=== PATIENT | male | born 1945 | race Caucasian/White ===

== ENCOUNTER 2021-12-29 13:36 | Outpatient (CLI) | payer MEDICARE, SELFPAY ==
[2021-12-29 12:19] LABS: Abs Immature Grans 0.02 10^3/uL (0.0-0.06); Absolute Basophil Count 0.02 10^3/uL (0.0-0.2); Absolute Eosinophil Count 0.07 10^3/uL (0.0-0.7); Absolute Lymphocyte Count 1.72 10^3/uL (1.2-3.4); Absolute Monocyte Count 0.51 10^3/uL (0.1-0.8); Absolute Neutrophil Count 4.11 10^3/uL (1.2-6.7); Basophils % 0.3; Eosinophils % 1.1; HCT 33.9 % (40.0-50.0); Immature Grans % 0.3; Lymphocytes % 26.7; MCH 29.8 pg (27.0-33.0); MCHC 32.4 % (32.0-36.0); MCV 92 fL (80-95); MPV 8.8 fL (8.0-11.0); Monocytes % 7.9; Neutrophils % 63.7; Platelet Count 314 10^3/uL (130-400); RBC 3.69 10^6/uL (4.36-5.78); RDW 13.4 % (11.8-14.1); WBC 6.45 10^3/uL (4.4-10.8)
[2021-12-29 12:30] LABS: ALT 11 U/L (16-63); AST 9 U/L (15-37); Alkaline Phosphatase 125 U/L (46-116); Anion Gap 6.8 mmol/L (3-11); BUN 21 mg/dL (7-18); Bilirubin, Total 0.2 mg/dL (0.2-1.0); CO2 29.2 mmol/L (21.0-32.0); CREATININE 1.5 mg/dL (0.70-1.30); Calcium 8.8 mg/dL (8.5-10.1); Chloride 100 mmol/L (98-107); Estimated GFR 45.26 (mL/min/1.73m2); Glucose 160 mg/dL (74-106); Magnesium 1.4 mg/dL (1.8-2.4); Sodium 136 mmol/L (136-145)
== END 2021-12-29 13:37 | disposition home or self-care (01) ==
LOC: LBO 13:37
PROVIDERS: PCP Family Medicine; Visit Provider Internal Medicine Medical Oncology
DX: C34.12 Malignant neoplasm of upper lobe, left bronchus or lung (principal)
CPT/HCPCS: 36415; 80053; 83735; 85025

== ENCOUNTER 2022-01-06 03:43 | Outpatient (CLI) | payer MEDICARE, SELFPAY ==
[2022-01-06 08:01] LABS: Abs Immature Grans 0.03 10^3/uL (0.0-0.06); Absolute Basophil Count 0.02 10^3/uL (0.0-0.2); Absolute Eosinophil Count 0.02 10^3/uL (0.0-0.7); Absolute Lymphocyte Count 0.77 10^3/uL (1.2-3.4); Absolute Monocyte Count 0.31 10^3/uL (0.1-0.8); Absolute Neutrophil Count 3.47 10^3/uL (1.2-6.7); Basophils % 0.4; Eosinophils % 0.4; HCT 30.2 % (40.0-50.0); HGB 10.4 g/dL (13.5-17.5); Immature Grans % 0.6; Lymphocytes % 16.7; MCH 31.3 pg (27.0-33.0); MCHC 34.4 % (32.0-36.0); MCV 91 fL (80-95); MPV 9.4 fL (8.0-11.0); Monocytes % 6.7; Neutrophils % 75.2; Platelet Count 262 10^3/uL (130-400); RBC 3.32 10^6/uL (4.36-5.78); RDW-SD 43.1 fL; WBC 4.62 10^3/uL (4.4-10.8)
[2022-01-06 08:19] LABS: ALT 10 U/L (16-63); AST 9 U/L (15-37); Albumin 2.8 g/dL (3.4-5.0); Alkaline Phosphatase 138 U/L (46-116); Anion Gap 10.5 mmol/L (3-11); BUN 23 mg/dL (7-18); Bilirubin, Total 0.3 mg/dL (0.2-1.0); CO2 28.5 mmol/L (21.0-32.0); CREATININE 1.7 mg/dL (0.70-1.30); Calcium 8.4 mg/dL (8.5-10.1); Chloride 97 mmol/L (98-107); Estimated GFR 39.18 (mL/min/1.73m2); Glucose 228 mg/dL (74-106); Magnesium 0.9 mg/dL (1.8-2.4); Potassium 3.8 mmol/L (3.5-5.1); Sodium 136 mmol/L (136-145); Total Protein 6.9 g/dL (6.4-8.2)
== END 2022-01-06 03:44 | disposition home or self-care (01) ==
LOC: LBO 03:43
PROVIDERS: PCP Family Medicine; Visit Provider Internal Medicine Medical Oncology
DX: C34.12 Malignant neoplasm of upper lobe, left bronchus or lung (principal)
CPT/HCPCS: 36415; 80053; 83735; 85025

== ENCOUNTER 2022-01-12 02:59 | Outpatient (CLI) | payer MEDICARE, SELFPAY | END 2022-01-12 03:00 | disposition home or self-care (01) | LOC: LBO 03:00 | PROVIDERS: PCP Family Medicine; Visit Provider Internal Medicine Medical Oncology ==

== ENCOUNTER 2022-01-13 08:57 | Outpatient (CLI) | payer MEDICARE, SELFPAY ==
[2022-01-13 09:09] LABS: Abs Immature Grans 0.01 10^3/uL (0.0-0.06); Absolute Basophil Count 0.01 10^3/uL (0.0-0.2); Absolute Eosinophil Count 0.01 10^3/uL (0.0-0.7); Absolute Monocyte Count 0.29 10^3/uL (0.1-0.8); Absolute Neutrophil Count 2.44 10^3/uL (1.2-6.7); Basophils % 0.3; Eosinophils % 0.3; HCT 23.5 % (40.0-50.0); HGB 7.8 g/dL (13.5-17.5); Immature Grans % 0.3; Lymphocytes % 20.2; MCH 30.5 pg (27.0-33.0); MCHC 33.2 % (32.0-36.0); MCV 92 fL (80-95); MPV 9.1 fL (8.0-11.0); Monocytes % 8.4; Neutrophils % 70.5; RBC 2.56 10^6/uL (4.36-5.78); RDW 13.2 % (11.8-14.1); RDW-SD 43.8 fL; WBC 3.46 10^3/uL (4.4-10.8)
[2022-01-13 09:23] LABS: Diff Comment Diff Reviewed; Hypochromasia 2+; Platelet Count 203 10^3/uL (130-400); Polychromasia Present
[2022-01-13 09:26] LABS: ALT 11 U/L (16-63); AST 8 U/L (15-37); Albumin 2.4 g/dL (3.4-5.0); Alkaline Phosphatase 113 U/L (46-116); Anion Gap 12.1 mmol/L (3-11); BUN 23 mg/dL (7-18); Bilirubin, Total 0.3 mg/dL (0.2-1.0); CO2 25.9 mmol/L (21.0-32.0); CREATININE 1.6 mg/dL (0.70-1.30); Calcium 8.6 mg/dL (8.5-10.1); Chloride 101 mmol/L (98-107); Estimated GFR 42.01 (mL/min/1.73m2); Glucose 273 mg/dL (74-106); Magnesium 1.4 mg/dL (1.8-2.4); Sodium 139 mmol/L (136-145); Total Protein 6.3 g/dL (6.4-8.2)
== END 2022-01-13 08:58 | disposition home or self-care (01) ==
PROVIDERS: Internal Medicine Medical Oncology; PCP Family Medicine; Visit Provider Nurse Practitioner Adult Health
DX: C34.12 Malignant neoplasm of upper lobe, left bronchus or lung (principal)
CPT/HCPCS: 36415; 80053; 86850; 86900; 86901; 86920; 83735; 85025

== ENCOUNTER 2022-01-19 02:03 | Outpatient (CLI) | payer MEDICARE, SELFPAY ==
--- OUTSIDE RECORDS SUMMARY | 2022-01-19 02:07 | XMS_ITS | Encounter Summary ---
:1945 Author Organization [facility] [place] [address] Care Team Providers Name Role Phone Que Sharma DO Primary Care Provider Reason for Visit Reason Comments IV Medication Hydration + IV mag Encounter Details Date Type Department Care Team Description 01/13/2022 Infusion Hematology Oncology at [facility] squamous cell [facility] carcinoma of upper lobe of [address] left lung [place] [phone] Social History Tobacco Use Types Packs/Day Years Used Date Current Every Day Smoker Cigars 0.5 65 Smokeless Tobacco: Never Used Comments: cut back to 4-5 /day Alcohol Use Standard Drinks/Week Comments Not Currently 0 (1 standard drink = 0.6 oz pure alcoho l) Financial Resource Strain Answer Date Recorded How hard is it for you to pay for the very basics like Somew hat hard 12/17/2021 food, housing, medical care, and heating? Food Insecurity Answer Date Recorded Within the past 12 months, you worried that your food Never true 12/17/2021 would run out before you got money to buy more. Within the past 12 months, the food you bought just Patient refused 12/17/2021 didn't last and you didn't have money to get more. Transportation Needs Answer Date Recorded In the past 12 months, has lack of transportation kept you f rom No 12/17/2021 medical appointments or from getting medications? In the past 12 months, has lack of transportation kept you f rom No 12/17/2021 meetings, work, or getting things needed for daily living? Housing Stability Answer Date Recorded In the last 12 months, was there a time when you were not ab le No 12/17/2021 to pay the mortgage or rent on time? In the last 12 months, how many places have you lived? 2 12/17/2021 In the last 12 months, was there a time when you did not hav e a No 12/17/[address] or slept in a senior living (including now)? Sex Assigned at Date Recorded Not on file documented as of this encounter Last Filed Vital Signs Vital Sign Reading Time Taken Comments Blood Pressure 127/64 01/13/2022 9:50 AM EDT Pulse 123 01/13/2022 9:50 AM EDT Temperature 36.5 ??C (97.7 ??F) 01/13/2022 9:50 AM EDT Respiratory Rate 20 01/13/2022 9:50 AM EDT Oxygen Saturation 99% 01/13/2022 9:50 AM EDT Inhaled Oxygen Concentration - - Weight 80.3 kg (177 lb) 01/13/2022 9:50 AM EDT Height 172 cm (5' 7.72) 01/13/2022 9:50 AM EDT Body Mass Index 27.14 01/13/2022 9:50 AM EDT documented in this encounter Patient Instructions Patient InstructionsCaity Allred RN - 01/13/2022 10:00 AM EDT You will have an infusion of hydration and magnesium here at the cancer center today. Then you will have your radiation treatment. Then please go to [facility] outpatient lab to have your blood drawn again and a band put on your arm. Please leave this band on, they will need it so you can get your blood transfusion tomorrow. Please go to [facility] infusion room on the second floor of the hospital tomorrow morning at 9am. They will give you your blood transfusion. Come to the cancer center when you are done your blood transfusion and you will have your radiation treatment. documented in this encounter Progress Notes Breanna Gutierrez RN - 01/13/2022 10:00 AM EDT INFUSION THERAPY ADMINISTRATION NOTES DIAGNOSIS: NSCLC REASON FOR VISIT: Hydration + IV Mag SUBJECTIVE Don reports feeling lightheaded today. Hg 7.8, Dr. Issa notified, holding chemo today. He states he fell on Wednesday and was evaluated in the ED at [facility] on Wednesday. Don denies hematuria, blood in his stool, abdominal pain, chest pain, or changes in his breathing. Hydration and IV mag only today. OBJECTIVE IV ACCESS: Left hand PIV REACTIONS (DESCRIPTION, TIME, INTERVENTION AND EFFECTIVENESS) none ASSESSMENT Don was awake, alert and tolerated treatment well. PLAN Return to [facility] this afternoon for type and screen, blood transfusion at [facility] tomorrow. documented in this encounter Plan of Treatment Upcoming Encounters Date Type Specialty Care Team Description 01/19/2022 Office Visit Tanvir Vivas MD [facility] HEMATOLOGY/[place] [address] Arlene Hill APRN [facility] HEMATOLOGY [place] [address] 01/19/2022 Infusion Hematology and Oncology 01/19/2022 Scheduled View Only Radiation Oncology 01/20/2022 Scheduled View Only Radiation Oncology 01/21/2022 Scheduled View Only Radiation Oncology 01/22/2022 Scheduled View Only Radiation Oncology 01/22/2022 Office Visit Radiation Oncology Adriana De La Rosa v, MD [address] [place] [address] [place] [address] (Wo rk) 01/23/2022 Scheduled View Only Radiation Oncology 01/26/2022 Office Visit Tanvir Vivas MD [facility] HEMATOLOGY/[place] [address] Oncology Arlene Bobby APRN [facility] HEMATOLOGY [place] [address] 01/26/2022 Infusion Hematology and Oncology 01/26/2022 Scheduled View Only Radiation Oncology 01/27/2022 Scheduled View Only Radiation Oncology 01/28/2022 Scheduled View Only Radiation Oncology 01/29/2022 Scheduled View Only Radiation Oncology 01/29/2022 Office Visit Radiation Oncology Adriana De La Rosa v, MD [address] [place] [address] DR CIPRIANO [place], [place] [id number] (Wo rk) 01/30/2022 Scheduled View Only Radiation Oncology 02/02/2022 Office Visit Hematology and Arlene Bobby, Oncology [facility] HEMATOLOGY AND ONCOLOGY [place], [place] [address] (Wo rk) 02/02/2022 Infusion Hematology and Oncology 02/02/2022 Scheduled View Only Radiation Oncology 02/03/2022 Scheduled View Only Radiation Oncology 02/04/2022 Scheduled View Only Radiation Oncology 02/05/2022 Scheduled View Only Radiation Oncology 02/05/2022 Office Visit Radiation Oncology Adriana De La Rosa v, MD [address] [place] [address] DR CIPRIANO [place], [place] [id number] (Wo rk) 02/06/2022 Scheduled View Only Radiation Oncology 02/09/2022 Office Visit Hematology and Arlene Bobby, Oncology [facility] HEMATOLOGY AND ONCOLOGY [place], [place] [address] (Wo rk) 02/09/2022 Infusion Hematology and Oncology 02/09/2022 Scheduled View Only Radiation Oncology 02/09/2022 Notes Only Radiation Oncology Adriana De La Rosa v, MD [address] [place] [address] DR CIPRIANO [place], [place] [address] (Wo rk) 02/10/2022 Scheduled View Only Radiation Oncology Scheduled Orders Name Type Priority Associated Diagnoses Order S chedule Type and screen Lab Routine Primary squamous cell Exp ected: 01/13/2022, ([facility] [place]) carcinoma of upper lobe of Expires: 07/15/2022 left lung documented as of this encounter Visit Diagnoses Diagnosis 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 documented in this encounter Administered Medications Inactive Administered Medications - up to 3 most recent administrations Medication Order MAR Action Action Date Dose Rate Site magnesium sulfate 2 g in New Bag 01/13/2022 10:30 AM EDT 2 g 25 mL/hr sterile water 50 mL infusion 2 g, Intravenous, ONCE, 1 dose, On Wed01/13/22 at 1015, Administer over 120 Minutes, 1gm per hour - total 2 gms sodium chloride 0.9% infusion New Bag 01/13/2022 10:30 AM EDT 500 mL/hr 500 mL/hr 500 mL/hr, Intravenous, CONTINUOUS, Starting on Wed01/13/22 at 1015, Until Wed01/13/22 at 1656, Please infuse 1 L of normal saline over 2 hours documented in this encounter Care Teams Fire Protection Engineering Technician Relationship Specialty Start Date End Date Que Sharma DO PCP - General Family Medicine 02/08/20 [address] [place] [address] documented as of this encounter
--- OUTSIDE RECORDS SUMMARY | 2022-01-19 02:07 | XMS_ITS | Encounter Summary ---
:1945 Author Organization [facility] [place] [address] Care Team Providers Name Role Phone Que Sharma DO Primary Care Provider Encounter Details Date Type Department Care Team Description 01/08/2022 Office Visit Radiation Oncology at [facility] squamous cell [facility] carcinoma of upper [address] [place] [address] DR lobe of left lung [place], [place] RADIATION ONCOL OGY [id number] [place], [place] [phone] (Wo rk) Social History Tobacco Use Types Packs/Day Years [...] Sign Reading Time Taken Comments Blood Pressure 114/54 01/08/2022 3:57 PM EDT Pulse 117 01/08/2022 3:57 PM EDT Temperature 36.5 ??C (97.7 ??F) 01/08/2022 3:00 PM EDT Respiratory Rate 32 01/08/2022 3:00 PM EDT Oxygen Saturation 100% 01/08/2022 3:00 PM EDT Inhaled Oxygen Concentration - - Weight 79.8 kg (176 lb) 01/08/2022 3:00 PM EDT Height - - Body Mass Index 26.98 01/06/2022 8:31 AM EDT documented in this encounter Progress Notes Bill De La Rosa MD - 01/08/2022 4:00 PM EDT Images from the original note were not included. 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 Staging form: Lung, AJCC 8th Edition - Clinical: Stage IIB (cT3, cN0, cM0) - Signed by Bill De La Rosa MD on 12/16/2021 Treatment Details Intent: Definitive (Curative) Concurrent Therapy: Carbo/Taxol (from Dr Issa) ONCBCN ONCOLOGY (AMB) 12/29/2021 Day, Cycle Day 1, Cycle 1 CARBOplatin (Paraplatin) IV 144 mg PACLitaxeL (Taxol) IV 50 mg/m2/dose = 99 mg Modality: IMRT Treatment Site Left lung / chest wall Prescribed Dose 60 Gy in 30 fractions Current Dose: 14 Gy in 7 fractions (seen pre-treatment today) Platform Operations Director Barajas from Current Plan (minimum 60 Gy isodose volume shown): Interval Clinical Course General: No changes since last seen. Overall feels fair today. Lightheaded. Resp: No new cough / SOB. Ongoing dry cough per baseline. No esophagitis. Pain: Pain score today is 3/10 in his left shoulder. Yesterday he had no pain at all! Fentanyl 50mcg working well - not needing fentanyl. Tylenol 1000mg QHS as well. He is constipated. Performance Status KPS Score ECOG Grade Definition 90-100 0 Fully active, able to carry on all pre-disease performance without restriction 70-80 1 Restricted in physically strenuous activity but ambulatory and able to carry out work of a light or sedentary nature, e.g., light house work, office work XX 50-60 2 Ambulatory and capable of all selfcare but unable to carry out any work activities; up and about more than 50% of waking hours 30-40 3 Capable of only limited selfcare; confined to bed or chair more than 50% of waking hours 10-20 4 Completely disabled; cannot carry on any selfcare; totally confined to bed or chair Medications Medications 01/08/22 1566 Medication Sig Taking? pravastatin (PRAVACHOL) 40 mg Tablet Take 40 mg by mouth daily. Yes fentaNYL (Duragesic) 50 mcg/hr Patch 72 hr Change 1 patch on the skin every 3 days. Yes docusate sodium (Colace) 100 mg Capsule Take 100 mg by mouth as needed for Constipation. Yes benazepriL (LOTENSIN) 10 mg Tablet 30 mg. Yes benazepriL (LOTENSIN) 20 mg Tablet Take 20 mg by mouth daily. Yes acetaminophen (Tylenol) 500 mg Tablet Take 1,000 mg by mouth every 6 hours as needed for Pain. Yes metFORMIN (Glucophage) 500 mg Tablet Take 500 mg by mouth daily. Yes aspirin EC 81 mg Tablet, Delayed Release (E.C.) Daily. Yes ferrous sulfate 325 mg (65 mg iron) Tablet ferrous sulfate 325 mg (65 mg iron) tablet 1 tablet by mouth daily Yes furosemide (Lasix) 40 mg Tablet daily. Yes potassium chloride (MICRO-K) 10 mEq Capsule, Sustained Release TAKE 1 CAPSULE BY MOUTH EVERY DAY WHEN TAKING FUROSEMIDE Yes omeprazole (PriLOSEC) 20 mg Capsule, Delayed Release(E.C.) TAKE 1 CAPSULE BY MOUTH EVERY DAY Yes tamsulosin (Flomax) 0.4 mg Capsule nightly. Yes prochlorperazine (Compazine) 10 mg Tablet Take 1 tablet by mouth every 6 hours as needed for Nausea. Patient not taking: No sig reported ondansetron (Zofran) 8 mg Tablet Take 1 tablet by mouth every 8 hours as needed for Nausea. Do not use the first three days after infusion. Use compazine the first three days - then it is OK to use theOndansetron after that Patient not taking: No sig reported HYDROmorphone (Dilaudid) 4 mg Tablet Take by mouth as needed. albuteroL 90 mcg/actuation HFA Aerosol Inhaler USE 2 PUFFS 4 TIMES A DAY NEEDED 2 PUFFS EVERY 6 HOURS NEEDED FOR SHORTNESS OF BREATH/WHEEZING Exam Vitals: BP 123/58 Pulse (!) 112 Temp 36.5 ??C (97.7 ??F) Resp (!) 32 Wt 79.8 kg (176 lb) SpO2 100% BMI 26.98 kg/m?? General: Appears well, in no distress CV: Tachycardic but with regular rhythm. Imaging/Labs Interval setup imaging has been checked and approved. See [facility] for details. Impression/Plan Tolerance to radiotherapy: Tolerating as anticipated. Continue as planned. Tachycardia: Rec he hydrate and check in w PCP for EKG to be sure he is in sinus rhythm. I have also called and left a message for Dr Sharma. Followup: RTC for on-treatment assessment next week. No orders of the defined types were placed in this encounter. ??? [facility] [place] ([facility] ??? [employer] on Cancer (ACS [employer]) Accredited Cancer Program ??? [employer] ([employer]) Accredited Radiation Oncology Program documented in this encounter Plan of Treatment Upcoming Encounters Date Type Specialty Care Team Description 01/19/2022 Office Visit Hematology Tanvir Hawk MD [facility] HEMATOLOGY/[place] [address] Oncology Arlene Bobby APRN [facility] HEMATOLOGY [place] [address] 01/19/2022 Infusion Hematology and Oncology 01/19/2022 Scheduled View Only Radiation Oncology 01/20/2022 Scheduled View Only Radiation Oncology 01/21/2022 Scheduled View Only Radiation Oncology 01/22/2022 Scheduled View Only Radiation Oncology 01/22/2022 Office Visit Radiation Oncology Adriana De La Rosa v, MD [address] [place] [address] DR [place], [place] [id number] (Wo rk) 01/23/2022 Scheduled View Only Radiation Oncology 01/26/2022 Office Visit Hematology and Tanvir Issa MD [facility] HEMATOLOGY/[place] [address] Oncology Arlene Bobby DIRECTOR OF INFECTION PREVENTION [facility] HEMATOLOGY [place] [address] 01/26/2022 Infusion Hematology and Oncology 01/26/2022 Scheduled View Only Radiation Oncology 01/27/2022 Scheduled View Only Radiation Oncology 01/28/2022 Scheduled View Only Radiation Oncology 01/29/2022 Scheduled View Only Radiation Oncology 01/29/2022 Office Visit Radiation Oncology Adrinaa De La Rosa v, MD [address] [place] [address] DR [place], [place] [id number] (Wo rk) 01/30/2022 Scheduled View Only Radiation Oncology 02/02/2022 Office Visit Hematology Arlene Gordillo, Oncology [facility] HEMATOLOGY AND ONCOLOGY [place], [place] [address] (Wo rk) 02/02/2022 Infusion Hematology and Oncology 02/02/2022 Scheduled View Only Radiation Oncology 02/03/2022 Scheduled View Only Radiation Oncology 02/04/2022 Scheduled View Only Radiation Oncology 02/05/2022 Scheduled View Only Radiation Oncology 02/05/2022 Office Visit Radiation Oncology Adriana De La Rosa v, MD [address] [place] [address] RAD[place]ATION [place], [place] [address] (Wo rk) 02/06/2022 Scheduled View Only Radiation Oncology 02/09/2022 Office Visit Hematology and Arlene Bobby, Oncology [facility] HEMATOLOGY AND ONCOLOGY [place], [place] [address] (Wo rk) 02/09/2022 Infusion Hematology and Oncology 02/09/2022 Scheduled View Only Radiation Oncology 02/09/2022 Notes Only Radiation Oncology Adriana De La Rosa v, MD [address] [place] [address] [place], [place] [id number] (Wo rk) 02/10/2022 Scheduled View Only Radiation Oncology documented as of this encounter Visit Diagnoses Diagnosis 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
--- OUTSIDE RECORDS SUMMARY | 2022-01-19 02:07 | XMS_ITS | Clinical Summary ---
:1945 Author Organization [facility] [place] [address] Care Team Providers Name Role Phone Edith, Que Edmonds DO Primary Care Provider Allergies No known active allergies Medications Medication Sig Dispensed Refills Start Date End Date Status aspirin EC 81 mg Daily. 0 Act cheikh Tablet, Delayed Release (E.C.) ferrous sulfate 325 mg ferrous sulfate 325 mg (65 mg iron) tablet 0 Active (65 mg iron) Tablet 1 tablet by mouth daily furosemide (Lasix) 40 daily. 0 10/26/2019 Active mg Tablet potassium chloride TAKE 1 CAPSULE BY 0 10/06/2019 Active (MICRO-K) 10 mEq MOUTH EVERY DAY Capsule, Sustained WHEN TAKING Release FUROSEMIDE omeprazole (PriLOSEC) TAKE 1 CAPSULE BY 0 09/26/2019 Active 20 mg Capsule, Delayed MOUTH EVERY DAY Release(E.C.) tamsulosin (Flomax) 0.4 nightly. 0 12/25/2019 Active mg Capsule metFORMIN (Glucophage) Take 500 mg by 0 Active 500 mg Tablet mouth daily. acetaminophen (Tylenol) Take 1,000 mg by 0 Active 500 mg Tablet mouth every 6 hours as needed for Pain. HYDROmorphone Take by mouth as 0 12/09/2021 Active (Dilaudid) 4 mg Tablet needed. albuteroL 90 USE 2 PUFFS 4 0 09/19/2021 Ac tive mcg/actuation HFA TIMES A DAY Aerosol Inhaler NEEDED 2 PUFFS EVERY 6 HOURS NEEDED FOR SHORTNESS OF BREATH/WHEEZING benazepriL (LOTENSIN) 30 mg. 0 12/09/2021 Active 10 mg Tablet benazepriL (LOTENSIN) Take 20 mg by 0 11/14/2021 Active 20 mg Tablet mouth daily. docusate sodium Take 100 mg by 0 Active (Colace) 100 mg Capsule mouth as needed for Constipation. fentaNYL (Duragesic) 50 Change 1 patch on 10 patch 0 12/24/19 22 Active mcg/hr Patch 72 hr the skin every 3 days. prochlorperazine Take 1 tablet by 15 tablet 0 12/29/2021 Active (Compazine) 10 mg mouth every 6 Tablet hours as needed for Nausea. ondansetron (Zofran) 8 Take 1 tablet by 20 tablet 0 12/29/2021 Active mg Tablet mouth every 8 hours as needed for Nausea. Do not use the first three days after infusion. Use compazine the first three days - then it is OK to use the Ondansetron after that Additional Information Patient taking differently: 8 mg Oral EVERY 8 HOURS PRN, Nausea, Do not use the first three days after infusion. Use compazine the first three days - then it is OK to use the Ondansetron after that, Reported on 01/15/2022 pravastatin (PRAVACHOL) 40 mg Take 40 mg by mouth daily. 0 12/19/2021 Active Tablet Eliquis 5 mg Tablet Take 5 mg by mouth 2 times 0 03/2022 Active daily. magnesium oxide (Mag-Ox) 400 mg Take 1 tablet by mouth 2 0 01/10/2022 Active (241.3 mg magnesium) Tablet times daily. dilTIAZem CD (Cardizem CD) 120 mg Take 120 mg by mouth daily. 0 01/10/2022 Active Capsule, Sust. 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 12/11/2021 Cancer Staging: Clinical: Stage IIB (cT3 , cN0, cM0) - Signed by Bill De La Rosa MD on 12/16/2021 Bilateral carotid artery stenosis 02/14/2020 Overview: Added automatically from request for heidy terry [id number] Pre-op testing 02/14/2020 Overview: Added automatically from request for heidy terry [id number] Cigarette smoker 02/14/2020 Overview: Added automatically from request for heidy stewart [id number] Encounters Date Type Specialty Care Team Description 01/19/2022 Infusion Hematology and Oncology 01/15/2022 Office Visit Radiation Bill De La Rosa Primary squam ous Oncology MD Cheryl cell carcinoma of upper lobe of l eft lung 01/13/2022 Infusion Hematology and Primary squam ous Oncology cell carcinoma of upper lobe of l eft lung 01/13/2022 Telephone Hematology and Caity Allred Labs Only Oncology L, RN 01/12/2022 Office Visit Hematology and Tanvir Issa Primary sq uamous Oncology MD Siobhan cell carcinoma of Arlene Bobby 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, 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 01/08/2022 Office Visit Radiation Bill De La Rosa Primary squam ous Oncology MD Cheryl cell carcinoma of upper lobe of l eft lung 01/07/2022 Ancillary Procedure Radiation Bill De La Rosa Malign ant neoplasm Oncology MD Cheryl of upper lobe, left bronchus or efraín g 01/07/2022 Ancillary Appointment Radiation Bill De La Rosa Oncology MD Cheryl 01/06/2022 Infusion Hematology and Primary squam ous Oncology cell carcinoma of upper lobe of l eft lung 01/06/2022 Orders Only Hematology and Tanvir Issa Primary sq uamous Oncology MD Siobhna cell carcinoma of upper lobe of l eft lung 01/01/2022 Office Visit Radiation Bill De La Rosa Primary squam ous Oncology MD Cheryl cell carcinoma of upper lobe of l eft lung 01/01/2022 Orders Only Radiation Bill De La Rosa Primary squam ous Oncology MD Cheryl cell carcinoma of upper lobe of l eft lung 12/31/2021 Telephone Hematology and Iris Follow-up ( rst Oncology Elie, Neena cycle chemo.) M, RN 12/29/2021 Infusion Hematology and Primary squam ous Oncology cell carcinoma of upper lobe of l eft lung 12/29/2021 Clinical Support Hematology and Tanvir Issaar y squamous cell carcinoma of upper lobe of left lung; Oncology MD Siobhan Cigarette smoker; Arlene Bobby 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, 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[employer] 12/29/2021 Notes Only Hematology and Jennifer Haile, Oncology SERVICER [employer] 12/23/2021 Orders Only Radiation Bill De La Rosa MD 12/17/2021 Ancillary Appointment Radiation Bill De La Rosa MD 12/17/2021 Office Visit Radiation Bill De La Rosa Primary squam ous Oncology MD Cheryl cell carcinoma of upper lobe of l eft lung 12/17/2021 Notes Only Radiation Marilin Valentino Oncology Kathleen RN 12/17/2021 Notes Only Radiation Jennifer Haile, Oncology [employer] 12/16/2021 Multidisciplinary Care Thoracic Surgery Argentina Chung MD 12/11/2021 Office Visit Hematology and Tanvir Issa Primary sq uawyus Ruslan Mccann MD cell carcinoma of Leighann Herlinda, upper lobe o f left Jeannette MD Kathleen lung 12/11/2021 Office Visit Thoracic Surgery Sheldon, Primary squ aubreyous Matthew Mccann MD cell carcinoma of upper lobe of l eft lung 12/11/2021 Hospital Encounter Pulmonology Mass of u pper lobe of left lung 12/11/2021 Orders Only Radiation Bill De La Rosa Primary squam ous Oncology MD Cheryl cell carcinoma of upper lobe of l eft lung 12/09/2021 Telephone Thoracic Surgery Kajal Vidales Post Proce dure Call Kathleen RN 12/03/2021 Anesthesia Event Surgery Renea Leon MD Earley, Timothy M, DO 12/03/2021 Surgery Surgery MIGUEL Chung W Matthew Mccann MD ENDOBRONCHIAL ULTRASOUND (EBU S) GUIDED SAMPLING , 3+ NODES (WRVU 5.2 1) 12/03/2021 Hospital Encounter General Surgery Sheldon Mass o f upper lobe Matthew Mccann MD of left lung 12/03/2021 Hospital Encounter Hematology and Mass of upper lobe Oncology of left lung 12/03/2021 External Results Provider, Scanning 11/28/2021 Orders Only Thoracic Surgery Kajal Vidales RN 11/28/2021 Orders Only Hematology and Tasia Montaño Mass of up per lobe Oncology C, [employer] of left lung 11/27/2021 Clinical Support Primary Care Aden, Cigarette s moker; Gabrielle A Other tobacco p roduct nicotine dependence, uncomplicated 11/27/2021 Office Visit Thoracic Surgery Archie Chung of upp er lobe Matthew Mccann MD of left lung 11/27/2021 Hospital Encounter Lab 11/27/2021 Telephone Thoracic Surgery Valentin Benton German 11/21/2021 Orders Only Vascular Surgery Hossein, Bilateral c arotid artery stenosis; Ya Mccann CMA History of CE A (carotid endarterectomy) 11/20/2021 Telephone Pulmonology Holley Banuelos L 11/17/2021 Telephone Pulmonology Lakisha Holley L 11/14/2021 Transcribe Orders Primary Care Doretha Sharma ma lignant Que Edmonds, DO neoplasm of bronchus of lef t upper lobe 11/14/2021 Transcribe Orders Primary Care Edith, Malignant neoplasm Que Edmonds, DO of upper lobe bronchus, left 11/14/2021 Transcribe Orders Primary Care dEith Malignant neoplasm Que Edmonds, DO of upper lobe of left lung 11/12/2021 Ancillary Procedure Radiology Que Sharma, DO 10/20/2021 Ancillary Procedure Radiology Que Sharma, DO from Last 3 Months Family History Medical History Relation Comments Cancer Sister possibly stomach? Relation Status Comments Sister Social History Tobacco Use Types Packs/Day Years [...] place to sleep or slept in a snf (including now)? Sex Assigned at Date Recorded Not on file Last Filed Vital Signs Vital Sign Reading Time Taken Comments Blood Pressure 117/49 01/15/2022 2:00 PM EDT Pulse 100 01/15/2022 2:00 PM EDT Temperature 36.6 ??C (97.9 ??F) 01/15/2022 2:00 PM EDT Respiratory Rate 20 01/13/2022 9:50 AM EDT Oxygen Saturation 99% 01/13/2022 9:50 AM EDT Inhaled Oxygen Concentration - - Weight 81.2 kg (179 lb) 01/15/2022 2:00 PM EDT Height 172 cm (5' 7.72) 01/13/2022 9:50 AM EDT Body Mass Index 27.44 01/13/2022 9:50 AM EDT Plan of Treatment Upcoming Encounters Date Type Specialty Care Team Description 01/19/2022 Office Visit Hematology and Tanvir Issa MD [facility] [address] HEMATOLOGY/[place] [address] Oncology Arlene Bobby APRN [facility] [place] [address] 01/19/2022 Infusion Hematology and Oncology 01/19/2022 Scheduled View Only Radiation Oncology 01/20/2022 Scheduled View Only Radiation Oncology 01/21/2022 Scheduled View Only Radiation Oncology 01/22/2022 Scheduled View Only Radiation Oncology 01/22/2022 Office Visit Radiation Oncology Adriana De La Rosa v, MD [address] [place] [address] [place] [address] (Wo rk) 01/23/2022 Scheduled View Only Radiation Oncology 01/26/2022 Office Visit Hematology and Tanvir Issa MD [facility] [address] HEMATOLOGY/[place] [address] Oncology Arlene Bobby [facility] [place] [address] 01/26/2022 Infusion Hematology and Oncology 01/26/2022 Scheduled View Only Radiation Oncology 01/27/2022 Scheduled View Only Radiation Oncology 01/28/2022 Scheduled View Only Radiation Oncology 01/29/2022 Scheduled View Only Radiation Oncology 01/29/2022 Office Visit Radiation Oncology Adriana De La Rosa v, MD [address] [place] [address] [place] [address] (Wo rk) 01/30/2022 Scheduled View Only Radiation Oncology 02/02/2022 Office Visit Hematology and Arlene Bobby, Oncology [facility] HEMATOLOGY AND ONCOLOGY [place], [place] [address] (Wo rk) 02/02/2022 Infusion Hematology and Oncology 02/02/2022 Scheduled View Only Radiation Oncology 02/03/2022 Scheduled View Only Radiation Oncology 02/04/2022 Scheduled View Only Radiation Oncology 02/05/2022 Scheduled View Only Radiation Oncology 02/05/2022 Office Visit Radiation Oncology Adriana De La Rosa v, MD [address] [place] [address] [place] [address] (Wo rk) 02/06/2022 Scheduled View Only Radiation Oncology 02/09/2022 Office Visit Hematology and Arlene Bobby Oncology [facility] HEMATOLOGY AND ONCOLOGY [place], [place] [address] (Wo rk) 02/09/2022 Infusion Hematology and Oncology 02/09/2022 Scheduled View Only Radiation Oncology 02/09/2022 Notes Only Radiation Oncology Adriana De La Rosa v, MD [address] [place] [address] [place] [address] (Wo rk) 02/10/2022 Scheduled View Only Radiation Oncology Health Maintenance Due Date Last Done Comments Covid-19 Vaccine (#1) 09/23/1950 Pneumoccocal Vaccine: 65+ (1 - PCV) 09/23/1949 Hepatitis C Screening 09/23/1961 Tdap adult 09/23/1962 Tetanus vaccine 09/23/1962 Zoster vaccine (1 of 2) 09/23/1993 Advance Directive 09/23/1998 Influenza (Flu) vaccine (1 of 1 - Influenza standard 03/05/2022 series) Medical Devices Implanted Type Area Chemist Assistant Device Identifier Shelf Model / Expiration Serial / Date Lot Patch,Biol,Xenosure,.8x8cm ([id number]) - [id number] IMPLANTS Righ t: LEMAITRE [id number] 09/29/2025 E0.8P8 / Implanted: Qty: 1 on 03/19/2020 by Alee Sanders MD at [facility] [employer] - / LEIMAITRE [id number] Procedures Procedure Name Priority Date/Time Associated Comments Diagnosis ORDS - PROVIDER CARE 01/13/2022 12:00 SCAN AM EDT LAB SCAN 01/13/2022 12:00 Results for this AM EDT procedure are i n the results section. LAB SCAN 01/12/2022 12:00 Results for this AM EDT procedure are i n the results section. LAB SCAN 01/06/2022 12:00 Results for this AM EDT procedure are i n the results section. LAB SCAN 12/29/2021 12:00 Results for this AM EDT procedure are i n the results section. CT RAD ONC CHEST Routine 12/17/2021 12:33 Malignant neoplasm R esults for this INTERP ONLY PM EDT of upper lobe, left procedur e are in bronchus or lung the results section. PULMONARY FUNCTION Routine 12/11/2021 9:11 AM Mass of upper lo be Results for this TEST EDT of left lung procedure are i n the results section. BRONCHOSCOPY, WITH Routine 12/03/2021 4:22 PM Mass of upper lo be BIOPSY EDT of left lung NON-PRODUCTION ENGINEER FINAL REPORT Routine 12/03/2021 4:18 PM R esults for this EDT procedure are i n the results section. CYTOPATHOLOGY Routine 12/03/2021 4:18 PM Results for this NON-GYNECOLOGICAL EDT procedure are in the results section. SPECIMEN TO PATHOLOGY Routine 12/03/2021 4:14 PM Results for this EDT procedure are i n the results section. NON-PRODUCTION ENGINEER FINAL REPORT Routine 12/03/2021 3:58 PM R esults for this EDT procedure are i n the results section. CYTOPATHOLOGY Routine 12/03/2021 3:58 PM Results for this NON-GYNECOLOGICAL EDT procedure are in the results section. NON-PRODUCTION ENGINEER FINAL REPORT Routine 12/03/2021 3:50 PM R esults for this EDT procedure are i n the results section. CYTOPATHOLOGY Routine 12/03/2021 3:50 PM Results for this NON-GYNECOLOGICAL EDT procedure are in the results section. NON-PRODUCTION ENGINEER FINAL REPORT Routine 12/03/2021 3:36 PM R esults for this EDT procedure are i n the results section. CYTOPATHOLOGY Routine 12/03/2021 3:36 PM Results for this NON-GYNECOLOGICAL EDT procedure are in the results section. NON-PRODUCTION ENGINEER FINAL REPORT Routine 12/03/2021 3:25 PM R esults for this EDT procedure are i n the results section. CYTOPATHOLOGY Routine 12/03/2021 3:25 PM Results for this NON-GYNECOLOGICAL EDT procedure are in the results section. SURGICAL PATHOLOGY Routine 12/03/2021 3:21 PM Res ults for this REPORT EDT procedure are i n the results section. SPECIMEN TO PATHOLOGY Routine 12/03/2021 3:21 PM Results for this EDT procedure are i n the results section. BRONCHOSCOPY, WITH Yes 12/03/2021 3:00 PM Mass of upper lo be BIOPSY (WRVU 3.36) EDT of left lung BRONCH, W Yes 12/03/2021 3:00 PM Mass of upper lobe ENDOBRONCHIAL EDT of left lung ULTRASOUND (EBUS) GUIDED SAMPLING, 3+ NODES (WRVU 5.21) BRONCH, W Routine 12/03/2021 1:26 PM Mass of upper lobe ENDOBRONCHIAL EDT of left lung ULTRASOUND (EBUS) GUIDED SAMPLING, 3+ NODES DIFFERENTIAL, STAT 12/03/2021 11:11 Mass of upper lobe Resu lts for this AUTOMATED AM EDT of left lung procedure are i n the results section. HEMOGRAM STAT 12/03/2021 11:11 Mass of upper lobe Resul ts for this AM EDT of left lung procedure are i n the results section. COMPREHENSIVE STAT 12/03/2021 11:11 Mass of upper lobe Resu lts for this METABOLIC PANEL AM EDT of left lung procedure ar e in (NON-FASTING) the results section. HC LACTIC STAT 12/03/2021 11:11 Mass of upper lobe Resul ts for this DEHYDROGENASE AM EDT of left lung procedure are in the results section. HC CBC,PLT & AUTO DIFF STAT 12/03/2021 11:11 Mass of upper lobe AM EDT of left lung NON-PRODUCTION ENGINEER FINAL REPORT Routine 11/27/2021 11:21 Res ults for this AM EDT procedure are i n the results section. LAB SCAN 11/14/2021 12:00 Results for this AM EDT procedure are i n the results section. FILM LIBRARY STORAGE Routine 11/12/2021 12:00 Res ults for this ONLY MR HEAD AM EDT procedure are i n the results section. FILM LIBRARY STORAGE Routine 10/20/2021 12:00 Res ults for this ONLY NM PET/CT AM EDT procedure are in the results section. from Last 3 Months Results SCAN DOC: ORDS - PROVIDER CARE (01/13/2022 12:00 AM EDT) Narrative This result has an attachment that is no t available. Unknown MEDIA MGR SCAN EXT ORDR/RSLT SCAN DOC: LAB (01/13/2022 12:00 AM EDT)Only the most recent of5 resultswithin the time period is included. Narrative This result has an attachment that is no t available. Unknown MEDIA MGR SCAN EXT ORDR/RSLT CT Rad Onc Chest Interp Only (12/17/2021 12:33 PM EDT) Anatomical Region Laterality Modality Chest Computed Tomography Specimen (Source) Anatomical Location Collection Method / Collectio n Time Received Time / Laterality Volume Impressions 12/17/2021 1:49 PM EDT 1. ??Limited CT for radiation planning. 2. ??Similar appearance of large left up per lobe mass encasing and narrowing the left upper lobe bronchus. I have personally reviewed the image(s) and the resident's interpretation and agree with the findings, Edy Vega MD at 12/17/2021 1:49 PM Thank you for letting us participate in the care of this patient. ??If you are a health care provider and have any questi ons regarding this report, please contact the number below. ??For patients who have questions please contact the health cardiac care unit nurse that requested your imaging first. ? Electronically signed by: Edy Vega MD, [facility] ([phone]), at 12/17/2021 1:49 PM Narrative 12/17/2021 1:49 PM EDT EXAMINATION: CT RAD ONC CHEST INTERP ONLY CLINICAL HISTORY: 76M med inoperable smo ker T3N0 SqCCa TOAN TECHNIQUE: Limited CT without the use of oral or IV contrast enhancement, performed for the purposes of localizati on for radiation treatment. COMPARISON: PET/CT 10/20/2021 FINDINGS: Chest: Lungs and airways: Similar appearance of large consolidative left upper lobe mass encasing and narrowing the left upp er lobe bronchus. Few centrilobular emphysema. Unchanged small calcified gra nuloma in the left lower lobe.. Soft tissue structures: No mass or lymph adenopathy Heart, pleura, pericardium: No pleural o r pericardial effusion. Normal heart size. Coronary artery and aortic calcifi cations Abdomen/pelvis: Solid organs: Cholelithiasis. Atrophic l eft kidney. Unchanged small left adrenal adenoma. Bowel and mesentery: No obstructive or i nflammatory process Lymph nodes: No adenopathy Osseous structures: No suspicious lesion s Procedure Note Edy Vega MD - 12/17/2021Format ting of this note might be different from the original. EXAMINATION: CT RAD ONC CHEST INTERP ONL Y CLINICAL HISTORY: 76M med inoperable smo ker T3N0 SqCCa TOAN TECHNIQUE: Limited CT without the use of oral or IV contrast enhancement, performed for the purposes of localizati on for radiation treatment. COMPARISON: PET/CT 10/20/2021 FINDINGS: Chest: Lungs and airways: Similar appearance of large consolidative left upper lobe mass encasing and narrowing the left upp er lobe bronchus. Few centrilobular emphysema. Unchanged small calcified gra nuloma in the left lower lobe.. Soft tissue structures: No mass or lymph adenopathy Heart, pleura, pericardium: No pleural o r pericardial effusion. Normal heart size. Coronary artery and aortic calcifi cations Abdomen/pelvis: Solid organs: Cholelithiasis. Atrophic l eft kidney. Unchanged small left adrenal adenoma. Bowel and mesentery: No obstructive or i nflammatory process Lymph nodes: No adenopathy Osseous structures: No suspicious lesion s IMPRESSION 1. Limited CT for radiation planning. 2. Similar appearance of large left uppe r lobe mass encasing and narrowing the left upper lobe bronchus. I have personally reviewed the image(s) and the resident's interpretation and agree with the findings, Edy Vega MD at 12/17/2021 1:49 PM Thank you for letting us participate in the care of this patient. If you are a health care provider and have any questi ons regarding this report, please contact the number below. For patients w ho have questions please contact the health cardiac care unit nurse that requested your imaging first. Electronically signed by: Edy Vega MD, [facility] ([phone]), at 12/17/2021 1:49 PM Bill De La Rosa MD IMG OUTSIDE INTERPRETATION O RDERABLES Pulmonary Function Testing (12/11/2021 9:11 AM EDT) P athologist Signature FVC Actual 2.97 L COMPAS PFT Pre-BD FVC Pre-BD % of 84 % COMPAS PFT Predicted FVC Predicted 3.53 L COMPAS PFT FVC Pre-BD -0.95 COMPAS PFT Z-Score FVC Lower 2.56 L COMPAS PFT Limits of Normal FEV1 Actual 2.09 L COMPAS PFT Pre-BD FEV1 Pre-BD % 79 % COMPAS PFT of Predicted FEV1 Predicted 2.64 L COMPAS PFT FEV1 Pre-BD -1.15 COMPAS PFT Z-Score FEV1 Lower 1.85 L COMPAS PFT Limits of Normal FEV1 / FVC 70 % COMPAS PFT Actual Pre-BD FEV1/FVC Pre-BD -0.59 COMPAS PFT Z-Score FEV1 / FVC LLN 61 % COMPAS PFT [id number] Actual 1.32 L/s COMPAS PFT Pre-BD [id number] Pre-BD 68 % COMPAS PFT % of Predicted [id number] 1.94 L/s COMPAS PFT Predicted [id number] Pre-BD -0.78 COMPAS PFT Z-Score DLCO Hb Actual 12.40 mL/min/mmHg COMPAS PFT Pre-BD DLCO Hb Pre-BD 56 % COMPAS PFT % of Predicted DLCO Hb Pre-BD -2.87 COMPAS PFT Z-Score DLCO Hb 22.29 mL/min/mmHg COMPAS PFT Predicted DLCO [facility] ACT 11.39 mL/min/mmHg COMPAS PFT PRE-BD DLCO [facility] PRE-BD 51 % COMPAS PFT % of PRED DLCO [facility] PRE-BD -3.24 % COMPAS PFT Z-SCORE DLCO [facility] 22.29 mL/min/mmHg COMPAS PFT Predicted DLCO/VA Actual 2.52 mL/min/mmHg COMPAS PFT Pre-BD /L DLCO/VA Pre-BD 63 % COMPAS PFT % of Predicted DLCO/VA Pre-BD -2.33 COMPAS PFT Z-Score DLCO/VA 4.00 mL/min/mmHg COMPAS PFT Predicted /L Specimen (Source) Anatomical Location Collection Method / Collectio n Time Received Time / Laterality Volume Narrative COMPAS PFT - 12/11/2021 9:11 AM EDT FINDINGS: FEV1, FVC, and FEV1/VC are within normal limits. Diffusion capacity is reduced even when adjusted for hemoglobin of 12 g/dL. IMPRESSION: Normal spirometry. Moderate reduction in diffusing capacity (DLCO 40 to 60%). Iso lated reduced DLCO suggests the possibility of disease of the pulmonary vasculature, early emph ysema, early interstitial disease, anemia, or carboxyhemoglobinemia/heavy tobacco smok ing. Procedure Note Unknown - 12/13/2021Formatting of this n ote might be different from the original. FINDINGS: FEV1, FVC, and FEV1/VC are wit hin normal limits. Diffusion capacity is reduced even when adjusted for hemoglobin of 12 g/dL. IMPRESSION: Normal spirometry. Moderate reduction in diffusing capacity (DLCO 40 to 60%). Iso lated reduced DLCO suggests the possibility of disease of the pulmonary vasculature, early emph ysema, early interstitial disease, anemia, or carboxyhemoglobinemia/heavy tobacco smok ing. Matthew Chung MD PFT ORDERABLES Performing Organization Address City/State/ZIP Code Phon e Number COMPAS PFT Non-Staff Assistant Final Report (12/03/2021 4:18 PM EDT)Only the most recent of6 results within the time period is included. Component Value Ref Test Analysis Performed At [facility] Range Method Time Signature Non-Staff Assistant Final [id number] ? Location: [facility]; [facility]; [facility] The signing pathologist has (i) examined the relevant preparation(s) for the [facility] specimen(s) and (ii) rendered or confirmed the diagnosis(es) . [facility] . ? No n-Staff Assistant Final DIAGNOSIS Positive for Malignancy Electronically signed by: ?Chapis MCLEOD, Rufino Mccann Verified: ??12/08/2021 9:53 ?? Pathologist Performed at: ??-[facility] Dept. of Pathology, [place], [place] DISCUSSION Lung, upper division of left upper lobe (bronchial brushing) : A few highly atypical squamous cells are present singly and in small clusters. Given the findings in the co mnurrent lung biopsies ([id number]), the material in this sample is compatible with squamous cell carcinoma. Cell block was examined. CLINICAL INFORMATION Specimen Source : Lung, upper division of left upper lobe (bronchial brushing) Pertinent Clinical Data and Significant Therapy: Left upper lobe mass Clinical Impression : Left upper lobe mass Pertinent Radiologic Findings ??: (not provided) Gross Description: Received ??brush in saline. ??approximately 10 mL total volume of ?? clear, pink fluid, with clots. Total Preparation: Liquid-Based Prep 1; Cell Block 1. Specimen (Source) Anatomical Collection Method Collection Time Re ceived Time Location / / Volume Laterality 12/03/2021 4:18 PM EDT Matthew Chung MD PATHOLOGY/CYTOLOGY ORDERABLE S Performing Organization Address City/[facility]/ZIP Code Phon e Number [address] Cytopathology Non-Gynecological (12/03/2021 4:18 PM EDT)Only the most recent of5 resultswithin the time period is included. Specimen Anatomical Collection Method Collection Time Receive d Time (Source) Location / / Volume Laterality AP Specimen 12/03/2021 4:18 PM 2 4:18 EDT PM EDT Narrative [facility] - 12/03/2021 4:18 PM EDT Specimen requisition ordered. ??Separate Pathology report to follow Matthew Chung MD PATHOLOGY/CYTOLOGY ORDERABLE S Performing Organization Address City/[facility]/ZIP Code Phon e Number [address] Specimen to Pathology (12/03/2021 4:14 PM EDT)Only the most recent of2 results within the time period is included. Specimen Anatomical Collection Method Collection Time Receive d Time (Source) Location / / Volume Laterality AP Specimen 12/03/2021 4:14 PM 2 4:14 EDT PM EDT Narrative [facility] - 12/03/2021 4:14 PM EDT Specimen requisition ordered. ??Separate Pathology report to follow Matthew Chung MD PATHOLOGY/CYTOLOGY ORDERABLE S Performing Organization Address City/[facility]/ZIP Code Phon e Number [address] Surgical Pathology Report (12/03/2021 3:21 PM EDT) Component Value Ref Test Analysis Performed At [facility] Range Method Time Signature Surgical [id number] ? Location: [facility]; [facility]; [facility] Pathology [place] Report The signing pathologist has (i) examined the relevant preparation(s) for the [facility]ORIAL specimen(s) and (ii) rendered or confirmed the diagnosis(es) . HOSPITAL LABORATORY . ? Addendum ADDENDUM DISCUSSION Tissue: Left upper lobe, upper division bronchus, biopsy Tumor Proportion Score (TPS): ?% Expression: 5 Interpretation Table: PD-L1 assay (22C3 pharmDX) for Keytruda Tumor Proportion Score (TPS): ? <1% ?PD-L1 Negative ? >=1% ? PD-L1 Expression Immunohistochemical assay wa s performed on paraffin-embedded tissue sections fixed in 10% neutral buffered for esmer for 6-72 hours using the polymer system technique with appropriate controls. The assay was performed according to the precision optical goods worker's instructions using Anti-PD-L1 (22C3, pharmDX) antibody. Electronically signed by: ?Garcia MCLEOD PhD, Jhonatan Fragoso Verified: ??12/09/2021 12:53 ??Pathologist Performed at: ??-[facility] Dept. 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 Electronically signed by: ?Sona Erazo DO Verified: ??12/05/2021 11:18 ??Pathologist Performed at: ??-[facility] Dept. of Pathology, [place], [place] DISCUSSION PDL1 has been ordered. ADDITIONAL STUDIES Immunohistochemistry Studies: Formalin-fixed, paraffin-emb edded tissue sections are studied using the polymer technique with appropriate positive and negative controls. ?These IHC studies provide the pathologist wit h adjunctive diagnostic information. Antibody specificity has been verified by testin g antibodies on a series of in-house tissues with known immunohistochemical perform ance characteristics. The clinical interpretation of any antibody positive stain ing or its absence is evaluated within the context of clinical presentation, morp hology, histopathological criteria and other diagnostic tests. Block ? Antibody ?Result (Positive /Negative) A1 ? P40 ?Positive i n lesional cells. A1 ? [id number] ? Negative in les ional cells. . SPECIMEN(S) SUBMITTED A - Left upper lobe lingular bronchus, biopsy (1) B - Left upper lobe, upper division bronchus, biopsy (1) CLINICAL INFORMATION Left upper lobe mass SPECIMEN PROCESSING A - Labeled/Fixative: Left upper lobe lingular bronchus, elder sh. Quantity/Size: Fragments, 0.1-0.3 cm. Tissue Description: Soft, gonzalez-pink tissues. Sections/Processing: Submitted en toto ??in 1 cassette labeled A1. B - Labeled/Fixative: Left upper lobe, upper division bronch us, formalin. Quantity/Size: Three, 0.2 0.3 cm. Tissue Description: Soft, gonzalez-pink tissues. Sections/Processing: Submitted en toto ??in 1 cassette labeled B1. ??pps Specimen (Source) Anatomical Collection Method Collection Time Re ceived Time Location / / Volume Laterality 12/03/2021 3:21 PM EDT Matthew Chung MD PATHOLOGY/CYTOLOGY ORDERABLE S Performing Organization Address City/State/[place] [address] (ABNORMAL) Hemogram (12/03/2021 11:11 AM EDT) Analysis Performed At Patho logist Time Signature WBC 7.0 4.0 - 9.5 [facility] x10(3)/[facility] LABORATORY RBC 4.02 (L) 4.58 - [facility]NEY 5.54 [facility] x10(6)/[facility] LABORATORY Hemoglobin 12.0 (L) 13.7 - [facility] 16.5 g/dL [facility] LABORATORY Hematocrit 36.0 (L) 40.5 - [facility] 48.5 % [facility] LABORATORY MCV 89.6 82.9 - [facility] 93.1 [facility] LABORATORY MCH 29.9 27.5 - [facility] 32.1 pg [facility] LABORATORY MCHC 33.3 32.0 - [facility] g/dL [facility] LABORATORY Platelets 293 145 - 357 [facility] x10(3)/[facility] LABORATORY RDWSD 42.5 36.0 - [facility]0 [facility] LABORATORY RDWCV 12.9 11.4 - [facility] 13.8 % [facility] LABORATORY MPV 9.5 7.6 - 12.9 [facility] LABORATORY nRBC % Auto 0.0 % [facility] LABORATORY nRBC Abs Auto 0.000 0.000 - [facility] 0.000 [facility] x10(3)/[facility] LABORATORY Specimen Anatomical Collection Method Collection Time Receive d Time (Source) Location / / Volume Laterality Blood 12/03/2021 11:11 12/03/2021 AM EDT 11:31 AM EDT Resulting Agency Comment Spec In Lab Tasia Baljit Montaño TEACHER [facility] HEMATOLOGY ORDERABLES Performing Organization Address City/State/[place] [address] Differential, Automated (12/03/2021 11:11 AM EDT) P athologist Signature Neutrophils % 58.1 % [facility] LABORATORY Neutr Abs (ANC) 4.10 1.70 - [facility] 6.10 [facility] x10(3)/[facility] LABORATORY Lymphocytes % 34.4 % [facility] LABORATORY Lymphocytes Abs 2.4 0.9 - 3.2 [facility] x10(3)/[facility] LABORATORY Monocytes % 5.0 % [facility] LABORATORY Monocyte Abs 0.4 0.3 - 0.9 [facility] x10(3)/[facility] LABORATORY Eosinophils % 1.6 % [facility] LABORATORY Eosinophils Abs 0.1 0.0 - 0.4 [facility] x10(3)/[facility] LABORATORY Basophils % 0.3 % [facility] LABORATORY Basophils Abs 0.0 0.0 - 0.1 [facility] x10(3)/[facility] LABORATORY Immature Gran % 0.60 % [facility] LABORATORY Comment: Immature granulocytes(IG's)percentage an d absolute count will include metamyelocytes, myelocytes, and promyelo cytes. Blood smears from CBCs yielding IG's will be scanned manually for concor dance. If this scan disagrees with the automated IG or if promyelocytes are not ed, a manual differential will be performed. Michelle Gran Abs 0.04 0.00 - 0.04 x10(3)/[facility] MAR Y [facility] LABORATORY Specimen Anatomical Collection Method Collection Time Receive d Time (Source) Location / / Volume Laterality Blood 12/03/2021 11:11 12/03/2021 AM EDT 11:31 AM EDT Resulting Agency Comment Spec In Lab Tasia Montaño [employer] [facility] HEMATOLOGY ORDERABLES Performing Organization Address City/State/ZIP Code Phon e Number [address] Lactate Dehydrogenase (12/03/2021 11:11 AM EDT) P athologist Signature LDH 174 110 - 220 [facility] unit/L [facility] LABORATORY Specimen Anatomical Collection Method Collection Time Receive d Time (Source) Location / / Volume Laterality Blood 12/03/2021 11:11 12/03/2021 AM EDT 11:27 AM EDT Resulting Agency Comment Spec In Lab Tasia Montaño [employer]ACH[employer] [facility] CHEMISTRY ORDERABLES Performing Organization Address City/[facility]/ZIP Code Phon e Number [address] (ABNORMAL) Comprehensive metabolic panel (non-fasting) (12/03/2021 11:11 AM EDT) P athologist Signature Glucose Lvl 123 65 - 199 [facility] mg/dL [facility] LABORATORY Comment: Diabetes: >=200 mg/dL plus symp toms BUN 26 (H) 10 - 20 mg/dL [facility] LABORATORY Creatinine 2.21 (H) 0.80 - 1.50 mg/dL [facility] LABORATORY Sodium 144 135 - 145 mmol/L [facility] LABORATORY Potassium 4.4 3.5 - 5.0 mmol/L [facility] LABORATORY Comment: Please note: ??Patients with WBC >100,00 0 may have falsely elevated Potassium levels. ??For accurate Potassium quantif ication in these patients send serum separator tube (gold top) for subsequent determinations. ??Contact the Clinical Chemistry Laboratory if there are any qu estions. Chloride 106 98 - 107 mmol/L [facility] LABORATORY CO2 24 22 - 31 mmol/L [facility] LABORATORY Anion Gap 14 5 - 15 mmol/L [facility] LABORATORY Calcium 9.2 8.5 - 10.5 mg/dL [facility] LABORATORY Total Protein 7.0 6.1 - 8.0 g/dL [facility] LABORATORY Albumin 4.0 3.2 - 5.2 g/dL [facility] LABORATORY AST 13 0 - 39 unit/L [facility] LABORATORY ALT 8 0 - 55 unit/L [facility] LABORATORY Alk Phos 147 (H) 40 - 130 unit/L [facility] LABORATORY Total Bilirubin 0.2 0.2 - 1.3 mg/dL [facility] LABORATORY Estimated GFR 28 (L) >=60 mL/min/1.73 m?? [facility] LABORATORY Comment: This patient? s estimated glomerular filtration rate (eGFR) is between 28 mL/min/1.73 m2 (patients with less muscl e mass per kg body weight) and 32 mL/min/1.73 m2 (patients with more muscl e mass per kg body weight) as determined by the CKD-EPI equation. Asse ssment of eGFR is not appropriate when creatinine concentrations are rapidly ch anging. For clinical decisions where creatinine clearance will affect therapy , a 24-hour urine creatinine clearance may be advised. Assignment of CKD stage 1 - 5 for patien ts with an eGFR near the transition point between stages may be based on cli nical assessment of muscle mass and symptoms in addition to eGFR. Specimen Anatomical Collection Method Collection Time Receive d Time (Source) Location / / Volume Laterality Blood 12/03/2021 11:11 12/03/2021 AM EDT 11:27 AM EDT Resulting Agency Comment Spec In Lab Tasia Montaño TEACHER [facility] CHEMISTRY ORDERABLES Performing Organization Address [facility] [place] [address] Film Library- Storage Only MR Head (11/12/2021 12:00 AM EDT) Specimen (Source) Anatomical Location Collection Method / Collectio n Time Received Time / Laterality Volume Narrative [facility] - 11/28/2021 5:05 AM EDT This exam is auto-finalizing. It's purpo se is for storage only. Que Grey Sharma DO [facility] FILM LIBRARY ORDERABLES Performing Organization Address [facility] Phon e Number [place], [place] Film Library- Storage Only NM Pet / CT (10/20/2021 12:00 AM EDT) Specimen (Source) Anatomical Location Collection Method / Collectio n Time Received Time / Laterality Volume Narrative [facility] - 11/22/2021 12:11 AM EDT This exam is auto-finalizing. It's purpo se is for storage only. Que Grey Sharma DO [facility] FILM LIBRARY ORDERABLES Performing Organization Address [facility] Phon e Number [place], [place] from Last 3 Months Insurance Payer Benefit Plan / Subscriber ID Effective Dates Phone Addre ss Type Group MEDICARE MEDICARE PART [id number] 2020-Prese [phone] [place] [id number] COLONIAL ERIN COLONIAL ERIN [id number] 2014-Prese [address] [place] [address] Advance Directives Latest Code Status on File Code Status Date Activated Date Inactivated Comments Attempt Cardiopulmonary Resuscitation - 12/03/2021 2:46 PM 2 7:49 PM Inpatient Code Status decision made by: Patient Attempt Cardiopulmonary Resuscitation - 03/19/2020 3:01 PM 020 4:00 PM Inpatient Code Status decision made by: Patient Care Teams National Account Manager Relationship Specialty Start Date End Date Que Sharma DO PCP - General Family Medicine 02/08/[address] [place] [phone]
--- OUTSIDE RECORDS SUMMARY | 2022-01-19 02:07 | XMS_ITS | Encounter Summary ---
:1945 Author Organization [facility] [place] [address] Care Team Providers Name Role Phone Que Sharma DO Primary Care Provider Encounter Details Date Type Department Care Team Description 01/07/2022 Ancillary Radiation Oncology Bill De La Rosa, Teresa doherty neoplasm Procedure at [facility] of upper lobe, left [address] bronchus or lung [place], [place] RADIATION [address] ONCOLOGY [phone] [place] [address] Social History Tobacco Use Types Packs/Day Years [...] place to sleep or slept in a prison (including now)? Sex Assigned at Date Recorded Not on file documented as of this encounter Plan of Treatment Upcoming Encounters Date Type Specialty Care Team Description 01/19/2022 Office Visit Hematology Tanvir Hawk MD [facility] HEMATOLOGY/[place] [address] Oncology Arlene Bobby BOX SPINNER [facility] HEMATOLOGY [place] [address] 01/19/2022 Infusion Hematology and Oncology 01/19/2022 Scheduled View Only Radiation Oncology 01/20/2022 Scheduled View Only Radiation Oncology 01/21/2022 Scheduled View Only Radiation Oncology 01/22/2022 Scheduled View Only Radiation Oncology 01/22/2022 Office Visit Radiation Oncology Adriana De La Rosa v, MD [address] [place] [address] [place] [address] (Wo rk) 01/23/2022 Scheduled View Only Radiation Oncology 01/26/2022 Office Visit Tanvir Vivas MD [facility] HEMATOLOGY/[place] [address] Oncology Arlene Bobby APRN [facility] HEMATOLOGY [place] [address] 01/26/2022 Infusion Hematology and Oncology 01/26/2022 Scheduled View Only Radiation Oncology 01/27/2022 Scheduled View Only Radiation Oncology 01/28/2022 Scheduled View Only Radiation Oncology 01/29/2022 Scheduled View Only Radiation Oncology 01/29/2022 Office Visit Radiation Oncology Adriana De La Rosa v, MD [address] [place] [address] DR CIP[address] [place], [place] [id number] (Wo rk) 01/30/2022 Scheduled View Only Radiation Oncology 02/02/2022 Office Visit Hematology and Arlene Bobby, Oncology [facility] HEMATOLOGY AND ONCOLOGY [place], [place] [address] (Wo rk) 02/02/2022 Infusion Hematology and Oncology 02/02/2022 Scheduled View Only Radiation Oncology 02/03/2022 Scheduled View Only Radiation Oncology 02/04/2022 Scheduled View Only Radiation Oncology 02/05/2022 Scheduled View Only Radiation Oncology 02/05/2022 Office Visit Radiation Oncology Adriana De La Rosa v, MD [address] [place] [address] DR CIP[address] [place], [place] [id number] (Wo rk) 02/06/2022 Scheduled View Only Radiation Oncology 02/09/2022 Office Visit Hematology and Arlene Bobby, Oncology [facility] HEMATOLOGY AND ONCOLOGY [place], [place] [address] (Wo rk) 02/09/2022 Infusion Hematology and Oncology 02/09/2022 Scheduled View Only Radiation Oncology 02/09/2022 Notes Only Radiation Oncology Adriana De La Rosa v, MD [address] [place] [address] DR CIP[address] [place], [place] [id number] (Wo rk) 02/10/2022 Scheduled View Only Radiation Oncology Pending Results Name Type Priority Associated Diagnoses Date/Ti tn Film Library Imaging Storage Routine Malignant neoplasm 2021 4:02 PM Radiation Oncology Only of upper lobe, left ED T Studies bronchus or lung documented as of this encounter Visit Diagnoses Diagnosis Malignant neoplasm of upper lobe, left b ronchus or lung documented in this encounter Care Teams Paint Mixer Hand Relationship Specialty Start Date End Date Que Sharma DO PCP - General Family Medicine 02/08/20 [address] [place] [address] documented as of this encounter
--- OUTSIDE RECORDS SUMMARY | 2022-01-19 02:07 | XMS_ITS | Encounter Summary ---
:1945 Author Organization [facility] [place] [address] Care Team Providers Name Role Phone Que Sharma DO Primary Care Provider Reason for Visit Reason Onset Date Comments Labs Only 01/13/2022 Encounter Details Date Type Department Care Team Description 01/13/2022 [facility] Only [place] [phone] Social History Tobacco Use Types Packs/Day [...] place to sleep or slept in a usp (including now)? Sex Assigned at Date Recorded Not on file documented as of this encounter Miscellaneous Notes Telephone Encounter - Caity Allred RN - 01/13/2022 2:21 PM EDT Lab reviewed with WILFRED. HGB 7.8 today. Blood transfusion orders sent to [facility] infusion room. He will get one unit PRBC's tomorrow at 0900. Continue radiation, hold chemo for the week. Hydration and magnesium here in clinic today. documented in this encounter Plan of Treatment Upcoming Encounters Date Type Specialty Care Team Description 01/19/2022 Office Visit Hematology and Tanvir Issa MD [facility] DR HEMATOLOGY/[place] [address] Oncology Arlene Bobby APRN [facility] [place]EMATOLOGY [place] [address] 01/19/2022 Infusion Hematology and Oncology 01/19/2022 Scheduled View Only Radiation Oncology 01/20/2022 Scheduled View Only Radiation Oncology 01/21/2022 Scheduled View Only Radiation Oncology 01/22/2022 Scheduled View Only Radiation Oncology 01/22/2022 Office Visit Radiation Oncology Adriana De La Rosa v, MD [address] [place] [address] [place] [address] (Wo rk) 01/23/2022 Scheduled View Only Radiation Oncology 01/26/2022 Office Visit Hematology and Tanvir Issa MD [facility] [address] HEMATOLOGY/[place] [address] Oncology Arlene Bobby [facility] [place]ATOLOGY [place] [address] 01/26/2022 Infusion Hematology and Oncology 01/26/2022 Scheduled View Only Radiation Oncology 01/27/2022 Scheduled View Only Radiation Oncology 01/28/2022 Scheduled View Only Radiation Oncology 01/29/2022 Scheduled View Only Radiation Oncology 01/29/2022 Office Visit Radiation Oncology Adriana De La Rosa v, MD [address] [place] [address] [address] [place] [address] (Wo rk) 01/30/2022 Scheduled View Only Radiation Oncology 02/02/2022 Office Visit Hematology and Arlene Bobby, Oncology [facility] HEMATOLOGY AND ONCOLOGY [place], [place] [address] (Wo rk) 02/02/2022 Infusion Hematology and Oncology 02/02/2022 Scheduled View Only Radiation Oncology 02/03/2022 Scheduled View Only Radiation Oncology 02/04/2022 Scheduled View Only Radiation Oncology 02/05/2022 Scheduled View Only Radiation Oncology 02/05/2022 Office Visit Radiation Oncology Adriana De La Rosa v, MD [address] [place] [address] [address] [place] [address] (Wo rk) 02/06/2022 Scheduled View Only Radiation Oncology 02/09/2022 Office Visit Hematology and Arlene Bobby Oncology [facility] HEMATOLOGY AND ONCOLOGY [place], [place] [address] (Wo rk) 02/09/2022 Infusion Hematology and Oncology 02/09/2022 Scheduled View Only Radiation Oncology 02/09/2022 Notes Only Radiation Oncology Adriana De La Rosa v, MD [address] [place] [address] [address] [place] [address] (Wo rk) 02/10/2022 Scheduled View Only Radiation Oncology documented as of this encounter Visit Diagnoses Not on filedocumented in this encounter Care Teams Airplane Tester Relationship Specialty Start Date End Date Que Sharma DO PCP - General Family Medicine 02/08/20 [address] [place] [address] documented as of this encounter
--- OUTSIDE RECORDS SUMMARY | 2022-01-19 02:07 | XMS_ITS | Encounter Summary ---
:1945 Author Organization [place] [address] Care Team Providers Name Role Phone Que Sharma DO Primary Care Provider Encounter Details Date Type Department Care Team Description 01/15/2022 Office Visit Radiation Oncology at Bill De La Rosa P [facility] squamous cell [facility] carcinoma of upper [address] [place] [address] DR lobe of left lung [place], [place] RADIATION ONCOL OGY [address] [place], [place] [phone] (Wo rk) Social History Tobacco Use Types [...] place to sleep or slept in a intermediate (including now)? Sex Assigned at Date Recorded Not on file documented as of this encounter Last Filed Vital Signs Vital Sign Reading Time Taken Comments Blood Pressure 117/49 01/15/2022 2:00 PM EDT Pulse 100 01/15/2022 2:00 PM EDT Temperature 36.6 ??C (97.9 ??F) 01/15/2022 2:00 PM EDT Respiratory Rate - - Oxygen Saturation - - Inhaled Oxygen Concentration - - Weight 81.2 kg (179 lb) 01/15/2022 2:00 PM EDT Height - - Body Mass Index 27.44 01/13/2022 9:50 AM EDT documented in this encounter Progress Notes Bill De La Rosa MD - 01/15/2022 2:30 PM EDT Images from the original note were not included. [facility] Medicine Radiation Oncology Radiation Oncology On-treatment [...] (Curative) Concurrent Therapy: Carbo/Taxol (from Dr Issa) Modality: IMRT Treatment Site Left lung / chest wall Prescribed Dose 60 Gy in 30 fractions Current Dose: 24 Gy in 12 fractions (seen pre-treatment today) Habilitation Training Specialist Barajas from Current Plan (minimum 60 Gy isodose volume shown): Interval Clinical Course General: Chemo on hold due to anemia. He was transfused this week. He was tachycardic / lightheaded last week and I contacted his PCP for outpatient evaluation. Beforethen he fell at home and then went to ER where they started Eliquis / Diltiazem. He is scheduled to see his PCP next week. Resp: No new cough / SOB. Ongoing dry cough per baseline. No esophagitis. Pain: Pain score today is 0/10 in his left shoulder. Fentanyl 50mcg working well - not needing fentanyl. Tylenol 1000mg QHS as needed. He is constipated. Performance Status KPS Score [...] confined to bed or chair Medications Medications 01/15/22 1829 Medication Sig Taking? Eliquis 5 mg Tablet Take 5 mg by mouth 2 times daily. Yes magnesium oxide (Mag-Ox) 400 mg (241.3 mg magnesium) Tablet Take 1 tablet by mouth 2 times daily. Yes dilTIAZem CD (Cardizem CD) 120 mg Capsule, Sust. Release 24 hr Take 120 mg by mouth daily. Yes pravastatin (PRAVACHOL) 40 mg Tablet Take 40 mg by mouth daily. Yes prochlorperazine (Compazine) 10 mg Tablet Take 1 tablet by mouth every 6 hours as needed for Nausea.Yes ondansetron (Zofran) 8 mg Tablet Take 1 tablet by mouth every 8 hours as needed for Nausea. Do not use the first three days after infusion. Use compazine the first three days - then it is OK to use theOndansetron after that Patient taking differently: Take 8 mg by mouth every 8 hours as needed for Nausea. Do not use the first three days after infusion. Use compazine the first three days - then it is OK to use the Ondansetron after that Yes fentaNYL (Duragesic) 50 mcg/hr Patch 72 hr Change 1 patch on the skin every 3 days. Yes HYDROmorphone (Dilaudid) 4 mg Tablet Take by mouth as needed. Yes benazepriL (LOTENSIN) 10 mg Tablet 30 [...] tamsulosin (Flomax) 0.4 mg Capsule nightly. Yes docusate sodium (Colace) 100 mg Capsule Take 100 mg by mouth as needed for Constipation. albuteroL 90 mcg/actuation HFA Aerosol Inhaler USE 2 PUFFS 4 TIMES A DAY NEEDED 2 PUFFS EVERY 6 HOURS NEEDED FOR SHORTNESS OF BREATH/WHEEZING Exam Vitals: BP 117/49 (Patient Position: Sitting) Pulse 100 Temp 36.6 ??C (97.9 ??F) Wt 81.2 kg (179 lb) BMI 27.44 kg/m?? General: Appears well, in no distress CV: Tachycardic but with regular rhythm. Imaging/Labs Interval setup imaging has been checked and approved. See Aria for details. Impression/Plan Tolerance to radiotherapy: Tolerating as anticipated. Continue as planned. Constipation: Rec he hydrate, trial miralax Followup: RTC for on-treatment assessment next week. No orders of the defined types were placed in this encounter. ??? [employer] (NCI) [facility] ??? [place] Commission on Cancer (ACS Andrea) Accredited Cancer Program ??? [place] (A[employer]) Accredited Radiation Oncology Program documented in this encounter Plan of Treatment Upcoming Encounters Date Type Specialty Care Team Description 01/19/2022 Office Visit Hematology Tanvir Hawk MD [facility] HEMATOLOGY/[place] [address] Oncology Arlene Bobby STITCH BONDING MACHINE OPERATOR [facility] [place] [address] 01/19/2022 Infusion Hematology and Oncology 01/19/2022 Scheduled View Only Radiation Oncology 01/20/2022 Scheduled View Only Radiation Oncology 01/21/2022 Scheduled View Only Radiation Oncology 01/22/2022 Scheduled View Only Radiation Oncology 01/22/2022 Office Visit Radiation Oncology Adriana De La Rosa v, MD [address] [place] [address] DR [address] [place], [place] [phone] (Wo rk) 01/23/2022 Scheduled View Only Radiation Oncology 01/26/2022 Office Visit Hematology and Tanvir Issa MD [facility] HEMATOLOGY/[place] [address] Arlene Hill STITCH BONDING MACHINE OPERATOR [facility] [place] [address] 01/26/2022 Infusion Hematology and Oncology 01/26/2022 Scheduled View Only Radiation Oncology 01/27/2022 Scheduled View Only Radiation Oncology 01/28/2022 Scheduled View Only Radiation Oncology 01/29/2022 Scheduled View Only Radiation Oncology 01/29/2022 Office Visit Radiation Oncology Adriana De La Rosa v, MD [address] [place] [address] [address] [place], [place] [phone] (Wo rk) 01/30/2022 Scheduled View Only Radiation Oncology 02/02/2022 Office Visit Hematology and Arlene Bobby, Oncology [facility] HEMATOLOGY AND ONCOLOGY [place], [place] [address] (Wo rk) 02/02/2022 Infusion Hematology and Oncology 02/02/2022 Scheduled View Only Radiation Oncology 02/03/2022 Scheduled View Only Radiation Oncology 02/04/2022 Scheduled View Only Radiation Oncology 02/05/2022 Scheduled View Only Radiation Oncology 02/05/2022 Office Visit Radiation Oncology Adriana De La Rosa v, MD [address] [place] [address] [address] [place], [place] [phone] (Wo rk) 02/06/2022 Scheduled View Only Radiation Oncology 02/09/2022 Office Visit Hematology and Arlene Bobby, Oncology [facility] HEMATOLOGY AND ONCOLOGY [place], [place] [address] (Wo rk) 02/09/2022 Infusion Hematology and Oncology 02/09/2022 Scheduled View Only Radiation Oncology 02/09/2022 Notes Only Radiation Oncology Adriana De La Rosa v, MD [address] [place] [address] [address] [place], [place] [address] (Wo rk) 02/10/2022 Scheduled View Only Radiation Oncology documented as of this encounter Visit Diagnoses Diagnosis 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
--- OUTSIDE RECORDS SUMMARY | 2022-01-19 02:07 | XMS_ITS | Encounter Summary ---
:1945 Author Organization [facility] [place] [address] Care Team Providers Name Role Phone EdithQue zavaleta Grey VITAL Primary Care Provider Encounter Details Date Type Department Care Team Description 01/12/2022 Office Visit Hematology/Oncology Sneha Issa MD [facility] [address] HEMATOLOGY/[place] [address] Primary squamous cell at [facility] Arlene Bobby APRN [facility] [address] [place] [address] [address] [place] [address] Social History Tobacco Use Types Packs/Day Years [...] place to sleep or slept in a group home (including now)? Sex Assigned at Date Recorded Not on file documented as of this encounter Last Filed Vital Signs Vital Sign Reading Time Taken Comments Blood Pressure 132/69 01/12/2022 3:39 PM EDT Pulse 121 01/12/2022 3:39 PM EDT Temperature 36.9 ??C (98.4 ??F) 01/12/2022 3:39 PM EDT Respiratory Rate 20 01/12/2022 3:39 PM EDT Oxygen Saturation 100% 01/12/2022 3:39 PM EDT Inhaled Oxygen Concentration - - Weight 79.8 kg (176 lb) 01/12/2022 3:39 PM EDT Height 172 cm (5' 7.72) 01/12/2022 3:39 PM EDT Body Mass Index 26.98 01/12/2022 3:39 PM EDT documented in this encounter Progress Notes ForArlene sanchez APRN - 01/12/2022 3:30 PM EDT Images from the original note were not included. Thoracic Oncology [facility] [place] [address] [phone] Don Ortega is being seen for the evaluation of lung cancer. Assessment & Plan: Don Ortega is a 76 y.o. male patient with a past medical history notable for newly diagnosed rll-tqhrt-angd lung cancer, squamous cell carcinoma subtype, stage II T3N0M0. Other problems: #Blade left shoulder pain -Unclear if this is related with his active cancer. PET CT scan did not show any FDG avid lesion in that area. -He had a recent history of shingles but this is does not seem to be a flare. -Using Duragesic 50 mcg patch - seems to be helping as pain is not constant -Will consider pain specialist if needed. PLAN: 1. Per thoracic surgeon Dr. Gomez, Mr. Ortega is not a candidate for surgery. 2. Per patient's preference, he would like to establish treatment at [facility]. 3. Proceed with C1D15 Carbo/Taxol with concurrent radiation - will check labs prior tomorrow to assess for cytopenias 4. Obtain records for 01/06/22 ED visit. Arlene Bobby APRN Hematology and Medical Oncology [facility] HPI - Interval History Last seen on 12/29/21 Don wasn't feeling well on Tuesday 01/09 and fell after he was getting out of car after her returnedhome from radiation treatment. He was dizzy and lightheaded and passed out. He went to the ED the next day (Wednesday). They did a CT scan and he did not have any fractures. Did not hit head. An EKG wasdone while in ED and he was started on Eliquis and Diltiazem. He believes they were concerned that his heart rate was too high. Labwork also done in ED and he is unaware of results. Feeling not too bad now. Less dizziness and lightheadedness. Tolerating the chemotherapy well. Has only had one episode of nausea and took antinausea med. He has been constipated - took a laxative and this did work. Doesn't think he drinks enough water. Appetite not good food doesn't taste good. Pain in shoulder blade is still there - pain is not steady and at times does go away. No mouth sores. 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 This has not changed. Mostly numbness in feet.None in hand/fingers Social History/Support Network: Home situation: with Awa. He has 2 daughters which are pretty close to him. He enjoys to spend winter in [place]. Tobacco use: Current smoker of about 6-8 cpd, previously has smoked about 1 ppd for about 65 years (estimate 65 pack year smoking history). He does not want to quit smoking but has decrease the number of cigarettes. Alcohol use: Denies. Drug use: Denies. Family History: Cancer in his sister. No known history of lung cancer. Oncology Overview: Squamous cell ??carcinoma , invasive, moderately to poorly differentiated Presentation: Worsening of dry cough Staging/PreTx Eval: T3N0M0, stage II Pathology: ? Surgical Pathology DIAGNOSIS A - Left upper lobe lingular bronchus, biopsy - Squamous cell ??carcinoma , invasive, moderately to poorly differentiated. B - Left upper lobe, upper division bronchus, biopsy - Squamous cell ??carcinoma , invasive, moderately to poorly differentiated. Molecular Data: Tissue: Left upper lobe, upper division bronchus, biopsy Tumor Proportion Score (TPS): ? % Expression: 5 Interpretation Table: PD-L1 assay (22C3 pharmDX) for Keytruda Tumor Proportion Score (TPS): ?<1% ?PD-L1 Negative ?>=1% ? PD-L1 Expression Immunohistochemical assay was performed on paraffin-embedded tissue sections fixed ??in 10% neutral buffered formalin for 6-72 hours using the polymer system technique ??with appropriate controls. The assay was performed according to the machine tester's ??instructions using Anti-PD-L1 (22C3, pharmDX) antibody. Electronically signed by: ?Garcia MCLEOD PhD, Jhonatan Fragoso Verified: ??12/09/2021 12:53 ??Pathologist Performed at: ??-[facility] Dept. of Pathology, [place], [place] Treatment Course: Patient Active Problem List Diagnosis Date Noted ??? 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 Bilateral carotid artery stenosis 02/14/2020 ??? Pre-op testing 02/14/2020 ??? Cigarette smoker 02/14/2020 Thromboendartectmy Neck, Neck Incis (42220) (Right, 03/19/2020). No Known Allergies Medications 01/08/22 9646 Medication Sig Taking? pravastatin (PRAVACHOL) 40 mg Tablet Take 40 mg by mouth daily. prochlorperazine (Compazine) 10 mg Tablet Take 1 [...] that Patient not taking: No sig reported fentaNYL (Duragesic) 50 mcg/hr Patch 72 hr Change 1 patch on the skin every 3 days. docusate sodium (Colace) 100 mg Capsule Take 100 mg by mouth as needed for Constipation. HYDROmorphone (Dilaudid) 4 mg Tablet Take by mouth as needed. albuteroL 90 mcg/actuation HFA Aerosol Inhaler USE 2 PUFFS 4 TIMES A DAY NEEDED 2 PUFFS EVERY 6 HOURS NEEDED FOR SHORTNESS OF BREATH/WHEEZING benazepriL (LOTENSIN) 10 mg Tablet 30 mg. benazepriL (LOTENSIN) 20 mg Tablet Take 20 mg by mouth daily. acetaminophen (Tylenol) 500 mg Tablet Take 1,000 mg by mouth every 6 hours as needed for Pain. metFORMIN (Glucophage) 500 mg Tablet Take 500 mg by mouth daily. aspirin EC 81 mg Tablet, Delayed Release (E.C.) Daily. ferrous sulfate 325 mg (65 mg iron) Tablet ferrous sulfate 325 mg (65 mg iron) tablet 1 tablet by mouth daily furosemide (Lasix) 40 mg Tablet daily. potassium chloride (MICRO-K) 10 mEq Capsule, Sustained Release TAKE 1 CAPSULE BY MOUTH EVERY DAY WHEN TAKING FUROSEMIDE omeprazole (PriLOSEC) 20 mg Capsule, Delayed Release(E.C.) TAKE 1 CAPSULE BY MOUTH EVERY DAY tamsulosin (Flomax) 0.4 mg Capsule nightly. I reviewed the problem list, allergies, medications, past medical history, social history and familyhistory within the EPIC encounter. Pertinent details are noted above. Pertinent positives and negative from the Review of Systems are as summarized above in the HPI. Physical Exam: BP 132/69 (Patient Position: Sitting) Pulse (!) 121 Temp 36.9 ??C (98.4 ??F) (Temporal) Resp 20 Ht 172 cm (5' 7.72) Wt 79.8 kg (176 lb) SpO2 100% BMI 26.98 kg/m?? ECOG 2 Constitutional: Oriented to person, place, and time. Appears pale Mouth/Throat: Lips pale. No mouth sores. Dentures in place Eyes: No scleral icterus. Conjunctiva pale Cardiovascular: Tachycardic 120-130. Exam reveals no friction rub. No murmur heard. Pulmonary/Chest: Effort normal. No stridor. No respiratory distress. No wheezes. Abdominal: Soft. No distension. No tenderness.No rebound. Musculoskeletal: Normal range of motion. Pain over the left blade of the shoulder. Lymphadenopathy: No cervical adenopathy. Neurological: Alert and oriented to person, place, and time. CN are grossly intact and non-focal. Skin: Skin is warm and dry. No rash noted. No erythema. Psychiatric: Normal mood and affect. A bit anxious. Review of Laboratory Data: No results found for this or any previous visit (from the past 72 hour(s)). Reviewed from his previous encounters. Review of Imaging Data: I personally reviewed the reports and images in the studies as detailed in the oncology overview above. Brain MRI from [place] 11/12/21 Negative for metastatic disease. Review of Pathology Data: I personally reviewed the reports of the pathology as detailed in the oncology overview above. documented in this encounter Plan of Treatment Upcoming Encounters Date Type Specialty Care Team Description 01/19/2022 Office Visit Hematology and Tanvir Issa MD [facility] HEMATOLOGY/[place] [address] Oncology Arlene Bobby [facility] [place] [address] 01/19/2022 Infusion Hematology and Oncology 01/19/2022 Scheduled View Only Radiation Oncology 01/20/2022 Scheduled View Only Radiation Oncology 01/21/2022 Scheduled View Only Radiation Oncology 01/22/2022 Scheduled View Only Radiation Oncology 01/22/2022 Office Visit Radiation Oncology Adriana De La Rosa v, MD [address] [place] [address] DR [address] [place], [place] [phone] (Wo rk) 01/23/2022 Scheduled View Only Radiation Oncology 01/26/2022 Office Visit Hematology and Tanvir Issa MD [facility] HEMATOLOGY/[place] [address] Oncology Arlene Bobby [facility] [place]Y [place] [address] 01/26/2022 Infusion Hematology and Oncology 01/26/2022 Scheduled View Only Radiation Oncology 01/27/2022 Scheduled View Only Radiation Oncology 01/28/2022 Scheduled View Only Radiation Oncology 01/29/2022 Scheduled View Only Radiation Oncology 01/29/2022 Office Visit Radiation Oncology Adriana De La Rosa v, MD [address] [place] [address] [place] [address] (Wo rk) 01/30/2022 Scheduled View Only Radiation Oncology 02/02/2022 Office Visit Hematology Arlene Gordillo, Oncology [facility] HEMATOLOGY AND ONCOLOGY [place], [place] [address] (Wo rk) 02/02/2022 Infusion Hematology and Oncology 02/02/2022 Scheduled View Only Radiation Oncology 02/03/2022 Scheduled View Only Radiation Oncology 02/04/2022 Scheduled View Only Radiation Oncology 02/05/2022 Scheduled View Only Radiation Oncology 02/05/2022 Office Visit Radiation Oncology Adriana De La Rosa v, MD [address] [place] [address] [place]ATION [place], [place] [address]279 (Wo rk) 02/06/2022 Scheduled View Only Radiation Oncology 02/09/2022 Office Visit Hematology and Arlene Bobby, Oncology [facility] DR HEMATOLOGY AND ONCOLOGY [place], [place] [address] (Wo rk) 02/09/2022 Infusion Hematology and Oncology 02/09/2022 Scheduled View Only Radiation Oncology 02/09/2022 Notes Only Radiation Oncology Adriana De La Rosa v, MD [address] [place] [address] DR [address] [place], [place] [phone] (Wo rk) 02/10/2022 Scheduled View Only Radiation Oncology documented as of this encounter Visit Diagnoses Diagnosis 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
--- OUTSIDE RECORDS SUMMARY | 2022-01-19 02:07 | XMS_ITS | Encounter Summary ---
:1945 Author Organization [facility] [place] [address] Care Team Providers Name Role Phone EdithQue DO Primary Care Provider Encounter Details Date Type Department Care Team Description 01/19/2022 Infusion Hematology Oncology at [place] [phone] Social History Tobacco Use Types Packs/Day [...] 01/19/2022 Office Visit Hematology Tanvir Hawk MD [facility] HEMATOLOGY/[place] [address] Arlene Hill OBSTETRICS/GYNECOLOGY NURSE [facility] [place] [address] 01/19/2022 Scheduled View Only Radiation Oncology 01/20/2022 Scheduled View Only Radiation Oncology 01/21/2022 Scheduled View Only Radiation Oncology 01/22/2022 Scheduled View Only Radiation Oncology 01/22/2022 Office Visit Radiation Oncology Adriana De La Rosa v, MD [address] [place] [address] [place] [address] (Wo rk) 01/23/2022 Scheduled View Only Radiation Oncology 01/26/2022 Office Visit Tanvir Vivas MD [facility] HEMATOLOGY/[place] [address] Arlene Hill OBSTETRICS/GYNECOLOGY NURSE [facility] [place] [address] 01/26/2022 Infusion Hematology and Oncology 01/26/2022 Scheduled View Only Radiation Oncology 01/27/2022 Scheduled View Only Radiation Oncology 01/28/2022 Scheduled View Only Radiation Oncology 01/29/2022 Scheduled View Only Radiation Oncology 01/29/2022 Office Visit Radiation Oncology Adriana De La Rosa v, MD [address] [place] [address] RADIATION [place], [place] [phone] (Wo rk) 01/30/2022 Scheduled View Only Radiation Oncology 02/02/2022 Office Visit Hematology and Arlene Bobby, Oncology [facility] HEMATOLOGY AND ONCOLOGY [place], [place] [address] (Wo rk) 02/02/2022 Infusion Hematology and Oncology 02/02/2022 Scheduled View Only Radiation Oncology 02/03/2022 Scheduled View Only Radiation Oncology 02/04/2022 Scheduled View Only Radiation Oncology 02/05/2022 Scheduled View Only Radiation Oncology 02/05/2022 Office Visit Radiation Oncology Adriana De La Rosa v, MD [address] [place] [address] [place] [address] (Wo rk) 02/06/2022 Scheduled View Only Radiation Oncology 02/09/2022 Office Visit Hematology and Arlene Bobby, Oncology [facility] HEMATOLOGY AND ONCOLOGY [place], [place] [address] (Wo rk) 02/09/2022 Infusion Hematology and Oncology 02/09/2022 Scheduled View Only Radiation Oncology 02/09/2022 Notes Only Radiation Oncology Adriana De La Rosa v, MD [address] [place] [address] [address] [place], [place] [phone] (Wo rk) 02/10/2022 Scheduled View Only Radiation Oncology documented as of this encounter Visit Diagnoses Not on filedocumented in this encounter Care Teams Sensor Technician Relationship Specialty Start Date End Date uQe Sharma DO PCP - General Family Medicine 02/08/20 [address] [place] [address] documented as of this encounter
--- OUTSIDE RECORDS SUMMARY | 2022-01-19 02:08 | XMS_ITS | Encounter Summary ---
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 Bill De La Rosa MD [facility] Rad Onc Office Procedures Simulation for Radiation Therapy Planning [address] [place] [address] [place] [phone] Referral ID Status Reason Start Date Expiration Date Visits V isits Requested Authorized [id number] Closed Consult, 01/01/2022 01/01/2023 1 1 Test & Treat Encounter Details Date Type Department Care Team Description 01/01/2022 Orders Only Radiation Oncology at Bill De La Rosa P rimary squamous cell [facility] carcinoma of upper [address] [place] [address] DR lobe of left lung [place], [place] RADIATION ONCOL OGY [address] [place], [place] [phone] (Wo rk) Social History Tobacco Use Types [...] place to sleep or slept in a residential (including now)? Sex Assigned at Date Recorded Not on file documented as of this encounter Plan of Treatment Upcoming Encounters Date Type Specialty Care Team Description 01/19/2022 Office Visit Hematology and Tanvir Issa MD [facility] HEMATOLOGY/[place] [address] Oncology Arlene Bobby APRN [facility] HEMATOLOGY [place] [address] 01/19/2022 Infusion Hematology and Oncology 01/19/2022 Scheduled View Only Radiation Oncology 01/20/2022 Scheduled View Only Radiation Oncology 01/21/2022 Scheduled View Only Radiation Oncology 01/22/2022 Scheduled View Only Radiation Oncology 01/22/2022 Office Visit Radiation Oncology Adriana De La Rosa v, MD [address] [place] [address] DR [address]IPRI[address]O [place], [place] [address]89 (Wo rk) 01/23/2022 Scheduled View Only Radiation Oncology 01/26/2022 Office Visit Hematology and Tanvir Issa MD [facility] DR HEMATOLOGY/[place] [address] Oncology Arlene Bobby [facility] HEMATOLOGY [place] [address] 01/26/2022 Infusion Hematology and Oncology 01/26/2022 Scheduled View Only Radiation Oncology 01/27/2022 Scheduled View Only Radiation Oncology 01/28/2022 Scheduled View Only Radiation Oncology 01/29/2022 Scheduled View Only Radiation Oncology 01/29/2022 Office Visit Radiation Oncology Adriana De La Rosa v, MD [address] [place] [address] DR CIPRIANO [place], [place] [phone] (Wo rk) 01/30/2022 Scheduled View Only Radiation Oncology 02/02/2022 Office Visit Hematology and Arlene Bobby, Oncology [facility] HEMATOLOGY AND ONCOLOGY [place], [place] [address] (Wo rk) 02/02/2022 Infusion Hematology and Oncology 02/02/2022 Scheduled View Only Radiation Oncology 02/03/2022 Scheduled View Only Radiation Oncology 02/04/2022 Scheduled View Only Radiation Oncology 02/05/2022 Scheduled View Only Radiation Oncology 02/05/2022 Office Visit Radiation Oncology Adriana De La Rosa v, MD [address] [place] [address] DR [address]RI[address]O [place], [place] [id number] (Wo rk) 02/06/2022 Scheduled View Only Radiation Oncology 02/09/2022 Office Visit Hematology and Arlene Bobby, Oncology [employer] [facility] HEMATOLOGY AND ONCOLOGY [place], [place] [address] (Wo rk) 02/09/2022 Infusion Hematology and Oncology 02/09/2022 Scheduled View Only Radiation Oncology 02/09/2022 Notes Only Radiation Oncology Adriana De La Rosa v, MD [address] [place] [address] [place] [address] (Wo rk) 02/10/2022 Scheduled View Only Radiation Oncology Scheduled Orders Name Type Priority Associated Diagnoses Order S chedule Simulation for Procedures Routine Primary squamous cell Orde red: 01/01/2022 Radiation Therapy carcinoma of upper Planning lobe of left lung documented as of this encounter Visit Diagnoses Diagnosis 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
--- OUTSIDE RECORDS SUMMARY | 2022-01-19 02:08 | XMS_ITS | Encounter Summary ---
:1945 Author Organization [facility] [place] [address] Care Team Providers Name Role Phone EdithQue DO Primary Care Provider Encounter Details Date Type Department Care Team Description 12/29/2021 Notes Only [facility] OFFICE OF CARE [address] [place] [address] [phone] Social History Tobacco Use Types Packs/Day Years [...] place to sleep or slept in a care home (including now)? Sex Assigned at Date Recorded Not on file documented as of this encounter Progress Notes Jennifer Haile MSW - 12/29/2021 2:34 PM EDT Follow up with pt during his first infusion visit today which is the start of his concurrent treatments. Pt indicated he was ready to get this all started. One daughter is still here returning home after the holiday. His other daughter will be coming in February. He is managing day to day at home. He did not identify any new needs today. Reminded pt of INSURANCE LOSS ADJUSTER availability and will plan to follow up with him on his chemo days. Will follow for support and resources. Brief assessment Supportive Counseling documented in this encounter Plan of Treatment Upcoming Encounters Date Type Specialty Care Team Description 01/19/2022 Office Visit Hematology and Tanvir Issa MD [facility] DR HEMATOLOGY/[place] [address] Oncology Arlene Bobby APRN [facility] HEMATOLOGY [place] [address] 01/19/2022 Infusion Hematology and Oncology 01/19/2022 Scheduled View Only Radiation Oncology 01/20/2022 Scheduled View Only Radiation Oncology 01/21/2022 Scheduled View Only Radiation Oncology 01/22/2022 Scheduled View Only Radiation Oncology 01/22/2022 Office Visit Radiation Oncology Adriana De La Rosa v, MD [address] [place] [address] [place] [address] (Wo rk) 01/23/2022 Scheduled View Only Radiation Oncology 01/26/2022 Office Visit Hematology and Tanvir Issa MD [facility] HEMATOLOGY/[place] [address] Oncology Arlene Bobby [facility] HEMATOLOGY [place] [address] 01/26/2022 Infusion Hematology and Oncology 01/26/2022 Scheduled View Only Radiation Oncology 01/27/2022 Scheduled View Only Radiation Oncology 01/28/2022 Scheduled View Only Radiation Oncology 01/29/2022 Scheduled View Only Radiation Oncology 01/29/2022 Office Visit Radiation Oncology Adriana De La Rosa v, MD [address] [place] [address] [address]O [place] [place], [place] [phone] (Wo rk) 01/30/2022 Scheduled View Only Radiation Oncology 02/02/2022 Office Visit Hematology and Arlene Bobby, Oncology [facility] HEMATOLOGY AND ONCOLOGY [place], [place] [address] (Wo rk) 02/02/2022 Infusion Hematology and Oncology 02/02/2022 Scheduled View Only Radiation Oncology 02/03/2022 Scheduled View Only Radiation Oncology 02/04/2022 Scheduled View Only Radiation Oncology 02/05/2022 Scheduled View Only Radiation Oncology 02/05/2022 Office Visit Radiation Oncology Adriana De La Rosa v, MD [address] [place] [address] DR [address]O [place] [place], [place] [address] (Wo rk) 02/06/2022 Scheduled View Only Radiation Oncology 02/09/2022 Office Visit Hematology and Arlene Bobby, Oncology [facility] HEMATOLOGY AND ONCOLOGY [place], [place] [address] (Wo rk) 02/09/2022 Infusion Hematology and Oncology 02/09/2022 Scheduled View Only Radiation Oncology 02/09/2022 Notes Only Radiation Oncology Adriana De La Rosa v, MD [address] [place] [address] [place] [address] (Wo rk) 02/10/2022 Scheduled View Only Radiation Oncology documented as of this encounter Visit Diagnoses Not on filedocumented in this encounter Care Teams Detective Relationship Specialty Start Date End Date Que Sharma DO PCP - General Family Medicine 02/08/20 [address] [place] [address] documented as of this encounter
--- OUTSIDE RECORDS SUMMARY | 2022-01-19 02:08 | XMS_ITS | Encounter Summary ---
:1945 Author Organization [facility] [place] [address] Care Team Providers Name Role Phone Que Sharma DO Primary Care Provider Encounter Details Date Type Department Care Team Description 01/01/2022 Office Visit Radiation Oncology at Bill De La Rosa P [facility] squamous cell [facility] carcinoma of upper [address] [place] [address] DR lobe of left lung [place], [place] RADIATION ONCOL OGY [address] [place], [place] [phone] (Wo rk) Social History Tobacco Use Types [...] place to sleep or slept in a custodial (including now)? Sex Assigned at Date Recorded Not on file documented as of this encounter Last Filed Vital Signs Vital Sign Reading Time Taken Comments Blood Pressure 145/66 01/01/2022 1:01 PM EDT Pulse 101 01/01/2022 1:01 PM EDT Temperature 36.7 ??C (98.1 ??F) 01/01/2022 1:01 PM EDT Respiratory Rate 20 01/01/2022 1:01 PM EDT Oxygen Saturation 100% 01/01/2022 1:01 PM EDT Inhaled Oxygen Concentration - - Weight 79.8 kg (176 lb) 01/01/2022 1:01 PM EDT Height 172 cm (5' 7.72) 01/01/2022 1:01 PM EDT Body Mass Index 26.98 01/01/2022 1:01 PM EDT documented in this encounter Progress Notes Bill De La Rosa MD - 01/01/2022 12:45 PM EDT Images from the original note were not included. [facility] Medicine Radiation Oncology Radiation Oncology [...] 60 Gy in 30 fractions Current Dose: 8 Gy in 4 fractions Phytochemistry Professor Barajas from Current Plan (minimum 60 Gy isodose volume shown): Interval Clinical Course General: No changes since last seen. Started this week. Still smoking 4-5 cigs/day. Resp: No new cough / SOB. Ongoing dry cough per baseline. No esophagitis. Pain: Pain score today is 4/10 in his left shoulder. Fentanyl 50mcg working well. Tylenol 1000mg QHSas well. He is constipated. Performance Status KPS [...] confined to bed or chair Medications Medications 01/01/22 1308 Medication Sig Taking? prochlorperazine (Compazine) 10 mg Tablet Take 1 tablet by mouth every 6 hours as needed for Nausea.Yes ondansetron (Zofran) 8 mg Tablet Take 1 tablet by mouth every 8 hours as needed for Nausea. Do not use the first three days after infusion. Use compazine the first three days - then it is OK to use theOndansetron after that Yes fentaNYL (Duragesic) 50 mcg/hr Patch 72 hr Change 1 patch on the skin every 3 days. Yes lidocaine (Lidoderm) 5% Adhesive Patch, Medicated Change on the skin every 24 hours. Apply 1 patch onto the skin daily. (leave on for 12 hours and remove for 12 hours) Yes docusate sodium (Colace) 100 mg Capsule Take 100 mg by mouth as needed for Constipation. Yes HYDROmorphone (Dilaudid) 4 mg Tablet Take by mouth as needed. Yes albuteroL 90 mcg/actuation HFA Aerosol Inhaler USE 2 PUFFS 4 TIMES A DAY NEEDED 2 PUFFS EVERY 6 HOURS NEEDED FOR SHORTNESS OF BREATH/WHEEZING Yes benazepriL (LOTENSIN) 10 mg Tablet 30 mg. Yes benazepriL (LOTENSIN) 20 mg Tablet Take 20 mg by mouth daily. Yes acetaminophen (Tylenol) 500 mg Tablet Take 1,000 mg by mouth every 6 hours as needed for Pain. Yes metFORMIN (Glucophage) 500 mg Tablet Take 500 mg by mouth daily. Yes allopurinoL (Zyloprim) 100 mg Tablet Yes aspirin EC 81 mg Tablet, Delayed Release (E.C.) Daily. Yes benazepril-hydrochlorthiazide (LOTENSIN HCT) 20-12.5 mg Tablet Yes ferrous sulfate 325 mg (65 mg [...] 1 CAPSULE BY MOUTH EVERY DAY Yes pravastatin (Pravachol) 10 mg Tablet 40 mg Daily. Yes tamsulosin (Flomax) 0.4 mg Capsule Yes fentaNYL (Duragesic) 12 mcg/hr Patch 72 hr Change 1 patch on the skin every 3 days. Patient not taking: No sig reported Exam Vitals: BP 145/66 (Patient Position: Sitting) Pulse (!) 101 Temp 36.7 ??C (98.1 ??F) (Temporal) Resp 20 Ht 172 cm (5' 7.72) Wt 79.8 kg (176 lb) SpO2 100% BMI 26.98 kg/m?? General: Appears well, in no distress Imaging/Labs Interval setup imaging has been checked and approved. See Aria for details. Impression/Plan Tolerance to radiotherapy: Tolerating as anticipated. Continue as planned. Followup: RTC for on-treatment assessment next week. No orders of the defined types were placed in this encounter. ??? National Cancer [place] (NCI) Comprehensive Cancer Center ??? [employer] Commission on Cancer (ACS Andrea) Accredited Cancer Program ??? [employer] (ACR) Accredited Radiation Oncology Program documented in this encounter Plan of Treatment Upcoming Encounters Date Type Specialty Care Team Description 01/19/2022 Office Visit Tanvir Vivas MD [facility] HEMATOLOGY/[place] [address] Arlene Hill BOX COVERER HAND [facility] [place] [address] 01/19/2022 Infusion Hematology and Oncology 01/19/2022 Scheduled View Only Radiation Oncology 01/20/2022 Scheduled View Only Radiation Oncology 01/21/2022 Scheduled View Only Radiation Oncology 01/22/2022 Scheduled View Only Radiation Oncology 01/22/2022 Office Visit Radiation Oncology Adriana De La Rosa v, MD [address] [place] [address] RADIATION [place]CM[place], [place] [id number] (Wo rk) 01/23/2022 Scheduled View Only Radiation Oncology 01/26/2022 Office Visit Hematology and Tanvir Issa MD [facility] DR HEMATOLOGY/[place] [address] Arlene Hill BOX COVERER HAND [facility] [place] [address] 01/26/2022 Infusion Hematology and Oncology 01/26/2022 Scheduled View Only Radiation Oncology 01/27/2022 Scheduled View Only Radiation Oncology 01/28/2022 Scheduled View Only Radiation Oncology 01/29/2022 Scheduled View Only Radiation Oncology 01/29/2022 Office Visit Radiation Oncology Adriana De La Rosa v, MD [address] [place] [address] RADIATION [place]CM[place], [place] [id number] (Wo rk) 01/30/2022 Scheduled View Only Radiation Oncology 02/02/2022 Office Visit Hematology and Arlene Bobby, Oncology [facility] HEMATOLOGY AND ONCOLOGY [place], [place] [address] (Wo rk) 02/02/2022 Infusion Hematology and Oncology 02/02/2022 Scheduled View Only Radiation Oncology 02/03/2022 Scheduled View Only Radiation Oncology 02/04/2022 Scheduled View Only Radiation Oncology 02/05/2022 Scheduled View Only Radiation Oncology 02/05/2022 Office Visit Radiation Oncology Adriana De La Rosa v, MD [address] [place] [address] RADIATION [place], [place] 670469 (Wo rk) 02/06/2022 Scheduled View Only Radiation Oncology 02/09/2022 Office Visit Hematology and Arlene Bobby, Oncology 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
--- OUTSIDE RECORDS SUMMARY | 2022-01-19 02:08 | XMS_ITS | Encounter Summary ---
:1945 Author Organization [facility] Address [address] [place] [address] Care Team Providers Name Role Phone EdithQue DO Primary Care Provider Encounter Details Date Type Department Care Team Description 01/06/2022 Orders Only Hematology and Tanvir Issa, Primary squamous cell Oncology at [facility] of [facility] lob e of left lung [address] [place] HEMATOLOGY/ONCOLOGY [address] DEPT [phone] [place], [place] [address] (Wo rk) Social History Tobacco Use Types [...] 01/19/2022 Office Visit Hematology Tanvir Hawk MD [facility] HEMATOLOGY/[place] [address] Oncology Arlene Bobby [facility] [place] [address] 01/19/2022 Infusion Hematology and Oncology 01/19/2022 Scheduled View Only Radiation Oncology 01/20/2022 Scheduled View Only Radiation Oncology 01/21/2022 Scheduled View Only Radiation Oncology 01/22/2022 Scheduled View Only Radiation Oncology 01/22/2022 Office Visit Radiation Oncology Adriana De La Rosa v, MD [address] [place] [address] [place] [address] (Wo rk) 01/23/2022 Scheduled View Only Radiation Oncology 01/26/2022 Office Visit Tanvir Vivas MD [facility] HEMATOLOGY/[place] [address] Oncology Arlene Bobby APRN [facility] [place] [address] 01/26/2022 Infusion Hematology and Oncology 01/26/2022 Scheduled View Only Radiation Oncology 01/27/2022 Scheduled View Only Radiation Oncology 01/28/2022 Scheduled View Only Radiation Oncology 01/29/2022 Scheduled View Only Radiation Oncology 01/29/2022 Office Visit Radiation Oncology Adriana De La Rosa v, MD [address] [place] [address] DR CIPRI[address] [place], [place] [phone] (Wo rk) 01/30/2022 Scheduled View Only Radiation Oncology 02/02/2022 Office Visit Hematology and Arlene Bobby, Oncology [facility] HEMATOLOGY AND ONCOLOGY [place], [place] [address] (Wo rk) 02/02/2022 Infusion Hematology and Oncology 02/02/2022 Scheduled View Only Radiation Oncology 02/03/2022 Scheduled View Only Radiation Oncology 02/04/2022 Scheduled View Only Radiation Oncology 02/05/2022 Scheduled View Only Radiation Oncology 02/05/2022 Office Visit Radiation Oncology Adriana De La Rosa v, MD [address] [place] [address] DR CIPRIANO [place], [place] [phone] (Wo rk) 02/06/2022 Scheduled View Only Radiation Oncology 02/09/2022 Office Visit Hematology and Arlene Bobby, Oncology [facility] HEMATOLOGY AND ONCOLOGY [place], [place] [address] (Wo rk) 02/09/2022 Infusion Hematology and Oncology 02/09/2022 Scheduled View Only Radiation Oncology 02/09/2022 Notes Only Radiation Oncology Adriana De La Rosa v, MD [address] [place] [address] DR CIPRIANO [place]SSA[place], [place] [phone] (Wo rk) 02/10/2022 Scheduled View Only Radiation Oncology documented as of this encounter Visit Diagnoses Diagnosis 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
--- OUTSIDE RECORDS SUMMARY | 2022-01-19 02:08 | XMS_ITS | Encounter Summary ---
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 Matthew Chung Stj Rad Onc Treatment MD [address] [place] [address] [place], [place] Thoracic Surgery [address] [place] [address] Referral ID Status Reason Start Date Expiration Date Visits V isits Requested Authorized [id number] Closed Consult, 12/11/2021 12/11/2022 1 1 Test & Treat Reason for Visit Reason Comments Follow-up Encounter Details Date Type Department Care Team Description 12/11/2021 Office Visit Thoracic Surgery at Matthew Chung gume squamous cell [facility] MD Siobhan carcinoma [facility] lob e of left lung [address] [place] Thoracic Surgery [address] [place] [address] [phone] Social History Tobacco Use Types Packs/Day Years Used Date Current Every Day Smoker Cigars 0.5 63 Smokeless Tobacco: Never Used Financial Resource Strain Answer Date Recorded How [...] Sign Reading Time Taken Comments Blood Pressure 137/72 12/11/2021 9:37 AM EDT Pulse 118 12/11/2021 9:37 AM EDT Temperature 35.9 ??C (96.6 ??F) 12/11/2021 9:37 AM EDT Respiratory Rate 20 12/11/2021 9:37 AM EDT Oxygen Saturation 98% 12/11/2021 9:37 AM EDT Inhaled Oxygen Concentration - - Weight 82.1 kg (181 lb) 12/11/2021 9:37 AM EDT Height 172.5 cm (5' 7.91) 12/11/2021 9:37 AM EDT Body Mass Index 27.59 12/11/2021 9:37 AM EDT documented in this encounter Progress Notes Matthew Chung MD - 12/11/2021 9:30 AM EDT Images from the original note were not included. Thoracic Surgery Outpatient Consultation Note Matthew Chung MD [place], [place] [address] ? Referring Provider: Que Sharma, DO [address] [place] [address] ?? Reason for Consultation: Left lung mass ?? Today, 12/11/2021, I saw Mr. Ortega and his daughter back in the Thoracic Surgery Clinic at [facility] in consultation for a Left upper lobe squamous cell carcinoma. He is a 76 y.o. male with PMHx significant for HTN, HLD, DM2, tremor and possible prior skin cancer. He underwent bronchoscopy and EBUS with me on 12/03/21. He returns today with PFTs and to further discuss management. He is able to slowly climb 1 flight of stairs but would be short of breath at the top. He continues to cut back on his smoking, but is still smoking. He has stable pain in his right back. ?? I have personally reviewed the following scans and results that are part of the work up, including: PFTs 12/11/2021 show an FVC of ??2.97L, 84% predicted; FEV1 of 2.09L, 79% predicted and DLCO of 56% predicted. PET on 10/20/2021: ?? CT Chest on 09/22/2021: ?? Brain MRI from [facility] 11/12/21 Negative for metastatic disease ?? He has a past medical history of DM2 (diabetes mellitus, type 2), Hyperlipidemia, Hypertension, Skincancer, and Tremor. ?? He has a past surgical history that includes Thromboendartectmy Neck, Neck Incis (28887) (Right, 03/19/2020). ?? He has a current medication list which includes the following prescription(s): metformin, allopurinol, aspirin ec, benazepril-hydrochlorthiazide, ergocalciferol (vitamin d2), ferrous sulfate, furosemide, potassium chloride, omeprazole, pravastatin, tamsulosin, and escitalopram. ?? On examination, Mr. Ortega is a well nourished, well-developed male. He is alert and oriented. Vital Signs: BP 137/72 (Patient Position: Sitting) Pulse (!) 118 Temp 35.9 ??C (96.6 ??F) (Temporal) Resp 20 Ht 172.5 cm (5' 7.91) Wt 82.1 kg (181 lb) SpO2 98% BMI 27.59 kg/m?? . His pulse is regular, breathing is unlabored and temperature is afebrile. In general he is in no acute distress. His pupils are reactive. His sclera are anicteric. He has no palpable cervical or supraclavicular adenopathy. Musculoskelatal exam is grossly intact with 5/5 strength. His skin is non-jaundiced. ?? In summary, Mr. Ortega is a 76 y.o. male with a Left upper lobe biopsy proven squamous cell carcinoma. EBUS of LNs 4R, 7 and 11L was negative. 4L was non- diagnostic but did have a few scattered lymphocytes. We reviewed the steps for cancer management given his T3N0 central cancer. We reviewed the potential options of neoadjuvant systemic therapy followed by surgical resection versus definitive chemotherapy and radiation. Given the biopsies show involvement of the tumor to at least the tertiary carinaof the left upper lobe, he would at a minimum require a bronchoplasty if not a sleeve resection based on endobronchial findings. Furthermore, his CT scan and PET scan are concerning for larger involvement of the left upper lobe bronchus. There would be some potential for unresectability intraoperatively given the imaging. We discussed the potential risks and benefits of a treatment plan that involvedsurgery. Given his current functional status, pulmonary function testing, age, and comorbidities, aswell as his continued smoking, I would say that he is at prohibitive risk for surgical resection. Consequently, we discussed continuing forward with a plan for definitive chemotherapy and radiation. Heis to meet with Dr. Issa from medical oncology later today. I have placed a referral to radiation oncology with Dr. De La Rosa in [facility]. I will also present his case at [facility] next week to confirm a consensus recommendation. I communicated the above directly to Dr. Issa this morning. He and his daughter were given ample time to ask questions and all questions were answered to their satisfaction. He may return to see me on an as-needed basis. He knows that he can call my office at any point with questions or concerns. ?? Matthew Chung MD 12/11/2021 documented in this encounter Plan of Treatment Upcoming Encounters Date Type Specialty Care Team Description 01/19/2022 Office Visit Tanvir Vivas MD [facility] HEMATOLOGY/[place] [address] Oncology Arlene Bobby TRAFFIC CONTROL OPERATOR [facility] HEMATOLOGY [place] [address] 01/19/2022 Infusion Hematology and Oncology 01/19/2022 Scheduled View Only Radiation Oncology 01/20/2022 Scheduled View Only Radiation Oncology 01/21/2022 Scheduled View Only Radiation Oncology 01/22/2022 Scheduled View Only Radiation Oncology 01/22/2022 Office Visit Radiation Oncology Adriana De La Rosa v, MD [address] [place] [address] RAD[place]ATION [place], [place] [id number] (Wo rk) 01/23/2022 Scheduled View Only Radiation Oncology 01/26/2022 Office Visit Tanvir Vivas MD [facility] HEMATOLOGY/[place] [address] Oncology Arlene Bobby TRAFFIC CONTROL OPERATOR [facility] HEMATOLOGY [place] [address] 01/26/2022 Infusion Hematology and Oncology 01/26/2022 Scheduled View Only Radiation Oncology 01/27/2022 Scheduled View Only Radiation Oncology 01/28/2022 Scheduled View Only Radiation Oncology 01/29/2022 Scheduled View Only Radiation Oncology 01/29/2022 Office Visit Radiation Oncology Adriana De La Rosa v, MD [address] [place] [address] RAD[place]ATION [place], [place] [id number] (Wo rk) 01/30/2022 Scheduled View Only Radiation Oncology 02/02/2022 Office Visit Hematology Arlene Gordillo, Oncology [facility] HEMATOLOGY AND ONCOLOGY [place], [place] [address] (Wo rk) 02/02/2022 Infusion Hematology and Oncology 02/02/2022 Scheduled View Only Radiation Oncology 02/03/2022 Scheduled View Only Radiation Oncology 02/04/2022 Scheduled View Only Radiation Oncology 02/05/2022 Scheduled View Only Radiation Oncology 02/05/2022 Office Visit Radiation Oncology Adriana De La Rosa v, MD [address] [place] [address] RAD[place]ATION [place], [place] [id number] (Wo rk) 02/06/2022 Scheduled View Only Radiation Oncology 02/09/2022 Office Visit Hematology and Arlene Bobby, Oncology [facility] HEMATOLOGY AND ONCOLOGY [place], [place] [address] (Wo rk) 02/09/2022 Infusion Hematology and Oncology 02/09/2022 Scheduled View Only Radiation Oncology 02/09/2022 Notes Only Radiation Oncology Adriana De La Rosa v, MD [address] [place] [address] DR [place], [place] [address]399 (Wo rk) 02/10/2022 Scheduled View Only Radiation Oncology Scheduled Referrals Name Type Priority Associated Diagnoses Order S chedule Referral to Outpatient Referral STAT Primary squamous Orde red: Radiation Oncology cell carcinoma of 03/2022 upper lobe of left lung documented as of this encounter Visit Diagnoses Diagnosis 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
--- OUTSIDE RECORDS SUMMARY | 2022-01-19 02:08 | XMS_ITS | Encounter Summary ---
:1945 Author Organization [facility] [place] [address] Care Team Providers Name Role Phone Que Sharma DO Primary Care Provider Encounter Details Date Type Department Care Team Description 12/17/2021 Notes Only [facility] [address] [place] [address] [phone] Social History Tobacco Use Types Packs/Day Years [...] place to sleep or slept in a chcf (including now)? Sex Assigned at Date Recorded Not on file documented as of this encounter Progress Notes Jennifer Haile MSW - 12/17/2021 12:50 PM EDT Reason for Referral: Brief assessment of social and emotional needs. Met with pt after his sim todayto introduce myself and role of outreach and education social worker to assess/address barriers to getting to and through treatments; address support needs and connect with community services and resources as needed. Family/Social Supports: Pt identified his of 30 years as his primary support. He has 2 daughters who live in [place]. Yasmin is visiting now and Carlee will come next month. Living Situation/Daily Activities/Transportation: Pt and manage their daily chores and activities. He does not expect any issues with transportation other than the cost of travel. 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 He has Medicare and [employer] for insurance. Advance Directives: Pt indicated he completed his advance directive a while ago and may need to update it. Requested a copy of his directive for his medical record once updated. Utilization of Community Resources: None at this time. Adjustment to Illness/Mental Health Concerns: Pt indicated he is getting concurrent chemo/RT treatments for 6 weeks. He is coping as best he can. He indicated his has not shared how she is dealingwith this. It is nice to have his daughters here/coming. Offered support. Identified Needs: Transportation costs Referrals: Will follow up with pt re this once his treatments start. Social Work Interventions: Brief assessment Supportive Counseling Advance care planning Financial resources Plan: Informed pt of REJECT OPENER availability and contact information. Will follow to assess/address psychosocial needs. RAHEEM Coates, STOPPING BUILDER, OSW-C Outboard Motor Mechanic [facility] documented in this encounter Plan of Treatment Upcoming Encounters Date Type Specialty Care Team Description 01/19/2022 Office Visit Tanvir Vivas MD [facility] HEMATOLOGY/[place] [address] Oncology Arlene Bobby REPAIRER WELDING EQUIPMENT [facility] HEMATOLOGY [place] [address] 01/19/2022 Infusion Hematology and Oncology 01/19/2022 Scheduled View Only Radiation Oncology 01/20/2022 Scheduled View Only Radiation Oncology 01/21/2022 Scheduled View Only Radiation Oncology 01/22/2022 Scheduled View Only Radiation Oncology 01/22/2022 Office Visit Radiation Oncology Adriana De La Rosa v, MD [address] [place] [address] [address] [place], [place] [phone] (Wo rk) 01/23/2022 Scheduled View Only Radiation Oncology 01/26/2022 Office Visit Hematology Tanvir Hawk MD [facility] DR HEMATOLOGY/[place] [address] Arlene Hill REPAIRER WELDING EQUIPMENT [facility] HEMATOLOGY [place] [address] 01/26/2022 Infusion Hematology and Oncology 01/26/2022 Scheduled View Only Radiation Oncology 01/27/2022 Scheduled View Only Radiation Oncology 01/28/2022 Scheduled View Only Radiation Oncology 01/29/2022 Scheduled View Only Radiation Oncology 01/29/2022 Office Visit Radiation Oncology Adriana De La Rosa v, MD [address] [place] [address] DR CIPRIANO TOUSSAINT [place], [place] [id number] (Wo rk) 01/30/2022 Scheduled View Only Radiation Oncology 02/02/2022 Office Visit Hematology and Arlene Bobby, Oncology [facility] HEMATOLOGY AND ONCOLOGY [place], [place] [address] (Wo rk) 02/02/2022 Infusion Hematology and Oncology 02/02/2022 Scheduled View Only Radiation Oncology 02/03/2022 Scheduled View Only Radiation Oncology 02/04/2022 Scheduled View Only Radiation Oncology 02/05/2022 Scheduled View Only Radiation Oncology 02/05/2022 Office Visit Radiation Oncology Adriana De La Rosa v, MD [address] [place] [address] DR [place], [place] [phone] (Wo rk) 02/06/2022 Scheduled View Only Radiation Oncology 02/09/2022 Office Visit Hematology and Arlene Bobby, Oncology [facility] HEMATOLOGY AND ONCOLOGY [place], [place] [address] (Wo rk) 02/09/2022 Infusion Hematology and Oncology 02/09/2022 Scheduled View Only Radiation Oncology 02/09/2022 Notes Only Radiation Oncology Adriana De La Rosa v, MD [address] [place] [address] DR [place], [place] [phone] (Wo rk) 02/10/2022 Scheduled View Only Radiation Oncology documented as of this encounter Visit Diagnoses Not on filedocumented in this encounter Care Teams Mold Maker Plastic Molds Relationship Specialty Start Date End Date Que Sharma DO PCP - General Family Medicine 02/08/20 [address] [place] [address] documented as of this encounter
--- OUTSIDE RECORDS SUMMARY | 2022-01-19 02:08 | XMS_ITS | Encounter Summary ---
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 Bill De La Rosa MD [facility] Rad Onc Office Procedures Simulation for Radiation Therapy Planning [address] [place] [address] [place] [id number] Referral ID Status Reason Start Date Expiration Date Visits V isits Requested Authorized [id number] Closed Consult, 01/01/2022 01/01/2023 1 1 Test & Treat Encounter Details Date Type Department Care Team Description 01/07/2022 Ancillary Appointment Radiation [facility] [address] [place] [address] [place], [place] RADIATION ONCOL OGY [address] [place], [place] [phone] (Wo rk) Social History Tobacco Use Types [...] to sleep or slept in a senior care (including now)? Sex Assigned at Date Recorded Not on file documented as of this encounter Plan of Treatment Upcoming Encounters Date Type Specialty Care Team Description 01/19/2022 Office Visit Hematology and Tanvir Issa MD [facility] HEMATOLOGY/[place] [address] Oncology Arlene Bobby APRN [facility] HEMATOLOGY [place] [address] 01/19/2022 Infusion Hematology and Oncology 01/19/2022 Scheduled View Only Radiation Oncology 01/20/2022 Scheduled View Only Radiation Oncology 01/21/2022 Scheduled View Only Radiation Oncology 01/22/2022 Scheduled View Only Radiation Oncology 01/22/2022 Office Visit Radiation Oncology Adriana De La Rosa v, MD [address] [place] [address] [place] [address] (Wo rk) 01/23/2022 Scheduled View Only Radiation Oncology 01/26/2022 Office Visit Hematology and Tanvir Issa MD [facility] HEMATOLOGY/[place] [address] Oncology Arlene Bobby [facility] HEMATOLOGY [place] [address] 01/26/2022 Infusion Hematology and Oncology 01/26/2022 Scheduled View Only Radiation Oncology 01/27/2022 Scheduled View Only Radiation Oncology 01/28/2022 Scheduled View Only Radiation Oncology 01/29/2022 Scheduled View Only Radiation Oncology 01/29/2022 Office Visit Radiation Oncology Adriana De La Rosa v, MD [address] [place] [address] DR CIPRIANO [place]SSA[place], [place] [address] (Wo rk) 01/30/2022 Scheduled View Only Radiation Oncology 02/02/2022 Office Visit Hematology and Arlene Bobby, Oncology [facility] HEMATOLOGY AND ONCOLOGY [place], [place] [address] (Wo rk) 02/02/2022 Infusion Hematology and Oncology 02/02/2022 Scheduled View Only Radiation Oncology 02/03/2022 Scheduled View Only Radiation Oncology 02/04/2022 Scheduled View Only Radiation Oncology 02/05/2022 Scheduled View Only Radiation Oncology 02/05/2022 Office Visit Radiation Oncology Adriana De La Rosa v, MD [address] [place] [address] DR [place]RI[address] [place], [place] 0[address]889 (Wo rk) 02/06/2022 Scheduled View Only Radiation Oncology 02/09/2022 Office Visit Hematology and Arlene Bobby, Oncology [facility] HEMATOLOGY AND ONCOLOGY [place], [place] [address] (Wo rk) 02/09/2022 Infusion Hematology and Oncology 02/09/2022 Scheduled View Only Radiation Oncology 02/09/2022 Notes Only Radiation Oncology Adriana De La Rosa v, MD [address] [place] [address] [place] [address] (Wo rk) 02/10/2022 Scheduled View Only Radiation Oncology documented as of this encounter Visit Diagnoses Not on filedocumented in this encounter Care Teams Distribution Specialist Relationship Specialty Start Date End Date Que Sharma DO PCP - General Family Medicine 02/08/20 [address] [place] [address] documented as of this encounter
--- OUTSIDE RECORDS SUMMARY | 2022-01-19 02:08 | XMS_ITS | Encounter Summary ---
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 Tanvir Issa MD [facility] Hem Onc Office [address] HEMATOLOGY/[place] [phone] Fax: Referral ID Status Reason Start Date Expiration Date Visits V isits Requested Authorized [id number] Authorized 12/13/2021 12/13/2022 99 99 Encounter Details Date Type Department Care Team Description 01/06/2022 Infusion Hematology Oncology at [facility] squamous cell [facility] carcinoma of upper lobe of [address] [place] [address] left lung [place], [place] [phone] Social History Tobacco Use Types Packs/Day [...] Sign Reading Time Taken Comments Blood Pressure 83/55 01/06/2022 8:31 AM EDT Pulse 118 01/06/2022 8:31 AM EDT Temperature 36.4 ??C (97.5 ??F) 01/06/2022 8:31 AM EDT Respiratory Rate 20 01/06/2022 8:31 AM EDT Oxygen Saturation 99% 01/06/2022 8:31 AM EDT Inhaled Oxygen Concentration - - Weight 80 kg (176 lb 6.4 oz) 01/06/2022 8:31 AM EDT Height 172 cm (5' 7.72) 01/06/2022 8:31 AM EDT Body Mass Index 27.05 01/06/2022 8:31 AM EDT documented in this encounter Progress Notes Neena Ruiz RN - 01/06/2022 9:00 AM EDT INFUSION THERAPY ADMINISTRATION NOTES DIAGNOSIS: NSCLC CYCLE #:1 Day 8 REASON FOR VISIT: Carbo/Taxol SUBJECTIVE Viktor states that he isn't feeling great today. He has about 6/10 pain mostly in his stomach and left shoulder. His energy level is nearly none the last few days. He is still able to get up and dressedbut has very little energy and can only walk short distances before getting tired. No nausea or vomiting this week. Is still having some constipation and continuing to take a stool softener daily with some relief. He is not feeling crampy just bound up. States he has been drinking a lot of water this week. OBJECTIVE LAB DATA: WBC 4.62; Hgb 10.4; Hct 30.2; Plt 262; ANC 3.47; Lytes WNL - Chloride 97, Ca 8.4, Mag 0.9;BUN 23; Cr 1.7 IV ACCESS: PIV to left hand. Pre administration: Chemotherapy orders independently verified for drug name, route, and dosage per patient's height, weight and BSA by Neena Delgadillo RN and on-site pharmacist. REACTIONS (DESCRIPTION, TIME, INTERVENTION AND EFFECTIVENESS) none ASSESSMENT Viktor was awake, alert and tolerated treatment well. Is receiving concurrent radiation and will be starting XRT today after infusion therapy. Stomach soft and non-tender to touch with minimal distension. PLAN Return to clinic daily M-F for radiation and weekly for Carbo/Taxol. documented in this encounter Plan of Treatment Upcoming Encounters Date Type Specialty Care Team Description 01/19/2022 Office Visit Hematology and Tanvir Issa MD [facility] DR HEMATOLOGY/[place] [address] Oncology Arlene Bobby APRN [facility] HEMATOLOGY [place] [address] 01/19/2022 Infusion Hematology and Oncology 01/19/2022 Scheduled View Only Radiation Oncology 01/20/2022 Scheduled View Only Radiation Oncology 01/21/2022 Scheduled View Only Radiation Oncology 01/22/2022 Scheduled View Only Radiation Oncology 01/22/2022 Office Visit Radiation Oncology Estrella, Adriana v S, MD [address] [place] [address] [address] [place], [place] [address] (Wo rk) 01/23/2022 Scheduled View Only Radiation Oncology 01/26/2022 Office Visit Hematology and Tanvir Issa MD [facility] HEMATOLOGY/[place] [address] Oncology Arlene Bobby [facility] HEMATOLOGY [place] [address] 01/26/2022 Infusion Hematology and Oncology 01/26/2022 Scheduled View Only Radiation Oncology 01/27/2022 Scheduled View Only Radiation Oncology 01/28/2022 Scheduled View Only Radiation Oncology 01/29/2022 Scheduled View Only Radiation Oncology 01/29/2022 Office Visit Radiation Oncology Adriana De La Rosa v, MD [address] [place] [address] DR [address]IPRI[address] [place], [place] [id number] (Wo rk) 01/30/2022 Scheduled View Only Radiation Oncology 02/02/2022 Office Visit Hematology and Arlene Bobby, Oncology [facility] HEMATOLOG[facility] AND ONCOLOGY [place], [place] [address] (Wo rk) 02/02/2022 Infusion Hematology and Oncology 02/02/2022 Scheduled View Only Radiation Oncology 02/03/2022 Scheduled View Only Radiation Oncology 02/04/2022 Scheduled View Only Radiation Oncology 02/05/2022 Scheduled View Only Radiation Oncology 02/05/2022 Office Visit Radiation Oncology Adriana De La Rosa v, MD [address] [place] [address] DR [place] [place], [place] [id number] (Wo rk) 02/06/2022 Scheduled View Only Radiation Oncology 02/09/2022 Office Visit Hematology and Arlene Bobby, Oncology [facility] HEMATOLOGY AND ONCOLOGY [place], [place] [address] (Wo rk) 02/09/2022 Infusion Hematology and Oncology 02/09/2022 Scheduled View Only Radiation Oncology 02/09/2022 Notes Only Radiation Oncology Adriana De La Rosa v, MD [address] [place] [address] [place] [address] (Wo rk) 02/10/2022 Scheduled View Only Radiation Oncology documented as of this encounter Visit Diagnoses Diagnosis 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 documented in this encounter Administered Medications Inactive Administered Medications - up to 3 most recent administrations Medication Order MAR Action Action Date Dose Rate Site CARBOplatin (Paraplatin) 133 New Bag 01/06/2022 11:18 AM 133 mg 326.6 mL/hr mg in sodium chloride 0.9% EDT 163.3 mL infusion 133 mg (rounded from 133.2 mg, Target AUC = 2), Intravenous, ONCE, 1 dose, On Wed01/06/22 at 1000, Administer over 30 Minutes, Warning Vesicant/Irritant Medication dexAMETHasone (Decadron) tablet 10 mg Given 01/06/2022 9:11 AM EDT 10 mg 10 mg, Oral, ONCE, 1 dose, On Wed01/06/22 at 0900, Administer 30 minutes prior to PACLitaxel., Routine diphenhydrAMINE (Benadryl) capsule 50 mg Given 01/06/2022 9:11 AM EDT 50 mg 50 mg, Oral, ONCE, 1 dose, On Wed01/06/22 at 0900, Administer 30 minutes prior to PACLitaxel., Routine famotidine (Pepcid) (10 mg/mL) injection 20 mg Given 01/06/2022 9:11 AM EDT 20 mg 20 mg, Intravenous, ONCE, 1 dose, On Wed01/06/22 at 0900, Administer 30 minutes prior to PACLitaxel. PACLitaxeL (Taxol) 99 mg in sodium New Bag 01/06/2022 9:52 AM EDT 99 mg 266.5 mL/hr chloride 0.9% Non-PVC 266.5 mL infusion 99 mg (50 mg/m2/dose ? 1.98 m2 Treatment Plan BSA from Recorded weight), Intravenous, ONCE, 1 dose, On Wed01/06/22 at 1000, Administer over 60 Minutes, Warning Vesicant/Irritant Medication palonosetron (Aloxi) (0.05 mg/mL) injection Given 11/2021 9:13 AM EDT 0.25 mg 0.25 mg 0.25 mg, Intravenous, ONCE, 1 dose, On Wed01/06/22 at 0900, Administer over 30 seconds., Routine documented in this encounter Care Teams Olericulture Teacher Relationship Specialty Start Date End Date Que Sharma DO PCP - General Family Medicine 02/08/20 [address] [place] [address] documented as of this encounter
--- OUTSIDE RECORDS SUMMARY | 2022-01-19 02:08 | XMS_ITS | Encounter Summary ---
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 Sex Assigned at Date Recorded Not on file documented as of this encounter Last Filed Vital Signs Vital Sign Reading Time Taken Comments Blood Pressure 120/65 12/29/2021 12:30 PM EDT Pulse 107 12/29/2021 12:30 PM EDT Temperature - - Respiratory Rate 18 12/29/2021 12:30 PM EDT Oxygen Saturation 99% 12/29/2021 12:30 PM EDT Inhaled Oxygen Concentration - - Weight 79.1 kg (174 lb 6.4 oz) 12/29/2021 12:30 PM EDT Height 172 cm (5' 7.72) 12/29/2021 12:30 PM EDT Body Mass Index 26.74 12/29/2021 12:30 PM EDT documented in this encounter Patient Instructions Patient InstructionsArlene Bobby APRN - 12/29/2021 12:46 PM EDT The plan is for you to receive TWO chemotherapy drugs (Carboplatin & Paclitaxel) WEEKLY with concurrent DAILY RADIATION for 6-7 weeks (schedules may vary a touch) to treat your lung cancer Antitumor Therapy Schedule: Pre-medications are given to prevent nausea and reduce the chance of reactions to the treatments Carboplatin infuses over 30 minutes Paclitaxel infuses over 60 minutes Plan for approximately 2-3 hrs in infusion on the days that your receive chemotherapy. The days thatyour receive just radiation will be shorter. Laboratory Tests: Prior to each treatment we will check blood counts, kidney and liver function and electrolytes. Sometimes if these are too low we will need to delay your treatment or reduce your dose Provider Visits: Weekly during treatment Possible Side Effects include, but are not limited to: Carboplatin and Paclitaxel: The most common side effects include decrease in blood counts (decrease in white blood cells, red blood cells and platelets resulting in increased risk of infection, anemia and bleeding), nausea and vomiting, taste changes, decreased appetite, constipation (or less likely di arrhea), fatigue. Less common side effects include infusion reaction, rash, mouth sores, kidney dysfunction, electrolyte abnormalities. Medications: the following prescriptions should be picked up before starting treatment Prochlorperazine (aka Compazine) 10 mg oral every 6 hours as needed for nausea Optional: Ondansetron (aka Zofran) 4-8 mg oral every 8 hours as needed for nausea (do not take for 3days after chemotherapy because we give you a long acting form of this on the day of infusion that lasts 72 hours) General recommendations: Call if temperature of 100.4 or greater or signs of symptoms of an infection. It is very important to practice good hand hygiene and wash your hands frequently. Please call if your experience bleeding, new/increasing SOB, or chest pain chest pain. Call if nausea/vomiting persists despite trying your antinausea medcations. Try to stay hydrated. Water is the best option Smaller/ more frequent meals and blander foods may be better tolerated. Call if you develop mouth sores so we can discuss mouth rinses, dietary recommendations and strategies for pain management. Please tell us if you experience numbness/tingling/changes in sensation in hands or feet You should use a barrier method of protection if sexually active on days of chemotherapy and for 48 hours afterwards Try to stay active if at all possible. This helps reduce or limit fatigue. It is ok to take naps andrest if you need to. At the end of the 6-7 week period we will repeat a CT scan. Then, assuming the results look fine, we would consider starting a monthly drug called Durvalumab. This is a immunotherapy drug (as opposed to a chemotherapy drug) that helps the bodies immune system attack rogue left over cancer cells that are still left behind. This has been shown in studies to increase the chances that the chemotherapy and radiation therapy will cure you of this cancer. We will talk more about this drug later on in your treatment. It generally has fewer side effects and easier to tolerate than the chemotherapy and radiation. It is given monthly for 12 months. It takes about 1 hour to be infused. Labs 12/29/21 WBC 6.45, Hgb 11, Plt Ct 314, ANC 4.11 Na 136, K+ 4.0, BUN 21, Creat 1.5, Glucose 160, Calcium 8.8, mag 1.4, total Bili 0.2, AST 9, ALT 11,Alk Phos 125, total Prot 7.0, Albumin documented in this encounter Progress Notes Arlene Bobby APRN - 12/29/2021 11:30 AM EDT Images from the original note were not included. Thoracic Oncology [facility] Don Ortega is a 76 y.o. male who is here with his daughter for chemotherapy teaching. Mr Ortega is beginning his treatment today following this visit. The plan is for you to receive TWO chemotherapy drugs (Carboplatin & Paclitaxel) WEEKLY with concurrent DAILY RADIATION for 6 weeks (schedules may vary a touch) to treat your lung cancer Antitumor Therapy Schedule: Pre-medications are given to prevent nausea and reduce the chance of reactions to the treatments Carboplatin infuses over 30 minutes Paclitaxel infuses over 60 minutes Plan for approximately 2-3 hrs in infusion on the days that your receive chemotherapy. The days thatyour receive just radiation will be shorter. Laboratory Tests: Prior to each treatment we will check blood counts, kidney and liver function and electrolytes. Sometimes if these are too low we will need to delay your treatment or reduce your dose Provider Visits: Weekly during treatment Possible Side Effects include, but are not limited to: Carboplatin and Paclitaxel: The most common side effects include decrease in blood counts (decrease in white blood cells, red blood cells and platelets resulting in increased risk of infection, anemia and bleeding), nausea and vomiting, taste changes, decreased appetite, constipation (or less likely di arrhea), fatigue. Less common side effects include infusion reaction, rash, mouth sores, kidney dysfunction, electrolyte abnormalities. Medications: the following prescriptions should be picked up before starting treatment ??? Prochlorperazine (aka Compazine) 10 mg oral every 6 hours as needed for nausea ??? Optional: Ondansetron (aka Zofran) 4-8 mg oral every 8 hours as needed for nausea (do not take for 3 days after chemotherapy because we give you a long acting form of this on the day of infusion that lasts 72 hours) General recommendations: ??? Call if temperature of 100.4 or greater or signs of symptoms of an infection. ??? It is very important to practice good hand hygiene and wash your hands frequently. ??? Please call if your experience bleeding, new/increasing SOB, or chest pain chest pain. ??? Call if nausea/vomiting persists despite trying your antinausea medcations. ??? Try to stay hydrated. Water is the best option ??? Smaller/ more frequent meals and blander foods may be better tolerated. ??? Call if you develop mouth sores so we can discuss mouth rinses, dietary recommendations and strategies for pain management. ??? Please tell us if you experience numbness/tingling/changes in sensation in hands or feet ??? You should use a barrier method of protection if sexually active on days of chemotherapy and for48 hours afterwards ??? Try to stay active if at all possible. This helps reduce or limit fatigue. It is ok to take napsand rest if you need to. At the end of the 6-7 week period we will repeat a CT scan. Then, assuming the results look fine, we would consider starting a monthly drug called Durvalumab. This is a immunotherapy drug (as opposed to a chemotherapy drug) that helps the bodies immune system attack rogue left over cancer cells that are still left behind. This has been shown in studies to increase the chances that the chemotherapy and radiation therapy will cure you of this cancer. We will talk more about this drug later on in your treatment. It generally has fewer side effects and easier to tolerate than the chemotherapy and radiation. It is given monthly for 12 months. It takes about 1 hour to be infused. Approximately 60 minutes was spent face to face teaching. [facility] medications sheets provided for Paclitaxel and Carboplatin. Contact phone numbers provided for both [facility] and [facility]. Instructed to call [facility] number during week 8a-5p. After hours call [facility] number and ask for physician covering for Dr. Issa. Questions answered to patient and daughter's satisfaction - Labs and toxicities assessed and acceptable for ongoing treatment. Labs 12/29/21 WBC 6.45, Hgb 11, Plt Ct 314, ANC 4.11 Na 136, K+ 4.0, BUN 21, Creat 1.5, Glucose 160, Calcium 8.8, mag 1.4, total Bili 0.2, AST 9, ALT 11,Alk Phos 125, total Prot 7.0, Albumin documented in this encounter Plan of Treatment Upcoming Encounters Date Type Specialty Care Team Description 01/19/2022 Office Visit Hematology Tanvir Hawk MD [facility] HEMATOLOGY/[place] [address] Oncology Arlene Bobby APRN [facility] [place] [address] 01/19/2022 Infusion Hematology and Oncology 01/19/2022 Scheduled View Only Radiation Oncology 01/20/2022 Scheduled View Only Radiation Oncology 01/21/2022 Scheduled View Only Radiation Oncology 01/22/2022 Scheduled View Only Radiation Oncology 01/22/2022 Office Visit Radiation Oncology Adriana De La Rosa v, MD [address] [place] [address] [place] [address] (Wo rk) 01/23/2022 Scheduled View Only Radiation Oncology 01/26/2022 Office Visit Tanvir Vivas MD [facility] HEMATOLOGY/[place] [address] Oncology Arlene Bobby APRN [facility] [place] [address] 01/26/2022 Infusion Hematology and Oncology 01/26/2022 Scheduled View Only Radiation Oncology 01/27/2022 Scheduled View Only Radiation Oncology 01/28/2022 Scheduled View Only Radiation Oncology 01/29/2022 Scheduled View Only Radiation Oncology 01/29/2022 Office Visit Radiation Oncology Adriana De La Rosa v, MD [address] [place] [address] DR [place] [address] (Wo rk) 01/30/2022 Scheduled View Only Radiation Oncology 02/02/2022 Office Visit Hematology and Arlene Bobby, Oncology [facility] HEMATOLOGY AND ONCOLOGY [place], [place] [address] (Wo rk) 02/02/2022 Infusion Hematology and Oncology 02/02/2022 Scheduled View Only Radiation Oncology 02/03/2022 Scheduled View Only Radiation Oncology 02/04/2022 Scheduled View Only Radiation Oncology 02/05/2022 Scheduled View Only Radiation Oncology 02/05/2022 Office Visit Radiation Oncology Adriana De La Rosa v, MD [address] [place] [address] [place] [address] (Wo rk) 02/06/2022 Scheduled View Only Radiation Oncology 02/09/2022 Office Visit Hematology and Arlene Bobby, Oncology [facility] HEMATOLOGY AND ONCOLOGY [place], [place] [address] (Wo rk) 02/09/2022 Infusion Hematology and Oncology 02/09/2022 Scheduled View Only Radiation Oncology 02/09/2022 Notes Only Radiation Oncology Adriana De La Rosa v, MD [address] [place] [address] [address] [place] [address] (Wo rk) 02/10/2022 Scheduled View Only Radiation Oncology documented as of this encounter Visit Diagnoses Diagnosis 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
--- OUTSIDE RECORDS SUMMARY | 2022-01-19 02:08 | XMS_ITS | Encounter Summary ---
:1945 Author Organization [facility] [place] [address] Care Team Providers Name Role Phone Que Sharma DO Primary Care Provider Encounter Details Date Type Department Care Team Description 12/03/2021 External Results Medical Records Provider, [facility] [place] [address] Social History Tobacco Use Types Packs/Day Years [...] 01/19/2022 Office Visit Hematology Tanvir Hawk MD [facility] HEMATOLOGY/[place] [address] Arlene Hill APRN [facility] [place] [address] 01/19/2022 Infusion Hematology and Oncology 01/19/2022 Scheduled View Only Radiation Oncology 01/20/2022 Scheduled View Only Radiation Oncology 01/21/2022 Scheduled View Only Radiation Oncology 01/22/2022 Scheduled View Only Radiation Oncology 01/22/2022 Office Visit Radiation Oncology Adriana De La Rosa v, MD [address] [place] [address] RADIATION [place]CMIL[place], [place] [id number] (Wo rk) 01/23/2022 Scheduled View Only Radiation Oncology 01/26/2022 Office Visit Tanvir Vivas MD [facility] HEMATOLOGY/[place] [address] Arlene Hill APRN [facility] [place] [address] 01/26/2022 Infusion Hematology and Oncology 01/26/2022 Scheduled View Only Radiation Oncology 01/27/2022 Scheduled View Only Radiation Oncology 01/28/2022 Scheduled View Only Radiation Oncology 01/29/2022 Scheduled View Only Radiation Oncology 01/29/2022 Office Visit Radiation Oncology Adriana De La Rosa v, MD [address] [place] [address] DR [address] [place] [place], [place] [id number] (Wo rk) 01/30/2022 Scheduled View Only Radiation Oncology 02/02/2022 Office Visit Hematology Arlene Gordillo, Oncology [facility] HEMATOLOGY AND ONCOLOGY [place], [place] [address] (Wo rk) 02/02/2022 Infusion Hematology and Oncology 02/02/2022 Scheduled View Only Radiation Oncology 02/03/2022 Scheduled View Only Radiation Oncology 02/04/2022 Scheduled View Only Radiation Oncology 02/05/2022 Scheduled View Only Radiation Oncology 02/05/2022 Office Visit Radiation Oncology Adriana De La Rosa v, MD [address] [place] [address] RAD[place]ATION [place]CM[place], [place] [id number] (Wo rk) 02/06/2022 Scheduled View Only Radiation Oncology 02/09/2022 Office Visit Hematology and Arlene Bobby, Oncology [facility] HEMATOLOGY AND ONCOLOGY [place], [place] [address] (Wo rk) 02/09/2022 Infusion Hematology and Oncology 02/09/2022 Scheduled View Only Radiation Oncology 02/09/2022 Notes Only Radiation Oncology Adriana De La Rosa v, MD [address] [place] [address] [place] [address] (Wo rk) 02/10/2022 Scheduled View Only Radiation Oncology documented as of this encounter Visit Diagnoses Not on filedocumented in this encounter Care Teams Frankfurter Inspector Relationship Specialty Start Date End Date Que Sharma DO PCP - General Family Medicine 02/08/20 [address] [place] [address] documented as of this encounter
--- OUTSIDE RECORDS SUMMARY | 2022-01-19 02:08 | XMS_ITS | Encounter Summary ---
:1945 Author Organization [facility] [place] [address] Care Team Providers Name Role Phone Que Sharma DO Primary Care Provider Reason for Visit Reason Onset Date Comments Follow-up 12/31/2021 First cycle chemo. Encounter Details Date Type Department Care Team Description 12/31/2021 Telephone Hematology [facility] Neena Mauro RN chemo.) [address] [place] [phone] Social History Tobacco Use Types Packs/Day [...] place to sleep or slept in a alf (including now)? Sex Assigned at Date Recorded Not on file documented as of this encounter Miscellaneous Notes Telephone Encounter - Neena Ruiz RN - 12/31/2021 3:53 PM EDT RN called Don Ortega to follow up on his first cycle of Carbo/Taxol. Don stated that he was doing pretty good. No complaints of nausea or vomiting. States no diarrhea. Having some mild constipation but has been taking stool softeners. No complaints of abdominal pain or bloating. Has had a decrease in energy levels. Still able to perform ADL's but needing more breaks. Reminded patient to call with any questions or concerns. documented in this encounter Plan of Treatment Upcoming Encounters Date Type Specialty Care Team Description 01/19/2022 Office Visit Hematology and Tanvir Issa MD [facility] HEMATOLOGY/[place] [address] Oncology Arlene Bobby APRN [facility] [place] [address] 01/19/2022 Infusion Hematology and Oncology 01/19/2022 Scheduled View Only Radiation Oncology 01/20/2022 Scheduled View Only Radiation Oncology 01/21/2022 Scheduled View Only Radiation Oncology 01/22/2022 Scheduled View Only Radiation Oncology 01/22/2022 Office Visit Radiation Oncology Adriana De La Rosa v, MD [address] [place] [address] [address] [place] [address] (Wo rk) 01/23/2022 Scheduled View Only Radiation Oncology 01/26/2022 Office Visit Hematology and Tanvir Issa MD [facility] HEMATOLOGY/[place] [address] Oncology Arlene Bobby [facility] [place] [address] 01/26/2022 Infusion Hematology and Oncology 01/26/2022 Scheduled View Only Radiation Oncology 01/27/2022 Scheduled View Only Radiation Oncology 01/28/2022 Scheduled View Only Radiation Oncology 01/29/2022 Scheduled View Only Radiation Oncology 01/29/2022 Office Visit Radiation Oncology Adriana De La Rosa v, MD [address] [place] [address] DR [address] [place] [place], [place] [id number] (Wo rk) 01/30/2022 Scheduled View Only Radiation Oncology 02/02/2022 Office Visit Hematology and Arlene Bobby, Oncology [facility] [place], [place] [address] (Wo rk) 02/02/2022 Infusion Hematology and Oncology 02/02/2022 Scheduled View Only Radiation Oncology 02/03/2022 Scheduled View Only Radiation Oncology 02/04/2022 Scheduled View Only Radiation Oncology 02/05/2022 Scheduled View Only Radiation Oncology 02/05/2022 Office Visit Radiation Oncology Adriana De La Rosa v, MD [address] [place] [address] [address] [place] [place], [place] [id number] (Wo rk) 02/06/2022 Scheduled View Only Radiation Oncology 02/09/2022 Office Visit Hematology and Arlene Bobby, Oncology [facility] [place], [place] [address] (Wo rk) 02/09/2022 Infusion Hematology and Oncology 02/09/2022 Scheduled View Only Radiation Oncology 02/09/2022 Notes Only Radiation Oncology Adriana De La Rosa v, MD [address] [place] [address] [place] [address] (Wo rk) 02/10/2022 Scheduled View Only Radiation Oncology documented as of this encounter Visit Diagnoses Not on filedocumented in this encounter Care Teams Verifier Relationship Specialty Start Date End Date Que Sharma DO PCP - General Family Medicine 02/08/20 [address] [place] [address] documented as of this encounter
--- OUTSIDE RECORDS SUMMARY | 2022-01-19 02:08 | XMS_ITS | Encounter Summary ---
:1945 Author Organization [facility] [place] [address] Care Team Providers Name Role Phone EdithQue DO Primary Care Provider Encounter Details Date Type Department Care Team Description 12/17/2021 Notes [facility] [place] [phone] Social History Tobacco Use Types Packs/Day [...] place to sleep or slept in a fci (including now)? Sex Assigned at Date Recorded Not on file documented as of this encounter Progress Notes Marilin Valentino RN - 12/17/2021 6:14 PM EDT PA requested for Fentanyl Patch prescription. Expedited PA requested via [employer] My [employer]. Mcdonnell [id number]. Outcome: Approved. Telephone call to patient to let him know of approval status of PA. documented in this encounter Plan of Treatment Upcoming Encounters Date Type Specialty Care Team Description 01/19/2022 Office Visit Hematology and Tanvir Issa MD [facility] HEMATOLOGY/[place] [address] Oncology Arlene Bobby APRN [facility] HEMATOLOGY [place] [address] 01/19/2022 Infusion Hematology and Oncology 01/19/2022 Scheduled View Only Radiation Oncology 01/20/2022 Scheduled View Only Radiation Oncology 01/21/2022 Scheduled View Only Radiation Oncology 01/22/2022 Scheduled View Only Radiation Oncology 01/22/2022 Office Visit Radiation Oncology Adriana De La Rosa v, MD [address] [place] [address] [place] [address] (Wo rk) 01/23/2022 Scheduled View Only Radiation Oncology 01/26/2022 Office Visit Tanvir Vivas MD [facility] HEMATOLOGY/[place] [address] Oncology Arlene Bobby [facility] HEMATOLOGY [place] [address] 01/26/2022 Infusion Hematology and Oncology 01/26/2022 Scheduled View Only Radiation Oncology 01/27/2022 Scheduled View Only Radiation Oncology 01/28/2022 Scheduled View Only Radiation Oncology 01/29/2022 Scheduled View Only Radiation Oncology 01/29/2022 Office Visit Radiation Oncology Adriana De La Rosa v, MD [address] [place] [address] DR [address]RI[address] [place] [place], [place] [id number] (Wo rk) 01/30/2022 Scheduled View Only Radiation Oncology 02/02/2022 Office Visit Hematology and Arlene Bobby, Oncology [facility] HEMATOLOGY AND ONCOLOGY [place], [place] [address] (Wo rk) 02/02/2022 Infusion Hematology and Oncology 02/02/2022 Scheduled View Only Radiation Oncology 02/03/2022 Scheduled View Only Radiation Oncology 02/04/2022 Scheduled View Only Radiation Oncology 02/05/2022 Scheduled View Only Radiation Oncology 02/05/2022 Office Visit Radiation Oncology Adriana De La Rosa v, MD [address] [place] [address] [address] [place] [address] (Wo rk) 02/06/2022 Scheduled View Only Radiation Oncology 02/09/2022 Office Visit Hematology and Arlene Bobby, Oncology [facility] HEMATOLOGY AND [place]COLOGY [place], [place] [address] (Wo rk) 02/09/2022 Infusion Hematology and Oncology 02/09/2022 Scheduled View Only Radiation Oncology 02/09/2022 Notes Only Radiation Oncology Adriana De La Rosa v, MD [address] [place] [address] [address] [place], [place] [address] (Wo rk) 02/10/2022 Scheduled View Only Radiation Oncology documented as of this encounter Visit Diagnoses Not on filedocumented in this encounter Care Teams Yoga Coordinator Relationship Specialty Start Date End Date Que Sharma DO PCP - General Family Medicine 02/08/20 [address] [place] [address] documented as of this encounter
--- OUTSIDE RECORDS SUMMARY | 2022-01-19 02:08 | XMS_ITS | Encounter Summary ---
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 Matthew Chung Stj Rad Onc Treatment MD [address] [place] [address] D r [place], [place] Thoracic Surgery [id number] [place] [address] Referral ID Status Reason Start Date Expiration Date Visits V isits Requested Authorized [id number] Closed Consult, 12/11/2021 12/11/2022 1 1 Test & Treat Encounter Details Date Type Department Care Team Description 12/17/2021 Office Visit Radiation Oncology at [facility]iqui Parker, Janes rimary squamous cell [facility] carcinoma of upper [address] [place] [address] DR lobe of left lung [place], [place] RADIATION ONCOL OGY [address] [place], [place] [phone] (Wo rk) Social History Tobacco Use Types [...] on file documented as of this encounter Patient Instructions Patient InstructionsChiqui Parker MD - 12/16/2021 12:[address] Sheldon Lazo asked for me to see you to discuss how radiation therapy can be used to treat your lungcancer and this note is to recap our discussion regarding use of radiation treatments. As your radiation oncologist, I work closely with your other healthcare providers and most importantly, with you to make sure that the treatments we discuss and offer keep your personal preferences and goals in mind. We discussed the following next steps as part of your cancer evaluation and/or treatment: Radiation treatments for Stage 2 lung cancer: You have a stage II lung cancer. Often patients will have surgery for this. Because of your smoking and overall health, Dr. Chung does not feel surgery is safe. The alternative curative treatment is combination chemotherapy and radiation. You have already met with Dr. Issa who will oversee the chemotherapy part of your treatment, and I will oversee theradiation part. Other treatment options include: chemotherapy without radiation, or radiation without chemotherapy Mapping scan to plan your radiation treatments: Your radiation therapy will involve using high energy radiation which kills cancer but also normal healthy tissues. In order to make sure the radiationgoes to the cancerous tissues and to also avoid radiating the normal tissues, we design radiation beams beams into special shapes which come from various different directions. Because no two people andno two cancers are completely identical, the radiation plan we create for you will be unique to you and your body. In order to figure out how many beams to use, how much radiation to give, which anglesthey should come from, and how they should be shaped, we have asked you to undergo a mapping scan here in our department known as a CT simulation, or CT sim, for short. This is essentially a CAT-scansimilar to scans which you may have received before, but slightly different in a few ways: First, itallows us to place you in the exact same position which you should expect to be placed during each of your radiation treatment sessions. Second, it lets us better understand where the radiation targetsand the normal tissues that we want to avoid exist, in relation to each other and the radiation beams. Following this scan, we then perform additional calculations and measurements to create the absolute best plan possible for you. Depending on the complexity of the plan, these processes can take fromjust few hours to several days, and for that we ask for your patience. If you have any questions about the planning process or your custom radiation plan, I would be more than happy to review the plan with you during your first week of treatment. I anticipate you will receive 30 treatments total, daily Wednesday-Wednesday for 6 weeks. Your start date and time will be provided once the simulation scan is com pleted. During your radiation treatments, you can expect to see me once per week so that I can examine you to make sure you are tolerating radiation treatments and so that we can monitor your response to treatment. If you need to see me any other day, one of my colleagues or I would be happy to see you - just ask one of the radiation therapists or radiation nurses for assistance. Side effects of treatment: We briefly discussed short term (temporary) side effects of treatment as well as possible termite technician (late, permanent) side effects of radiation treatment. If they occur, short term side effects may include fatigue, heartburn, cough and/or shortness of breath. group home side e ffects may include permanent injury to the lungs that makes you short of breath or gives you a coughthat does not improve. Please do not hesitate to call me at [phone] with any other questions or concerns you have. If I am not here, one of our radiation oncology nurses can assist you or help you get in touch with me. A Radiation Oncology doctor is also stone derrickman and rigger after our normal hours and on weekends for urgent questions or concerns related to radiation treatments that can not wait until normal business hours. To reach the on-call doctor after-hours, just call and have the phosphoric acid operator page the Radiation Oncologist stone derrickman and rigger. And, as always, if you experience any life-threatening emergencies which any include the following, you need to seek emergency care immediately by calling 911: 1. Sudden and unexpected breathing difficulty without any exertion 2. Sudden onset of chest pain 3. Sudden onset of severe pain or uncontrolled pain 4. Sudden onset of severe weakness and/or unable to walk 5. Sudden new onset of a seizure 6. Fall resulting in injury 7. Uncontrollable bleeding Chiqui Perez MD Hands Parteraccounts adjustable clerk Radiation Oncology [facility] documented in this encounter Progress Notes Chiqui Parker MD - 12/17/2021 10:30 AM EDT Images from the original note were not included. 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 Eventually this was accompanied by left chest and scapular pain. The symptoms proved refractory, so he eventually had a CT chest 09/22/2021 that showed a large left upper lobe mass encasingthe left upper lobe bronchus. PET/CT 10/20/2021 showed the mass to be hypermetabolic. He did have an MRI brain 11/12/21 that was negative for metastatic disease This work-up took place while the patient was not [place], at which time he also had a biopsy that was suspicious for carcinoma. He established care with Dr. Chung and underwent EBUS 12/03/2021 thatshowed invasive squamous cell carcinoma in the mass itself. Mediastinal lymph node biopsies were negative for metastatic disease. It was Dr. Morgan's assessment that while PFTs were largely preserved, the patient's functional status combined with proximal location of the tumor, comorbidities and ongoing cigarette use prelude himfrom safe resection. In light of this, Don established care with Dr. Issa last week, who outlinedthe plan for definitive chemoradiation. His case was discussed at [facility] yesterday morning, where all members present were in agreement with the plan as described above. Don is here today to discuss the radiotherapy component of his management. He is seeing his PCP Dr Sharma this Wednesday for routine physical. REVIEW OF SYSTEMS: On further questioning, he reports 8/10 left shoulder pain which radiates anteriorly. It can increase to 10/10. He is taking Tylenol 1000mg BID. He has dilaudid 4mg which he takes 2x/day, though is nottaking it due to side effects. Lidoderm and pain creams have not been helpful. He feels breathing, cough and SOB are per his baseline. REVIEW OF SYSTEMS 12/17/2021 Constitutional Weight loss, Weakness, Fatigue, lack of energy, Drowsiness, Pain Eyes Blurry vision Respiratory Wheezing, Cough, Shortness of breath Cardiovascular Swelling of legs Gastrointestinal Constipation, Appetite problems, Abdominal pain Skin, hair Rash, Dry skin Musculoskeletal Joint stiffness, Back pain, Muscle stiffness, Reduced range of motion, Unable to walk/difficulty walking Neurological Balance difficulty, dizziness, Fainting, Numbness, tingling, Muscular weakness, Other neurological symptoms Hematologic / Lymphatic Easy bruising or bleeding Genitourinary Frequent urination, Sexual problems, Dribbling A comprehensive 14 point review of systems was conducted with this patient and is otherwise negativeexcept as documented above. PAST MEDICAL AND SURGICAL HISTORY: Past Medical History: Diagnosis Date ??? DM2 (diabetes mellitus, type 2) ??? Hyperlipidemia ??? Hypertension ??? Neuropathy ??? Skin cancer ??? Tremor Past Surgical History: Procedure Laterality Date ? ? PRO [facility] EBUS GUIDED SAMPL 3/> NODE STATION/STRUX N/A 12/03/2021 BRONCH, W ENDOBRONCHIAL ULTRASOUND (EBUS) GUIDED SAMPLING, 3+ NODES (WRVU 5.21) performed by Matthew Chung MD at [facility] MAIN OR ??? PRO BRONCHOSCOPY, BIOPSY N/A 12/03/2021 BRONCHOSCOPY, WITH BIOPSY (WRVU 3.36) performed by Matthew Chung MD at [facility] MAIN OR ??? PRO THROMBOENDARTECTMY NECK, NECK INCIS Right 03/19/2020 @ENDARTERECTOMY, CAROTID, VERTEBRAL,SUBCLAVIAN W\WO PATCH GRAFT (WRVU 21.16) performed by Alee Sanders MD at [facility] MAIN OR CONTRAINDICATIONS TO RADIATION THERAPY: None Prior Radiation to this Site: No Active Connective Tissue Disease (Lupus or Scleroderma) No MEDICATIONS AND ALLERGIES: Medications 12/17/21 1030 Medication Sig Taking? lidocaine (Lidoderm) 5% Adhesive Patch, Medicated Change [...] patch on the skin every 3 days. 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 Cancer Sister possibly stomach? PHYSICAL EXAM Vitals 12/17/2021 BP 167/79 BP Location Right arm Pulse 98 Temp 98.4 Resp 20 Height (Cypriot) Height (Metric) Weight (Cypriot) 175 lbs 6 oz Weight (Metric) 79.561 kg BMI (Calculated) Pulse Oximetry 100 General: alert, appears stated age, and in no distress sitting in exam room with daughter Yasmin at side Respiratory: diffuse wheezes bilaterally TODAY'S PERFORMANCE STATUS: KPS Score ECOG Grade Definition 90-100 0 [...] selfcare; totally confined to bed or chair IMAGING REVIEW: PET/CT 10/20/21 Large FDG avid left upper lobe mass with apparent chest wall invasion but no obvious regional or distant metastatic disease Bag Loader Machine Operator Images: PATHOLOGY REVIEW: Source: EBUS Provider / Location: Dr Chung Date: 12/03/21 Histology / Grade Mod/poor diff SqCCa noted in bronchial biopsies Other 4R, 4L, 7, 11L negative for metastatic disease ASSESSMENT / PLAN: Don is a 76-year-old man with a T3N0 squamous cell carcinoma of the left upper lobe. The mass itself is symptomatic in terms of chest wall pain, likely due to adjacent erosion of the chest wall as noted on recent PET/CT. Given the tumor location, his smoking status, and other comorbidities he is not a candidate for surgical resection. Therefore we discussed the rationale for definitive chemoradiation today in clinic. Macey understands that chemotherapy will be delivered on weekly basis while radiation will be delivered on a daily basis for 6 weeks. We reviewed the logistics of radiotherapy, that he would need to undergo a planningsimulation CT scan which is scheduled for later this afternoon. Toxicities and complications of thoracic radiotherapy were also discussed, including symptomatic radiation pneumonitis or fibrosis. We reviewed that these risks are higher in smokers, and also likelihood of tumor control is lower in smokers. Don is not certain that he can quit smoking, and has declined referral to our smoking cessation specialist. With regard to his pain, he is amenable to trying a low-dose fentanyl patch. He understands not to take any Dilaudid while an effective dose for the patch is being titrated. Informed consent was obtained today in clinic. Simulation to follow. Anticipate chemoradiation will begin within 1 to 2 weeks. We will coordinate with Dr. Issa's clinic accordingly. All of Don's questions were answered to his fullest satisfaction, and we have provided him with our contact information should any further questions or concerns arise. SUMMARY OF PLAN / RECOMMENDATION: 1. Intent of therapy: Curative 2. Clinical Trial Availability: No 3. Simulation later today 4. Informed consent obtained for radiotherapy to the left lung, anticipate 30 fractions to be delivered in [facility] with concurrent weekly chemotherapy 5. Fentanyl TD patch 12mcg to start today TIME ATTESTATION: I certify spending at least 60 minutes in providing care to this patient today, 12/17/21 as reflected by the following activities: - review of his medical record in the chart, including interpretation of imaging, laboratory and pathologic studies referenced above - discussion of the above with the patient as part of shared medical decision making - documenting the outcome of today's visit as above CHIQUI PARKER MD, MS Marilin Valentino RN - 12/17/2021 10:30 AM EDT RADIATION ONCOLOGY NURSING INITIAL NURSING ASSESSMENT IDENTIFICATION: Don Ortega is a 76 y.o. year-old male with newly diagnosed lung cancer. PRESENTING SYMPTOMS/CHIEF COMPLAINT: Presented with cough . REVIEW OF SYSTEMS: Review of Systems Constitutional: Positive for appetite change (varies day to day), fatigue and unexpected weight change (20-30 pounds). HENT: Negative for trouble swallowing. Eyes: Positive for eye problems (left blurry. follows w/opthalmology). Respiratory: Positive for cough (dry). Cardiovascular: Negative for chest pain. Gastrointestinal: Positive for constipation (managed with docusate sodium prn). Musculoskeletal: Positive for arthralgias, back pain and gait problem (LE neuropathy). Skin: Positive for rash (h/o shingles). Neurological: Positive for dizziness, gait problem (LE neuropathy), light- headedness and numbness (LE neuropathy). Please see ROS filed by patient. IN THE PAST 12 MONTHS HAVE YOU: Fallen more than one time? No Injured yourself as result of the fall? n/a Experienced difficulty with walking/problems with balance? Yes Do you use any assistive devices? No Any history of collagen vascular diseases:No Any Implanted Devices/Hardware: No If yes please put alert in ARIA patient summary Prior Radiotherapy: Yes. Prostate seed implants @ . Prior Chemotherapy: No Prior Hormone Therapy: No LEARNING ASSESSMENT REVIEWED: Yes ADVANCED DIRECTIVE: PAIN ASSESSMENT: 8 out of 10 *eD-H Adult PCS Flow Sheet if 4 or above SOCIAL ASSESSMENT: See EDH social assessment information entered. Support Systems: , here today with daughter Yasmin. Barriers to treatment: none identified. Patient anxious to start treatment. Referrals/Interventions: INTERIOR SYSTEMS CARPENTER per routine. RADIATION SPECIFIC TEACHING: [facility] Radiation Therapy and You Site specific teaching : Other: PLAN: Per Dr. Parker Answers for HPI/ROS submitted by the patient on 12/17/2021 Distress: 5 documented in this encounter Plan of Treatment Upcoming Encounters Date Type Specialty Care Team Description 01/19/2022 Office Visit Hematology Tanvir Hawk MD [facility] HEMATOLOGY/[place] [address] Arlene Hill TRADE FACILITATOR [facility] [place] [address] 01/19/2022 Infusion Hematology and Oncology 01/19/2022 Scheduled View Only Radiation Oncology 01/20/2022 Scheduled View Only Radiation Oncology 01/21/2022 Scheduled View Only Radiation Oncology 01/22/2022 Scheduled View Only Radiation Oncology 01/22/2022 Office Visit Radiation Oncology Adriana Parker v, MD [address] [place] [address] RADIATION [place], [place] [id number] (Wo rk) 01/23/2022 Scheduled View Only Radiation Oncology 01/26/2022 Office Visit Tanvir Vivas MD [facility] HEMATOLOGY/[place] [address] Arlene Hill TRADE FACILITATOR [facility] [place] [address] 01/26/2022 Infusion Hematology and Oncology 01/26/2022 Scheduled View Only Radiation Oncology 01/27/2022 Scheduled View Only Radiation Oncology 01/28/2022 Scheduled View Only Radiation Oncology 01/29/2022 Scheduled View Only Radiation Oncology 01/29/2022 Office Visit Radiation Oncology Adriana Parker v, MD [address] [place] [address] DR [place], [place] [phone] (Wo rk) 01/30/2022 Scheduled View Only Radiation Oncology 02/02/2022 Office Visit Hematology Arlene Gordillo, Oncology [facility] HEMATOLOGY AND ONCOLOGY [place], [place] [address] (Wo rk) 02/02/2022 Infusion Hematology and Oncology 02/02/2022 Scheduled View Only Radiation Oncology 02/03/2022 Scheduled View Only Radiation Oncology 02/04/2022 Scheduled View Only Radiation Oncology 02/05/2022 Scheduled View Only Radiation Oncology 02/05/2022 Office Visit Radiation Oncology Adriana Parker v, MD [address] [place] [address] [place] [address] (Wo rk) 02/06/2022 Scheduled View Only Radiation Oncology 02/09/2022 Office Visit Hematology and Arlene Bobby, Oncology [facility] HEMATOLOGY AND ONCOLOGY [place], [place] [address] (Wo rk) 02/09/2022 Infusion Hematology and Oncology 02/09/2022 Scheduled View Only Radiation Oncology 02/09/2022 Notes Only Radiation Oncology Adriana Parker v, MD [address] [place] [address] DR CIPRIANO TOUSSAINT [facility] [address] (Wo rk) 02/10/2022 Scheduled View Only Radiation Oncology documented as of this encounter Visit Diagnoses Diagnosis 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
--- OUTSIDE RECORDS SUMMARY | 2022-01-19 02:08 | XMS_ITS | Encounter Summary ---
:1945 Author Organization [facility] [place] [address] Care Team Providers Name Role Phone EdithQue DO Primary Care Provider Encounter Details Date Type Department Care Team Description 12/11/2021 [place] [facility] [place] upper [place] of [facility] [place] [address] Social History Tobacco Use Types Packs/Day [...] place to sleep or slept in a long term (including now)? Sex Assigned at Date Recorded Not on file documented as of this encounter Medications at Time of Discharge Medication Sig Dispensed Refills Start Date End Date HYDROmorphone (Dilaudid) Take by mouth as 0 12/09 4 mg Tablet needed. albuteroL 90 USE 2 PUFFS 4 TIMES A 0 09/19/2021 mcg/actuation HFA DAY NEEDED 2 PUFFS Aerosol Inhaler EVERY 6 HOURS NEEDED FOR SHORTNESS OF BREATH/WHEEZING benazepriL (LOTENSIN) 10 30 mg. 0 12/09/2021 mg Tablet benazepriL (LOTENSIN) 20 Take 20 mg by mouth 0 mg Tablet daily. acetaminophen (Tylenol) Take 1,000 mg by 0 500 mg Tablet mouth every 6 hours as needed for Pain. metFORMIN (Glucophage) Take 500 mg by mouth 0 500 mg Tablet daily. aspirin EC 81 mg Tablet, Daily. 0 Delayed Release (E.C.) ferrous sulfate 325 mg ferrous sulfate 325 mg (65 mg iron) tablet 0 (65 mg iron) Tablet 1 tablet by mouth daily furosemide (Lasix) 40 mg daily. 0 10/26/2019 Tablet potassium chloride TAKE 1 CAPSULE BY 0 10/06/2019 (MICRO-K) 10 mEq MOUTH EVERY DAY WHEN Capsule, Sustained TAKING FUROSEMIDE Release omeprazole (PriLOSEC) 20 TAKE 1 CAPSULE BY 0 09/03 mg Capsule, Delayed MOUTH EVERY DAY Release(E.C.) tamsulosin (Flomax) 0.4 nightly. 0 12/25/2019 mg Capsule allopurinoL (Zyloprim) daily. 0 01/12/2020 100 mg Tablet benazepril-hydrochlorthi 0 12/26/2019 01/07/2022 azide (LOTENSIN HCT) 20-12.5 mg Tablet ergocalciferoL, vitamin TAKE 1 CAPSULE BY 0 08/1912/17/2021 D2, (vitamin D2) 50,000 MOUTH ONE TIME PER unit Capsule WEEK escitalopram (Lexapro) Daily. 0 10 mg Tablet pravastatin (Pravachol) 40 mg Daily. 0 01/07/2022 10 mg Tablet documented as of this encounter Plan of Treatment Upcoming Encounters Date Type Specialty Care Team Description 01/19/2022 Office Visit Hematology Tanvir Hawk MD [facility] HEMATOLOGY/[place] [address] Oncology Arlene Bobby COMPLIANCE VICE PRESIDENT [facility] [place] [address] 01/19/2022 Infusion Hematology and Oncology 01/19/2022 Scheduled View Only Radiation Oncology 01/20/2022 Scheduled View Only Radiation Oncology 01/21/2022 Scheduled View Only Radiation Oncology 01/22/2022 Scheduled View Only Radiation Oncology 01/22/2022 Office Visit Radiation Oncology Adriana De La Rosa v, MD [address] [place] [address] RAD[place]ATION [place], [place] [id number] (Wo rk) 01/23/2022 Scheduled View Only Radiation Oncology 01/26/2022 Office Visit Hematology Tanvir Hawk MD [facility] HEMATOLOGY/[place] [address] Oncology Arlene Bobby COMPLIANCE VICE PRESIDENT [facility] [place] [address] 01/26/2022 Infusion Hematology and Oncology 01/26/2022 Scheduled View Only Radiation Oncology 01/27/2022 Scheduled View Only Radiation Oncology 01/28/2022 Scheduled View Only Radiation Oncology 01/29/2022 Scheduled View Only Radiation Oncology 01/29/2022 Office Visit Radiation Oncology Adriana De La Rosa v, MD [address] [place] [address] RADIATION [place], [place] [id number] (Wo rk) 01/30/2022 Scheduled View Only Radiation Oncology 02/02/2022 Office Visit Hematology Arlene Gordillo, Oncology [facility] HEMATOLOGY AND ONCOLOGY [place], [place] [address] (Wo rk) 02/02/2022 Infusion Hematology and Oncology 02/02/2022 Scheduled View Only Radiation Oncology 02/03/2022 Scheduled View Only Radiation Oncology 02/04/2022 Scheduled View Only Radiation Oncology 02/05/2022 Scheduled View Only Radiation Oncology 02/05/2022 Office Visit Radiation Oncology Adriana De La Rosa v, MD [address] [place] [address] RADIATION [place], [place] [id number] (Wo rk) 02/06/2022 Scheduled View Only Radiation Oncology 02/09/2022 Office Visit Hematology and Arlene Bobby, Oncology [facility] HEMATOLOGY AND ONCOLOGY [place], [place] [address] (Wo rk) 02/09/2022 Infusion Hematology and Oncology 02/09/2022 Scheduled View Only Radiation Oncology 02/09/2022 Notes Only Radiation Oncology Adriana De La Rosa v, MD [address] [place] [address] DR [place], [place] [id number] (Wo rk) 02/10/2022 Scheduled View Only Radiation Oncology documented as of this encounter Procedures Procedure Name Priority Date/Time Associated Diagnosis Comme nts PULMONARY FUNCTION Routine 12/11/2021 9:11 AM Mass of upper lo be Results for this TEST EDT of left lung procedure are i n the results section. documented in this encounter Results Pulmonary Function Testing (12/11/2021 9:11 AM EDT) [...] / FVC LLN 61 % COMPAS PFT [id number] Actual 1.32 L/s COMPAS PFT Pre-BD [id number] Pre-BD 68 % COMPAS PFT % of Predicted [id number] 1.94 L/s COMPAS PFT Predicted [id number] Pre-BD -0.78 COMPAS PFT Z-Score DLCO Hb [...] City/State/ZIP Code Phon e Number COMPAS PFT documented in this encounter Visit Diagnoses Diagnosis Mass of upper lobe of left lung documented in this encounter Care Teams Spreader Operator Relationship Specialty Start Date End Date Que Sharma DO PCP - General Family Medicine 02/08/20 [address] [place] [address] documented as of this encounter
--- OUTSIDE RECORDS SUMMARY | 2022-01-19 02:08 | XMS_ITS | Encounter Summary ---
:1945 [place] [address] Care Team Providers Name Role Phone EdithQue anderson Grey VITAL Primary Care Provider Encounter Details Date Type Department Care Team Description 12/03/2021 Anesthesia Event Main Operating Room Renea Marcelino MD [facility] [place] [address] [facility] Cali De Oliveira [facility] [place] [address] [place] [address] Anesthesia Record Procedure Summary Procedure Name Responsible Anesthesia Start Anesthesia Stop Anesthesiologist Time Time BRONCH, W Renea Leon MD 12/03/21 1457 12/03/21 1639 ENDOBRONCHIAL ULTRASOUND (EBUS) GUIDED SAMPLING, 3+ NODES (WRVU 5.21) (N/A ) Events Date Time Event Comment 12/03/2021 1454 1456 AN Verify 1457 Start 1457 An Start Data 1507 An Induction 1510 An Intubation 1513 Anesthesia Ready 1625 Extubation/LMA Out 1627 an stop data 1639 Recovery or ICU Handoff Patient care was transferred to the destination unit staff after review of the patient's medica l history, current anesthetic/surgi peter status and plan, according to the Provider Handoff Checklist. 1639 Stop Name Total IV Lidocaine 80 mg Propofol 115 mg Rocuronium 50 mg PHENYLephrine 320 mcg Ondansetron 4 mg Dexamethasone 4 mg Propofol INF 488.03 mg SUFentanil 8 mcg SUFentanil INF 10.18 mcg Esmolol 40 mg PHENYLephrine INF 850 mcg Sugammadex 200 mg Lactated Ringers 600 mL Agents Name O2 Air N2O Sevoflurane (et) Blood No blood administrations on file. Lines, Drains, and Airways Type Details Placement Removal Incision 03/19/20; 1250; neck 03/19/20 1250 by Mony Joaquin RN Incision 12/03/21; 1514; throat 12/03/21 1514 by Liza (throgh open orfic) Carol Casiano RN PIV 12/03/21; 1358; metacarpal 12/03/21 1358 by Pres ton, 12/03/21 1645 by vein (top of hand), right; SHAYY Garcia, SHAYY Boyle [id number] catheter system; 20 gauge, 1 in length; Tamar Edmonds RN; distraction, tolerated well, appears comfortable; 12/03/21; 1645 ETT Mask Ventilation: Easy (1); 12/03/21 1509 by Fri tts, 12/03/21 1627 by ETT Type: Cuffed, Oral; ETT MD Nico Rodriguez Nathan G, MD Size: 8.5 mm; Mac Blade: 4; Notes: Asleep, Pre-O2, Cricoid Pressure, Stylette; Attempts: 1; Laryngoscopy Grade: 1; ETT Placement Verified By: Auscultation, Capnometry, Visual; Secured at Teeth: 23 cm; Inserted by: Claudia documented in this encounter Social History Tobacco Use Types Packs/Day Years [...] place to sleep or slept in a [facility] (including now)? Sex Assigned at Date Recorded Not on file documented as of this encounter OR Notes Anesthesia Postprocedure Evaluation - Alex Taylor MD - 12/03/2021 4:39 PM EDT Department of Anesthesiology Post-procedure Note Patient: Don Ortega Procedure Summary Date: 12/03/21 Room / Location: [facility] OR [address] [place] [address] MAIN OR Anesthesia Start: 1457 Anesthesia Stop: 163 Procedures: BRONCH, W ENDOBRONCHIAL ULTRASOUND (EBUS) GUIDED SAMPLING, 3+ NODES (WRVU 5.21) (N/A ) BRONCHOSCOPY, WITH BIOPSY (WRVU 3.36) (N/A ) Diagnosis: Mass of upper lobe of left lung (left upper lobe mass) Surgeons: Matthew Chung MD Responsible Provider: Renea Leon MD Anesthesia Type: general ASA Status: 3 All Anesthesia Providers: Anesthesiologist: Cali De Oliveira DO; Renea Leon MD Follow Up Clerk: Alex Taylor MD Vitals Value Taken Time BP 133/74 12/03/21 1630 Temp Pulse 89 12/03/21 1638 Resp 21 12/03/21 1638 SpO2 100 % 12/03/21 1638 Pain Level 0 12/03/21 1630 Vitals shown include unvalidated device data. Patient Location: PACU/SDP Level of Consciousness: Conscious but Sleepy Pain Management: Satisfactory Analgesia PONV: None Cardiovascular Status: At Baseline and Hemodynamically Stable Respiratory Status: Supplemental O2 (NC or FM) and Stable Respiratory Status Postoperative Fluid Status: Intravascular EUvolemia Possible Anesthetic Complications: NONE apparent at time of evaluation Final Primary Anesthesia Type: General (The anesthetic type performed was the same as planned.) Comments: Alex Taylor MD Anesthesia Preprocedure Evaluation - Cali De Oliveira DO - 12/02/2021 4:58 PM EDT Pre-Anesthesia Evaluation for: Don Ortega a 76 y.o. male. Procedure(s): BRONCH, W ENDOBRONCHIAL ULTRASOUND (EBUS) GUIDED SAMPLING, 3+ NODES (WRVU 5.21) Patient Active Problem List Diagnosis Date Noted ??? Bilateral carotid artery stenosis 02/14/2020 ??? Pre-op testing 02/14/2020 ??? Cigarette smoker 02/14/2020 Past Medical History: Diagnosis Date ??? DM2 (diabetes mellitus, type 2) ??? Hyperlipidemia ??? Hypertension ??? Skin cancer ??? Tremor Past Surgical History: Procedure Laterality Date ??? PRO THROMBOENDARTECTMY NECK, NECK INCIS Right 03/19/2020 @ENDARTERECTOMY, CAROTID, VERTEBRAL,SUBCLAVIAN W\WO PATCH GRAFT (WRVU 21.16) performed by Alee Sanders MD at [facility] MAIN OR Social History Tobacco Use ??? Smoking status: Current Every Day Smoker Packs/day: 0.50 Years: 63.00 Pack years: 31.50 Types: Cigars ??? Smokeless tobacco: Never Used Substance Use Topics ??? Alcohol use: Not on file Social History Substance and Sexual Activity Drug Use Not on file No Known Allergies Medications: MAR and/or home medications have been reviewed. Physical Exam: Preprocedure Vitals Current as of 12/02/21 1658 No BP, pulse, respiration, SpO2, or temperature recorded. Height: 173 cm (5' 8.11) (11/27/21) Weight: 80.4 kg (177 lb 3.2 oz) (11/27/21) BMI: 26.85 IBW: 68.7 kg (151 lb 5.7 oz) Airway Assessment: Mallampati: I Cardiovascular Assessment: system normal Pulmonary Assessment: pulmonary exam normal Dental Assessment: (+) upper dentures and lower dentures Comment: Solidly in place, never removes Misc Assessment: Last Filed Perioperative Cognitive Screening None Anesthesia Plan: ASA 3 general, with a(n) intravenous induction Don Ortega is a 76 y.o. male (body mass index 27) with TOAN mass presenting for bronch and EBUS. PMHx: HTN, HLD, DM2, tremor and possible prior skin cancer. Bilateral carotid stenosis s/p right CEA. NPO adequate. No other recent illnesses/fevers. Activity tolerance: METS>4. Anesthesia Hx: Past airway: maskable, G1v Mac 4. No prior issues with anesthesia. Labs (reviewed): unremarkable Plan is for GA with ETT, standard ASA monitors, and adequate venous access Alex Taylor MD 12/02/2021 Region - Intrathoracic Non-Cardiac Informed Consent: Plan discussed with resident. Anesthesia Screening documented in this encounter Plan of Treatment Upcoming Encounters Date Type Specialty Care Team Description 01/19/2022 Office Visit Hematology and Tanvir Issa MD [facility] DR HEMATOLOGY/[place] [address] Oncology Arlene Bobby APRN [facility] HEMATOLOGY [place] [address] 01/19/2022 Infusion Hematology and Oncology 01/19/2022 Scheduled View Only Radiation Oncology 01/20/2022 Scheduled View Only Radiation Oncology 01/21/2022 Scheduled View Only Radiation Oncology 01/22/2022 Scheduled View Only Radiation Oncology 01/22/2022 Office Visit Radiation Oncology Adriana De La Rosa v, MD [address] [place] [address] [place] [address] (Wo rk) 01/23/2022 Scheduled View Only Radiation Oncology 01/26/2022 Office Visit Hematology and Tanvir Issa MD [facility] DR HEMATOLOGY/[place] [address] Oncology Arlene Bobby [facility] HEMATOLOGY [place] [address] 01/26/2022 Infusion Hematology and Oncology 01/26/2022 Scheduled View Only Radiation Oncology 01/27/2022 Scheduled View Only Radiation Oncology 01/28/2022 Scheduled View Only Radiation Oncology 01/29/2022 Scheduled View Only Radiation Oncology 01/29/2022 Office Visit Radiation Oncology Adriana De La Rosa v, MD [address] [place] [address] [place] [address] (Wo rk) 01/30/2022 Scheduled View Only Radiation Oncology 02/02/2022 Office Visit Hematology and Arlene Bobby, Oncology [facility] HEMATOLOGY AND ONCOLOGY [place], [place] [address] (Wo rk) 02/02/2022 Infusion Hematology and Oncology 02/02/2022 Scheduled View Only Radiation Oncology 02/03/2022 Scheduled View Only Radiation Oncology 02/04/2022 Scheduled View Only Radiation Oncology 02/05/2022 Scheduled View Only Radiation Oncology 02/05/2022 Office Visit Radiation Oncology Adriana De La Rosa v, MD [address] [place] [address] [place] [address] (Wo rk) 02/06/2022 Scheduled View Only Radiation Oncology 02/09/2022 Office Visit Hematology and Arlene Bobby, Oncology [facility] HEMATOLOGY AND ONCOLOGY [place], [place] [address] (Wo rk) 02/09/2022 Infusion Hematology and Oncology 02/09/2022 Scheduled View Only Radiation Oncology 02/09/2022 Notes Only Radiation Oncology Adriana De La Rosa v, MD [address] [place] [address] [place] [address] (Wo rk) 02/10/2022 Scheduled View Only Radiation Oncology documented as of this encounter Visit Diagnoses Not on filedocumented in this encounter Administered Medications Inactive Administered Medications - up to 3 most recent administrations Medication Order MAR Action Action Date Dose Rate Site dexamethasone (Decadron) injection Given 12/03/2021 3:20 PM EDT 4 mg Intravenous, PRN, Starting on Wed12/03/21 at 1520, Until Wed12/03/21 at 1639, Anesthesia Intra-op, Routine esmoloL (Brevibloc) (10 mg/mL) injection Given 12/03/2021 3:10 PM EDT 40 mg Intravenous, PRN, Starting on Wed12/03/21 at 1510, Until Wed12/03/21 at 1639, Anesthesia Intra-op, Routine lactated ringers infusion New Bag 12/03/2021 2:57 PM EDT Intravenous, CONTINUOUS PRN, Starting on Wed12/03/21 at 1457, Until Wed12/03/21 at 1639, Anesthesia Intra-op lidocaine (pf) (Xylocaine) (20 mg/mL) 2% Given 12/03/2021 3:07 P M EDT 80 mg injection syringe Intravenous, PRN, Starting on Wed12/03/21 at 1507, Until Wed12/03/21 at 1639, Anesthesia Intra-op, Routine ondansetron (pf) (Zofran) (2 mg/mL) inje ction Given 12/03/2021 3:45 PM EDT 4 mg Intravenous, PRN, Starting on Wed12/03/21 at 1545, Until Wed12/03/21 at 1639, Anesthesia Intra-op, Routine PHENYLephrine (Garrett-Synephrine) Rate/Dose Change 12/03/2021 4:10 20 mcg/min 15 mL/hr (80 mcg/mL) in sodium chloride PM EDT 0.9% 250 mL infusion Intravenous, CONTINUOUS PRN, Starting on Wed12/03/21 at 1554, Until Wed12/03/21 at 1639, Anesthesia Intra-op, Routine Rate/Dose Change 12/03/2021 3:57 PM EDT 40 mcg/min 30 mL/hr New Bag 12/03/2021 3:54 PM EDT 30 mcg/min 22.5 mL/hr PHENYLephrine in NS (PF) (GARRETT-SYNEPHRINE) 0.8 Given 3:43 PM EDT 80 mcg mg/10 mL (80 mcg/mL) multi-dose injection Syrg Intravenous, PRN, Starting on Wed12/03/21 at 1527, Until Wed12/03/21 at 1639, Anesthesia Intra-op, Routine Given 12/03/2021 3:35 PM EDT 160 mcg Given 12/03/2021 3:27 PM EDT 80 mcg propofoL (Diprivan) (10 Rate/Dose 12/03/2021 4:09 50 mcg/kg/min 24.1 2 mg/mL) infusion Change PM EDT mL/hr Intravenous, CONTINUOUS PRN, Starting on Wed12/03/21 at 1507, Until Wed12/03/21 at 1639, Anesthesia Intra-op, Routine Rate/Dose Change 12/03/2021 3:35 PM EDT 80 mcg/kg/min 38.592 mL/hr New Bag 12/03/2021 3:07 PM EDT 100 mcg/kg/min 48.24 mL/hr propofoL (Diprivan) 10 mg/mL bolus injection Given 4:16 PM EDT 15 mg (Anesthesia) Intravenous, PRN, Starting on Wed12/03/21 at 1507, Until Wed12/03/21 at 1639, Anesthesia Intra-op Given 12/03/2021 3:07 PM EDT 100 mg rocuronium (Zemuron) (10 mg/mL) multi-dose Given 12/03/2021 3:07 PM EDT 50 mg injection Intravenous, PRN, Starting on Wed12/03/21 at 1507, Until Wed12/03/21 at 1639, Anesthesia Intra-op, Routine SUFentaniL (Sufenta) (50 Rate/Dose 12/03/2021 3:35 0.15 mcg/kg/hr 0. 241 mcg/mL) infusion (for Change PM EDT mL/hr Anesthesia) Intravenous, CONTINUOUS PRN, Starting on Wed12/03/21 at 1507, Until Wed12/03/21 at 1639, Anesthesia Intra-op Rate/Dose Change 12/03/2021 3:29 PM EDT 0.2 mcg/kg/hr 0.322 mL/hr New Bag 12/03/2021 3:07 PM EDT 0.25 mcg/kg/hr 0.402 mL/hr SUFentaniL (Sufenta) (50 mcg/mL) injecti on Given 12/03/2021 3:18 PM EDT 8 mcg Intravenous, PRN, Starting on Wed12/03/21 at 1518, Until Wed12/03/21 at 1639, Anesthesia Intra-op, Routine sugammadex (Bridion) 100 mg/mL injection Given 12/03/2021 4:20 PM EDT 200 mg Intravenous, PRN, Starting on Wed12/03/21 at 1620, Until Wed12/03/21 at 1639, Anesthesia Intra-op, Routine documented in this encounter Care Teams Emergency Medical Dispatcher Relationship Specialty Start Date End Date Que Sharma DO PCP - General Family Medicine 02/08/20 [address] [place] [address] documented as of this encounter
--- OUTSIDE RECORDS SUMMARY | 2022-01-19 02:08 | XMS_ITS | Encounter Summary ---
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 Bill De La Rosa MD [facility] Rad Onc Office Procedures Simulation for Radiation Therapy Planning [address] [place] [address] [place] [id number] Referral ID Status Reason Start Date Expiration Date Visits V isits Requested Authorized [id number] Closed Consult, 12/11/2021 12/11/2022 1 1 Test & Treat Encounter Details Date Type Department Care Team Description 12/17/2021 Ancillary Appointment Rad[facility] [address] [place] [address] [place], [place] RADIATION ONCOL OGY [address] [place], [place] [phone] (Wo rk) Social History Tobacco Use [...] Sign Reading Time Taken Comments Blood Pressure 167/79 12/17/2021 10:41 AM EDT Pulse 98 12/17/2021 10:41 AM EDT Temperature 36.9 ??C (98.4 ??F) 12/17/2021 10:41 AM EDT Respiratory Rate 20 12/17/2021 10:41 AM EDT Oxygen Saturation 100% 12/17/2021 10:41 AM EDT Inhaled Oxygen Concentration - - Weight 79.6 kg (175 lb 6.4 oz) 12/17/2021 10:41 AM with shoes EDT Height - - Body Mass Index 26.74 12/11/2021 9:37 AM EDT documented in this encounter Progress Notes Bill De La Rosa MD - 12/17/2021 11:30 AM EDT Simulation Note for External Beam Radiation Treatment Planning [facility] Luis Miguel Ortega is a 76 y.o. year old male with Stage II NSCLC who was simulated for definitive chemoradiotherapy to the left lung today. No changes were made from the plan as documented in the originalsimulation order and instructions. Briefly, he was immobilized using a vacloc bag and prior to the scan a 2.5mm slice thickness CT scanof the patient's chest was then obtained. This scan was performed to delineate both target volumes and organs/structures at risk. These images will be used to create a customized treatment plan employing multileaf collimators and beams-eye view to treat the target to prescription dose while maximally sparing organs at risk, with the overall goal of maximizing the likelihood of a favorable disease response while minimizing the likelihood of any short term side effects or intermediate accountant complications of therapy. In addition, respiratory gating was used to determine the extent of target motion during the normal respiratory cycle. During the planning process, a determination will be made regarding whether an internal target volume (ITV) or gated plan will be necessary to treat this patient. I anticipate his prescription dose will be 60 Gy to the lung tumor delivered in daily 2 Gy fractionsover the course of 6 weeks with concurrent weekly chemotherapy. Anticipate therapy to begin within the next 7-10 days. Furthermore, I anticipate this patient will require 3D conformal treatment planning as multiple conformal portals will be contructed to adequately cover the critical structures of interest (in this case, the tumor) with close margins that protect immediately adjacent sensitive structures (including his esophagus, normal lung, heart, skin and spinal cord). If dosimetric constraints for a safe and efficacious radiotherapy plan cannot be met using 3D conformal therapy, a IMRT or VMAT approach will be considered. The patient tolerated this procedure well, and was provided instructions with regard to upcoming appointments. documented in this encounter Plan of Treatment Upcoming Encounters Date Type Specialty Care Team Description 01/19/2022 Office Visit Hematology and Tanvir Issa MD [facility] HEMATOLOGY/[place] [address] Oncology Forauer, Arlene A, [facility] [place] [address] 01/19/2022 Infusion Hematology and Oncology 01/19/2022 Scheduled View Only Radiation Oncology 01/20/2022 Scheduled View Only Radiation Oncology 01/21/2022 Scheduled View Only Radiation Oncology 01/22/2022 Scheduled View Only Radiation Oncology 01/22/2022 Office Visit Radiation Oncology Adriana De La Rosa v, MD [address] [place] [address] DR [address]OTA ONCMILO [place], [place] [phone] (Wo rk) 01/23/2022 Scheduled View Only Radiation Oncology 01/26/2022 Office Visit Hematology and Tanvir Issa MD [facility] HEMATOLOGY/[place] [address] [facility] [place] [address] 01/26/2022 Infusion Hematology and Oncology 01/26/2022 Scheduled View Only Radiation Oncology 01/27/2022 Scheduled View Only Radiation Oncology 01/28/2022 Scheduled View Only Radiation Oncology 01/29/2022 Scheduled View Only Radiation Oncology 01/29/2022 Office Visit Radiation Oncology Adriana De La Rosa v, MD [address] [place] [address] DR CIPRIANO TOUSSAINT [place], [place] [phone] (Wo rk) 01/30/2022 Scheduled View Only Radiation Oncology 02/02/2022 Office Visit Hematology and Arlene Bobby, Oncology [facility] HEMATOLOGY AND ONCOLOGY [place], [place] [address] (Wo rk) 02/02/2022 Infusion Hematology and Oncology 02/02/2022 Scheduled View Only Radiation Oncology 02/03/2022 Scheduled View Only Radiation Oncology 02/04/2022 Scheduled View Only Radiation Oncology 02/05/2022 Scheduled View Only Radiation Oncology 02/05/2022 Office Visit Radiation Oncology Adriana De La Rosa v, MD [address] [place] [address] RADIATION [place]CMIL[place], [place] [phone] (Wo rk) 02/06/2022 Scheduled View Only Radiation Oncology 02/09/2022 Office Visit Hematology and Arlene Bobby, Oncology [facility] HEMATOLOGY AND ONCOLOGY [place], [place] [address] (Wo rk) 02/09/2022 Infusion Hematology and Oncology 02/09/2022 Scheduled View Only Radiation Oncology 02/09/2022 Notes Only Radiation Oncology Adriana De La Rosa v, MD [address] [place] [address] DR CIPRIANO TOUSSA[place], [place] [phone] (Wo rk) 02/10/2022 Scheduled View Only Radiation Oncology Scheduled Orders Name Type Priority Associated Diagnoses Order S chedule Simulation for Procedures Routine Primary squamous cell Orde red: 12/11/2021 Radiation Therapy carcinoma of upper Planning lobe of left lung documented as of this encounter Visit Diagnoses Not on filedocumented in this encounter Care Teams Head Operator Sulfide Relationship Specialty Start Date End Date Que Sharma DO PCP - General Family Medicine 02/08/20 580 [place], [place] [phone] documented as of this encounter
--- OUTSIDE RECORDS SUMMARY | 2022-01-19 02:08 | XMS_ITS | Encounter Summary ---
:1945 Author Organization [facility] [place] [address] Care Team Providers Name Role Phone Que Sharma DO Primary Care Provider Encounter Details Date Type Department Care Team Description 12/03/2021 Hospital Encounter Hematology and Mass of upper lobe of Oncology at [facility] [place] [address] Social History Tobacco Use Types Packs/Day [...] Sig Dispensed Refills Start Date End Date albuteroL 90 USE 2 PUFFS 4 TIMES A 0 09/19/2021 mcg/actuation HFA DAY NEEDED 2 PUFFS Aerosol Inhaler EVERY 6 HOURS NEEDED FOR SHORTNESS OF BREATH/WHEEZING benazepriL (LOTENSIN) 20 Take 20 mg by [...] 01/19/2022 Office Visit Hematology Tanvir Hawk MD [facility] HEMATOLOGY/[place] [address] Oncology Arlene Bobby FINANCING ANALYST [facility] [place] [address] 01/19/2022 Infusion Hematology and Oncology 01/19/2022 Scheduled View Only Radiation Oncology 01/20/2022 Scheduled View Only Radiation Oncology 01/21/2022 Scheduled View Only Radiation Oncology 01/22/2022 Scheduled View Only Radiation Oncology 01/22/2022 Office Visit Radiation Oncology Adriana De La Rosa v, MD [address] [place] [address] DR COTA ONCMILO [place], [place] [phone] (Wo rk) 01/23/2022 Scheduled View Only Radiation Oncology 01/26/2022 Office Visit Hematology and Tanvir Issa MD [facility] HEMATOLOGY/[place] [address] Oncology Arlene Bobby FINANCING ANALYST [facility] [place]OLOG[place] [address] 01/26/2022 Infusion Hematology and Oncology 01/26/2022 Scheduled View Only Radiation Oncology 01/27/2022 Scheduled View Only Radiation Oncology 01/28/2022 Scheduled View Only Radiation Oncology 01/29/2022 Scheduled View Only Radiation Oncology 01/29/2022 Office Visit Radiation Oncology Adriana De La Rosa v, MD [address] [place] [address] DR COTA ONCMILO [place], [place] [phone] (Wo rk) 01/30/2022 Scheduled View Only Radiation Oncology 02/02/2022 Office Visit Hematology Arlene Gordillo, Oncology [facility] HEMATOLOGY AND ONCOLOGY [place], [place] [address] (Wo rk) 02/02/2022 Infusion Hematology and Oncology 02/02/2022 Scheduled View Only Radiation Oncology 02/03/2022 Scheduled View Only Radiation Oncology 02/04/2022 Scheduled View Only Radiation Oncology 02/05/2022 Scheduled View Only Radiation Oncology 02/05/2022 Office Visit Radiation Oncology Adriana De La Rosa v, MD [address] [place] [address] RADIATION [place]CM[place], [place] [phone] (Wo rk) 02/06/2022 Scheduled View Only Radiation Oncology 02/09/2022 Office Visit Hematology and Arlene Bobby, Oncology [facility] DR HEMATOLOGY AND ONCOLOGY [place], [place] [address] (Wo rk) 02/09/2022 Infusion Hematology and Oncology 02/09/2022 Scheduled View Only Radiation Oncology 02/09/2022 Notes Only Radiation Oncology Adriana De La Rosa v, MD [address] [place] [address] RADIATION [place]CM[place], [place] [phone] (Wo rk) 02/10/2022 Scheduled View Only Radiation Oncology documented as of this encounter Procedures Procedure Name Priority Date/Time Associated Comments Diagnosis HEMOGRAM STAT 12/03/2021 11:11 Mass of upper lobe Resul ts for this AM EDT of left lung procedure are i n the results section. DIFFERENTIAL, STAT 12/03/2021 11:11 Mass of upper lobe Resu lts for this AUTOMATED AM EDT of left lung procedure are i n the results section. HC CBC,PLT & AUTO DIFF STAT 12/03/2021 11:11 Mass of upper lobe AM EDT of left lung HC LACTIC STAT 12/03/2021 11:11 Mass of upper lobe Resul ts for this DEHYDROGENASE AM EDT of left lung procedure are in the results section. COMPREHENSIVE STAT 12/03/2021 11:11 Mass of upper lobe Resu lts for this METABOLIC PANEL AM EDT of left lung procedure ar e in (NON-FASTING) the results section. documented in this encounter Results Differential, Automated (12/03/2021 11:11 AM EDT) P athologist Signature Neutrophils % 58.1 % [facility] LAB[facility] Neutr Abs (ANC) 4.10 1.70 - [facility] 6.10 [facility] x10(3)/[facility] LABORATORY Lymphocytes % 34.4 % [facility] Lymphocytes Abs 2.4 0.9 - 3.2 [facility] x10(3)/[facility] LABORATORY Monocytes % 5.0 % [facility] Monocyte Abs 0.4 0.3 - 0.9 [facility] x10(3)/[facility] LABORATORY Eosinophils % 1.6 % [facility] Eosinophils Abs 0.1 0.0 - 0.4 [facility] x10(3)/[facility] LABORATORY Basophils % 0.3 % [facility] Basophils Abs 0.0 0.0 - 0.1 [facility] x10(3)/[facility] LABORATORY Immature Gran % 0.60 % [facility] [...] Michelle Gran Abs 0.04 0.00 - 0.04 x10(3)/[facility] MAR Y [facility] LABORATORY Specimen Anatomical Collection Method Collection Time Receive d Time (Source) Location / / Volume Laterality Blood 12/03/2021 11:11 12/03/2021 AM EDT 11:31 AM EDT Resulting Agency Comment Spec In Lab Tasia Montaño FINANCING ANALYST HEMATOLOGY ORDERABLES Performing Organization Address City/State/[place] [address] (ABNORMAL) Hemogram (12/03/2021 11:11 AM EDT) Analysis Performed At Patho logist Time Signature WBC 7.0 4.0 - 9.5 [facility] x10(3)/[facility] LABORATORY RBC 4.02 (L) 4.58 - [facility] 5.54 [facility] x10(6)/[facility] LABORATORY Hemoglobin 12.0 (L) 13.7 - [facility] 16.5 g/dL [facility] LABORATORY Hematocrit 36.0 (L) 40.5 - [facility] 48.5 % [facility] MCV 89.6 82.9 - [facility] 93.1 [facility] LABORATORY MCH 29.9 27.5 - [facility] 32.1 pg [facility] LAB[facility]ORY MCHC 33.3 32.0 - [facility] 35[facility] g/dL [facility] LABOR[facility]ORY Platelets 293 145 - 357 [facility] x10(3)/[facility] LABORATORY RDWSD 42.5 36.0 - [facility] 45.0 [facility] LABORATORY RDWCV 12.9 11.4 - [facility] 13.8 % [facility] LABORATORY MPV 9.5 7.6 - 12.9 [facility] LABORATORY nRBC % Auto 0.0 % [facility] LABORATORY nRBC Abs Auto 0.000 0.000 - [facility] 0.000 [facility] x[facility](3[facility] LABORATORY Specimen Anatomical Collection Method Collection Time Receive d Time (Source) Location / / Volume Laterality Blood 12/03/2021 11:11 12/03/2021 AM EDT 11:31 AM EDT Resulting Agency Comment Spec In Lab Tasia Montaño FINANCING ANALYST HEMATOLOGY ORDERABLES Performing Organization Address City/State/[place] [address] (ABNORMAL) Comprehensive metabolic panel (non-fasting) (12/03/2021 11:11 AM EDT) P athologist Signature Glucose Lvl 123 65 - 199 [facility] mg/dL [facility] LABOR[facility]ORY Comment: Diabetes: >=200 mg/dL plus symp toms BUN 26 (H) 10 - 20 mg/dL [facility] LABORATORY Creatinine 2.21 (H) 0.80 - 1.50 mg/dL [facility] LABORATORY Sodium 144 135 - 145 mmol/L [facility] LABOR[facility]ORY Potassium 4.4 3.5 - 5.0 mmol/L [facility] LABOR[facility]ORY Comment: Please note: ??Patients with WBC [...] Anion Gap 14 5 - 15 mmol/L [facility] LABOR[facility]ORY Calcium 9.2 8.5 - 10.5 mg/dL [facility] LABOR[facility] Total Protein 7.0 6.1 - 8.0 g/dL [facility] Albumin 4.0 3.2 - 5.2 g/dL [facility] LABORATORY AST 13 0 - 39 unit/L [facility] ALT 8 0 - 55 unit/L [facility] Alk Phos 147 (H) 40 - 130 unit/L [facility] LABOR[facility] Total Bilirubin 0.2 0.2 - 1.3 mg/dL [facility] LABOR[facility]ORY Estimated GFR 28 (L) >=60 [...] Agency Comment Spec In Lab Tasia Montaño FINANCING ANALYST CHEMISTRY ORDERABLES Performing Organization Address City/State/[place] [address] Lactate Dehydrogenase (12/03/2021 11:11 AM EDT) P athologist Signature LDH 174 110 - 220 [facility] unit/L [facility] LABORATORY Specimen Anatomical Collection Method Collection Time Receive d Time (Source) Location / / Volume Laterality Blood 12/03/2021 11:11 12/03/2021 AM EDT 11:27 AM EDT Resulting Agency Comment Spec In Lab Tasia Montaño FINANCING ANALYST CHEMISTRY ORDERABLES Performing Organization Address City/[facility]/ZIP [place] [address] documented in this encounter Visit Diagnoses Diagnosis Mass of upper lobe of left lung documented in this encounter Care Teams Nuclear Equipment Operator Relationship Specialty Start Date End Date Que Sharma DO PCP - General Family Medicine 02/08/20 [address] [place] [address] documented as of this encounter
--- OUTSIDE RECORDS SUMMARY | 2022-01-19 02:08 | XMS_ITS | Encounter Summary ---
:1945 Author Organization [facility] Address [facility] [place] [address] Care Team Providers Name Role Phone Que Sharma DO Primary Care Provider Reason for Visit Reason Onset Date Comments Post Procedure Call 12/09/2021 Encounter Details Date Type Department Care Team Description 12/09/2021 Telephone Thoracic Surgery at [facility] Kajal Vidales, RN Post Procedure Call [facility] [place] [address] Social History Tobacco Use Types Packs/Day [...] this encounter Miscellaneous Notes Telephone Encounter - Kajal Vidales RN - 12/09/2021 4:55 PM EDTSummary: post op call TC to Mr. Ortega Hx: s/p Bronchoscopy, EBUS endobronchial biopsies and brushings on 12/03/21. Mr. Ortega is doing ok from his procedure, but he continues to have a lot of pain in his shoulder area. He has reached out to his PCP for another script for Dilaudid. Scheduled for PFT's, FUV with Dr. Chung, and Dr. Issa as well. documented in this encounter Plan of Treatment Upcoming Encounters Date Type Specialty Care Team Description 01/19/2022 Office Visit Tanvir Vivas MD [facility] HEMATOLOGY/[place] [address] Oncology Arlene Bobby APRN [facility] [place] [address] 01/19/2022 Infusion Hematology and Oncology 01/19/2022 Scheduled View Only Radiation Oncology 01/20/2022 Scheduled View Only Radiation Oncology 01/21/2022 Scheduled View Only Radiation Oncology 01/22/2022 Scheduled View Only Radiation Oncology 01/22/2022 Office Visit Radiation Oncology Adriana De La Rosa v, MD [address] [place] [address] [place] [address] (Wo rk) 01/23/2022 Scheduled View Only Radiation Oncology 01/26/2022 Office Visit Hematology and Tanvir Issa MD [facility] DR HEMATOLOGY/[place] [address] Oncology Arlene Bobby [facility] [place] [address] 01/26/2022 Infusion Hematology and Oncology 01/26/2022 Scheduled View Only Radiation Oncology 01/27/2022 Scheduled View Only Radiation Oncology 01/28/2022 Scheduled View Only Radiation Oncology 01/29/2022 Scheduled View Only Radiation Oncology 01/29/2022 Office Visit Radiation Oncology Adriana De La Rosa v, MD [address] [place] [address] [place] [address] (Wo rk) 01/30/2022 Scheduled View Only Radiation Oncology 02/02/2022 Office Visit Hematology and Arlene Bobby, Oncology [facility] HEMATOLOGY AND ONCOLOGY [place], [place] [address] (Wo rk) 02/02/2022 Infusion Hematology and Oncology 02/02/2022 Scheduled View Only Radiation Oncology 02/03/2022 Scheduled View Only Radiation Oncology 02/04/2022 Scheduled View Only Radiation Oncology 02/05/2022 Scheduled View Only Radiation Oncology 02/05/2022 Office Visit Radiation Oncology Adriana De La Rosa v, MD [address] [place] [address] [place] [address] (Wo rk) 02/06/2022 Scheduled View Only Radiation Oncology 02/09/2022 Office Visit Hematology and Arlene Bobby, Oncology [facility] HEMATOLOGY AND ONCOLOGY [place], [place] [address] (Wo rk) 02/09/2022 Infusion Hematology and Oncology 02/09/2022 Scheduled View Only Radiation Oncology 02/09/2022 Notes Only Radiation Oncology Adriana De La Rosa v, MD [address] [place] [address] [place] [address] (Wo rk) 02/10/2022 Scheduled View Only Radiation Oncology documented as of this encounter Visit Diagnoses Not on filedocumented in this encounter Care Teams Marine Equipment Sales Engineer Relationship Specialty Start Date End Date Que Sharma DO PCP - General Family Medicine 02/08/20 [address] [place] [address] documented as of this encounter
--- OUTSIDE RECORDS SUMMARY | 2022-01-19 02:08 | XMS_ITS | Encounter Summary ---
:1945 Author Organization [facility] [place] [address] Care Team Providers Name Role Phone EdithQue DO Primary Care Provider Encounter Details Date Type Department Care Team Description 12/23/2021 Orders Only Radiation Oncology at [facility] Bill MD [address] RADIATION ONCOLOGY [facility] [id number] [phone] Social History Tobacco Use Types Packs/Day Years [...] Hawk MD [facility] HEMATOLOGY/[place] [address] Oncology Arlene Bobby APRN [facility] HEMATOLOGY [place] [address] 01/19/2022 Infusion Hematology and Oncology 01/19/2022 Scheduled View Only Radiation Oncology 01/20/2022 Scheduled View Only Radiation Oncology 01/21/2022 Scheduled View Only Radiation Oncology 01/22/2022 Scheduled View Only Radiation Oncology 01/22/2022 Office Visit Radiation Oncology Adriana De La Rosa v, MD [address] [place] [address] [place] [address] (Wo rk) 01/23/2022 Scheduled View Only Radiation Oncology 01/26/2022 Office Visit Tanvir Vivas MD [facility] HEMATOLOGY/[place] [address] Oncology Arlene Bobby APRN [facility] HEMATOLOGY [place] [address] 01/26/2022 Infusion Hematology and Oncology 01/26/2022 Scheduled View Only Radiation Oncology 01/27/2022 Scheduled View Only Radiation Oncology 01/28/2022 Scheduled View Only Radiation Oncology 01/29/2022 Scheduled View Only Radiation Oncology 01/29/2022 Office Visit Radiation Oncology Adriana De La Rosa v, MD [address] [place] [address] DR CIPRI[address] [place], [place] [phone] (Wo rk) 01/30/2022 Scheduled View Only Radiation Oncology 02/02/2022 Office Visit Hematology and Arlene Bobby, Oncology [facility] HEMATOLOGY AND ONCOLOGY [place], [place] [address] (Wo rk) 02/02/2022 Infusion Hematology and Oncology 02/02/2022 Scheduled View Only Radiation Oncology 02/03/2022 Scheduled View Only Radiation Oncology 02/04/2022 Scheduled View Only Radiation Oncology 02/05/2022 Scheduled View Only Radiation Oncology 02/05/2022 Office Visit Radiation Oncology Adriana De La Rosa v, MD [address] [place] [address] [place] [address] (Wo rk) 02/06/2022 Scheduled View Only Radiation Oncology 02/09/2022 Office Visit Hematology and Arlene Bobby, Oncology [facility] HEMATOLOGY AND ONCOLOGY [place], [place] [address] (Wo rk) 02/09/2022 Infusion Hematology and Oncology 02/09/2022 Scheduled View Only Radiation Oncology 02/09/2022 Notes Only Radiation Oncology Adriana De La Rosa v, MD [address] [place] [address] DR CIPRI[address] [place], [place] [phone] (Wo rk) 02/10/2022 Scheduled View Only Radiation Oncology documented as of this encounter Visit Diagnoses Not on filedocumented in this encounter Care Teams Plastic Jig And Fixture Builder Relationship Specialty Start Date End Date Que Sharma DO PCP - General Family Medicine 02/08/[address] [place] [address] documented as of this encounter
--- OUTSIDE RECORDS SUMMARY | 2022-01-19 02:08 | XMS_ITS | Encounter Summary ---
:1945 [place] [address] Care Team Providers Name Role Phone EdithQue zavaleta Grey VITAL Primary Care Provider Encounter Details Date Type Department Care Team Description 12/03/2021 Surgery Main Operating Room Matthew Pradhan B RONCH, W ENDOBRONCHIAL Nat Marsh MD ULTRASOUND (EBUS) GUIDED [facility] SAMPLING, 3+ NODES ([facility] [address] 5.21) [facility] [place] [address] [place] [id number] [phone] (Wo rk) Social History Tobacco Use Types [...] Sign Reading Time Taken Comments Blood Pressure 147/84 12/03/2021 1:42 PM EDT Pulse 101 12/03/2021 1:42 PM EDT Temperature 36.3 ??C (97.3 ??F) 12/03/2021 1:42 PM EDT Respiratory Rate 18 12/03/2021 1:42 PM EDT Oxygen Saturation 99% 12/03/2021 1:42 PM EDT Inhaled Oxygen Concentration - - Weight - - Height - - Body Mass Index - - documented in this encounter Discharge Instructions Patient InstructionsRufino Choudhary PA - 12/03/2021 4:33 PM EDT Today you had bronchoscopy and endobronchial ultrasound for biopsy. You may cough up a small amount of blood after the procedure. This is normal. If the amount of bloodbeing coughed up is bright red, clotting, or is increasing in amount (more than about 1 tablespoon),please call the clinic or go directly to the nearest emergency department. Call if you have difficulty breathing, shortness of breath, chest pain, a fever of greater than 101 degrees, shaking chills, or if you have questions. During normal business hours, Wednesday- Wednesday 8:00 a.m.-5:00 p.m., please call [phone] to speak to a nurse in the Thoracic Clinic. If you get an answering machine or it is after hours or on weekends or holidays please call [phone] and ask to speak to the Thoracic Physician occupational analyst. Diet: You should follow a regular diet as tolerated. Start slowly with liquids then work your way back up to normal foods. Smoking: If you are a smoker, please avoid smoking. If you are a smoker who needs help quitting, please call the thoracic surgery clinic at [phone]. Pain: You may have a sore throat after this procedure. Pain after this procedure is normal. The goalis for you to be able to tolerate pain so you can complete your daily activities. You may take over the counter pain medication such as acetaminophen or ibuprofen. If you are not having good pain control, please call and speak to the nurse in the Thoracic Clinic or the occupational analyst Attending Physician after hours. Follow up appointments: Dr. Pradhan will call with biopsy results. The thoracic surgery clinic willschedule your follow up, if needed. Please call the thoracic clinic at [phone] to confirm/reschedule your appointment. You will also likely get an appointment confirmation in the mail. Future Appointments and Orders Future Appointments and Orders Future Appointments Provider Department Dept Phone 12/11/2021 10:00 AM Jeannette Reynolds MD; Tanvir Issa MD Hematology and Oncology at [facility] [place] Arrive at: [facility] [facility] Area [phone] If you have any questions or concerns during normal business hours, Wednesday- Wednesday 8:00 a.m.-5:00 p.m., please call [phone] to speak to a nurse in the Thoracic Surgery Clinic. If you get an answering machine or it is after hours or on weekends or holidays please call [phone] and ask to speakto the Thoracic Surgeon occupational analyst. documented in this encounter Medications at Time of Discharge [...] mg Tablet documented as of this encounter H&P Notes Rufino Choudhary PA - 12/03/2021 2:46 PM EDT Patient Name: Don Ortega Patient Age: 76 y.o. Birthdate: 1945 Admit date: 12/03/2021 Attending Physician: Matthew Pradhan MD Thoracic Surgery Preop NAME: Don Ortega DATE: 12/03/21 SURGEON: MATTHEW PRADHAN PROCEDURE: Bronchoscopy, endobronchial ultrasound guided biopsy of mediastinal lymph nodes BRIEF HISTORY: Don Ortega is a 76 y.o. male with a Left lung mass which was previously biopsied (appears to be only by washings) and was suspicious for SCC. Patient reports he has continued to work on cutting back on smoking, states some days he has 3-4 andsome days he has 0-1. The patient reports no interval change. There has been no interval medical illness or hospitalizations. Questions have been addressed. Smoking HX: Social History Tobacco Use Smoking Status Current Every Day Smoker ??? Packs/day: 0.50 ??? Years: 63.00 ??? Pack years: 31.50 ??? Types: Cigars Smokeless Tobacco Never Used PMH: Patient Active Problem List Diagnosis Date Noted ??? Bilateral carotid artery stenosis 02/14/2020 ??? Pre-op testing 02/14/2020 ??? Cigarette smoker 02/14/2020 PSH: Past Surgical History: Procedure Laterality Date ??? PRO THROMBOENDARTECTMY NECK, NECK INCIS Right 03/19/2020 @ENDARTERECTOMY, CAROTID, VERTEBRAL,SUBCLAVIAN W\WO PATCH GRAFT (WRVU 21.16) performed by Alee Sanders MD at [facility] MAIN OR MEDS: No current facility-administered medications on file prior to encounter. Current Outpatient Medications on File Prior to Encounter Medication Sig Dispense Refill ??? metFORMIN (Glucophage) 500 mg Tablet Take 500 mg by mouth 2 times daily (with meals). ??? allopurinoL (Zyloprim) 100 mg Tablet ??? aspirin EC 81 mg Tablet, Delayed Release (E.C.) Daily. ??? benazepril-hydrochlorthiazide (LOTENSIN HCT) 20-12.5 mg Tablet ??? ergocalciferoL, vitamin D2, (vitamin D2) 50,000 unit Capsule TAKE 1 CAPSULE BY MOUTH ONE TIME PER WEEK ??? escitalopram (Lexapro) 10 mg Tablet Daily. ??? ferrous sulfate 325 mg (65 mg iron) Tablet ferrous sulfate 325 mg (65 mg iron) tablet 1 tablet by mouth daily ??? furosemide (Lasix) 40 mg Tablet TAKE 1 TABLET BY MOUTH TWICE A DAY ??? potassium chloride (MICRO-K) 10 mEq Capsule, Sustained Release TAKE 1 CAPSULE BY MOUTH EVERY DAYWHEN TAKING FUROSEMIDE ??? omeprazole (PriLOSEC) 20 mg Capsule, Delayed Release(E.C.) TAKE 1 CAPSULE BY MOUTH EVERY DAY ??? pravastatin (Pravachol) 10 mg Tablet Daily. ??? tamsulosin (Flomax) 0.4 mg Capsule ??? acetaminophen (Tylenol) 500 mg Tablet Take 1,000 mg by mouth every 6 hours as needed for Pain. ALL: No Known Allergies Physical Exam Patient Vitals for the past 24 hrs: Temp Pulse Resp BP SpO2 O2 Device 12/03/21 1342 36.3 ??C (97.3 ??F) (!) 101 18 147/84 99 % RA Gen: NAD, pleasant, sitting up on stretcher HEENT: normocephalic, atraumatic, EOMI, sclerae anicteric Neck: supple, trachea midline Card: RRR, no M/R/G appreciated Pulm: CTAB, no wheeze/ronchi/rales appreciated, non-labored breathing on RA Abd: soft, NT, BS+ Ext: warm, dry, no edema Neuro: A&Ox3, nonfocal, conversant LABS: Lab Results Component Value Date WBC 7.0 12/03/2021 RBC 4.02 (L) 12/03/2021 HGB 12.0 (L) 12/03/2021 HCT 36.0 (L) 12/03/2021 MCV 89.6 12/03/2021 MCH 29.9 12/03/2021 MCHC 33.3 12/03/2021 PLATELET 293 12/03/2021 RDWCV 12.9 12/03/2021 Lab Results Component Value Date/Time NA 144 12/03/2021 11:11 AM K 4.4 12/03/2021 11:11 AM CL 106 12/03/2021 11:11 AM CO2 24 12/03/2021 11:11 AM BUN 26 (H) 12/03/2021 11:11 AM CREATININE 2.21 (H) 12/03/2021 11:11 AM FILM ON PACS: Y- CT chest, PET CONSENT: Yes/EMR - Yes Assessment/Plan: Don Ortega is a 76 y.o. male presenting today for planned Bronchoscopy, endobronchial ultrasound guided biopsy of mediastinal lymph nodes due to with a Left lung mass which was previously biopsied (appears to be only by washings) and was suspicious for SCC. Consent signed and confirmed in chart. Questions addressed. Will proceed with planned surgery. MEG Malik 12/03/2021 Thoracic Surgery Service Pager [phone] Associated attestation - Matthew Pradhan MD - 12/03/2021 2:57 PM EDT I have seen the patient and reviewed the PA's above note and I agree with the details as written. I have personally reviewed the relevant imaging. The assessment and plan were formulated in discussion with me and I agree with them as documented. Matthew Pradhan MD 12/03/2021 documented in this encounter Miscellaneous Notes Brief Op Note - Rufino Choudhary PA - 12/03/2021 4:32 PM EDT Brief Operative Note Patient Name: Don Ortega : [id number] MR#: [id number] Case Date: 12/03/2021 Surgeon: Surgeon(s) and Role: * Matthew Pradhan MD - Primary * Rufino Choudhary PA - Physician Airline Customer Service Agent Preoperative diagnosis: left upper lobe mass Postoperative diagnosis: left upper lobe mass Procedure(s) (LRB): BRONCH, W ENDOBRONCHIAL ULTRASOUND (EBUS) GUIDED SAMPLING, 3+ NODES (WRVU 5.21) (N/A) BRONCHOSCOPY, WITH BIOPSY (WRVU 3.36) (N/A) Anesthesia: General Findings: Bronchoscopy, EBUS for biopsies, endobronchial biopsies and brushings Complications: None Estimated Blood Loss: ~3 mL Specimens removed during surgery: Order Name Source Comment Collection Info Order Time SPECIMEN TO PATHOLOGY Left upper lobe lingular bronchus OR left upper lobe mass Left upper lobe lingular bronchus biopsy 12/03/2021 3:21 PM Time specimen removed from patient: 3:20 PM Number of tissue samples (in container) 1 CYTOPATHOLOGY NON-GYNECOLOGICAL 4R lymph node OR 12/03/2021 3:25 PM Pertinent clinical data and significant therapy: left upper lobe mass Clinical impression: left upper lobe mass Procedure Type: EBUS guided FNA Specimen Type: Lymph Node Description and source of specimen: 4R Lymph node CYTOPATHOLOGY NON-GYNECOLOGICAL Level 7 lymph node OR 12/03/2021 3:35 PM Pertinent clinical data and significant therapy: left upper lobe mass Clinical impression: left upper lobe mass Procedure Type: EBUS guided FNA Specimen Type: Lymph Node Description and source of specimen: Level 7 lymph node CYTOPATHOLOGY NON-GYNECOLOGICAL 4L lymph node OR 12/03/2021 3:50 PM Pertinent clinical data and significant therapy: left upper lobe mass Clinical impression: left upper lobe mass Procedure Type: EBUS guided FNA Specimen Type: Lymph Node Description and source of specimen: 4L lymph node CYTOPATHOLOGY NON-GYNECOLOGICAL 11L lymph node OR 12/03/2021 3:58 PM Pertinent clinical data and significant therapy: left upper lobe mass Clinical impression: left upper lobe mass Procedure Type: EBUS guided FNA Specimen Type: Lymph Node Description and source of specimen: 11L lymph node SPECIMEN TO PATHOLOGY Left upper lobe, upper division bronchus OR left upper lobe mass Left upper lobe, upper division bronchus biopsy 12/03/2021 4:14 PM Time specimen removed from patient: 4:13 PM Number of tissue samples (in container) 1 CYTOPATHOLOGY NON-GYNECOLOGICAL Left upper lobe, upper division brushing OR 12/03/2021 4:18 PM Pertinent clinical data and significant therapy: left upper lobe mass Clinical impression: left upper lobe mass Procedure Type: Other (please specify in Comments Field below) Specimen Type: Lung, left Description and source of specimen: Left upper lobe, upper division brushing Fluids: Intraprocedure Crystalloid Total None PRBCs: none (See Anesthesia Record/Report for Other Blood Products) Urine Output: (no urine output recorded) Drains: None Disposition: awakened from anesthesia, extubated and taken to the recovery room in a stable condition, having suffered no apparent untoward event. Condition: doing well without problems (Please see the Surgical Encounter Summary for any Implant and Specimen details pertinent to this patient.) Surgical Infection Prevention Bundle Used? N/A Op Note - Matthew Pradhan MD - 12/03/2021 3:14 PM EDT [facility] [place] Operative Note Patient Name: Don Ortega : [id number] MR#: [id number] Case Date: 12/03/2021 Surgeon: Surgeon(s) and Role: * Matthew Pradhan MD - Primary * Rufino Choudhary PA - Physician Airline Customer Service Agent Preoperative diagnosis: left upper lobe mass Postoperative diagnosis: left upper lobe mass Procedure(s) (LRB): BRONCH, W ENDOBRONCHIAL ULTRASOUND (EBUS) GUIDED SAMPLING, 3+ NODES (WRVU 5.21) (N/A) BRONCHOSCOPY, WITH BIOPSY (WRVU 3.36) (N/A) Findings: Evidence of tumor invasion to the orifice of the upper division bronchus of the left upperlobe. Biopsies of this area and the lingular bronchus were taken. Successful EBUS sampling of 4R, 7,and 11L lymph nodes. Attempted sampling of 4L was non-diagnostic. Anesthesia: General Estimated Blood Loss: 3 mL Specimens removed during surgery: Order Name Source Comment Collection Info Order Time SPECIMEN TO PATHOLOGY Left upper lobe lingular bronchus OR left upper lobe mass Left upper lobe lingular bronchus biopsy 12/03/2021 3:21 PM Time specimen removed from patient: 3:20 PM Number of tissue samples (in container) 1 CYTOPATHOLOGY NON-GYNECOLOGICAL 4R lymph node OR 12/03/2021 3:25 PM Pertinent clinical data and significant therapy: left upper lobe mass Clinical impression: left upper lobe mass Procedure Type: EBUS guided FNA Specimen Type: Lymph Node Description and source of specimen: 4R Lymph node CYTOPATHOLOGY NON-GYNECOLOGICAL Level 7 lymph node OR 12/03/2021 3:35 PM Pertinent clinical data and significant therapy: left upper lobe mass Clinical impression: left upper lobe mass Procedure Type: EBUS guided FNA Specimen Type: Lymph Node Description and source of specimen: Level 7 lymph node CYTOPATHOLOGY NON-GYNECOLOGICAL 4L lymph node OR 12/03/2021 3:50 PM Pertinent clinical data and significant therapy: left upper lobe mass Clinical impression: left upper lobe mass Procedure Type: EBUS guided FNA Specimen Type: Lymph Node Description and source of specimen: 4L lymph node CYTOPATHOLOGY NON-GYNECOLOGICAL 11L lymph node OR 12/03/2021 3:58 PM Pertinent clinical data and significant therapy: left upper lobe mass Clinical impression: left upper lobe mass Procedure Type: EBUS guided FNA Specimen Type: Lymph Node Description and source of specimen: 11L lymph node SPECIMEN TO PATHOLOGY Left upper lobe, upper division bronchus OR left upper lobe mass Left upper lobe, upper division bronchus biopsy 12/03/2021 4:14 PM Time specimen removed from patient: 4:13 PM Number of tissue samples (in container) 1 CYTOPATHOLOGY NON-GYNECOLOGICAL Left upper [place], [place] [id number] 12/03/2021 4:18 PM Pertinent clinical data and significant therapy: left upper lobe mass Clinical impression: left upper lobe mass Procedure Type: Other (please specify in Comments Field below) Specimen Type: Lung, left Description and source of specimen: Left upper lobe, upper division brushing Drains: None Disposition: awakened from anesthesia, extubated and taken to the recovery room in a stable condition, having suffered no apparent untoward event. Condition: stable (Please see the Surgical Encounter Summary for any Implant and Specimen details pertinent to this patient.) HPI/Surgical Indications: Mr. Ortega is a 76 y.o. male with a Left lung mass which was previously biopsied (appears to be only by washings) and was suspicious for SCC. We reviewed the steps for cancer management, including diagnosis, staging and treatment that is based on the stage. We have discussed the next step, which involves bronchoscopy and EBUS for further biopsies and mediastinal staging. We have discussed with him the risks of a bronchoscopy and endobronchial ultrasound for biopsy. He understands the risks of bleeding, damage to surrounding structures, collapsed lung, possible shortness of breath, airway edema, a benign nodule, need for additional procedures or treatment, heart attack, arrhythmia, stroke and . He asked appropriate questions and would like to proceed. Procedure Description: The patient was identified in the preoperative holding area. He was brought to the operating room. A second verification process including the patient's name, medical record number, date of and planned procedure was performed. He was placed supine on the operating room table. Sequential compression devices and subcutaneous heparin were administered. There is no indicationfor prophylactic IV antibiotics. General anesthesia was induced by the anesthesiology staff with a single-lumen endotracheal tube. A timeout was performed. The flexible diagnostic bronchoscope was inserted down the endotracheal tube. This was advanced intothe mid and distal trachea. The clovis was sharp. The scope was advanced into the right mainstem bronchus and then sequentially into the right upper, middle, and lower lobes. There was a scant amount of mucus that was present in the central airways. This was suctioned out. There was no additional endobronchial abnormality noted to at least the level of subsegmental bronchi on the right. The scope wasretracted back to the clovis advanced on the left mainstem bronchus. It was sequentially advanced into the left upper and lower lobes. There is no abnormality noted to the level to subsegmental bronchi in the lower lobe on the left. There was evidence of likely tumor involvement of the orifice of the upper division of the left upper lobe. This did not appear to invade into the orifice of the lingularbronchus. The diagnostic scope was removed. The EBUS scope was advanced down the endotracheal tube. This was advanced down to the level the clovis and then retracted back and rotated to the right. There was a normal-appearing 4R lymph node that was identified. Using ultrasound, the 22-gauge needle was directed into this lymph node. Multiple passes were taken. Intraoperative cytology was consistent with lymph node sampling. Additional material was sent for cell block and staining. The scope was advanced down to the level the clovis. There was a normal-appearing level 7 lymph node. Using ultrasound, the 22-gauge needle was directed into this lymph node from both sides of the clovis. Intraoperative cytology was consistent with lymph node sampling. Additional material was sent for cell block and staining. The scope was retracted back and rotated to the left. There was a very small, less than 5 mm in short axis diameter 4L lymph node. Multipleattempts were made to sample this node. 1 attempt appeared to be in the sam tissue. Intraoperativecytology was consistent with a nondiagnostic sample. Additional attempts were then made without adequate visualization to safely biopsy this lymph node, given small size in close proximity to the aortaand pulmonary artery. The scope was advanced down the left mainstem bronchus. There was no obvious 10 L lymph node that could be identified for biopsy. The scope was advanced into the orifice of the left lower lobe. There was a normal-appearing 11 L lymph node that was identified. Using ultrasound, the 22-gauge needle was directed into this lymph node. Multiple passes were taken intraoperative cytology was consistent with lymph node sampling. Additional material was sent for cell block and staining. The EBUS scope was removed. The diagnostic scope was again advanced on the endotracheal tube. The biopsy sites were inspected and there is no bleeding from the biopsy sites. The scope was advanced intothe left mainstem bronchus and then into the left upper lobe. Biopsies with cold forceps were taken at the orifice of the lingular bronchus as well as the orifice of the upper division bronchus. These were taken separately and labeled as separate specimens and sent for permanent histology. A cytology brush was then placed into the upper division bronchus and vigorously agitated. This was sent as upper division cytology brushings for cytology. Small amount of saline was used to irrigate the upper lobe. The effluent was clear. There is no evidence of any ongoing bleeding. The scope was removed. The patient tolerated the procedure well. There were no obvious untoward events. All sponge and instrument counts were correct at the end of the case. He was awoken from general anesthesia and extubated in the operating room. He was taken to the recovery room. I was present and directly performed the entire procedure. I was assisted in this procedure by Rufino Choudhary PA-C, as no qualified resident was available toassist me. Surgical Infection Prevention Bundle Used? N/A Matthew Pradhan MD 12/03/2021 documented in this encounter Plan of Treatment Upcoming Encounters Date Type Specialty Care Team Description 01/19/2022 Office Visit Hematology Tanvir Hawk MD [facility] HEMATOLOGY/[place] [address] Arlene Hill APRN [facility] [place]ATOLOGY [place] [address] 01/19/2022 Infusion Hematology and Oncology 01/19/2022 Scheduled View Only Radiation Oncology 01/20/2022 Scheduled View Only Radiation Oncology 01/21/2022 Scheduled View Only Radiation Oncology 01/22/2022 Scheduled View Only Radiation Oncology 01/22/2022 Office Visit Radiation Oncology Adriana De La Rosa v, MD [address] [place] [address] [place] [address] (Wo rk) 01/23/2022 Scheduled View Only Radiation Oncology 01/26/2022 Office Visit Tanvir Vivas MD [facility] HEMATOLOGY/[place] [address] Oncology Arlene Bobby APRN [facility] [place]ATOLOGY [place] [address] 01/26/2022 Infusion Hematology and Oncology 01/26/2022 Scheduled View Only Radiation Oncology 01/27/2022 Scheduled View Only Radiation Oncology 01/28/2022 Scheduled View Only Radiation Oncology 01/29/2022 Scheduled View Only Radiation Oncology 01/29/2022 Office Visit Radiation Oncology Adriana De La Rosa v, MD [address] [place] [address] [address] [place] [address] (Wo rk) 01/30/2022 Scheduled View Only Radiation Oncology 02/02/2022 Office Visit Hematology and Arlene Bobby, Oncology [facility] HEMATOLOGY AND ONCOLOGY [place], [place] [address] (Wo rk) 02/02/2022 Infusion Hematology and Oncology 02/02/2022 Scheduled View Only Radiation Oncology 02/03/2022 Scheduled View Only Radiation Oncology 02/04/2022 Scheduled View Only Radiation Oncology 02/05/2022 Scheduled View Only Radiation Oncology 02/05/2022 Office Visit Radiation Oncology Adriana De La Rosa v, MD [address] [place] [address] [address] [place] [address] (Wo rk) 02/06/2022 Scheduled View Only Radiation Oncology 02/09/2022 Office Visit Hematology and Arlene Bobby, Oncology [facility] HEMATOLOGY AND ONCOLOGY [place], [place] [address] (Wo rk) 02/09/2022 Infusion Hematology and Oncology 02/09/2022 Scheduled View Only Radiation Oncology 02/09/2022 Notes Only Radiation Oncology Adriana De La Rosa v, MD [address] [place] [address] DR CIPRIANO [place] [place], [place] [id number] (Wo rk) 02/10/2022 Scheduled View Only Radiation Oncology documented as of this encounter Procedures Procedure Name Priority Date/Time Associated Comments Diagnosis BRONCHOSCOPY, WITH Routine 12/03/2021 4:22 PM Mass of upper lo be BIOPSY EDT of left lung NON-WINE SPECIALIST FINAL REPORT Routine 12/03/2021 4:18 PM R esults for this EDT procedure are i n the results section. CYTOPATHOLOGY Routine 12/03/2021 4:18 PM Results for this NON-GYNECOLOGICAL EDT procedure are in the results section. SPECIMEN TO PATHOLOGY Routine 12/03/2021 4:14 PM Results for this EDT procedure are i n the results section. NON-WINE SPECIALIST FINAL REPORT Routine 12/03/2021 3:58 PM R esults for this EDT procedure are i n the results section. CYTOPATHOLOGY Routine 12/03/2021 3:58 PM Results for this NON-GYNECOLOGICAL EDT procedure are in the results section. NON-WINE SPECIALIST FINAL REPORT Routine 12/03/2021 3:50 PM R esults for this EDT procedure are i n the results section. CYTOPATHOLOGY Routine 12/03/2021 3:50 PM Results for this NON-GYNECOLOGICAL EDT procedure are in the results section. NON-WINE SPECIALIST FINAL REPORT Routine 12/03/2021 3:36 PM R esults for this EDT procedure are i n the results section. CYTOPATHOLOGY Routine 12/03/2021 3:36 PM Results for this NON-GYNECOLOGICAL EDT procedure are in the results section. NON-WINE SPECIALIST FINAL REPORT Routine 12/03/2021 3:25 PM R [...] lung ULTRASOUND (EBUS) GUIDED SAMPLING, 3+ NODES documented in this encounter Results Non-Land Measurer Final Report (12/03/2021 4:18 PM EDT) Component Value Ref Test Analysis Performed At [facility] gist Range Method Time Signature Non-Land Measurer Final [id number] ? Location: [place] [facility]; [facility]; A NAT Ty NARVAEZCHCOCK The signing pathologist has (i) examined the relevant preparation(s) for the MEMORIAL specimen(s) and (ii) rendered or confirmed the diagnosis(es) . HOSPITAL LABORATORY . ? No n-Land Measurer Final DIAGNOSIS Positive for Malignancy Electronically signed by: ?Chapis MCLEOD, Rufino Mccann Verified: ??12/08/2021 9:53 ?? Pathologist Performed at: ??-[facility] Dept. of Pathology, [place], [place] DISCUSSION Lung, upper division of left upper lobe (bronchial brushing) : A few highly atypical squamous cells are present singly and in small clusters. Given the findings in the co ncurrent lung biopsies ([id number]), the material in this sample is compatible [...] Volume Laterality 12/03/2021 4:18 PM EDT Matthew Pradhan MD PATHOLOGY/CYTOLOGY ORDERABLE S Performing Organization Address City/State/ZIP [place] [address] [facility] [address] Cytopathology Non-Gynecological (12/03/2021 4:18 PM EDT) Specimen Anatomical Collection Method Collection Time Receive d Time (Source) Location / / Volume Laterality AP Specimen 12/03/2021 4:18 PM 2 4:18 EDT PM EDT Narrative [facility] OR - 12/03/2021 4:18 PM EDT Specimen requisition ordered. ??Separate Pathology report to follow Matthew Pradhan MD PATHOLOGY/CYTOLOGY ORDERABLE S Performing Organization Address City/[facility]/[place]IP [place] [address] Specimen to Pathology (12/03/2021 4:14 PM EDT) Specimen Anatomical Collection Method Collection Time Receive d Time (Source) Location / / Volume Laterality AP Specimen 12/03/2021 4:14 PM 2 4:14 EDT PM EDT Narrative [facility] OR - 12/03/2021 4:14 PM EDT Specimen requisition ordered. ??Separate Pathology report to follow Matthew Pradhan MD PATHOLOGY/CYTOLOGY ORDERABLE S Performing Organization Address City/[facility] [place] [address] Non-Land Measurer Final Report (12/03/2021 3:58 PM EDT) Component Value Ref Test Analysis Performed At [facility] Range Method Time Signature Non-Land Measurer [id number] ? Location: [facility]; [facility]; A [facility] Final Report [place] The signing pathologist has (i) examined the relevant preparation(s) for the MEMORIAL specimen(s) and (ii) rendered or confirmed the diagnosis(es) . HOSPITAL LABORATORY . ? No n-Land Measurer Final DIAGNOSIS Negative for Malignancy Electronically signed by: ?Chapis MCLEOD, Rufino Mccann Verified: ??12/09/2021 16:40 ??Pathologist Performed at: ??-[facility] [place] Dept. of Pathology, [place], [place] DISCUSSION Lymph node, 11L (EBUS-guided FNA): Lymphoid cells are present, consistent with lymph node rachel pling (see Note). Note: An extended immunohistochemical panel was performed to exclude a lymphoproliferative disorder. CD20, CD3, CD10, BCL-2, BCL -6, and cyclin D1 immunostain results are consistent with benign lymphoid hyperplasia. Dr. Powell (hematopathology) has reviewed the case and concurs with [facility] findings. Negative for metastatic carcinoma. --- Immunohistochemistry Studies --- Interpretation: ? Immunohistochemical a ssays were performed (on paraffin-embedded cell block sections fixed in 10% neutr al buffered formalin for 6-72 hours) using the polymer technique with appropriate controls. The sections are studied for CD20, CD3, BCL2, BCL6, CD10, cyclin D1, and p40. CD20 highlights benign germinal center lymphocytes that are BCL6 and CD10 positive and BCL 2 negative. Cyclin D1 is negative. CD3 immunostain highlights inte rmixed T-cells. The p40 immunostain highlights benign squamous metaplastic cells. These immunohistochemical st udies provide ancillary information and are used only in conjunction with standard diagnostic procedures. CLINICAL INFORMATION Specimen Source : Lymph node, 11L (EBUS-guided FNA, assisted) Pertinent Clinical Data and Significant Therapy: Left upper lobe mass Clinical Impression : Left upper lobe mass Pertinent Radiologic Findings ??: (not provided) Gross Description: Received in Formalin approxi mately 50 mL total volume of cloudy, pink fluid, with clots. Total Preparation: Diff-Quik 3; Pap Stain 3; Cell Block 1. Fine Needle Aspiration Immediate Assessment: . CLINICAL INFORMATION Evaluation Episode #1 (1 slide): Inadequate for final diagnosis. Evaluation Episode #2 (2 slides): Adequate for final diagnosis. Lymphocytes present. Immediate Assessment by: ?? Rufino Nation MD. Note: The above attending cytopathologist personally exami evan the Immediate Assessment slides and rendered the Imme diate Assessment. Such assessments are preliminary; see Diagnosis and Discussion for final interpr etation. Specimen (Source) Anatomical Collection Method Collection Time Re ceived Time Location / / Volume Laterality 12/03/2021 3:58 PM EDT Matthew Pradhan MD PATHOLOGY/CYTOLOGY ORDERABLE S Performing Organization Address City/State/[place] [address] [facility] [address] Cytopathology Non-Gynecological (12/03/2021 3:58 PM EDT) Specimen Anatomical Collection Method Collection Time Receive d Time (Source) Location / / Volume Laterality AP Specimen 12/03/2021 3:58 PM 2 3:58 EDT PM EDT Narrative [facility] - 12/03/2021 3:58 PM EDT Specimen requisition ordered. ??Separate Pathology report to follow Matthew Pradhan MD PATHOLOGY/CYTOLOGY ORDERABLE S Performing Organization Address City/State/[place] [address] [facility] [address] Non-Land Measurer Final Report (12/03/2021 3:50 PM EDT) Component Value Ref Test Analysis Performed At [facility] gist Range Method Time Signature Non-Land Measurer [id number] ? Location: [facility]; [facility]; [facility] Final Report [place] The signing pathologist has (i) examined the relevant preparation(s) for the [facility] specimen(s) and (ii) rendered or confirmed the diagnosis(es) . HOSPITAL LABORATORY . ? No n-Land Measurer Final DIAGNOSIS See Discussion Electronically signed by: ?Chapis MCLEOD, Rufino Mccann Verified: ??12/08/2021 9:31 ?? Pathologist Performed at: ??-[facility] [place] Dept. of Pathology, [place], [place] DISCUSSION Lymph node, 4L (EBUS-guided FNA): The sample consists predominantly of blood and respira tory epithelial cells. A few scattered lymphocytes are noted, suggestive of focal lymph node sampling; however, the findings might not be entirely sales representative [employer] furniture of the targeted lymph node. Cell block was examined. CLINICAL INFORMATION Specimen Source : Lymph node, 4L (EBUS-guided FNA, assisted) Pertinent Clinical Data and Significant Therapy: Left upper lobe mass Clinical Impression : Left upper lobe mass Pertinent Radiologic Findings ??: (not provided) Gross Description: Received in Formalin approxi mately 50 mL total volume of clear, colorless fluid. Total Preparation: Diff-Quik 1; Pap Stain 1; Cell Block 1. Fine Needle Aspiration Immediate Assessment: Evaluation Episode #1 (1 slide): Inadequate for final diagnosis. Respiratory epithelial cells. Immediate Assessment by: ?? Rufino Nation MD. Note: The above attending cytopathologist personally exami evan the Immediate Assessment slides and rendered the Imme diate Assessment. Such assessments are preliminary; see Diagnosis and Discussion for final interpr etation. Specimen (Source) Anatomical Collection Method Collection Time Re ceived Time Location / / Volume Laterality 12/03/2021 3:50 PM EDT Matthew Pradhan MD PATHOLOGY/CYTOLOGY ORDERABLE S Performing Organization Address City/[facility]/[place] [address] Cytopathology Non-Gynecological (12/03/2021 3:50 PM EDT) Specimen Anatomical Collection Method Collection Time Receive d Time (Source) Location / / Volume Laterality AP Specimen 12/03/2021 3:50 PM 3:50 EDT PM EDT Narrative [facility] - 12/03/2021 3:50 PM EDT Specimen requisition ordered. ??Separate Pathology report to follow Matthew Pradhan MD PATHOLOGY/CYTOLOGY ORDERABLE S Performing Organization Address City/[facility]/ZIP [facility] [place] [address] Non-Land Measurer Final Report (12/03/2021 3:36 PM EDT) Component Value Ref Test Analysis Performed At [facility] gist Range Method Time Signature Non-Land Measurer [id number] ? Location: [facility]; [facility]; [facility] Final Report [place] The signing pathologist has (i) examined the relevant preparation(s) for the MEMORIAL specimen(s) and (ii) rendered or confirmed the diagnosis(es) . HOSPITAL LABORATORY . ? No n-Land Measurer Final DIAGNOSIS Negative for Malignancy Electronically signed by: ?Chapis MCLEOD, Rufino Mccann Verified: ??12/09/2021 16:11 ??Pathologist Performed at: ??-[facility] Dept. of Pathology, [place], [place] DISCUSSION Lymph node, level 7 (EBUS-guided FNA): Lymphoid cells are present, consistent with lymph node sampl ing. Negative for metastatic carcinoma. Cell block was examined. CLINICAL INFORMATION Specimen Source : Lymph node, level 7 (EBUS-guided FNA, assisted) Pertinent Clinical Data and Significant Therapy: Left upper lobe mass Clinical Impression : Left upper lobe mass Pertinent Radiologic Findings ??: (not provided) Gross Description: Received in Formalin approxi mately 50 mL total volume of cloudy, pink fluid, with clots. Total Preparation: Diff-Quik 4; Pap Stain 4; Cell Block 1. Fine Needle Aspiration Immediate Assessment: Evaluation Episode #1 (1 slide): Inadequate for final diagnosis. Respiratory epithelial cells. Evaluation Episode #2 (1 slide): Adequate for final diagnosis. Lymphocytes present. Immediate Assessment by: ?? Rufino Nation MD. Note: The above attending cytopathologist personally exami evan the Immediate Assessment slides and rendered the Imme diate Assessment. Such assessments are preliminary; see Diagnosis and Discussion for final interpr etation. Specimen (Source) Anatomical Collection Method Collection Time Re ceived Time Location / / Volume Laterality 12/03/2021 3:36 PM EDT Matthew Pradhan MD PATHOLOGY/CYTOLOGY ORDERABLE S Performing Organization Address City/State/Z[place] [address] [facility] [address] Cytopathology Non-Gynecological (12/03/2021 3:36 PM EDT) Specimen Anatomical Collection Method Collection Time Receive d Time (Source) Location / / Volume Laterality AP Specimen 12/03/2021 3:36 PM 3:36 EDT PM EDT Narrative [facility] - 12/03/2021 3:36 PM EDT Specimen requisition ordered. ??Separate Pathology report to follow Matthew Pradhan MD PATHOLOGY/CYTOLOGY ORDERABLE S Performing Organization Address City/State/ZIP Code Phon e Number [place] [address] Non-Land Measurer Final Report (12/03/2021 3:25 PM EDT) Component Value Ref Test Analysis Performed At [facility] gist Range Method Time Signature Non-Land Measurer [id number] ? Location: [facility]; [facility]; A NAT Final Report CHRISTEL The signing pathologist has (i) examined the relevant preparation(s) for the MEMORIAL specimen(s) and (ii) rendered or confirmed the diagnosis(es) . HOSPITAL LABORATORY . ? No n-Land Measurer Final DIAGNOSIS Negative for Malignancy Electronically signed by: ?Chapis MCLEOD, Rufino Mccann Verified: ??12/08/2021 8:51 ?? Pathologist Performed at: ??-[facility] [place] Dept. of Pathology, [facility], [place], [place] DISCUSSION Lymph node, 4R (EBUS-guided FNA): Lymphoid cells are present, compatible with lymph node sampl ing. Negative for metastatic carcinoma. Cell block was examined. CLINICAL INFORMATION Specimen Source : Lymph node, 4R (EBUS-guided FNA, assisted) Pertinent Clinical Data and Significant Therapy: Left upper lobe mass Clinical Impression : Left upper lobe mass Pertinent Radiologic Findings ??: (not provided) Gross Description: Received ??in Formalin appro ximately 50 mL total volume of ?? cloudy, pink fluid, with clots. Total Preparation: Diff-Quik 3; Pap Stain 3; Cell Block 1. Fine Needle Aspiration Immediate Assessment: Evaluation Episode #1 (1 slide): Inadequate for final diagnosis. Mostly blood. Evaluation Episode #2 (1 slide): Inadequate for final diagnosis. Few respiratory epithelial cells. Evaluation Episode #3 (1 slide): Adequate for final diagnosis. Lymphocytes present. Immediate Assessment by: ?? Rufino Nation MD. Note: The above attending cytopathologist personally exami evan the Immediate Assessment slides and rendered the Imme diate Assessment. Such assessments are preliminary; see Diagnosis and Discussion for final interpr etation. Specimen (Source) Anatomical Collection Method Collection Time Re ceived Time Location / / Volume Laterality 12/03/2021 3:25 PM EDT Matthew Pradhan MD PATHOLOGY/CYTOLOGY ORDERABLE S Performing Organization Address City/State/[place] [address] Cytopathology Non-Gynecological (12/03/2021 3:25 PM EDT) Specimen Anatomical Collection Method Collection Time Receive d Time (Source) Location / / Volume Laterality AP Specimen 12/03/2021 3:25 PM 3:25 EDT PM EDT Narrative [facility] - 12/03/2021 3:25 PM EDT Specimen requisition ordered. ??Separate Pathology report to follow Matthew Pradhan MD PATHOLOGY/CYTOLOGY ORDERABLE S Performing Organization Address City/[facility]/[place] [address] Surgical Pathology Report (12/03/2021 3:21 PM EDT) Component Value Ref Test Analysis Performed At [facility] gist Range Method Time Signature Surgical [id number] ? Location: [facility]; [facility]; A [facility] Report The signing pathologist has (i) examined the relevant preparation(s) for the [facility] specimen(s) and (ii) rendered or confirmed the [...] The assay was performed according to the grants officer's instructions using Anti-PD-L1 (22C3, pharmDX) antibody. Electronically signed by: ?Garcia MCLEOD PhD, Jhonatan Fragoso Verified: ??12/09/2021 12:53 ??Pathologist Performed at: ??-[facility] Dept. 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 Electronically signed by: ?Sona Erazo DO Verified: ??12/05/2021 11:18 ??Pathologist Performed at: ??-[facility] Dept. of Pathology, [place], [place] DISCUSSION PDL1 has been ordered. ADDITIONAL [...] ?Positive i n lesional cells. A1 ? ZCA1ttix ? Negative in les ional cells. . [...] Volume Laterality 12/03/2021 3:21 PM EDT Matthew Pradhan MD PATHOLOGY/CYTOLOGY ORDERABLE S Performing Organization Address City/State/[place] [address] Specimen to Pathology (12/03/2021 3:21 PM EDT) Specimen Anatomical Collection Method Collection Time Receive d Time (Source) Location / / Volume Laterality AP Specimen 12/03/2021 3:21 PM 3:21 EDT PM EDT Narrative [facility] - 12/03/2021 3:21 PM EDT Specimen requisition ordered. ??Separate Pathology report to follow Matthew Pradhan MD PATHOLOGY/CYTOLOGY ORDERABLE S Performing Organization Address City/[facility]/ZIP [facility] [place] [address] documented in this encounter Visit Diagnoses Diagnosis Mass of upper lobe of left lung Mass of upper lobe of left lung documented in this encounter Administered Medications Inactive Administered Medications - up to 3 most recent administrations Medication Order MAR Action Action Date Dose Rate Site acetaminophen (Tylenol) tablet Given 12/03/2021 2:01 PM EDT 1,00 0 mg 1,000 mg 1,000 mg, Oral, ONCE, 1 dose, On Wed12/03/21 at 1400, Administer with SIP of H2O only., Day of Surgery (Day of Procedure), Routine heparin (porcine) (5,000 Given 12/03/2021 2:01 PM EDT 5,000 Unit s Abdominal Tissue units/1 mL) subcutaneous injection 5,000 Units 5,000 Units, Subcutaneous, SUPERVISOR GROWER TO O.R., 1 dose, On Wed12/03/21 at 1400, Please administer in same day prior to procedure Thank you, Day of Surgery (Day of Procedure), STAT ibuprofen (Advil) tablet 600 mg 600 mg, Oral, EVERY 6 HOURS PRN, Startin g on Wed12/03/21 at 1635, Until Wed12/03/21 at 1949, Pain, Administer orally with milk or food to minimize GI irritation. Maximum dose of 3,200 mg from all sources in 24 hours, Routine lactated ringers infusion New Bag 12/03/2021 2:05 PM EDT 1,000 mLs 100 mL/hr 1,000 mL, at 100 mL/hr, Intravenous, CONTINUOUS, Starting on Wed12/03/21 at 1400, Until Wed12/03/21 at 1732, Day of Surgery (Day of Procedure) documented in this encounter Active and Recently Administered Medications Times are shown in EDT. Scheduled Medication Order 12/01/2021 12/02/2021 12/03/2021 acetaminophen (Tylenol) tablet 1,000 mg (COMPLETED) 1401 (Given - Provider: Myrtle Silvestre RN) 1,000 mg, Oral, ONCE, 1 dose, On 12/03 at 1400, Administer with SIP of H2O only., Day of Surgery (Day of Procedure), Routine heparin (porcine) (5,000 units/1 mL) sub cutaneous injection 5,000 Units (COMPLETED) 1401 (Given - Provid er: Myrtle Silvestre RN) 5,000 Units, Subcutaneous, SUPERVISOR GROWER TO O. R., 1 dose, On Wed12/03/21 at 1400, Please administer in same day prior to procedure Thank you, Day of Surgery (Day of Procedure), STAT Continuous Medication Order 12/01/2021 12/02/2021 12/03/2021 lactated ringers infusion (CANCELED) 1405 (New Bag - Provider: Myrtle Silvestre RN) 1,000 mL, at 100 mL/hr, Intravenous, CON TINUOUS, Starting on Wed12/03/21 at 1400, Until 6/1/22 at 1732, Day of Surgery (Day of Procedure) PRN Medication Order 12/01/2021 12/02/2021 12/03/2021 ibuprofen (Advil) tablet 600 mg 600 mg, Oral, EVERY 6 HOURS PRN, Startin g on Wed12/03/21 at 1635, Until Wed12/03/21 at 1949, Pain, Administer orally with milk or food to minimize GI irritation. Maximum dose of 3,200 mg from all sources in 24 hours, Routine documented in this encounter Care Teams Special Certificate Dictator Relationship Specialty Start Date End Date Que Sharma DO PCP - General Family Medicine 02/08/20 [address] [place] [address] documented as of this encounter
--- OUTSIDE RECORDS SUMMARY | 2022-01-19 02:08 | XMS_ITS | Encounter Summary ---
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 Bill De La Rosa MD [facility] Rad Onc Office Procedures Simulation for Radiation Therapy Planning [address] [place] [address] [place] [id number] Referral ID Status Reason Start Date Expiration Date Visits V isits Requested Authorized [id number] Closed Consult, 12/11/2021 12/11/2022 1 1 Test & Treat Encounter Details Date Type Department Care Team Description 12/11/2021 Orders Only Radiation Oncology at Bill De La Rosa P rimary squamous cell [facility] carcinoma of upper [address] [place] [address] DR lobe of left lung [place], [place] RADIATION ONCOL OGY [address] [place], [place] [phone] (Wo rk) Social History Tobacco Use Types [...] Office Visit Hematology and Tanvir Issa MD [facility] HEMATOLOGY/[place] [address] Oncology Arlene Bobby APRN [facility] HEMATOLOGY [place] [address] 01/19/2022 Infusion Hematology and Oncology 01/19/2022 Scheduled View Only Radiation Oncology 01/20/2022 Scheduled View Only Radiation Oncology 01/21/2022 Scheduled View Only Radiation Oncology 01/22/2022 Scheduled View Only Radiation Oncology 01/22/2022 Office Visit Radiation Oncology Adriana De La Rosa v, MD [address] [place] [address] [place] [address] (Wo rk) 01/23/2022 Scheduled View Only Radiation Oncology 01/26/2022 Office Visit Hematology and Tanvir Issa MD [facility] HEMATOLOGY/[place] [address] Oncology Arlene Bobby [facility] HEMATOLOGY [place] [address] 01/26/2022 Infusion Hematology and Oncology 01/26/2022 Scheduled View Only Radiation Oncology 01/27/2022 Scheduled View Only Radiation Oncology 01/28/2022 Scheduled View Only Radiation Oncology 01/29/2022 Scheduled View Only Radiation Oncology 01/29/2022 Office Visit Radiation Oncology Adriana De La Rosa v, MD [address] [place] [address] DR [place] [place], [place] [phone] (Wo rk) 01/30/2022 Scheduled View Only Radiation Oncology 02/02/2022 Office Visit Hematology and Arlene Bobby, Oncology [facility] HEMATOLOGY AND ONCOLOGY [place], [place] [address] (Wo rk) 02/02/2022 Infusion Hematology and Oncology 02/02/2022 Scheduled View Only Radiation Oncology 02/03/2022 Scheduled View Only Radiation Oncology 02/04/2022 Scheduled View Only Radiation Oncology 02/05/2022 Scheduled View Only Radiation Oncology 02/05/2022 Office Visit Radiation Oncology Adriana De La Rosa v, MD [address] [place] [address] DR [place] [place], [place] [phone] (Wo rk) 02/06/2022 Scheduled View Only Radiation Oncology 02/09/2022 Office Visit Hematology and Arlene Bobby, Oncology [facility] HEMATOLOGY AND ONCOLOGY [place], [place] [address] (Wo rk) 02/09/2022 Infusion Hematology and Oncology 02/09/2022 Scheduled View Only Radiation Oncology 02/09/2022 Notes Only Radiation Oncology Adriana De La Rosa v, MD [address] [place] [address] [place] [address] (Wo rk) 02/10/2022 Scheduled View Only Radiation Oncology Scheduled Orders Name Type Priority Associated Diagnoses Order S chedule Simulation for Procedures Routine Primary squamous cell Orde red: 12/11/2021 Radiation Therapy carcinoma of upper Planning lobe of left lung documented as of this encounter Visit Diagnoses Diagnosis 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
--- OUTSIDE RECORDS SUMMARY | 2022-01-19 02:08 | XMS_ITS | Encounter Summary ---
:1945 Author Organization [facility] [place] [address] Care Team Providers Name Role Phone EdithQue DO Primary Care Provider Reason for Visit Reason Comments Advice Only Consultation (Routine) - Closed Specialty Diagnoses / Procedures Referred By Contact Refer red To Contact Hematology and Diagnoses Mass of upper lobe of left lung Matthew Chung Fuld, Alexander D, MD Oncology MD [address] [place] [address] [place], [place] Thoracic Surgery [id number] [place] [id number] Referral ID Status Reason Start Date Expiration Date Visits V isits Requested Authorized [id number] Closed Consult, 11/27/2021 11/27/2022 1 1 Test & Treat Encounter Details Date Type Department Care Team Description 12/11/2021 Office Visit Hematology and Leatha Cruz MD [facility] DR HEMATOLOGY/[place] [address] Primary squamous cell Oncology at [facility] Jeannette Reynolds MD [facility] [place]EMATOLOG[place] [address] carcinoma of upper [facility] lobe of l [place] [address] Social History Tobacco Use Types Packs/Day Years [...] place to sleep or slept in a nursing home (including now)? Sex Assigned at Date Recorded Not on file documented as of this encounter Progress Notes Jeannette Reynolds MD - 12/11/2021 10:00 AM EDT Images from the original note were not included. Thoracic Oncology [facility] [place] [address] [phone] Don Ortega is being seen for the evaluation of lung cancer. Assessment & Plan: oDn Ortega is a 76 y.o. male patient with a past medical history notable for newly diagnosed juc-[id number]-lzww lung cancer, squamous cell carcinoma subtype, stage II T3N0M0. I counseled the patient and his family about the diagnosis, pathology results, imaging findings, tumor staging and the implications of this information on the prognosis and the available treatment options. I explained this is an curable malignancy where surgery followed by chemotherapy +/- radiotherapy isthe standard of care. Yet, in his case, surgery would bring more risks than benefits. He saw Dr. Gomez earlier today, who agreed that a surgical intervention would be detrimental taking into consideration his co- morbidities. Therefore, we do favor systemic treatment and radiation therapy with a curative intent. We mentioned that we would present his case at the Thoracic Tumor Board on Tuesdays to make a multidisciplinary decision in his best interest. At this point, we lean towards an intense concurrent systemic treatment with a doublet of carboplatin and paclitaxel with weekly infusion and radiation 5 days a week to complete a total of 6 weeks of treatment. In addition, we will consider to add immunotherapy (durvalumab) for 1 year. Durvalumab is a immunotherapy approved for stage IIII NSCLC, which showed a median progression-free survival of 16.8 months (95% CI, 13.0 to 18.1) with durvalumab vs 5.6 months (95% CI, 4.6 to 7.8) with placebo (stratified hazard ratio for disease progression or , 0.52; 95% CI, 0.42 to 0.65; P<0.001). Although Mr. Ortega has a stage II NSCLC, the size of his malignancy (~4 cm) is borderline stage III, and he may benefit of this treatment. We discussed theneed to consider treatment within the context of potential risks and side effects of treatment as well as individual goals and preferences regarding quality of life. We discussed general side effects of chemotherapy, including fatigue, myelosuppression resulting in anemia, neutropenia, and thrombocytopenia, which could manifest with infections, and/or easy bruising/bleeding. We discussed gastrointestinal side effects, including nausea, vomiting, constipation, and d iarrhea. We noted that we have supportive medications to help with those symptoms, and that we wouldwork hard to control them. For now, we will not plan a Mediport placement since he apparently has good venous access, and he is afraid of having one. I explained about the logistics of having chemotherapy, he will assist to a Oncology clinic for regular MD visit, and regular labs. We will plan to repeat imaging upon completion of chemotherapy to assess tumor response. After carefully discussion, Mr. Ortega and his daughter had the opportunity to ask questions and manifested concerns. He manifested interest in having chemotherapy and radiation therapy, and will await for the final recommendation from our tumor board. Since he lives in [facility], he finds more convenient to continue his treatment at local facility, which we can help to arrange. While waiting for treatment, I have recommended him to optimize his nutrition and keep active as much as he can. I encourage him to stop smoking as well. Other problems: #Blade left shoulder pain -Unclear if this is related with his active cancer. PET CT scan did not show any FDG avid lesion in that area. -He had a recent history of shingles but this is does not seem to be a flare. -Recommended to increase the frequency of Dilaudin up to 4 times a day and use lidoderm patch over the area. -Will consider pain specialist if needed. -Upon discussion at tumor board, we may need to repeat PET CT scan. PLAN: 1. His case will be presented at the thoracic tumor board on Wednesday12/16/2021. We lean towards an intensive concurrent systemic treatment with chemotherapy (carboplatin & paclitaxel) and radiationtherapy with curative intent. 2. Per thoracic surgeon Dr. Gomez, Mr. Ortega is not a candidate for surgery. 3. Per patient's preference, he would like to establish treatment at [facility]. We will make thearrangements. 4. Consideration to repeat PET-CT scan since the previous one was done 2 months ago. This will be discussed at the tumor board. 5. Recommend to increase dose of Dilaudin up to 4 times a day and use lidoderm path over the blade. Jeannette Lawton M.D. Fellow, Hematology and Medical Oncology [facility] Pager #[phone] HPI/Interval History/Subjective: Don Ortega is a 76 y.o. male patient with a past medical history significant for hypertension, hyperlipidemia, diabetes mellitus type 2, tremors, ?skin cancer, current smoker of about 6-8 cpd, previously has smoked about 1 ppd for about 65 years (estimate 65 pack year smoking history), who initially presented with cough. Patient states that he usually spent his guzman in [place], and that this past September he developed cough which was attributed to acute bronchitis. He states this eventually progressed into pneumonia which presented with lateral left chest wall and shoulder blade pain. He statesthat he was treated with antibiotics with some clinical improvement, however the pain was persistentas well as the dry cough. As part of his work-up, a CT chest was obtained on 09/22/2021 which demostrated a large TOAN central mass with encasement of TOAN bronchus. He underwent bronchoscopy on 10/03/2021 and transbronchial biopsy of the mass which evidenced rare clusters of atypical squamous cells, suspicious for squamous cell carcinoma. He returned to [place] for the summer, and [facility] to discuss further management. He underwent bronchoscopy, EBUS endobronchial biopsies and brushings on 12/03/21. Her pathology was consistent with squamous cell ??carcinoma , invasive, moderately to poorly differentiated. Mr. Ortega has lost about 20-30 lbs over the last several months. He has persistent chronic dry coughwhich could be worse some days. He is able to walk without difficulty but is not sure about climbingstairs. He experiences some degree of fatigue but is able to perform his usual daily activities. Before his clinical presentation, he was active and able to perform his daily activities as usual, he did not noticed a big difference in her overall health status. His main issue at this point is the persistent left shoulder blade pain, which could be unbeareble. This pain started almost at the same time, he developed his malignancy. It is 8 out of 10 in intensity, does not travel anywhere and gets better when he put a pressure on it. He has tried local measures but sometimes make it worse. He then tried gabapentin, and oxycodone/oxycontin without resolution, thus Dilaudin was added to his regimen, which seems to work better. However he does not like it and prefers to take only ~2 tablets a day, he feels drowsy after this medication. He has chronic neuropathy in his feet that was diagnosed a couple of years ago and does not interfere with his functional status. He denies fever, chills, nausea, vomiting, abdominal pain. He is here in company of his daughter. Social History/Support Network: Home situation: with Awa. He has 2 daughters which are pretty close to him. He enjoys to spend winter in [place]. Tobacco use: Current smoker of about 6-8 [...] The assay was performed according to the bone plant supervisor's ??instructions using Anti-PD-L1 (22C3, pharmDX) antibody. Electronically signed by: ?Garcia MCLEOD PhD, Jhonatan Fragoso Verified: ??12/09/2021 12:53 ??Pathologist Performed at: ??-[facility] Dept. of Pathology, [place], [place] Treatment Course: Patient Active Problem List Diagnosis Date Noted ??? Bilateral carotid artery stenosis 02/14/2020 ??? Pre-op testing 02/14/2020 ??? Cigarette smoker 02/14/2020 Thromboendartectmy Neck, Neck Incis (54054) (Right, 03/19/2020). No Known Allergies Medications 12/03/21 1341 Medication Sig Taking? HYDROmorphone (Dilaudid) 4 mg Tablet albuteroL 90 mcg/actuation HFA Aerosol Inhaler USE 2 PUFFS 4 TIMES A DAY NEEDED 2 PUFFS EVERY 6 HOURS NEEDED FOR SHORTNESS OF BREATH/WHEEZING benazepriL (LOTENSIN) 10 mg Tablet benazepriL (LOTENSIN) 20 mg Tablet Take 20 mg by mouth daily. acetaminophen (Tylenol) 500 mg Tablet Take 1,000 mg by mouth every 6 hours as needed for Pain. metFORMIN (Glucophage) 500 mg Tablet Take 500 mg by mouth 2 times daily (with meals). allopurinoL (Zyloprim) 100 mg Tablet aspirin EC 81 mg Tablet, Delayed Release (E.C.) Daily. benazepril-hydrochlorthiazide (LOTENSIN HCT) 20-12.5 mg Tablet ergocalciferoL, vitamin D2, (vitamin D2) 50,000 unit Capsule TAKE 1 CAPSULE BY MOUTH ONE TIME PER WEEK escitalopram (Lexapro) 10 mg Tablet Daily. ferrous sulfate 325 mg (65 mg iron) Tablet ferrous sulfate 325 mg (65 mg iron) tablet 1 tablet by mouth daily furosemide (Lasix) 40 mg Tablet TAKE 1 TABLET BY MOUTH TWICE A DAY potassium chloride (MICRO-K) 10 mEq Capsule, Sustained Release TAKE 1 CAPSULE BY MOUTH EVERY DAY WHEN TAKING FUROSEMIDE omeprazole (PriLOSEC) 20 mg Capsule, Delayed Release(E.C.) TAKE 1 CAPSULE BY MOUTH EVERY DAY pravastatin (Pravachol) 10 mg Tablet Daily. tamsulosin (Flomax) 0.4 mg Capsule I reviewed the problem list, allergies, medications, past medical history, social history and familyhistory within the EPIC encounter. Pertinent details are noted above. Pertinent positives and negative from the Review of Systems are as summarized above in the HPI. Physical Exam: HR 118, BP 137/42, RR 12, O2 sat 98% on room air ECOG = 1 Constitutional: Oriented to person, place, and time. No distress. Appears well-developed. Mouth/Throat: Wearing a mask. Eyes: No scleral icterus. Cardiovascular: Normal rate and regular rhythm. Exam reveals no friction rub. No murmur [...] the oncology overview above. Brain MRI from [place] 11/12/21 Negative for metastatic disease. Review of Pathology Data: I personally reviewed the reports of the pathology as detailed in the oncology overview above. Leatha Cruz MD - 12/11/2021 10:00 AM EDT I have seen the patient and reviewed the Dr. Leighann Pate's above history and I agree with the details as written with the exception that the treatment regimen would be carboplatin/paclitaxel not carboplatin/etoposide. The assessment and plan were formulated in discussion with me and I agree with them as documented. Pertinent History: Main issue is continued pain on the left side near his shoulder blade. Pertinent Exam: NAD. Major issues addressed: Imaging personally reviewed. Case discussed with Dr. Chung of Thoracic surgery-favors a non-surgical approach given his age and anatomical consideration and pulmonary function.. Will discuss at multidisciplinary tumor board and have him meet with radiation oncology but options would likely definitive EBRT or definitive concurrent chemotherapy/radiation. Would favor the latter. Discussed this plan with patient and his daughter. Plan: - Radiation oncology at [facility] Leatha Cruz MD, [place] 12/13/2021 Thoracic Oncology [facility] documented in this encounter Miscellaneous Notes Addendum Note - Leatha Cruz MD - 12/11/2021 10:00 AM EDT Addended by: LEATHA CRUZ on: 12/13/2021 08:50 AM Modules accepted: Orders documented in this encounter Plan of Treatment Upcoming Encounters Date Type Specialty Care Team Description 01/19/2022 Office Visit Hematology Leatha Hawk MD [facility] HEMATOLOGY/[place] [address] Oncology Arlene Bobby INTERNAL [employer] [facility] HEMATOLOGY [place] [address] 01/19/2022 Infusion Hematology and Oncology 01/19/2022 Scheduled View Only Radiation Oncology 01/20/2022 Scheduled View Only Radiation Oncology 01/21/2022 Scheduled View Only Radiation Oncology 01/22/2022 Scheduled View Only Radiation Oncology 01/22/2022 Office Visit Radiation Oncology Adriana De La Rosa v, MD [address] [place] [address] [place] [address] (Wo rk) 01/23/2022 Scheduled View Only Radiation Oncology 01/26/2022 Office Visit Hematology Leatha Hawk MD [facility] HEMATOLOGY/[place] [address] Arlene Hill [employer] [facility] [place]Y [place] [address] 01/26/2022 Infusion Hematology and Oncology 01/26/2022 Scheduled View Only Radiation Oncology 01/27/2022 Scheduled View Only Radiation Oncology 01/28/2022 Scheduled View Only Radiation Oncology 01/29/2022 Scheduled View Only Radiation Oncology 01/29/2022 Office Visit Radiation Oncology Adriana De La Rosa v, MD [address] [place] [address] [address] [place], [place] [id number] (Wo rk) 01/30/2022 Scheduled View Only Radiation Oncology 02/02/2022 Office Visit Hematology and Arlene Bobby, Oncology [facility] HEMATOLOGY AND ONCOLOGY [place], [place] [address] (Wo rk) 02/02/2022 Infusion Hematology and Oncology 02/02/2022 Scheduled View Only Radiation Oncology 02/03/2022 Scheduled View Only Radiation Oncology 02/04/2022 Scheduled View Only Radiation Oncology 02/05/2022 Scheduled View Only Radiation Oncology 02/05/2022 Office Visit Radiation Oncology Adriana De La Rosa v, MD [address] [place] [address] DR [address] [place], [place] [id number] (Wo rk) 02/06/2022 Scheduled View Only Radiation Oncology 02/09/2022 Office Visit Hematology and Arlene Bobby, Oncology [facility] HEMATOLOGY AND ONCOLOGY [place], [place] [address] (Wo rk) 02/09/2022 Infusion Hematology and Oncology 02/09/2022 Scheduled View Only Radiation Oncology 02/09/2022 Notes Only Radiation Oncology Adriana De La Rosa v, MD [address] [place] [address] DR [address] [place], [place] [id number] (Wo rk) 02/10/2022 Scheduled View Only Radiation Oncology Scheduled Orders Name Type Priority Associated Diagnoses Order S chedule Magnesium Lab STAT Primary squamous cell Once a week for 48 carcinoma of upper Occurrenc es starting lobe of left lung 12/13/2021 until 12/13/2022 Comprehensive metabolic Lab STAT Primary squamous cell Once a week for 48 panel (non-fasting) carcinoma of upper Oc currences starting lobe of left lung 12/13/2021 until 12/13/2022 CBC (with Diff) Lab STAT Primary squamous cell Onc e a week for 48 carcinoma of upper Occurrenc es starting lobe of left lung 12/13/2021 until 12/13/2022 documented as of this encounter Visit Diagnoses Diagnosis 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
--- OUTSIDE RECORDS SUMMARY | 2022-01-19 02:08 | XMS_ITS | Encounter Summary ---
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 Tanvir Issa MD [facility] Hem Onc Office [address] HEMATOLOGY/[place] [phone] Fax: Referral ID Status Reason Start Date Expiration Date Visits V isits Requested Authorized [id number] Authorized 12/13/2021 12/13/2022 99 99 Encounter Details Date Type Department Care Team Description 12/29/2021 Infusion Hematology Oncology at [facility] squamous cell [facility] carcinoma of upper lobe of [address] [place] [address] left lung [place], [place] [address] Social History Tobacco Use [...] documented as of this encounter Progress Notes Neena Ruiz RN - 12/29/2021 12:30 PM EDT INFUSION THERAPY ADMINISTRATION NOTES DIAGNOSIS: NSCLC CYCLE #:1 Day 1 REASON FOR VISIT: Carbo/Taxol SUBJECTIVE Don offers no complaints. He prefers to be called Viktor but is ok with being called Don. His daughter accompanied him today and will be staying until the end of next week to help him through his first round of treatment. OBJECTIVE LAB DATA: WBC 6.45, Hgb 11, Hct 33.9, Plt 314, ANC 4.11, Lytes WNL, BUN 21, Cr 1.5 IV ACCESS: PIV to left hand. Pre administration: Chemotherapy orders independently verified for drug name, route, and dosage per patient's height, weight and BSA by Neena Delgadillo, SHAYY and on-site pharmacist. REACTIONS (DESCRIPTION, TIME, INTERVENTION AND EFFECTIVENESS) none ASSESSMENT Viktor was awake, alert and tolerated treatment well. Is receiving concurrent radiation and will be starting XRT today after infusion therapy. EDUCATION Pt. chemo teaching instructions included: During clinic hours (8am-5pm Wednesday-Wednesday): pt. can call [phone] with questions or concerns. After clinic hours (5pm-8am Wednesday-Wednesday and weekends) pt can call [phone] and ask for the mattress renovator/oncologist administration dean. Don Ortega verbalized understanding of potential chemotherapy side effects and home care including but not limited to- handwashing to prevent infection, signs and symptoms of low blood counts (fever, fatigue, bleeding), to call with a fever of 100.4 or greater, any significant constipation/diarrhea, importance of nutrition and fluid intake (drinking at least 32-64 ounces of non-caffeinated beverages/day), mouth care. Don Ortega verbalized understanding of how to take prescription medications given for home use after chemotherapy. PLAN Return to clinic daily M-F for radiation and weekly for Carbo/Taxol. documented in this encounter Plan of Treatment Upcoming Encounters Date Type Specialty Care Team Description 01/19/2022 Office Visit Hematology and Tanvir Issa MD [facility] DR HEMATOLOGY/[place] [address] Oncology Arlene Bobby APRN [facility] [place] [address] 01/19/2022 Infusion Hematology and Oncology 01/19/2022 Scheduled View Only Radiation Oncology 01/20/2022 Scheduled View Only Radiation Oncology 01/21/2022 Scheduled View Only Radiation Oncology 01/22/2022 Scheduled View Only Radiation Oncology 01/22/2022 Office Visit Radiation Oncology Adriana De La Rosa v, MD [address] [place] [address] [place] [address] (Wo rk) 01/23/2022 Scheduled View Only Radiation Oncology 01/26/2022 Office Visit Hematology Tanvir Hawk MD [facility] HEMATOLOGY/[place] [address] Oncology Arlene Bobby [facility] [place] [address] 01/26/2022 Infusion Hematology and Oncology 01/26/2022 Scheduled View Only Radiation Oncology 01/27/2022 Scheduled View Only Radiation Oncology 01/28/2022 Scheduled View Only Radiation Oncology 01/29/2022 Scheduled View Only Radiation Oncology 01/29/2022 Office Visit Radiation Oncology Adriana De La Rosa v, MD [address] [place] [address] DR [address] [place], [place] [phone] (Wo rk) 01/30/2022 Scheduled View Only Radiation Oncology 02/02/2022 Office Visit Hematology and Arlene Bobby, Oncology [facility] HEMATOLOGY AND ONCOLOGY [place], [place] [address] (Wo rk) 02/02/2022 Infusion Hematology and Oncology 02/02/2022 Scheduled View Only Radiation Oncology 02/03/2022 Scheduled View Only Radiation Oncology 02/04/2022 Scheduled View Only Radiation Oncology 02/05/2022 Scheduled View Only Radiation Oncology 02/05/2022 Office Visit Radiation Oncology Adriana De La Rosa v, MD [address] [place] [address] DR [address] [place], [place] [phone] (Wo rk) 02/06/2022 Scheduled View Only Radiation Oncology 02/09/2022 Office Visit Hematology and Arlene Bobby, Oncology [facility] HEMATOLOGY AND ONCOLOGY [place], [place] [address] (Wo rk) 02/09/2022 Infusion Hematology and Oncology 02/09/2022 Scheduled View Only Radiation Oncology 02/09/2022 Notes Only Radiation Oncology Adriana De La Rosa v, MD [address] [place] [address] [address] [place] [address] (Wo rk) 02/10/2022 Scheduled View Only Radiation Oncology documented as of this encounter Visit Diagnoses Diagnosis 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 documented in this encounter Administered Medications Inactive Administered Medications - up to 3 most recent administrations Medication Order MAR Action Action Date Dose Rate Site CARBOplatin (Paraplatin) 144 New Bag 12/29/2021 4:08 PM EDT 144 mg 528.8 mL/hr mg in dextrose 5% 264.4 mL infusion 144 mg (rounded from 144.2 mg, Target AUC = 2), Intravenous, ONCE, 1 dose, On Wed12/29/21 at 1500, Administer over 30 Minutes, Warning Vesicant/Irritant Medication dexAMETHasone (Decadron) (10 mg/mL) injection Given 2:03 PM EDT 10 mg 10 mg 10 mg, Intravenous, ONCE, 1 dose, On Wed12/29/21 at 1400, Administer 30 minutes prior to PACLitaxel. diphenhydrAMINE (Benadryl) (50 mg/mL) Given 12/29/2021 2:06 PM E DT 25 mg injection 25 mg 25 mg, Intravenous, ONCE, 1 dose, On Wed12/29/21 at 1400, Administer 30 minutes prior to PACLitaxel., Routine famotidine (Pepcid) (10 mg/mL) injection 20 mg Given 12/29/2021 2:05 PM EDT 20 mg 20 mg, Intravenous, ONCE, 1 dose, On Wed12/29/21 at 1400, Administer 30 minutes prior to PACLitaxel. PACLitaxeL (Taxol) 99 mg in sodium New Bag 12/29/2021 2:53 PM EDT 99 mg 266.5 mL/hr chloride 0.9% Non-PVC 266.5 mL infusion 99 mg (50 mg/m2/dose ? 1.98 m2 Treatment Plan BSA from Recorded weight), Intravenous, ONCE, 1 dose, On Wed12/29/21 at 1500, Administer over 60 Minutes, Warning Vesicant/Irritant Medication palonosetron (Aloxi) (0.05 mg/mL) injection Given 12/04 2:09 PM EDT 0.25 mg 0.25 mg 0.25 mg, Intravenous, ONCE, 1 dose, On Wed12/29/21 at 1400, Administer over 30 seconds., Routine documented in this encounter Care Teams Mainframe Programmer Analyst Relationship Specialty Start Date End Date Que Sharma DO PCP - General Family Medicine 02/08/20 [address] [place] [address] documented as of this encounter
--- OUTSIDE RECORDS SUMMARY | 2022-01-19 02:08 | XMS_ITS | Encounter Summary ---
:1945 Author Organization [facility] [place] [address] Care Team Providers Name Role Phone EdithQue DO Primary Care Provider Encounter Details Date Type Department Care Team Description 12/16/2021 Multidisciplinary Care Thoracic Surgery at Fouzia Chung Committee [facility] MD Siobhan [facility] [address] [place] Thoracic Surgery [id number] [place], [place] [phone] [facility] Social History Tobacco Use Types Packs/Day Years [...] documented as of this encounter Progress Notes Matthew Chung MD - 12/16/2021 8:11 AM EDT Thoracic - Tumor Board Note ?? 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 HEMATOLOGY/[place] [address] Oncology Arlene Bobby APRN [facility] [place] [address] 01/19/2022 Infusion Hematology and Oncology 01/19/2022 Scheduled View Only Radiation Oncology 01/20/2022 Scheduled View Only Radiation Oncology 01/21/2022 Scheduled View Only Radiation Oncology 01/22/2022 Scheduled View Only Radiation Oncology 01/22/2022 Office Visit Radiation Oncology Ardiana De La Rosa v, MD [address] [place] [address] [place] [address] (Wo rk) 01/23/2022 Scheduled View Only Radiation Oncology 01/26/2022 Office Visit Hematology and Tanvir Issa MD [facility] HEMATOLOGY/[place] [address] Oncology Arlene Bobby [facility] [place] [address] 01/26/2022 Infusion Hematology and Oncology 01/26/2022 Scheduled View Only Radiation Oncology 01/27/2022 Scheduled View Only Radiation Oncology 01/28/2022 Scheduled View Only Radiation Oncology 01/29/2022 Scheduled View Only Radiation Oncology 01/29/2022 Office Visit Radiation Oncology Adriana De La Rosa v, MD [address] [place] [address] [address] [place], [place] [id number] (Wo rk) 01/30/2022 Scheduled View Only Radiation Oncology 02/02/2022 Office Visit Hematology and Arlene Bobby, Oncology [facility] HEMATOLOGY AND ONCOLOGY [place], [place] [address] (Wo rk) 02/02/2022 Infusion Hematology and Oncology 02/02/2022 Scheduled View Only Radiation Oncology 02/03/2022 Scheduled View Only Radiation Oncology 02/04/2022 Scheduled View Only Radiation Oncology 02/05/2022 Scheduled View Only Radiation Oncology 02/05/2022 Office Visit Radiation Oncology Adriana De La Rosa v, MD [address] [place] [address] [address] [place], [place] [id number] (Wo rk) 02/06/2022 Scheduled View Only Radiation Oncology 02/09/2022 Office Visit Hematology and Arlene Bobby, Oncology [facility] HEMATOLOGY AND ONCOLOGY [place], [place] [address] (Wo rk) 02/09/2022 Infusion Hematology and Oncology 02/09/2022 Scheduled View Only Radiation Oncology 02/09/2022 Notes Only Radiation Oncology Adriana De La Rosa v, MD [address] [place] [address] [place] [address] (Wo rk) 02/10/2022 Scheduled View Only Radiation Oncology documented as of this encounter Visit Diagnoses Not on filedocumented in this encounter Care Teams Chief Engineering Division Relationship Specialty Start Date End Date Que Sharma DO PCP - General Family Medicine 02/08/20 [address] [place] [address] documented as of this encounter
--- OUTSIDE RECORDS SUMMARY | 2022-01-19 02:09 | XMS_ITS | Encounter Summary ---
:1945 Author Organization [facility] [place] [address] Care Team Providers Name Role Phone Que Sharma DO Primary Care Provider Encounter Details Date Type Department Care Team Description 11/27/2021 Telephone Thoracic Surgery at [facility] Valentin Benton [facility] [place] [address] Social History Tobacco Use Types Packs/Day [...] place to sleep or slept in a detention (including now)? Sex Assigned at Date Recorded Not on file documented as of this encounter Miscellaneous Notes Telephone Encounter - Valentin Benton - 11/27/2021 2:42 PM EDT Faxed request for Brain MRI to [place] [phone] documented in this encounter Plan of Treatment Upcoming Encounters Date Type Specialty Care Team Description 01/19/2022 Office Visit Hematology Tanvir Hawk MD [facility] HEMATOLOGY/[place] [address] Oncology Arlene Bobby CHAIN MAKER [facility] HEMATOLOGY [place] [address] 01/19/2022 Infusion Hematology and Oncology 01/19/2022 Scheduled View Only Radiation Oncology 01/20/2022 Scheduled View Only Radiation Oncology 01/21/2022 Scheduled View Only Radiation Oncology 01/22/2022 Scheduled View Only Radiation Oncology 01/22/2022 Office Visit Radiation Oncology Adriana De La Rosa v, MD [address] [place] [address] [place] [address] (Wo rk) 01/23/2022 Scheduled View Only Radiation Oncology 01/26/2022 Office Visit Hematology Tanvir Hawk MD [facility] HEMATOLOGY/[place] [address] Oncology Arlene Bobby CHAIN MAKER [facility] HEMATOLOGY [place] [address] 01/26/2022 Infusion Hematology and Oncology 01/26/2022 Scheduled View Only Radiation Oncology 01/27/2022 Scheduled View Only Radiation Oncology 01/28/2022 Scheduled View Only Radiation Oncology 01/29/2022 Scheduled View Only Radiation Oncology 01/29/2022 Office Visit Radiation Oncology Adriana De La Rosa v, MD [address] [place] [address] DR [address] [place], [place] [id number] (Wo rk) 01/30/2022 Scheduled View Only Radiation Oncology 02/02/2022 Office Visit Hematology and Arlene Bobby, Oncology [facility] HEMATOLOGY AND ONCOLOGY [place], [place] [address] (Wo rk) 02/02/2022 Infusion Hematology and Oncology 02/02/2022 Scheduled View Only Radiation Oncology 02/03/2022 Scheduled View Only Radiation Oncology 02/04/2022 Scheduled View Only Radiation Oncology 02/05/2022 Scheduled View Only Radiation Oncology 02/05/2022 Office Visit Radiation Oncology Adriana De La Rosa v, MD [address] [place] [address] [address] [place], [place] [address] (Wo rk) 02/06/2022 Scheduled View Only Radiation Oncology 02/09/2022 Office Visit Hematology and Arlene Bobby, Oncology [facility] HEMATOLOGY AND ONCOLOGY [place], [place] [address] (Wo rk) 02/09/2022 Infusion Hematology and Oncology 02/09/2022 Scheduled View Only Radiation Oncology 02/09/2022 Notes Only Radiation Oncology Adriana De La Rosa v, MD [address] [place] [address] DR [address] [place], [place] [phone] (Wo rk) 02/10/2022 Scheduled View Only Radiation Oncology documented as of this encounter Visit Diagnoses Not on filedocumented in this encounter Care Teams Hand I Tube Bender Relationship Specialty Start Date End Date Que Sharma DO PCP - General Family Medicine 02/08/20 [address] [place] [address] documented as of this encounter
--- OUTSIDE RECORDS SUMMARY | 2022-01-19 02:09 | XMS_ITS | Encounter Summary ---
:1945 Author Organization [facility] [place] [address] Care Team Providers Name Role Phone Que Sharma DO Primary Care Provider Reason for Visit Reason Onset Date Comments Follow-up 04/29/2020 Tobacco Treatment Encounter Details Date Type Department Care Team Description 04/29/2020 Telephone Vascular Surgery at Valentin Myles [facility] (Tobacco [facility] A, RN Treatment) [place] [address] Social History Tobacco Use Types Packs/Day [...] place to sleep or slept in a jail (including now)? Sex Assigned at Date Recorded Not on file documented as of this encounter Miscellaneous Notes Telephone Encounter - Valentin Myles, RN - 04/29/2020 11:34 AM EDT DATE: 04/29/2020 NAME: Don Ortega : 1945 Reason for Call: 1-month follow-up for Tobacco Treatment Don reports that he has not used the NRT that was provided to him; however, has decreased his smoking to 0.5 ppd. EMR updated. Follow-up in 6 months. Valentin Myles, MSN, RN-, NCTTP Tobacco Log [facility] Pager #[phone] documented in this encounter Plan of Treatment Upcoming Encounters Date Type Specialty Care Team Description 01/19/2022 Office Visit Hematology and Tanvir Issa MD [facility] DR HEMATOLOGY/[place] [address] Oncology Arlene Bobby APRN [facility] HEMATOLOGY [place] [address] 01/19/2022 Infusion Hematology and Oncology 01/19/2022 Scheduled View Only Radiation Oncology 01/20/2022 Scheduled View Only Radiation Oncology 01/21/2022 Scheduled View Only Radiation Oncology 01/22/2022 Scheduled View Only Radiation Oncology 01/22/2022 Office Visit Radiation Oncology Adriana De La Rosa v, MD [address] [place] [address] [place] [address] (Wo rk) 01/23/2022 Scheduled View Only Radiation Oncology 01/26/2022 Office Visit Hematology and Tanvir Issa MD [facility] DR HEMATOLOGY/[place] [address] Oncology Arlene Bobby [facility] [place]ATOLOGY [place] [address] 01/26/2022 Infusion Hematology and Oncology 01/26/2022 Scheduled View Only Radiation Oncology 01/27/2022 Scheduled View Only Radiation Oncology 01/28/2022 Scheduled View Only Radiation Oncology 01/29/2022 Scheduled View Only Radiation Oncology 01/29/2022 Office Visit Radiation Oncology Adriana De La Rosa v, MD [address] [place] [address] DR [place], [place] [phone] (Wo rk) 01/30/2022 Scheduled View Only Radiation Oncology 02/02/2022 Office Visit Hematology and Arlene Bobby, Oncology [facility] HEMATOLOGY AND ONCOLOGY [place], [place] [address] (Wo rk) 02/02/2022 Infusion Hematology and Oncology 02/02/2022 Scheduled View Only Radiation Oncology 02/03/2022 Scheduled View Only Radiation Oncology 02/04/2022 Scheduled View Only Radiation Oncology 02/05/2022 Scheduled View Only Radiation Oncology 02/05/2022 Office Visit Radiation Oncology Adriana De La Rosa v, MD [address] [place] [address] DR [place]O [place], [place] [address] (Wo rk) 02/06/2022 Scheduled View Only Radiation Oncology 02/09/2022 Office Visit Hematology and Arlene Bobby, Oncology [facility] HEMATOLOGY AND ONCOLOGY [place], [place] [address] (Wo rk) 02/09/2022 Infusion Hematology and Oncology 02/09/2022 Scheduled View Only Radiation Oncology 02/09/2022 Notes Only Radiation Oncology Adriana De La Rosa v, MD [address] [place] [address] [place] [address] (Wo rk) 02/10/2022 Scheduled View Only Radiation Oncology documented as of this encounter Visit Diagnoses Not on filedocumented in this encounter Care Teams Forest Fire Officer Relationship Specialty Start Date End Date Que Sharma DO PCP - General Family Medicine 02/08/20 [address] [place] [address] documented as of this encounter
--- OUTSIDE RECORDS SUMMARY | 2022-01-19 02:09 | XMS_ITS | Encounter Summary ---
:1945 Author Organization [facility] [place] [address] Care Team Providers Name Role Phone Que Sharma DO Primary Care Provider Encounter Details Date Type Department Care Team Description 06/18/2021 Telephone Vascular Surgery at [facility] Gisela Van [facility] [place] [address] Social History Tobacco Use Types Packs/Day [...] place to sleep or slept in a half-way (including now)? Sex Assigned at Date Recorded Not on file documented as of this encounter Miscellaneous Notes Telephone Encounter - Gisela Van - 06/18/2021 12:18 PM EST Recall: RADHA Bilat CAR DUP - carotid stenosis 6M f/u (Need orders) Lmx1 11/07/2020 Lmx2, , 06/18/2021 Letter sent, recall closed 06/18/2021 HH documented in this encounter Plan of Treatment Upcoming Encounters Date Type Specialty Care Team Description 01/19/2022 Office Visit Hematology Tanvir Hawk MD [facility] HEMATOLOGY/[place] [address] Oncology Arlene Bobby APRN [facility] [place] [address] 01/19/2022 Infusion Hematology and Oncology 01/19/2022 Scheduled View Only Radiation Oncology 01/20/2022 Scheduled View Only Radiation Oncology 01/21/2022 Scheduled View Only Radiation Oncology 01/22/2022 Scheduled View Only Radiation Oncology 01/22/2022 Office Visit Radiation Oncology Adriana De La Rosa v, MD [address] [place] [address] RADIATION [place]CM[place], [place] [phone] (Wo rk) 01/23/2022 Scheduled View Only Radiation Oncology 01/26/2022 Office Visit Tanvir Vivas MD [facility] HEMATOLOGY/[place] [address] Oncology Forauer, Arlene A, [facility] [place] [address] 01/26/2022 Infusion Hematology and Oncology 01/26/2022 Scheduled View Only Radiation Oncology 01/27/2022 Scheduled View Only Radiation Oncology 01/28/2022 Scheduled View Only Radiation Oncology 01/29/2022 Scheduled View Only Radiation Oncology 01/29/2022 Office Visit Radiation Oncology Adriana De La Rosa v, MD [address] [place] [address] DR [address]RI[address]O [place], [place] [address] (Wo rk) 01/30/2022 Scheduled View Only Radiation Oncology 02/02/2022 Office Visit Hematology and Arlene Bobby, Oncology [facility] HEMATOLOGY AND ONCOLOGY [place], [place] [address] (Wo rk) 02/02/2022 Infusion Hematology and Oncology 02/02/2022 Scheduled View Only Radiation Oncology 02/03/2022 Scheduled View Only Radiation Oncology 02/04/2022 Scheduled View Only Radiation Oncology 02/05/2022 Scheduled View Only Radiation Oncology 02/05/2022 Office Visit Radiation Oncology Adriana De La Rosa v, MD [address] [place] [address] [place] [address] (Wo rk) 02/06/2022 Scheduled View Only Radiation Oncology 02/09/2022 Office Visit Hematology and Arlnee Bobby, Oncology [facility] HEMATOLOGY AND ONCOLOGY [place], [place] [address] (Wo rk) 02/09/2022 Infusion Hematology and Oncology 02/09/2022 Scheduled View Only Radiation Oncology 02/09/2022 Notes Only Radiation Oncology Adriana De La Rosa v, MD [address] [place] [address] DR [address]IPRIANO [place], [place] [id number] (Wo rk) 02/10/2022 Scheduled View Only Radiation Oncology documented as of this encounter Visit Diagnoses Not on filedocumented in this encounter Care Teams Blunger Machine Operator Relationship Specialty Start Date End Date Que Sharma, PCP - General Family Medicine 02/08/20 [address] [place] [address] documented as of this encounter
--- OUTSIDE RECORDS SUMMARY | 2022-01-19 02:09 | XMS_ITS | Encounter Summary ---
:1945 Author Organization [facility] [place] [address] Care Team Providers Name Role Phone Que Sharma DO Primary Care Provider Reason for Referral Consultation (Routine) - Closed Specialty Diagnoses / Procedures Referred By Contact Refer red To Contact Hematology and Diagnoses Malignant neoplasm of upper lobe of left lung Que Sharma, [facility] Hem Onc 3k Oncology DO [place] [id number] [place] [address] Phone: Fax: Referral ID Status Reason Start Date Expiration Date Visits V isits Requested Authorized [id number] Closed Consult, Test 11/14/2021 11/14/2022 10 10 & Treat PCP Updated and/or Approved Encounter Details Date Type Department Care Team Description 11/14/2021 Transcribe Orders eDH Incoming Que Sharma nanwolfgang neoplasm Referrals DO Grey of upper lobe of [phone] [address] [facility] [place] [address] Social History Tobacco Use Types Packs/Day Years [...] place to sleep or slept in a longterm (including now)? Sex Assigned at Date Recorded Not on file documented as of this encounter Plan of Treatment Upcoming Encounters Date Type Specialty Care Team Description 01/19/2022 Office Visit Hematology and Tanvir Issa MD [facility] DR HEMATOLOGY/[place] [address] Oncology Arlene Bobby APRN [facility] [place] [address] 01/19/2022 Infusion Hematology and Oncology 01/19/2022 Scheduled View Only Radiation Oncology 01/20/2022 Scheduled View Only Radiation Oncology 01/21/2022 Scheduled View Only Radiation Oncology 01/22/2022 Scheduled View Only Radiation Oncology 01/22/2022 Office Visit Radiation Oncology Adriana De La Rosa v, MD [address] [place] [address] [place] [address] (Wo rk) 01/23/2022 Scheduled View Only Radiation Oncology 01/26/2022 Office Visit Hematology and Tanvir Issa MD [facility] DR HEMATOLOGY/[place] [address] Oncology Arlene Bobby [facility] [place] [address] 01/26/2022 Infusion Hematology and Oncology 01/26/2022 Scheduled View Only Radiation Oncology 01/27/2022 Scheduled View Only Radiation Oncology 01/28/2022 Scheduled View Only Radiation Oncology 01/29/2022 Scheduled View Only Radiation Oncology 01/29/2022 Office Visit Radiation Oncology Adriana De La Rosa v, MD [address] [place] [address] DR [place], [place] 750629 (Wo rk) 01/30/2022 Scheduled View Only Radiation Oncology 02/02/2022 Office Visit Hematology and Arlene Bobby, Oncology [facility] HEMATOLOGY AND ONCOLOGY [place], [place] [address] (Wo rk) 02/02/2022 Infusion Hematology and Oncology 02/02/2022 Scheduled View Only Radiation Oncology 02/03/2022 Scheduled View Only Radiation Oncology 02/04/2022 Scheduled View Only Radiation Oncology 02/05/2022 Scheduled View Only Radiation Oncology 02/05/2022 Office Visit Radiation Oncology Adriana De La Rosa v, MD [address] [place] [address] DR [place]O [place], [place] [address] (Wo rk) 02/06/2022 Scheduled View Only Radiation Oncology 02/09/2022 Office Visit Hematology and Arlene Bobby, Oncology [facility] HEMATOLOGY AND ONCOLOGY [place], [place] [address] (Wo rk) 02/09/2022 Infusion Hematology and Oncology 02/09/2022 Scheduled View Only Radiation Oncology 02/09/2022 Notes Only Radiation Oncology Adriana De La Rosa v, MD [address] [place] [address] [place] [address] (Wo rk) 02/10/2022 Scheduled View Only Radiation Oncology Scheduled Referrals Name Type Priority Associated Order Schedule Diagnoses Referral to Outpatient Referral Routine Malignant neoplasm Or dered: Hematology and of upper lobe of 2 Oncology left lung documented as of this encounter Visit Diagnoses Diagnosis Malignant neoplasm of upper lobe of left lung documented in this encounter Care Teams Neck Pinner Relationship Specialty Start Date End Date Que Sharma DO PCP - General Family Medicine 02/08/20 [address] [place] [address] documented as of this encounter
--- OUTSIDE RECORDS SUMMARY | 2022-01-19 02:09 | XMS_ITS | Encounter Summary ---
:1945 Author Organization [facility] [place] [address] Care Team Providers Name Role Phone EdithQue DO Primary Care Provider Reason for Visit Reason Comments Carotid Stenosis CAROTID STENOSIS R CEA Encounter Details Date Type Department Care Team Description 04/05/2020 Office Visit Vascular Surgery at Kaitlin Phipps, Bi lateral carotid [facility] [place] [facility] artery stenosis [facility] [address] [place] VASCULAR SURGERY [address] [place] [address] [phone] (Wo rk) Social History Tobacco Use Types Packs/Day Years Used Date Current Every Day Smoker Cigars 0.25 63 Smokeless Tobacco: Never Used Financial Resource [...] Sign Reading Time Taken Comments Blood Pressure 165/70 04/05/2020 10:43 AM EDT Pulse 88 04/05/2020 10:43 AM EDT Temperature - - Respiratory Rate 18 04/05/2020 10:43 AM EDT Oxygen Saturation - - Inhaled Oxygen Concentration - - Weight 88.9 kg (196 lb) 04/05/2020 10:43 AM EDT Height 172.7 cm (5' 8) 04/05/2020 10:43 AM EDT Body Mass Index 29.8 04/05/2020 10:43 AM EDT documented in this encounter Progress Notes Kaitlin Phipps, [facility] - 04/05/2020 11:00 AM EDT Vascular Clinic Progress Note Reason for visit: Hospital check, s/p CEA Interval history: 74 year old male with hx of carotid stenosis, HTN, HLD who comes to clinic today for hospital check and carotid duplex. He underwent right CEA on 03/19/2020. He states he is doing well, no stroke TIA symptoms. Right neck incision without erythema or drainage, still a little numb. Generally feels well. Would like to travel to [place] for winter next week. ASA Statin Prior vascular history: [place] [facility] [place] Problem List Diagnosis Code ??? Bilateral carotid artery stenosis I65.23 ??? Pre-op testing Z01.818 ??? Cigarette smoker F17.210 No Known Allergies Current Outpatient Medications on File Prior to Visit Medication Sig Dispense Refill ??? allopurinoL (Zyloprim) 100 mg Tablet ??? aspirin EC (Aspir-Low) 81 mg Tablet, Delayed Release (E.C.) Daily. [...] Daily. ??? tamsulosin (Flomax) 0.4 mg Capsule No current facility-administered medications on file prior to visit. Social History Socioeconomic History ??? Marital status: Spouse name: Not on file ??? Number of children: Not on file ??? Years of education: Not on file ??? Highest education level: Not on file Occupational History ??? Not on file Social Needs ??? Financial resource strain: Not on file ??? Food insecurity Worry: Not on file Inability: Not on file ??? Transportation needs Medical: Not on file Non-medical: Not on file Tobacco Use ??? Smoking status: Current Every Day Smoker Packs/day: 1.00 Years: 63.00 Pack years: 63.00 Types: Cigars ??? Smokeless tobacco: Never Used Substance and Sexual Activity ??? Alcohol use: Not on file ??? Drug use: Not on file ??? Sexual activity: Not on file Lifestyle ??? Physical activity Days per week: Not on file Minutes per session: Not on file ??? Stress: Not on file Relationships ??? Social connections Talks on phone: Not on file Gets together: Not on file Attends nondenominational service: Not on file Active member of club or organization: Not on file Attends meetings of clubs or organizations: Not on file Relationship status: Not on file ??? Intimate partner violence Fear of current or ex partner: Not on file Emotionally abused: Not on file Physically abused: Not on file Forced sexual activity: Not on file Other Topics Concern ??? Not on file Social History Narrative ??? Not on file ROS: negative except as noted in HPI Physical Exam: Patient Vitals for the past 24 hrs: Pulse Resp BP 04/05/20 1042 -- -- 154/71 04/05/20 1043 88 18 165/70 General: NAD, appears well Neuro: Alert and oriented, motor sensory grossly intact Ear, Nose, Throat: No masses or lesions Skin: No lesions or abnormal markings Neck: Right CEA incision, c/d/i no erythema, no drainage, no swelling. Lungs: CTA Heart: RRR Abd: Soft, NT, ND, no palpable pulsatile masses Extremity - [place], warm, no ulceration, brisk capillary refill, no edema Studies: Carotid Duplex 04/05/2020 ?? ICA Proximal, Right ?PSV (cm/s): 95 ?EDV (cm/s): 30 ?ICA/CCA: 0.9 ?%Stenosis: <15% ICA Distal, Right ?PSV (cm/s): 98 ?EDV (cm/s): 35 ?ICA/CCA: 1.0 CCA Distal, Right ?PSV (cm/s): 101 ?EDV (cm/s): 30 ?%Stenosis: <50% CCA Proximal, Right ?PSV (cm/s): 89 ?EDV (cm/s): 17 External Carotid Artery, Right ?PSV (cm/s): 99 ?EDV (cm/s): 7 ?%Stenosis: Minimal Vertebral, Right ?PSV (cm/s): 63 ?EDV (cm/s): 19 ?Direction of Flow: Antegrade ICA Proximal, Left ?PSV (cm/s): 304 ?EDV (cm/s): 85 ?ICA/CCA: 3.6 ?Plaque Structure: Echogenic ?Plaque Surface: Irregular ?%Stenosis: 50-69% ICA Distal, Left ?PSV (cm/s): 113 ?EDV (cm/s): 36 ?ICA/CCA: 1.3 CCA Distal, Left ?PSV (cm/s): 84 ?EDV (cm/s): 20 ?%Stenosis: Minimal CCA Proximal, Left ?PSV (cm/s): 115 ?EDV (cm/s): 19 External Carotid Artery, Left ?PSV (cm/s): 188 ?EDV (cm/s): 21 ?%Stenosis: <50% Vertebral, Left ?PSV (cm/s): 11 ?EDV (cm/s): 5 ?Direction of Flow: Notched ? Interpretation: ?? RIGHT: Irregular plaque is present in the distal common carotid artery near/at the inferior margin of the CEA along the posterior wall causing <50% stenosis. Widely patent carotid bifurcation and proximal internal carotid artery with no evidence of residual stenosis or plaque s/p CEA. Significant improvement from pre-op exam. The bifurcation level is in the mid neck. ? LEFT: There is bulky irregular plaque in the carotid bifurcation extending through the proximal internal carotid artery causing 50-69% stenosis when compared to the more distal internal carotid artery. No identifiable change from previous exam. The bifurcation level is in the mid neck. ? Vertebral Artery Data: Patent RIGHT vertebral artery with normal antegrade Doppler waveforms and velocities. There is very minimal flow with a notched Doppler waveform identified in the LEFT vertebral artery as seen on recent previous exam. ?? Assessment/Plan: 74 year old male s/p right CEA 03/19/2020. He has done well post operatively, deniesstroke TIA symptoms. No CP, no SOB. Has returned to normal activities of daily living. Carotid duplex reveals widely patent carotid bifurcation and prox ICA with no evidence of residual stenosis or plague, s/p CEA. Left ICA stable 50-69% stenosis. Recommend continuing ASA and Statin. Reviewed standardwarning s/s. He is driving to [place] in next 2 weeks for winter. Reviewed handwashing and masking with him and getting high dose Flu Vaccine. See back in 6 months with carotid duplex. Kaitlin Phipps, MSN, [facility] Vascular Surgery documented in this encounter Plan of Treatment Upcoming Encounters Date Type Specialty Care Team Description 01/19/2022 Office Visit Hematology Tanvir Hawk MD [facility] HEMATOLOGY/[place] [address] Arlene Hill APRN [facility] HEMATOLOGY [place] [address] 01/19/2022 Infusion Hematology and Oncology 01/19/2022 Scheduled View Only Radiation Oncology 01/20/2022 Scheduled View Only Radiation Oncology 01/21/2022 Scheduled View Only Radiation Oncology 01/22/2022 Scheduled View Only Radiation Oncology 01/22/2022 Office Visit Radiation Oncology Adriana De La Rosa v, MD [address] [place] [address] [place] [address] (Wo rk) 01/23/2022 Scheduled View Only Radiation Oncology 01/26/2022 Office Visit Tanvir Vivas MD [facility] HEMATOLOGY/[place] [address] Arlene Hill APRN [facility] HEMATOLOGY [place] [address] 01/26/2022 Infusion Hematology and Oncology 01/26/2022 Scheduled View Only Radiation Oncology 01/27/2022 Scheduled View Only Radiation Oncology 01/28/2022 Scheduled View Only Radiation Oncology 01/29/2022 Scheduled View Only Radiation Oncology 01/29/2022 Office Visit Radiation Oncology Adriana De La Rosa v, MD [address] [place] [address] [place], [place] [id number] (Wo rk) 01/30/2022 Scheduled View Only Radiation Oncology 02/02/2022 Office Visit Hematology and Arlene Bobby, Oncology [facility] HEMATOLOGY AND ONCOLOGY [place], [place] [address] (Wo rk) 02/02/2022 Infusion Hematology and Oncology 02/02/2022 Scheduled View Only Radiation Oncology 02/03/2022 Scheduled View Only Radiation Oncology 02/04/2022 Scheduled View Only Radiation Oncology 02/05/2022 Scheduled View Only Radiation Oncology 02/05/2022 Office Visit Radiation Oncology Adriana De La Rosa v, MD [address] [place] [address] [place]ATION [place], [place] [id number] (Wo rk) 02/06/2022 Scheduled View Only Radiation Oncology 02/09/2022 Office Visit Hematology and Arlene Bobby, Oncology [facility] HEMATOLOGY AND ONCOLOGY [place], [place] [address] (Wo rk) 02/09/2022 Infusion Hematology and Oncology 02/09/2022 Scheduled View Only Radiation Oncology 02/09/2022 Notes Only Radiation Oncology Adriana De La Rosa v, MD [address] [place] [address] DR [place], [place] [id number] (Wo rk) 02/10/2022 Scheduled View Only Radiation Oncology documented as of this encounter Visit Diagnoses Diagnosis Bilateral carotid artery stenosis Occlusion and stenosis of multiple and b ilateral precerebral arteries without mention of cerebral infarction documented in this encounter Care Teams Terrazzo Journeyman Relationship Specialty Start Date End Date Que Sharma DO PCP - General Family Medicine 02/08/[address] [place] [id number] documented as of this encounter
--- OUTSIDE RECORDS SUMMARY | 2022-01-19 02:09 | XMS_ITS | Encounter Summary ---
:1945 [place] [address] Care Team Providers Name Role Phone Que Sharma DO Primary Care Provider Encounter Details Date Type Department Care Team Description 12/03/2021 Hospital Encounter Same Day Program at Rafiq Pradhan Mass of upper lobe Nat Mccann MD of [facility] Dr [place] [id number] [phone] Social History Tobacco Use Types Packs/Day Years [...] Sign Reading Time Taken Comments Blood Pressure 146/93 12/03/2021 5:15 PM EDT Pulse 90 12/03/2021 5:15 PM EDT Temperature 36.4 ??C (97.5 ??F) 12/03/2021 4:30 PM EDT Respiratory Rate 16 12/03/2021 5:15 PM EDT Oxygen Saturation 97% 12/03/2021 5:15 PM EDT Inhaled Oxygen Concentration - - [...] Wednesday- Wednesday 8:00 a.m.-5:00 p.m., please call [phone] to speak to a nurse in the Thoracic Clinic. If you get an answering machine or it is after hours or on weekends or holidays please call [phone] and ask to speak to the Thoracic Physician concrete stone fabricating supervisor. Diet: You should follow a regular diet as tolerated. Start slowly with liquids then work your way back up to normal foods. Smoking: If you are a smoker, please avoid smoking. If you are a smoker who needs help quitting, please call the thoracic surgery clinic at [phone]. Pain: You may have a sore throat [...] nurse in the Thoracic Clinic or the concrete stone fabricating supervisor Attending Physician after hours. Follow up appointments: Dr. Pradhan will call with biopsy results. The thoracic surgery clinic willschedule your follow up, if needed. Please call the thoracic clinic at [phone] to confirm/reschedule your appointment. You will also likely get an appointment confirmation in the mail. Future Appointments and Orders Future Appointments and Orders Future Appointments Provider Department Dept Phone 12/11/2021 10:00 AM Jeannette Reynolds MD; Tanvir Issa MD Hematology and Oncology at [facility] Arrive at: [facility] [phone] If you have any questions or concerns during normal business hours, Wednesday- Wednesday 8:00 a.m.-5:00 p.m., please call [phone] to speak to a nurse in the Thoracic Surgery Clinic. If you get an answering machine or it is after hours or on weekends or holidays please call [phone] and ask to speakto the Thoracic Surgeon concrete stone fabricating supervisor. documented in this encounter Medications at Time [...] 21.16) performed by Alee Sanders MD at [facility] MAIN OR MEDS: No current facility-administered medications [...] MEG Malik 12/03/2021 Thoracic Surgery Service Pager [phone] Associated attestation - Matthew Pradhan MD - [...] Operative Note Patient Name: Don Ortega : [id number] MR#: [id number] Case Date: 12/03/2021 Surgeon: Surgeon(s) and Role: * Matthew Pradhan MD - Primary * Rufino Choudhary PA - Physician Certified Medication Technician Preoperative diagnosis: left upper lobe mass Postoperative [...] Pradhan MD - 12/03/2021 3:14 PM EDT [facility] Operative Note Patient Name: Don Oretga : [id number] MR#: [id number] Case Date: 12/03/2021 Surgeon: Surgeon(s) and Role: * Matthew Pradhan MD - Primary * Rufino Choudhary PA - Physician Certified Medication Technician Preoperative diagnosis: left upper lobe mass Postoperative [...] Description 01/19/2022 Office Visit Tanvir Vivas MD [facility] HEMATOLOGY/[place] [address] Arlene Hill DIETARY ASSISTANT [facility] [place] [address] 01/19/2022 Infusion Hematology and Oncology 01/19/2022 Scheduled View Only Radiation Oncology 01/20/2022 Scheduled View Only Radiation Oncology 01/21/2022 Scheduled View Only Radiation Oncology 01/22/2022 Scheduled View Only Radiation Oncology 01/22/2022 Office Visit Radiation Oncology Adriana De La Rosa v, MD [address] [place] [address] [place] [address] (Wo rk) 01/23/2022 Scheduled View Only Radiation Oncology 01/26/2022 Office Visit Tanvir Vivas MD [facility] HEMATOLOGY/[place] [address] Oncology Arlene Bobby APRN [facility] HEMATOLOGY [place] [address] 01/26/2022 Infusion Hematology and Oncology 01/26/2022 Scheduled View Only Radiation Oncology 01/27/2022 Scheduled View Only Radiation Oncology 01/28/2022 Scheduled View Only Radiation Oncology 01/29/2022 Scheduled View Only Radiation Oncology 01/29/2022 Office Visit Radiation Oncology Adriana De La Rosa v, MD [address] [place] [address] DR CIPRIANO [place], [place] [id number] (Wo rk) 01/30/2022 Scheduled View Only Radiation Oncology 02/02/2022 Office Visit Hematology and Arlene Bobby, Oncology [facility] HEMATOLOGY AND ONCOLOGY [place], [place] [address] (Wo rk) 02/02/2022 Infusion Hematology and Oncology 02/02/2022 Scheduled View Only Radiation Oncology 02/03/2022 Scheduled View Only Radiation Oncology 02/04/2022 Scheduled View Only Radiation Oncology 02/05/2022 Scheduled View Only Radiation Oncology 02/05/2022 Office Visit Radiation Oncology Adriana De La Rosa v, MD [address] [place] [address] DR CIPRIANO [place], [place] [address]6979 (Wo rk) 02/06/2022 Scheduled View Only Radiation Oncology 02/09/2022 Office Visit Hematology and Arlene Bobby, Oncology [facility] HEMATOLOGY AND ONCOLOGY [place], [place] [address] (Wo rk) 02/09/2022 Infusion Hematology and Oncology 02/09/2022 Scheduled View Only Radiation Oncology 02/09/2022 Notes Only Radiation Oncology Adriana De La Rosa v, MD [address] [place] [address] DR CIPRIANO [place], [place] [id number] (Wo rk) 02/10/2022 Scheduled View Only Radiation Oncology documented as of this encounter Procedures Procedure Name Priority Date/Time Associated Comments Diagnosis BRONCHOSCOPY, WITH Routine 12/03/2021 4:22 PM Mass of upper lo be BIOPSY EDT of left lung NON-CLIENT RESOURCE SPECIALIST FINAL REPORT Routine 12/03/2021 4:18 PM R esults for this EDT procedure are i n the results section. CYTOPATHOLOGY Routine 12/03/2021 4:18 PM Results for this NON-GYNECOLOGICAL EDT procedure are in the results section. SPECIMEN TO PATHOLOGY Routine 12/03/2021 4:14 PM Results for this EDT procedure are i n the results section. NON-CLIENT RESOURCE SPECIALIST FINAL REPORT Routine 12/03/2021 3:58 PM R esults for this EDT procedure are i n the results section. CYTOPATHOLOGY Routine 12/03/2021 3:58 PM Results for this NON-GYNECOLOGICAL EDT procedure are in the results section. NON-CLIENT RESOURCE SPECIALIST FINAL REPORT Routine 12/03/2021 3:50 PM R esults for this EDT procedure are i n the results section. CYTOPATHOLOGY Routine 12/03/2021 3:50 PM Results for this NON-GYNECOLOGICAL EDT procedure are in the results section. NON-CLIENT RESOURCE SPECIALIST FINAL REPORT Routine 12/03/2021 3:36 PM R esults for this EDT procedure are i n the results section. CYTOPATHOLOGY Routine 12/03/2021 3:36 PM Results for this NON-GYNECOLOGICAL EDT procedure are in the results section. NON-CLIENT RESOURCE SPECIALIST FINAL REPORT Routine 12/03/2021 3:25 PM [...] 3+ NODES documented in this encounter Results Non-Ultrasound Spec Final Report (12/03/2021 4:18 PM EDT) Component Value Ref Test Analysis Performed At [facility] gist Range Method Time Signature Non-Ultrasound Spec Final [id number] ? Location: [facility]; [facility]; A [place] The signing pathologist has (i) examined the relevant preparation(s) for the [facility] specimen(s) and (ii) rendered or confirmed the diagnosis(es) . HOSPITAL LABORATORY . ? No n-Ultrasound Spec Final DIAGNOSIS Positive for Malignancy Electronically signed by: ?Rufino Nation MD Verified: ??12/08/2021 9:53 ?? Pathologist Performed at: ??-[facility] Dept. of Pathology, [place], [place] DISCUSSION Lung, upper division of left upper lobe (bronchial brushing) : A few highly atypical squamous cells are present singly and in small clusters. Given the findings in the co ncurrent lung biopsies ([id number]), the material in this sample is compatible [...] Address City/State/ZIP Code Phon [place] [address] [facility] [address] Cytopathology Non-Gynecological (12/03/2021 4:18 PM EDT) Specimen Anatomical Collection Method Collection Time Receive d Time (Source) Location / / Volume Laterality AP Specimen 12/03/2021 4:18 PM 2 4:18 EDT PM EDT Narrative [facility] - 12/03/2021 4:18 PM EDT Specimen requisition ordered. ??Separate Pathology report to follow Matthew Pradhan MD PATHOLOGY/CYTOLOGY ORDERABLE S Performing Organization Address [facility]/[place] [address] Specimen to Pathology (12/03/2021 4:14 PM EDT) Specimen Anatomical Collection Method Collection Time Receive d Time (Source) Location / / Volume Laterality AP Specimen 12/03/2021 4:14 PM 2 4:14 EDT PM EDT Narrative [facility] - 12/03/2021 4:14 PM EDT Specimen requisition ordered. ??Separate Pathology report to follow Matthew Pradhan MD PATHOLOGY/CYTOLOGY ORDERABLE S Performing Organization Address City/[facility]/ZIP [place] [address] Non-Ultrasound Spec Final Report (12/03/2021 3:58 PM EDT) Component Value Ref Test Analysis Performed At [facility] Range Method Time Signature Non-Ultrasound Spec [id number] ? Location: [facility]; [facility]; A [facility] Final Report [place] The signing pathologist has (i) examined the relevant preparation(s) for the [facility] specimen(s) and (ii) rendered or confirmed the diagnosis(es) . HOSPITAL LABORATORY . ? No n-Ultrasound Spec Final DIAGNOSIS Negative for Malignancy Electronically signed by: ?Chapis MCLEOD, Rufino Mccann Verified: ??12/09/2021 16:40 ??Pathologist Performed at: ??-[facility] Dept. of Pathology, [place], [place] DISCUSSION Lymph node, 11L (EBUS-guided FNA): Lymphoid cells are present, consistent with lymph node rachel pling (see Note). Note: An extended immunohistochemical panel was performed to exclude a lymphoproliferative disorder. CD20, CD3, CD10, BCL-2, BCL -6, and cyclin D1 immunostain results are consistent with benign lymphoid hyperplasia. Dr. Powell (hematopathology) has reviewed the case and concurs with [facility] findings. Negative for metastatic carcinoma. --- Immunohistochemistry [...] Organization Address City/State/ZIP [place] [address] Cytopathology Non-Gynecological (12/03/2021 3:58 PM EDT) Specimen Anatomical Collection Method Collection Time Receive d Time (Source) Location / / Volume Laterality AP Specimen 12/03/2021 3:58 PM 2 3:58 EDT PM EDT Narrative [facility] - 12/03/2021 3:58 PM EDT Specimen requisition ordered. ??Separate Pathology report to follow Matthew Pradhan MD PATHOLOGY/CYTOLOGY ORDERABLE S Performing Organization Address City/State/ZIP [place] [address] Non-Ultrasound Spec Final Report (12/03/2021 3:50 PM EDT) Component Value Ref Test Analysis Performed At [facility] gist Range Method Time Signature Non-Ultrasound Spec [id number] ? Location: [facility]; [facility]; A [facility] Final Day [facility] The signing pathologist has (i) examined the relevant preparation(s) for the [facility] specimen(s) and (ii) rendered or confirmed the diagnosis(es) . HOSPITAL LABORATORY . ? No n-Ultrasound Spec Final DIAGNOSIS See Discussion Electronically signed by: ?Chapis MCLEOD, Rufino Mccann Verified: ??12/08/2021 9:31 ?? Pathologist Performed at: ??-[facility] Dept. of Pathology, [place], [place] DISCUSSION Lymph node, 4L (EBUS-guided FNA): The sample consists predominantly of blood and respira tory epithelial cells. A few scattered lymphocytes are noted, suggestive of focal lymph node sampling; however, the findings might not be entirely electronics parts sales representative of the targeted lymph node. Cell block [...] MD PATHOLOGY/CYTOLOGY ORDERABLE S Performing Organization Address [facility]/[place] [address] Cytopathology Non-Gynecological (12/03/2021 3:50 PM EDT) Specimen Anatomical Collection Method Collection Time Receive d Time (Source) Location / / Volume Laterality AP Specimen 12/03/2021 3:50 PM 2 3:50 EDT PM EDT Narrative [facility] - 12/03/2021 3:50 PM EDT Specimen requisition ordered. ??Separate Pathology report to follow Matthew Pradhan MD PATHOLOGY/CYTOLOGY ORDERABLE S Performing Organization Address City/[facility]/[place] [address] Non-Ultrasound Spec Final Report (12/03/2021 3:36 PM EDT) Component Value Ref Test Analysis Performed At [facility] Range Method Time Signature Non-Ultrasound Spec [id number] ? Location: [facility]; [facility]; [facility] Final Report [place] The signing pathologist has (i) examined the relevant preparation(s) for the [facility] specimen(s) and (ii) rendered or confirmed the diagnosis(es) . HOSPITAL LABORATORY . ? No n-Ultrasound Spec Final DIAGNOSIS Negative for Malignancy Electronically signed by: ?Chapis MCLEOD, Rufino Mccann Verified: ??12/09/2021 16:11 ??Pathologist Performed at: ??-[facility] Dept. of Pathology, [place], [place] DISCUSSION Lymph node, level 7 (EBUS-guided [...] Organization Address City/State/ZIP [place] [address] [facility] [address] Cytopathology Non-Gynecological (12/03/2021 3:36 PM EDT) Specimen Anatomical Collection Method Collection Time Receive d Time (Source) Location / / Volume Laterality AP Specimen 12/03/2021 3:36 PM 2 3:36 EDT PM EDT Narrative [facility] - 12/03/2021 3:36 PM EDT Specimen requisition ordered. ??Separate Pathology report to follow Matthew Pradhan MD PATHOLOGY/CYTOLOGY ORDERABLE S Performing Organization Address City/[facility]/ZIP Code Phon e Number [facility] [place] [address] [facility] [address] Non-Ultrasound Spec Final Report (12/03/2021 3:25 PM EDT) Component Value Ref Test Analysis Performed At [facility] gist Range Method Time Signature Non-Ultrasound Spec [id number] ? Location: [facility]; [facility]; A NAT Final Report [place] The signing pathologist has (i) examined the relevant preparation(s) for the [facility] specimen(s) and (ii) rendered or confirmed the diagnosis(es) . HOSPITAL LABORATORY . ? No n-Ultrasound Spec Final DIAGNOSIS Negative for Malignancy Electronically signed by: ?Chapis MCLEOD, Rufino Mccann Verified: ??12/08/2021 8:51 ?? Pathologist Performed at: ??-[facility] Dept. of Pathology, [place], [place] DISCUSSION Lymph node, 4R (EBUS-guided FNA): [...] MD PATHOLOGY/CYTOLOGY ORDERABLE S Performing Organization Address [facility]/ZIP Code Phon e Number [address] Cytopathology Non-Gynecological (12/03/2021 3:25 PM EDT) Specimen Anatomical Collection Method Collection Time Receive d Time (Source) Location / / Volume Laterality AP Specimen 12/03/2021 3:25 PM 3:25 EDT PM EDT Narrative [facility] - 12/03/2021 3:25 PM EDT Specimen requisition ordered. ??Separate Pathology report to follow Matthew Pradhan MD PATHOLOGY/CYTOLOGY ORDERABLE S Performing Organization Address City/[facility]/ZIP Code Phon e Number [address] Surgical Pathology Report (12/03/2021 3:21 PM EDT) Component Value Ref Test Analysis Performed At [facility] gist Range Method Time Signature Surgical [id number] ? Location: [facility]; [facility]; A [facility] Report The signing pathologist has (i) examined the relevant preparation(s) for the [facility] specimen(s) and (ii) rendered or confirmed the [...] The assay was performed according to the registered health nurse's instructions using Anti-PD-L1 (22C3, pharmDX) antibody. Electronically signed by: ?Garcia MCLEOD PhD, Jhonatan Fragoso Verified: ??12/09/2021 12:53 ??Pathologist Performed at: ??-[facility] Dept. 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 Electronically signed by: ?Sona Erazo DO Verified: ??12/05/2021 11:18 ??Pathologist Performed at: ??-[facility] Dept. of Pathology, [place], [place] DISCUSSION PDL1 has been ordered. ADDITIONAL [...] ?Positive i n lesional cells. A1 ? [id number] ? Negative in les ional cells. . [...] Organization Address City/State/[place] [address] Specimen to Pathology (12/03/2021 3:21 PM EDT) Specimen Anatomical Collection Method Collection Time Receive d Time (Source) Location / / Volume Laterality AP Specimen 12/03/2021 3:21 PM 3:21 EDT PM EDT Narrative [facility] - 12/03/2021 3:21 PM EDT Specimen requisition ordered. ??Separate Pathology report to follow Matthew Pradhan MD PATHOLOGY/CYTOLOGY ORDERABLE S Performing Organization Address City/State/[place] [address] documented in this encounter [...] subcutaneous injection 5,000 Units 5,000 Units, Subcutaneous, ANIME ARTIST TO O.R., 1 dose, On Wed12/03/21 at [...] er: Myrtle Silvestre RN) 5,000 Units, Subcutaneous, ANIME ARTIST TO O. R., 1 dose, On Wed12/03/21 at 1400, Please administer in same day prior to procedure Thank you, Day of Surgery (Day of Procedure), STAT Continuous Medication Order 12/01/2021 12/02/2021 12/03/2021 lactated ringers infusion (CANCELED) 1405 (New Bag - Provider: Myrtle Silvestre RN) 1,000 mL, at 100 mL/hr, Intravenous, CON TINUOUS, Starting on Wed12/03/21 at 1400, Until Wed12/03/21 at 1732, Day of Surgery (Day of Procedure) PRN Medication Order 12/01/2021 12/02/202112/03/2021 ibuprofen (Advil) tablet 600 mg 600 mg, Oral, EVERY 6 HOURS PRN, Startin g on Wed12/03/21 at 1635, Until Wed12/03/21 at 1949, Pain, Administer orally with milk or food to minimize GI irritation. Maximum dose of 3,200 mg from all sources in 24 hours, Routine documented in this encounter Care Teams Silk Screen Operator Relationship Specialty Start Date End Date Que Sharma DO PCP - General Family Medicine 02/08/20 [address] [place] [address] documented as of this encounter
--- OUTSIDE RECORDS SUMMARY | 2022-01-19 02:09 | XMS_ITS | Encounter Summary ---
:1945 Author Organization [facility] Address [facility] [place] [address] Care Team Providers Name Role Phone Que Sharma DO Primary Care Provider Encounter Details Date Type Department Care Team Description 03/22/2020 Telephone [facility] Surgery [place] [facility] Kaitlin Phipps APRN [facility] [facility] [address] VASCULAR SURGERY [phone] [place] [id number] (Wo rk) Social History Tobacco Use Types Packs/Day Years Used Date Current Every Day Smoker Cigars 1 63 Smokeless Tobacco: Never Used Financial Resource [...] place to sleep or slept in a penitentiary (including now)? Sex Assigned at Date Recorded Not on file documented as of this encounter Miscellaneous Notes Telephone Encounter - Kaitlin Phipps APRN - 03/22/2020 10:40 AM EDT Mr. Ortega called this am with blood pressure reading for last two days 03/21/20-- 136/68 130/72 03/22/20 125/6- 141/82 S/p right CEA 03/19/2020 Instructed him to resume taking Lotensin, Lasix and potassium . To call us with any questions/ problems, persistent SBP >150 or headache. documented in this encounter Plan of Treatment Upcoming Encounters Date Type Specialty Care Team Description 01/19/2022 Office Visit Hematology and Tanvir Issa MD [facility] DR HEMATOLOGY/[place] [address] Oncology Arlene Bobby APRN [facility] [place] [address] 01/19/2022 Infusion Hematology and Oncology 01/19/2022 Scheduled View Only Radiation Oncology 01/20/2022 Scheduled View Only Radiation Oncology 01/21/2022 Scheduled View Only Radiation Oncology 01/22/2022 Scheduled View Only Radiation Oncology 01/22/2022 Office Visit Radiation Oncology Adriana De La Rosa v, MD [address] [place] [address] [place] [address] (Wo rk) 01/23/2022 Scheduled View Only Radiation Oncology 01/26/2022 Office Visit Hematology and Tanvir Issa MD [facility] DR HEMATOLOGY/[place] [address] Oncology Arlene Bobby [facility] [place] [address] 01/26/2022 Infusion Hematology and Oncology 01/26/2022 Scheduled View Only Radiation Oncology 01/27/2022 Scheduled View Only Radiation Oncology 01/28/2022 Scheduled View Only Radiation Oncology 01/29/2022 Scheduled View Only Radiation Oncology 01/29/2022 Office Visit Radiation Oncology Adriana De La Rosa v, MD [address] [place] [address] [place] [address] (Wo rk) 01/30/2022 Scheduled View Only Radiation Oncology 02/02/2022 Office Visit Hematology and Arlene Bobby, Oncology [facility] HEMATOLOGY AND ONCOLOGY [place], [place] [address] (Wo rk) 02/02/2022 Infusion Hematology and Oncology 02/02/2022 Scheduled View Only Radiation Oncology 02/03/2022 Scheduled View Only Radiation Oncology 02/04/2022 Scheduled View Only Radiation Oncology 02/05/2022 Scheduled View Only Radiation Oncology 02/05/2022 Office Visit Radiation Oncology Adriana De La Rosa v, MD [address] [place] [address] [place] [address] (Wo rk) 02/06/2022 Scheduled View Only Radiation Oncology 02/09/2022 Office Visit Hematology and Arlene Bobby, Oncology [facility] HEMATOLOGY AND ONCOLOGY [place], [place] [address] (Wo rk) 02/09/2022 Infusion Hematology and Oncology 02/09/2022 Scheduled View Only Radiation Oncology 02/09/2022 Notes Only Radiation Oncology Adriana De La Rosa v, MD [address] [place] [address] [place] [address] (Wo rk) 02/10/2022 Scheduled View Only Radiation Oncology documented as of this encounter Visit Diagnoses Not on filedocumented in this encounter Care Teams Wide Piece Goods Inspector Relationship Specialty Start Date End Date Que Sharma DO PCP - General Family Medicine 02/08/20 [address] [place] [address] documented as of this encounter
--- OUTSIDE RECORDS SUMMARY | 2022-01-19 02:09 | XMS_ITS | Encounter Summary ---
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 Que Sharma DO [facility] [address] [place] [address] [place] [address] Phone: Fax: Referral ID Status Reason Start Expiration Visits Visits Date Date Requested Authorized [id number] Authorized Consult, 11/14/2021 11/14/2022 10 10 Test & Treat PCP Updated and/or Approved Encounter Details Date Type Department Care Team Description 11/14/2021 Transcribe Orders eDH Incoming Que Sharma ry malignant Referrals DO Grey neoplasm of [phone] [facility] bronchus of left RD upper lobe [place] [phone] Social History Tobacco Use Types Packs/Day Years [...] Office Visit Hematology and Tanvir Issa MD [facility] HEMATOLOGY/[place] [address] Oncology Arlene Bobby APRN [facility] HEMATOLOGY [place] [address] 01/19/2022 Infusion Hematology and Oncology 01/19/2022 Scheduled View Only Radiation Oncology 01/20/2022 Scheduled View Only Radiation Oncology 01/21/2022 Scheduled View Only Radiation Oncology 01/22/2022 Scheduled View Only Radiation Oncology 01/22/2022 Office Visit Radiation Oncology Adriana De La Rosa v, MD [address] [place] [address] [place], [place] [id number] (Wo rk) 01/23/2022 Scheduled View Only Radiation Oncology 01/26/2022 Office Visit Hematology and Tanvir Issa MD [facility] HEMATOLOGY/[place] [address] Oncology Arlene Bobby [facility] [place]ATOLOGY [place] [address] 01/26/2022 Infusion Hematology and Oncology 01/26/2022 Scheduled View Only Radiation Oncology 01/27/2022 Scheduled View Only Radiation Oncology 01/28/2022 Scheduled View Only Radiation Oncology 01/29/2022 Scheduled View Only Radiation Oncology 01/29/2022 Office Visit Radiation Oncology Adriana De La Rosa v, MD [address] [place] [address] DR [address] [place] [place], [place] [id number] (Wo rk) 01/30/2022 Scheduled View Only Radiation Oncology 02/02/2022 Office Visit Hematology and Arlene Bobby, Oncology [facility] HEMATOLOGY AND ONCOLOGY [place], [place] [address] (Wo rk) 02/02/2022 Infusion Hematology and Oncology 02/02/2022 Scheduled View Only Radiation Oncology 02/03/2022 Scheduled View Only Radiation Oncology 02/04/2022 Scheduled View Only Radiation Oncology 02/05/2022 Scheduled View Only Radiation Oncology 02/05/2022 Office Visit Radiation Oncology Adriana De La Rosa v, MD [address] [place] [address] [address] [place], [place] [id number] (Wo rk) 02/06/2022 Scheduled View Only Radiation Oncology 02/09/2022 Office Visit Hematology and Arlene Bobby, Oncology [facility] HEMATOLOGY AND ONCOLOGY [place], [place] [address] (Wo rk) 02/09/2022 Infusion Hematology and Oncology 02/09/2022 Scheduled View Only Radiation Oncology 02/09/2022 Notes Only Radiation Oncology Adriana De La Rosa v, MD [address] [place] [address] [place] [address] (Wo rk) 02/10/2022 Scheduled View Only Radiation Oncology Scheduled Referrals Name Type Priority Associated Diagnoses Order S chedule Referral to Outpatient Referral Routine Primary malignant Ord ered: Thoracic Surgery neoplasm of bronchus of left upper lobe documented as of this encounter Visit Diagnoses Diagnosis Primary malignant neoplasm of bronchus o f left upper lobe Malignant neoplasm of upper lobe, bronch us or lung documented in this encounter Care Teams Patrol Commander Relationship Specialty Start Date End Date Que Sharma DO PCP - General Family Medicine 02/08/20 [address] [place] [address] documented as of this encounter
--- OUTSIDE RECORDS SUMMARY | 2022-01-19 02:09 | XMS_ITS | Encounter Summary ---
:1945 Author Organization [facility] Address [facility] [place] [address] Care Team Providers Name Role Phone Que Sharma DO Primary Care Provider Encounter Details Date Type Department Care Team Description 11/28/2021 Orders Only Hematology and Sabra, Tasia Smiley, Mass of upper lobe of Oncology at [facility] [employer] left lung [facility] [place] [address] HEMATOLOGY-ONCOLOG [phone] Y [place]PT. [place], [place] [address] Social History Tobacco Use Types Packs/Day Years [...] Office Visit Hematology and Tanvir Issa MD [facility] HEMATOLOGY/[place] [address] Arlene Hill APRN [facility] HEMATOLOGY [place] [address] 01/19/2022 Infusion Hematology and Oncology 01/19/2022 Scheduled View Only Radiation Oncology 01/20/2022 Scheduled View Only Radiation Oncology 01/21/2022 Scheduled View Only Radiation Oncology 01/22/2022 Scheduled View Only Radiation Oncology 01/22/2022 Office Visit Radiation Oncology Adriana De La Rosa v, MD [address] [place] [address] [place] [address] (Wo rk) 01/23/2022 Scheduled View Only Radiation Oncology 01/26/2022 Office Visit Tanvir Vivas MD [facility] HEMATOLOGY/[place] [address] Oncology Arlene Bobby APRN [facility] HEMATOLOGY [place] [address] 01/26/2022 Infusion Hematology and Oncology 01/26/2022 Scheduled View Only Radiation Oncology 01/27/2022 Scheduled View Only Radiation Oncology 01/28/2022 Scheduled View Only Radiation Oncology 01/29/2022 Scheduled View Only Radiation Oncology 01/29/2022 Office Visit Radiation Oncology Adriana De La Rosa v, MD [address] [place] [address] [address] [place], [place] [address] (Wo rk) 01/30/2022 Scheduled View Only Radiation Oncology 02/02/2022 Office Visit Hematology and Arlene Bobby, Oncology [facility] HEMATOLOGY AND ONCOLOGY [place], [place] [address] (Wo rk) 02/02/2022 Infusion Hematology and Oncology 02/02/2022 Scheduled View Only Radiation Oncology 02/03/2022 Scheduled View Only Radiation Oncology 02/04/2022 Scheduled View Only Radiation Oncology 02/05/2022 Scheduled View Only Radiation Oncology 02/05/2022 Office Visit Radiation Oncology Adriana De La Rosa v, MD [address] [place] [address] [address] [place], [place] [address] (Wo rk) 02/06/2022 Scheduled View Only Radiation Oncology 02/09/2022 Office Visit Hematology and Arlene Bobby, Oncology [facility] HEMATOLOGY AND ONCOLOGY [place], [place] [address] (Wo rk) 02/09/2022 Infusion Hematology and Oncology 02/09/2022 Scheduled View Only Radiation Oncology 02/09/2022 Notes Only Radiation Oncology Adriana De La Rosa v, MD [address] [place] [address] DR [address] [place], [place] [phone] (Wo rk) 02/10/2022 Scheduled View Only Radiation Oncology documented as of this encounter Results (ABNORMAL) Comprehensive metabolic panel (non-fasting) (12/03/2021 11:11 AM EDT) P athologist Signature Glucose Lvl 123 65 - 199 [facility] mg/dL [facility] Comment: Diabetes: >=200 mg/dL plus symp toms BUN 26 (H) 10 - 20 mg/dL [facility] Creatinine 2.21 (H) 0.80 - 1.50 mg/dL [facility] Sodium 144 135 - 145 mmol/L [facility] Potassium 4.4 3.5 - 5.0 mmol/L [facility] Comment: Please note: ??Patients with WBC >100,00 0 may have falsely elevated Potassium levels. ??For accurate Potassium quantif ication in these patients send serum separator tube (gold top) for subsequent determinations. ??Contact the Clinical Chemistry Laboratory if there are any qu estions. Chloride 106 98 - 107 mmol/L [facility] CO2 24 22 - 31 mmol/L [facility] Anion Gap 14 5 - 15 mmol/L [facility] Calcium 9.2 8.5 - 10.5 mg/dL [facility] Total Protein 7.0 6.1 - 8.0 g/dL [facility] Albumin 4.0 3.2 - 5.2 g/dL [facility] AST 13 0 - 39 unit/L [facility] ALT 8 0 - 55 unit/L [facility] Alk Phos 147 (H) 40 - 130 unit/L [facility] Total Bilirubin 0.2 0.2 - 1.3 mg/dL [facility] Estimated GFR 28 (L) >=60 mL/min/1.73 m?? [facility] Comment: This patient? s estimated [...] Agency Comment Spec In Lab Tasia Montaño [facility] [employer] CHEMISTRY ORDERABLES Performing Organization Address City/[facility]/ZIP Code Phon e Number [place] [phone] [address] Lactate Dehydrogenase (12/03/2021 11:11 AM EDT) P athologist Signature LDH 174 110 - 220 [facility] unit/L [facility] Specimen Anatomical Collection Method Collection Time Receive d Time (Source) Location / / Volume Laterality Blood 12/03/2021 11:11 12/03/2021 AM EDT 11:27 AM EDT Resulting Agency Comment Spec In Lab Tasia Montaño [facility] [employer] CHEMISTRY ORDERABLES Performing Organization Address City/[facility]/[place] [address] documented in this encounter Visit Diagnoses Diagnosis Mass of upper lobe of left lung documented in this encounter Care Teams Theatre Arts Professor Relationship Specialty Start Date End Date Que Sharma DO PCP - General Family Medicine 02/08/20 [address] [place] [address] documented as of this encounter
--- OUTSIDE RECORDS SUMMARY | 2022-01-19 02:09 | XMS_ITS | Encounter Summary ---
:1945 Author Organization [facility] Address [facility] [place] [address] Care Team Providers Name Role Phone Que Sharma DO Primary Care Provider Reason for Referral Consultation (Routine) - Closed Specialty Diagnoses / Procedures Referred By Contact Refer red To Contact Hematology and Diagnoses Mass of upper lobe of left lung Matthew Chung Fuld, Alexander D, MD Oncology MD [address] [place] [address] [facility] [place] Thoracic Surgery [id number] [place] [id number] Referral ID Status Reason Start Date Expiration Date Visits V isits Requested Authorized [id number] Closed Consult, 11/27/2021 11/27/2022 1 1 Test & Treat Reason for Visit Reason Comments Mass Consultation (Routine) - Authorized Specialty Diagnoses / Procedures Referred By Contact Refer red To Contact Thoracic Surgery Diagnoses 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 - 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 Que Sharma, DO [facility] Thoracic Surg [address] [place] [address] [place] [address] Phone: Fax: Referral ID Status Reason Start Expiration Visits Visits Date Date Requested Authorized [id number] Authorized Consult, 11/14/2021 11/14/2022 10 10 Test & Treat PCP Updated and/or Approved Encounter Details Date Type Department Care Team Description 11/27/2021 Office Visit Thoracic Surgery at Matthew Chung Mass of upper lobe of [facility] [place] Siobhan left lung [facility] [address] [place] Thoracic Surgery [address] [place] [address] [phone] Social History Tobacco Use Types Packs/Day Years [...] Sign Reading Time Taken Comments Blood Pressure 120/68 11/27/2021 1:13 PM EDT Pulse 104 11/27/2021 1:13 PM EDT Temperature 35.9 ??C (96.6 ??F) 11/27/2021 1:13 PM EDT Respiratory Rate 20 11/27/2021 1:13 PM EDT Oxygen Saturation 99% 11/27/2021 1:13 PM EDT Inhaled Oxygen Concentration - - Weight 80.4 kg (177 lb 3.2 oz) 11/27/2021 1:13 PM EDT Height 173 cm (5' 8.11) 11/27/2021 1:13 PM EDT Body Mass Index 26.86 11/27/2021 1:13 PM EDT documented in this encounter Patient Instructions Patient InstructionsMoKajal quinones RN - 11/27/2021 2:28 PM EDT Thank you for visiting Dr. Chung in clinic 11/27/21 Dr. Chung would like to schedule you for your Bronchoscopy with Endobronchial Ultrasound. You will receive a call to schedule this appointment. Your procedure is scheduled for Wednesday. You will receive a phone call from the OR nurses on Wednesday after 2pm through 6 pm. They will confirm your arrival time, review what medications to take and when to stop eating and drinking. Your procedure will occur in hotel or motel receptionist area 4W. Bronchoscopy is the term for a procedure in which a scope (thin tube with a light source on the end), is placed through your mouth or nose and into your trachea and large airways. A small amount of tissue from the surface of the area is removed. The removal of the tissue is called a biopsy. Endobronchial Ultra Sound or EBUS, is a procedure used to diagnose and stage lung cancer. It is doneusing a flexible camera, called a bronchoscope that is passed down through the mouth, into the lung.The device is able to take pictures, samples of tissue and fluids, as well as inspect nearby lymph nodes. This is a less invasive alternative to some surgeries. PLEASE START TAKING EXTRA STRENGTH TYLENOL 1000 MG TOGETHER WITH IBUPROFEN 600 MG EVERY 6 HOURS. Please call Thoracic Surgery at [phone] with any questions or concerns. Pulmonary function tests (PFTs) are noninvasive tests that show how well the lungs are working. The tests measure lung volume, capacity, rates of flow, and gas exchange. This information can help your healthcare provider diagnose and decide the treatment of certain lung disorders. You will check in [facility] area 5C for your Pulmonary Function Testing. This testing will take less than one hour. Exercise each day for 30 minutes or longer. Daily aerobic exercise for at least 30 minutes will helpimprove your endurance and improve the breathing capacity of your lungs. This means that you are breathing hard, your heart is beating fast and that you are sweating. Examples of this include walking, biking, swimming, and using a treadmill or stationary bike. Incentive Spirometer: Place the Incentive spirometer in your mouth when you are ready to take a slow deep breath in through your mouth (sucking motion, DO NOT BLOW into the device). Use your incentive spirometer as you were shown in clinic: 6 times daily/10 breaths each time (totalof at least 60 times in a day). It is a sucking motion when you take a slow deep breath in, DO NOT BLOW INTO THIS MACHINE You may also bundle the use of the incentive spirometer as well - 30 breaths in the morning and 30 breaths at night. Please keep your incentive spirometer near your favorite chair so that in between commercials you can remember to use it! Take a slow, deep breath in through your mouth. While the piston rises, the indicator on the right should move upwards. It should stay between the 2 arrows for 2 to 4 seconds with each breath. If the indicator does not stay between the arrows, you are breathing either too fast or too slowly. The incentive spirometer will help you expand your lungs and encourage you to breathe deeply and fully. You will use the incentive spirometer as part of your recovery process and to prevent complications such as pneumonia. Please call Thoracic surgery at with any questions or concerns. documented in this encounter Progress Notes Matthew Chung MD - 11/27/2021 1:30 PM EDT Today I saw Mr. Ortega in clinic with our PA, Raul Choudhary. Please see my addendum to his note. Matthew Chung MD documented in this encounter H&P Notes Rufino Choudhary PA - 11/27/2021 1:30 PM EDT Images from the original note were not included. Thoracic Surgery Outpatient Consultation Note MD Rufino Chow PA-C [place] [id number] Referring Provider: Que Sharma, [address] [place] [address] Reason for Consultation: Left lung mass Today, 11/27/2021, we saw Mr. Ortega in the Thoracic Surgery Clinic at [facility] in consultation for a Leftlung mass at your request. His history was obtained from the patient. We have also reviewed his medical records and imaging prior to today's visit. As you know, Mr. Ortega is a 76 y.o. male with PMHx significant for HTN, HLD, DM2, tremor and possible prior skin cancer. Patient reports that he spends his guzman in [place], and this past September he developed bronchitis which evolved into pneumonia accompanied by lateral Left chest wall and shoulder blade pain. He reports he was treated with abx and the pneumonia improved, but the pain persisted as well as a chronic dry cough. CT Chest was obtained 2021 and PET was obtained 10/20/2021 which demonstrated large TOAN central mass with encasement of LULbronchus. Bronchoscopy had been performed 10/03/2021 and transbronchial biopsy of TOAN mass demonstrated rare clusters of atypical squamous cells, suspicious for SCC. Patient recently returned to [place] for the summer, and now presents to [facility] for further management. I have personally reviewed the following scans and results that are part of the work up, including: PET on 10/20/2021: CT Chest on 09/22/2021: Brain MRI from [place] 11/12/21 Negative for metastatic disease Patient is a current smoker of about 6-8 cpd, previously has smoked about 1 ppd for about 65 years (estimate 65 pack year smoking history), denies ETOH / illicit drug use. He denies fevers, night sweats, or chest pain on exertion. He has lost about 20-30 lbs pounds over the past several months. He is able to walk with minimal limitation on the flat miles per day and up a flight of stairs without difficulty. He reports continued lateral Left chest wall and shoulder blade pain, chronic dry cough, someSOB and HUTCHINSON. His ECOG performance status is 1 - Symptomatic but completely ambulatory A 14-point review of systems is otherwise negative, except where noted above. He has a past medical history of DM2 (diabetes mellitus, type 2), Hyperlipidemia, Hypertension, Skincancer, and Tremor. He has a past surgical history that includes Thromboendartectmy Neck, Neck Incis (16487) (Right, 03/19/2020). He has a current medication list which includes the following prescription(s): metformin, allopurinol, aspirin ec, benazepril-hydrochlorthiazide, ergocalciferol (vitamin d2), ferrous sulfate, furosemide, potassium chloride, omeprazole, pravastatin, tamsulosin, and escitalopram. He has No Known Allergies. His family history includes Cancer in his sister. A review of his social history shows: Social History Tobacco Use ??? Smoking status: Current Every Day Smoker Packs/day: 0.50 Years: 63.00 Pack years: 31.50 Types: Cigars ??? Smokeless tobacco: Never Used Substance Use Topics ??? Alcohol use: Not on file On examination, Mr. Ortega is a well nourished, well-developed male. He is alert and oriented. Vital Signs: BP 120/68 (Patient Position: Sitting) Pulse (!) 104 Temp 35.9 ??C (96.6 ??F) (Temporal) Resp 20 Ht 173 cm (5' 8.11) Wt 80.4 kg (177 lb 3.2 oz) SpO2 99% BMI 26.86 kg/m?? Body mass index is 26.86 kg/m??. His pulse is regular, breathing is unlabored and temperature is afebrile. In general he is in no acute distress. His pupils are reactive. His sclera are anicteric. He has no palpable cervical or supraclavicular adenopathy. The lung gamez are coarse to auscultation bilaterally. Heart rate and rhythm are normal, and there is no murmur. The abdomen is soft and nontender. No organs or masses are palpable. There is no peripheral edema, cyanosis, or clubbing of the extremities. Pulses are full and equal bilaterally. Neurologic examination is grossly intact. Musculoskelatal exam is grossly intact with 5/5 strength. His skin is non-jaundiced. In summary, Mr. Ortega is a 76 y.o. male with a Left lung mass which was previously biopsied (appearsto be only by washings) and was suspicious [...] structures, collapsed lung, possible shortness of breath, airwayedema, a benign nodule, need for additional procedures or treatment, heart attack, arrhythmia, stroke and . He asked appropriate questions and would like to proceed. We have asked Mr. Ortega to begin a regular exercise regimen that involves dedicated walking 30-60 minutes per day, 6 days per week, or some equivalent form of exercise/activity. We have provided him with an incentive spirometer and instructed him on its use, asking him to use it several times a day. Patient should continue to cut back on smoking with goal of quitting completely. He will meet with the smoking cessation counselor today to discuss this further. His procedure will be scheduled for next week. Additional work up will include PFTs to assess baseline lung function. We will also place referral to Medical Oncology for discussion of possible induction vs definitive chemotherapy / immunotherapy with radiation, depending on the results of the EBUS and results of further functional workup and in accordance with patient's wishes. If he should have any further questions or concerns, he should feel free to contact us. Patient was seen and evaluated in conjunction with Dr. Chung. MEG Malik 11/27/2021 Thoracic Surgery [facility] I have seen the patient and reviewed the PA's above note and I agree with the details as written. I have personally reviewed the relevant imaging. The assessment and plan were formulated in discussion with me and I agree with them as documented. I had the above documented discussion with the patient and the associated counseling and medical decision making. I have edited the note as appropriate. 76y/o male with TOAN mass with bronchial washings concerning for suspicion of squamous cell carcinoma. Needs EBUS for mediastinal staging and additional tissue to confirm the diagnosis. At a minimum will need neoadjuvant systemic therapy if he is deemed to be a surgical candidate, vs definitive chemotherapy and radiation if not. Scheduled for bronchoscopy and EBUS on 12/03/21. Referral placed to Dr. Issa in medical oncology, who I directly spoke with about this patient. Matthew Chung MD documented in this encounter Plan of Treatment Upcoming Encounters Date Type Specialty Care Team Description 01/19/2022 Office Visit Hematology Tanvir Hawk MD [facility] HEMATOLOGY/[place] [address] Arlene Hill APRN [facility] [place] [address] 01/19/2022 Infusion Hematology and Oncology 01/19/2022 Scheduled View Only Radiation Oncology 01/20/2022 Scheduled View Only Radiation Oncology 01/21/2022 Scheduled View Only Radiation Oncology 01/22/2022 Scheduled View Only Radiation Oncology 01/22/2022 Office Visit Radiation Oncology Adriana De La Rosa v, MD [address] [place] [address] [place] [address] (Wo rk) 01/23/2022 Scheduled View Only Radiation Oncology 01/26/2022 Office Visit Tanvir Vivas MD [facility] HEMATOLOGY/[place] [address] Arlene Hill APRN [facility] [place] [address] 01/26/2022 Infusion Hematology and Oncology 01/26/2022 Scheduled View Only Radiation Oncology 01/27/2022 Scheduled View Only Radiation Oncology 01/28/2022 Scheduled View Only Radiation Oncology 01/29/2022 Scheduled View Only Radiation Oncology 01/29/2022 Office Visit Radiation Oncology Adriana De La Rosa v, MD [address] [place] [address] RAD[place]ATION [place], [place] [id number] (Wo rk) 01/30/2022 Scheduled View Only Radiation Oncology 02/02/2022 Office Visit Hematology and Arlene Bobby, Oncology [facility] HEMATOLOGY AND ONCOLOGY [place], [place] [address] (Wo rk) 02/02/2022 Infusion Hematology and Oncology 02/02/2022 Scheduled View Only Radiation Oncology 02/03/2022 Scheduled View Only Radiation Oncology 02/04/2022 Scheduled View Only Radiation Oncology 02/05/2022 Scheduled View Only Radiation Oncology 02/05/2022 Office Visit Radiation Oncology Adriana De La Rosa v, MD [address] [place] [address] [address] [place], [place] [id number] (Wo rk) 02/06/2022 Scheduled View Only Radiation Oncology 02/09/2022 Office Visit Hematology and Arlene Bobby, Oncology [facility] HEMATOLOGY AND ONCOLOGY [place], [place] [address] (Wo rk) 02/09/2022 Infusion Hematology and Oncology 02/09/2022 Scheduled View Only Radiation Oncology 02/09/2022 Notes Only Radiation Oncology Adriana De La Rosa v, MD [address] [place] [address] [address] [place], [place] [id number] (Wo rk) 02/10/2022 Scheduled View Only Radiation Oncology Scheduled Referrals Name Type Priority Associated Order Schedule Diagnoses Referral to Outpatient Referral Routine Mass of upper lobe Or dered: Hematology and of left lung 11/27/2021 Oncology documented as of this encounter Results Pulmonary Function Testing (12/11/2021 [...] / FVC LLN 61 % COMPAS PFT ARY43-14 Actual 1.32 L/s COMPAS PFT Pre-BD [id number] Pre-BD 68 % COMPAS PFT % of Predicted [id number] 1.94 L/s COMPAS PFT Predicted SLI58-27 Pre-BD -0.78 COMPAS PFT Z-Score DLCO Hb [...] disease, anemia, or carboxyhemoglobinemia/heavy tobacco smok ing. Mattehw Chung MD PFT ORDERABLES Performing Organization Address City/State/ZIP Code Phon e Number COMPAS PFT documented in this encounter Visit Diagnoses Diagnosis Mass of upper lobe of left lung Mass of upper lobe of left lung documented in this encounter Care Teams Editorial Manager Relationship Specialty Start Date End Date Que Sharma DO PCP - General Family Medicine 02/08/20 [address] [place] [address] documented as of this encounter
--- OUTSIDE RECORDS SUMMARY | 2022-01-19 02:09 | XMS_ITS | Encounter Summary ---
:1945 Author Organization [facility] [place] [address] Care Team Providers Name Role Phone Que Sharma DO Primary Care Provider Encounter Details Date Type Department Care Team Description 11/17/2021 Telephone Pulmonology at [facility] Holley Banuelos [facility] [place] [address] Social History Tobacco Use Types Packs/Day [...] 01/19/2022 Office Visit Hematology Tanvir Hawk MD [facility] HEMATOLOGY/[place] [address] Oncology Arlene Bobby APRN [facility] [place] [address] 01/19/2022 Infusion Hematology and Oncology 01/19/2022 Scheduled View Only Radiation Oncology 01/20/2022 Scheduled View Only Radiation Oncology 01/21/2022 Scheduled View Only Radiation Oncology 01/22/2022 Scheduled View Only Radiation Oncology 01/22/2022 Office Visit Radiation Oncology Adriana De La Rosa v, MD [address] [place] [address] DR [address] [place], [place] [id number] (Wo rk) 01/23/2022 Scheduled View Only Radiation Oncology 01/26/2022 Office Visit Tanvir Vivas MD [facility] HEMATOLOGY/[place] [address] Arlene Hill PRODUCTION MANAGER [facility] [place] [address] 01/26/2022 Infusion Hematology and Oncology 01/26/2022 Scheduled View Only Radiation Oncology 01/27/2022 Scheduled View Only Radiation Oncology 01/28/2022 Scheduled View Only Radiation Oncology 01/29/2022 Scheduled View Only Radiation Oncology 01/29/2022 Office Visit Radiation Oncology Adriana De La Rosa v, MD [address] [place] [address] [address] [place] [address] (Wo rk) 01/30/2022 Scheduled View Only Radiation Oncology 02/02/2022 Office Visit Hematology Arlene Gordillo, Oncology [facility] HEMATOLOGY AND ONCOLOGY [place], [place] [address] (Wo rk) 02/02/2022 Infusion Hematology and Oncology 02/02/2022 Scheduled View Only Radiation Oncology 02/03/2022 Scheduled View Only Radiation Oncology 02/04/2022 Scheduled View Only Radiation Oncology 02/05/2022 Scheduled View Only Radiation Oncology 02/05/2022 Office Visit Radiation Oncology Adriana De La Rosa v, MD [address] [place] [address] [address] [place] [address] (Wo rk) 02/06/2022 Scheduled View Only Radiation Oncology 02/09/2022 Office Visit Hematology and Arlene Bobby, Oncology [facility] HEMATOLOGY AND ONCOLOGY [place], [place] [address] (Wo rk) 02/09/2022 Infusion Hematology and Oncology 02/09/2022 Scheduled View Only Radiation Oncology 02/09/2022 Notes Only Radiation Oncology Adriana De La Rosa v, MD [address] [place] [address] [address] [place] [address] (Wo rk) 02/10/2022 Scheduled View Only Radiation Oncology documented as of this encounter Visit Diagnoses Not on filedocumented in this encounter Care Teams Gastroenterologist Relationship Specialty Start Date End Date Que Sharma DO PCP - General Family Medicine 02/08/20 [address] [place] [address] documented as of this encounter
--- OUTSIDE RECORDS SUMMARY | 2022-01-19 02:09 | XMS_ITS | Encounter Summary ---
:1945 Author Organization [facility] [place] [address] Care Team Providers Name Role Phone EdithQue zavaleta Grey VITAL Primary Care Provider Encounter Details Date Type Department Care Team Description 11/28/2021 Orders Only Thoracic Surgery at [facility] Kajal Vidales, RN [facility] [place] [address] Social History Tobacco Use Types Packs/Day [...] 01/19/2022 Office Visit Hematology Tanvir Hawk MD [facility] HEMATOLOGY/[place] [address] Arlene Hill APRN [facility] [place] [address] 01/19/2022 Infusion Hematology and Oncology 01/19/2022 Scheduled View Only Radiation Oncology 01/20/2022 Scheduled View Only Radiation Oncology 01/21/2022 Scheduled View Only Radiation Oncology 01/22/2022 Scheduled View Only Radiation Oncology 01/22/2022 Office Visit Radiation Oncology Adriana De La Rosa v, MD [address] [place] [address] [address] [place], [place] [id number] (Wo rk) 01/23/2022 Scheduled View Only Radiation Oncology 01/26/2022 Office Visit Tanvir Vivas MD [facility] HEMATOLOGY/[place] [address] Arlene Hill APRN [facility] [place] [address] 01/26/2022 Infusion Hematology and Oncology 01/26/2022 Scheduled View Only Radiation Oncology 01/27/2022 Scheduled View Only Radiation Oncology 01/28/2022 Scheduled View Only Radiation Oncology 01/29/2022 Scheduled View Only Radiation Oncology 01/29/2022 Office Visit Radiation Oncology Adriana De La Rosa v, MD [address] [place] [address] [address] [place] [address] (Wo rk) 01/30/2022 Scheduled View Only Radiation Oncology 02/02/2022 Office Visit Hematology and Arlene Bobby, Oncology [facility] HEMATOLOGY AND ONCOLOGY [place], [place] [address] (Wo rk) 02/02/2022 Infusion Hematology and Oncology 02/02/2022 Scheduled View Only Radiation Oncology 02/03/2022 Scheduled View Only Radiation Oncology 02/04/2022 Scheduled View Only Radiation Oncology 02/05/2022 Scheduled View Only Radiation Oncology 02/05/2022 Office Visit Radiation Oncology Adriana De La Rosa v, MD [address] [place] [address] [address] [place] [address] (Wo rk) 02/06/2022 Scheduled View Only Radiation Oncology 02/09/2022 Office Visit Hematology and Arlene Bobby, Oncology [facility] HEMATOLOGY AND ONCOLOGY [place], [place] [address] (Wo rk) 02/09/2022 Infusion Hematology and Oncology 02/09/2022 Scheduled View Only Radiation Oncology 02/09/2022 Notes Only Radiation Oncology Adriana De La Rosa v, MD [address] [place] [address] [address] [place] [address] (Wo rk) 02/10/2022 Scheduled View Only Radiation Oncology documented as of this encounter Visit Diagnoses Not on filedocumented in this encounter Care Teams Packing Shed Supervisor Relationship Specialty Start Date End Date Que Sharma DO PCP - General Family Medicine 02/08/20 [address] [place] [address] documented as of this encounter
--- OUTSIDE RECORDS SUMMARY | 2022-01-19 02:09 | XMS_ITS | Encounter Summary ---
:1945 Author Organization [facility] Address [address] [facility] [address] [place] [address] Care Team Providers Name Role Phone Que Sharma DO Primary Care Provider Encounter Details Date Type Department Care Team Description 10/20/2021 Ancillary Procedure Radiology Library at Ramon Sharma, [facility] DO [address] [address] [place] [address] [phone] Social History Tobacco Use Types Packs/Day Years [...] MD [facility] HEMATOLOGY/[place] [address] Arlene Hill APRN [facility] [place] [address] 01/19/2022 Infusion Hematology and Oncology 01/19/2022 Scheduled View Only Radiation Oncology 01/20/2022 Scheduled View Only Radiation Oncology 01/21/2022 Scheduled View Only Radiation Oncology 01/22/2022 Scheduled View Only Radiation Oncology 01/22/2022 Office Visit Radiation Oncology Adriana De La Rosa v, MD [address] [place] [address] [place] [address] (Wo rk) 01/23/2022 Scheduled View Only Radiation Oncology 01/26/2022 Office Visit Tanvir Vivas MD [facility] HEMATOLOGY/[place] [address] Oncology Arlene Bobby ENGINEERING LABORATORY TECHNICIAN [facility] [place] [address] 01/26/2022 Infusion Hematology and Oncology 01/26/2022 Scheduled View Only Radiation Oncology 01/27/2022 Scheduled View Only Radiation Oncology 01/28/2022 Scheduled View Only Radiation Oncology 01/29/2022 Scheduled View Only Radiation Oncology 01/29/2022 Office Visit Radiation Oncology Adriana De La Rosa v, MD [address] [place] [address] DR CIPRIANO [place]AINT [place], [place] [id number] (Wo rk) 01/30/2022 Scheduled View Only Radiation Oncology 02/02/2022 Office Visit Hematology and Arlene Bobby, Oncology [facility] HEMATOLOGY AND ONCOLOGY [place], [place] [address] (Wo rk) 02/02/2022 Infusion Hematology and Oncology 02/02/2022 Scheduled View Only Radiation Oncology 02/03/2022 Scheduled View Only Radiation Oncology 02/04/2022 Scheduled View Only Radiation Oncology 02/05/2022 Scheduled View Only Radiation Oncology 02/05/2022 Office Visit Radiation Oncology Adriana De La Rosa v, MD [address] [place] [address] DR CIPRIANO [place], [place] [address] (Wo rk) 02/06/2022 Scheduled View Only Radiation Oncology 02/09/2022 Office Visit Hematology and Arlene Bobby, Oncology [facility] HEMATOLOGY AND ONCOLOGY [place], [place] [address] (Wo rk) 02/09/2022 Infusion Hematology and Oncology 02/09/2022 Scheduled View Only Radiation Oncology 02/09/2022 Notes Only Radiation Oncology Adriana De La Rosa v, MD [address] [place] [address] DR CIPRIANO TOUSSAINT [place], [place] [address] (Wo rk) 02/10/2022 Scheduled View Only Radiation Oncology documented as of this encounter Procedures Procedure Name Priority Date/Time Associated Diagnosis Comme nts FILM LIBRARY Routine 10/20/2021 12:00 AM Results for this STORAGE ONLY NM EDT procedure ar e in PET/CT the results section. documented in this encounter Results Film Library- Storage Only NM Pet / CT (10/20/2021 12:00 AM EDT) Specimen (Source) Anatomical Location Collection Method / Collectio n Time Received Time / Laterality Volume Narrative DH RAD - 11/22/2021 12:11 AM EDT This exam is auto-finalizing. It's purpo se is for storage only. Que Sharma DO IM FILM LIBRARY ORDERABLES Performing Organization Address City/State/ZIP Code Phon e Number [place], [place] documented in this encounter Visit Diagnoses Not on filedocumented in this encounter Care Teams Senior Data Mining Analyst Relationship Specialty Start Date End Date Que Sharma, PCP - General Family Medicine 02/08/20 [address] [place] [address] documented as of this encounter
--- OUTSIDE RECORDS SUMMARY | 2022-01-19 02:09 | XMS_ITS | Encounter Summary ---
:1945 Author Organization [facility] [place] [address] Care Team Providers Name Role Phone Que Sharma DO Primary Care Provider Encounter Details Date Type Department Care Team Description 11/27/2021 Clinical Support Tobacco Treatment Gabrielle Samaniego igarette smoker; at [facility] Other tobacco product nicoti ne dependence[place] [id number] Social History Tobacco Use Types Packs/Day Years [...] documented as of this encounter Progress Notes Gabrielle Samaniego - 11/27/2021 2:30 PM EDT Mr. Ortega stated he is not interested in quitting. I explained the benefits of quitting to avoid exposure to CO, thermal damage and toxic chemicals in tobacco. Mr. Ortega stated that after 60 years of smoking and never quitting that he doesn't see the willingness to quit in his future. His CO level was 20 ppm. He stated he smokes little cigars. (about 6 or so) I gave him the brochure and explained the 4 D's should he want to practice stopping smoking for a day. He has my card if he wants to call. documented in this encounter Plan of Treatment Upcoming Encounters Date Type Specialty Care Team Description 01/19/2022 Office Visit Hematology and Tanvir Issa MD [facility] DR HEMATOLOGY/[place] [address] Oncology Arlene Bobby APRN [facility] [place] [address] 01/19/2022 Infusion Hematology and Oncology 01/19/2022 Scheduled View Only Radiation Oncology 01/20/2022 Scheduled View Only Radiation Oncology 01/21/2022 Scheduled View Only Radiation Oncology 01/22/2022 Scheduled View Only Radiation Oncology 01/22/2022 Office Visit Radiation Oncology Adriana De La Rosa v, MD [address] [place] [address] [place] [address] (Wo rk) 01/23/2022 Scheduled View Only Radiation Oncology 01/26/2022 Office Visit Hematology and Tanvir Issa MD [facility] DR HEMATOLOGY/[place] [address] Oncology Arlene Bobby [facility] [place] [address] 01/26/2022 Infusion Hematology and Oncology 01/26/2022 Scheduled View Only Radiation Oncology 01/27/2022 Scheduled View Only Radiation Oncology 01/28/2022 Scheduled View Only Radiation Oncology 01/29/2022 Scheduled View Only Radiation Oncology 01/29/2022 Office Visit Radiation Oncology Adriana De La Rosa v, MD [address] [place] [address] DR [place]CM[place], [place] [phone] (Wo rk) 01/30/2022 Scheduled View Only Radiation Oncology 02/02/2022 Office Visit Hematology and Arlene Bobby, Oncology [facility] HEMATOLOGY AND ONCOLOGY [place], [place] [address] (Wo rk) 02/02/2022 Infusion Hematology and Oncology 02/02/2022 Scheduled View Only Radiation Oncology 02/03/2022 Scheduled View Only Radiation Oncology 02/04/2022 Scheduled View Only Radiation Oncology 02/05/2022 Scheduled View Only Radiation Oncology 02/05/2022 Office Visit Radiation Oncology Adriana De La Rosa v, MD [address] [place] [address] DR [place], [place] [address] (Wo rk) 02/06/2022 Scheduled View Only Radiation Oncology 02/09/2022 Office Visit Hematology and Arlene Bobby, Oncology [facility] HEMATOLOGY AND ONCOLOGY [place], [place] [address] (Wo rk) 02/09/2022 Infusion Hematology and Oncology 02/09/2022 Scheduled View Only Radiation Oncology 02/09/2022 Notes Only Radiation Oncology Adriana De La Rosa v, MD [address] [place] [address] [place] [address] (Wo rk) 02/10/2022 Scheduled View Only Radiation Oncology documented as of this encounter Visit Diagnoses Diagnosis Cigarette smoker Tobacco use disorder Other tobacco product nicotine dependenc e, uncomplicated documented in this encounter Care Teams Results Engineer Relationship Specialty Start Date End Date Que Sharma DO PCP - General Family Medicine 02/08/20 [address] [place] [address] documented as of this encounter
--- OUTSIDE RECORDS SUMMARY | 2022-01-19 02:09 | XMS_ITS | Encounter Summary ---
:1945 Author Organization [facility] Address [address] [place] [address] Care Team Providers Name Role Phone Que Sharma DO Primary Care Provider Encounter Details Date Type Department Care Team Description 08/21/2021 Ancillary Procedure Radiology Library at Ramon Sharma, [facility] [place] [address] [address] [place] [address] [phone] Social History Tobacco Use Types Packs/Day Years [...] place to sleep or slept in a [place] care facility (including now)? Sex Assigned at Date Recorded Not on file documented as of this encounter Plan of Treatment Upcoming Encounters Date Type Specialty Care Team Description 01/19/2022 Office Visit Hematology Tanvir Hawk MD [facility] HEMATOLOGY/[place] [address] Arlene Hill APRN [facility] [place] [address] 01/19/2022 Infusion Hematology and Oncology 01/19/2022 Scheduled View Only Radiation Oncology 01/20/2022 Scheduled View Only Radiation Oncology 01/21/2022 Scheduled View Only Radiation Oncology 01/22/2022 Scheduled View Only Radiation Oncology 01/22/2022 Office Visit Radiation Oncology Adriana De La Rosa v, MD [address] [place] [address] [place] [address] (Wo rk) 01/23/2022 Scheduled View Only Radiation Oncology 01/26/2022 Office Visit Tanvir Vivas MD [facility] HEMATOLOGY/[place] [address] Oncology Arlene Bobby INNOVATION MANAGER [facility] [place] [address] 01/26/2022 Infusion Hematology and Oncology 01/26/2022 Scheduled View Only Radiation Oncology 01/27/2022 Scheduled View Only Radiation Oncology 01/28/2022 Scheduled View Only Radiation Oncology 01/29/2022 Scheduled View Only Radiation Oncology 01/29/2022 Office Visit Radiation Oncology Adriana De La Rosa v, MD [address] [place] [address] DR CIPRIANO [place], [place] [address] (Wo rk) 01/30/2022 Scheduled View Only Radiation Oncology 02/02/2022 Office Visit Hematology and Arlene Bobby, Oncology [facility] HEMATOLOGY AND ONCOLOGY [place], [place] [address] (Wo rk) 02/02/2022 Infusion Hematology and Oncology 02/02/2022 Scheduled View Only Radiation Oncology 02/03/2022 Scheduled View Only Radiation Oncology 02/04/2022 Scheduled View Only Radiation Oncology 02/05/2022 Scheduled View Only Radiation Oncology 02/05/2022 Office Visit Radiation Oncology Adriana De La Rosa v, MD [address] [place] [address] DR CIPRIANO [place], [place] [address] (Wo rk) 02/06/2022 Scheduled View Only Radiation Oncology 02/09/2022 Office Visit Hematology and Arlene Bobby, Oncology [facility] HEMATOLOGY AND ONCOLOGY [place], [place] [address] (Wo rk) 02/09/2022 Infusion Hematology and Oncology 02/09/2022 Scheduled View Only Radiation Oncology 02/09/2022 Notes Only Radiation Oncology Adriana De La Rosa v, MD [address] [place] [address] DR CIPRIANO [place], [place] [phone] (Wo rk) 02/10/2022 Scheduled View Only Radiation Oncology documented as of this encounter Procedures Procedure Name Priority Date/Time Associated Diagnosis Comme nts FILM LIBRARY Routine 08/21/2021 12:05 AM Results for this STORAGE ONLY DX EST procedure ar e in CHEST the results section. documented in this encounter Results Film Library- Storage Only DX Chest (08/21/2021 12:05 AM EST) Specimen (Source) Anatomical Location Collection Method / Collectio n Time Received Time / Laterality Volume Narrative DH RAD - 11/22/2021 12:17 AM EDT This exam is auto-finalizing. It's purpo se is for storage only. Que Sharma DO [facility] FILM LIBRARY ORDERABLES Performing Organization Address City/State/ZIP Code Phon e Number [place], [place] documented in this encounter Visit Diagnoses Not on filedocumented in this encounter Care Teams Salvationist Relationship Specialty Start Date End Date Que Sharma, PCP - General Family Medicine 02/08/20 [address] [place] [address] documented as of this encounter
--- OUTSIDE RECORDS SUMMARY | 2022-01-19 02:09 | XMS_ITS | Encounter Summary ---
:1945 Author Organization [facility] Address [address] [place] [address] Care Team Providers Name Role Phone Que Sharma DO Primary Care Provider Encounter Details Date Type Department Care Team Description 09/22/2021 Ancillary Procedure Radiology Library at Ramon Sharma, [facility] DO [address] [address] [place] [address] [phone] Social History Tobacco Use Types Packs/Day Years [...] place to sleep or slept in a skilled nursing (including now)? Sex Assigned at Date Recorded Not on file documented as of this encounter Plan of Treatment Upcoming Encounters Date Type Specialty Care Team Description 01/19/2022 Office Visit Hematology Tanvir Hawk MD [facility] HEMATOLOGY/[place] [address] Arlene Hill APRN [facility] [place] [address] 01/19/2022 Infusion Hematology and Oncology 01/19/2022 Scheduled View Only Radiation Oncology 01/20/2022 Scheduled View Only Radiation Oncology 01/21/2022 Scheduled View Only Radiation Oncology 01/22/2022 Scheduled View Only Radiation Oncology 01/22/2022 Office Visit Radiation Oncology Adriana De La Rosa v, MD [address] [place] [address] [place] [address] (Wo rk) 01/23/2022 Scheduled View Only Radiation Oncology 01/26/2022 Office Visit Tanvir Vivas MD [facility] HEMATOLOGY/[place] [address] Oncology Arlene Bobby RED HAT ENGINEER [facility] [place] [address] 01/26/2022 Infusion Hematology and Oncology 01/26/2022 Scheduled View Only Radiation Oncology 01/27/2022 Scheduled View Only Radiation Oncology 01/28/2022 Scheduled View Only Radiation Oncology 01/29/2022 Scheduled View Only Radiation Oncology 01/29/2022 Office Visit Radiation Oncology Adriana De La Rosa v, MD [address] [place] [address] DR CIPRIANO [place], [place] [address] (Wo rk) 01/30/2022 Scheduled View Only Radiation Oncology 02/02/2022 Office Visit Hematology and Arlene Bobby, Oncology [facility] HEMATOLOGY AND ONCOLOGY [place], [place] [address] (Wo rk) 02/02/2022 Infusion Hematology and Oncology 02/02/2022 Scheduled View Only Radiation Oncology 02/03/2022 Scheduled View Only Radiation Oncology 02/04/2022 Scheduled View Only Radiation Oncology 02/05/2022 Scheduled View Only Radiation Oncology 02/05/2022 Office Visit Radiation Oncology Adriana De La Rosa v, MD [address] [place] [address] DR CIPRIANO T[place]SSA[place], [place] [address] (Wo rk) 02/06/2022 Scheduled View Only Radiation Oncology 02/09/2022 Office Visit Hematology and Arlene Bobby, Oncology [facility] HEMATOLOGY AND ONCOLOGY [place], [place] [address] (Wo rk) 02/09/2022 Infusion Hematology and Oncology 02/09/2022 Scheduled View Only Radiation Oncology 02/09/2022 Notes Only Radiation Oncology Adriana De La Rosa v, MD [address] [place] [address] DR CIPRIANO [place]AINT [place], [place] [address] (Wo rk) 02/10/2022 Scheduled View Only Radiation Oncology documented as of this encounter Procedures Procedure Name Priority Date/Time Associated Diagnosis Comme nts FILM LIBRARY Routine 09/22/2021 12:00 AM Results for this STORAGE ONLY CT EDT procedure ar e in CHEST the results section. documented in this encounter Results Film Library- Storage Only CT Chest (09/22/2021 12:00 AM EDT) Specimen (Source) Anatomical Location Collection Method / Collectio n Time Received Time / Laterality Volume Narrative DH RAD - 11/22/2021 12:15 AM EDT This exam is auto-finalizing. It's purpo se is for storage only. Que Sharma DO [facility] FILM LIBRARY ORDERABLES Performing Organization Address City/State/ZIP Code Phon e Number [place], [place] documented in this encounter Visit Diagnoses Not on filedocumented in this encounter Care Teams Cross Cut Sawyer Relationship Specialty Start Date End Date Que Sharma, PCP - General Family Medicine 02/08/20 [address] [place] [address] documented as of this encounter
--- OUTSIDE RECORDS SUMMARY | 2022-01-19 02:09 | XMS_ITS | Encounter Summary ---
:1945 Author Organization [facility] [place] [address] Care Team Providers Name Role Phone Que Sharma DO Primary Care Provider Encounter Details Date Type Department Care Team Description 11/20/2021 Telephone Pulmonology at [facility] Holley Banuelos [facility] [place] [address] Social History Tobacco Use Types Packs/Day [...] 01/19/2022 Office Visit Hematology Tanvir Hawk MD [facility] HEMATOLOGY/[place] [address] Oncology Arlene Bobby APRN [facility] [place] [address] 01/19/2022 Infusion Hematology and Oncology 01/19/2022 Scheduled View Only Radiation Oncology 01/20/2022 Scheduled View Only Radiation Oncology 01/21/2022 Scheduled View Only Radiation Oncology 01/22/2022 Scheduled View Only Radiation Oncology 01/22/2022 Office Visit Radiation Oncology Adriana De La Rosa v, MD [address] [place] [address] DR CIPRI[address] [place], [place] [id number] (Wo rk) 01/23/2022 Scheduled View Only Radiation Oncology 01/26/2022 Office Visit Tanvir Vivas MD [facility] HEMATOLOGY/[place] [address] Arlene Hill MBA INTERN [facility] [place] [address] 01/26/2022 Infusion Hematology and Oncology 01/26/2022 Scheduled View Only Radiation Oncology 01/27/2022 Scheduled View Only Radiation Oncology 01/28/2022 Scheduled View Only Radiation Oncology 01/29/2022 Scheduled View Only Radiation Oncology 01/29/2022 Office Visit Radiation Oncology Adriana De La Rosa v, MD [address] [place] [address] [place] [address] (Wo rk) 01/30/2022 Scheduled View Only Radiation Oncology 02/02/2022 Office Visit Hematology Arlene Gordillo, Oncology [facility] HEMATOLOGY AND ONCOLOGY [place], [place] [address] (Wo rk) 02/02/2022 Infusion Hematology and Oncology 02/02/2022 Scheduled View Only Radiation Oncology 02/03/2022 Scheduled View Only Radiation Oncology 02/04/2022 Scheduled View Only Radiation Oncology 02/05/2022 Scheduled View Only Radiation Oncology 02/05/2022 Office Visit Radiation Oncology Adriana De La Rosa v, MD [address] [place] [address] [place] [address] (Wo rk) 02/06/2022 Scheduled View Only Radiation Oncology 02/09/2022 Office Visit Hematology and Arlene Bobby, Oncology [facility] HEMATOLOGY AND ONCOLOGY [place], [place] [address] (Wo rk) 02/09/2022 Infusion Hematology and Oncology 02/09/2022 Scheduled View Only Radiation Oncology 02/09/2022 Notes Only Radiation Oncology Adriana De La Rosa v, MD [address] [place] [address] [place] [address] (Wo rk) 02/10/2022 Scheduled View Only Radiation Oncology documented as of this encounter Visit Diagnoses Not on filedocumented in this encounter Care Teams Director Of Acquisitions Relationship Specialty Start Date End Date Que Sharma DO PCP - General Family Medicine 02/08/20 [address] [place] [address] documented as of this encounter
--- OUTSIDE RECORDS SUMMARY | 2022-01-19 02:09 | XMS_ITS | Encounter Summary ---
:1945 Author Organization [facility] [place] [address] Care Team Providers Name Role Phone Que Sharma DO Primary Care Provider Encounter Details Date Type Department Care Team Description 11/27/2021 [facility] [place] [address] Social History Tobacco Use Types Packs/Day [...] Description 01/19/2022 Office Visit Hematology and Tanvir Issa, MD [facility] HEMATOLOGY/[place] [address] Oncology Arlene Bobby ENTRY LEVEL MANUFACTURING ENGINEER [facility] HEMATOLOGY [place] [address] 01/19/2022 Infusion Hematology and Oncology 01/19/2022 Scheduled View Only Radiation Oncology 01/20/2022 Scheduled View Only Radiation Oncology 01/21/2022 Scheduled View Only Radiation Oncology 01/22/2022 Scheduled View Only Radiation Oncology 01/22/2022 Office Visit Radiation Oncology Adriana De La Rosa v, MD [address] [place] [address] RADIATION ONCMILO [place], [place] [address]99 (Wo rk) 01/23/2022 Scheduled View Only Radiation Oncology 01/26/2022 Office Visit Hematology and Tanvir Issa MD [facility] HEMATOLOGY/[place] [address] Oncology Arlene Bobby [facility] HEMATOLOGY [place] [address] 01/26/2022 Infusion Hematology and Oncology 01/26/2022 Scheduled View Only Radiation Oncology 01/27/2022 Scheduled View Only Radiation Oncology 01/28/2022 Scheduled View Only Radiation Oncology 01/29/2022 Scheduled View Only Radiation Oncology 01/29/2022 Office Visit Radiation Oncology Adriana De La Rosa v, MD [address] [place] [address] DR COTA ONCMILO [place], [place] [id number] (Wo rk) 01/30/2022 Scheduled View Only Radiation Oncology 02/02/2022 Office Visit Hematology Arlene Gordillo, Oncology [facility] HEMATOLOGY AND ONCOLOGY [place], [place] [address] (Wo rk) 02/02/2022 Infusion Hematology and Oncology 02/02/2022 Scheduled View Only Radiation Oncology 02/03/2022 Scheduled View Only Radiation Oncology 02/04/2022 Scheduled View Only Radiation Oncology 02/05/2022 Scheduled View Only Radiation Oncology 02/05/2022 Office Visit Radiation Oncology Adriana De La Rosa v, MD [address] [place] [address] DR [place] [address] (Wo rk) 02/06/2022 Scheduled View Only Radiation Oncology 02/09/2022 Office Visit Hematology and Arlene Bobby, Oncology [facility] DR HEMATOLOGY AND ONCOLOGY [place] [address] (Wo rk) 02/09/2022 Infusion Hematology and Oncology 02/09/2022 Scheduled View Only Radiation Oncology 02/09/2022 Notes Only Radiation Oncology Adriana De La Rosa v, MD [address] [place] [address] DR CIPRIANO TOUSSAINT [place], [place] [phone] (Wo rk) 02/10/2022 Scheduled View Only Radiation Oncology documented as of this encounter Procedures Procedure Name Priority Date/Time Associated Diagnosis Comme nts NON-SUPERVISOR FINE GRADING FINAL Routine 11/27/2021 11:21 AM Results for this REPORT EDT procedure are i n the results section. documented in this encounter Results Non-Long Term Care Administrator Final Report (11/27/2021 11:21 AM EDT) Component Value Ref Test Analysis Performed At [facility] Range Method Time Signature Non-Long Term Care Administrator Final [id number] ? Location: [facility] The signing pathologist has (i) examined the relevant preparation(s) for the MEMORIAL specimen(s) and (ii) rendered or confirmed the diagnosis(es) . HOSPITAL LABORATORY . ? No n-Long Term Care Administrator Final DIAGNOSIS See Discussion Electronically signed by: ?Anastasia MCLEOD, Tripp Fragoso Verified: ??12/05/2021 14:15 ??Cytopathologist Performed at: ??-[facility] Dept. of Pathology, [facility], [place], [place] DISCUSSION Lung: left upper lobe washing - A few atypical epithelial cells and a cluster of atypi peter squamoid cells are seen; cannot exclude neopla teressa/malignancy. See also the subsequent lung biopsies, [id number]. (Only a single cell block slide was received for our review. ) CLINICAL INFORMATION CONSULTATION CASE Lung: left upper lobe washing Clinical History: ?Left upper lobe mass . Received 1 slide(s) labeled [id number] Received 0 block(s). Specimen collection date: ? 10/03/2021. For the full text of the [facility] report(s), please refer to [facility] Tracking #: ? [id number] . Report to: [facility] Department of Pathology [address] [place] [address] [phone] Specimen (Source) Anatomical Collection Method Collection Time Re ceived Time Location / / Volume Laterality 11/27/2021 11:21 AM EDT Matthew Chung MD PATHOLOGY/CYTOLOGY ORDERABLE S Performing Organization Address City/State/[place] [address] documented in this encounter Visit Diagnoses Not on filedocumented in this encounter Care Teams Denture Contour Wire Specialist Relationship Specialty Start Date End Date Que Sharma DO PCP - General Family Medicine 02/08/20 [address] [place] [address] documented as of this encounter
--- OUTSIDE RECORDS SUMMARY | 2022-01-19 02:09 | XMS_ITS | Encounter Summary ---
:1945 Author Organization [facility] [place] [address] Care Team Providers Name Role Phone Que Sharma DO Primary Care Provider Reason for Visit Reason Onset Date Comments Follow-up 09/17/2020 Tobacco Treatment Encounter Details Date Type Department Care Team Description 09/17/2020 Telephone Vascular Surgery at Valentin Myles [facility] A, RN Treatment) [place] [address] Social History Tobacco Use Types Packs/Day [...] encounter Miscellaneous Notes Telephone Encounter - Valentin Myles RN - 09/17/2020 3:53 PM EDT DATE: 09/17/2020 NAME: Don Ortega : 1945 Reason for Call: 6-month follow-up for Tobacco Treatment [place] Valentin Myles, MSN, RN-, [facility] Tobacco Career Technical Counselor [facility] Pager #[phone] documented in this encounter Plan of Treatment Upcoming Encounters Date Type Specialty Care Team Description 01/19/2022 Office Visit Hematology and Tanvir sIsa MD [facility] DR HEMATOLOGY/[place] [address] Oncology Arlene Bobby APRN [facility] [place] [address] 01/19/2022 Infusion Hematology and Oncology 01/19/2022 Scheduled View Only Radiation Oncology 01/20/2022 Scheduled View Only Radiation Oncology 01/21/2022 Scheduled View Only Radiation Oncology 01/22/2022 Scheduled View Only Radiation Oncology 01/22/2022 Office Visit Radiation Oncology Adriana De La Rosa v, MD [address] [place] [address] [place] [address] (Wo rk) 01/23/2022 Scheduled View Only Radiation Oncology 01/26/2022 Office Visit Hematology and Tanvir Issa MD [facility] DR HEMATOLOGY/[place] [address] Oncology Arlene Bobby [facility] [place] [address] 01/26/2022 Infusion Hematology and Oncology 01/26/2022 Scheduled View Only Radiation Oncology 01/27/2022 Scheduled View Only Radiation Oncology 01/28/2022 Scheduled View Only Radiation Oncology 01/29/2022 Scheduled View Only Radiation Oncology 01/29/2022 Office Visit Radiation Oncology Adriana De La Rosa v, MD [address] [place] [address] [place] [address] (Wo rk) 01/30/2022 Scheduled View Only Radiation Oncology 02/02/2022 Office Visit Hematology and Arlene Bobby, Oncology [facility] HEMATOLOGY AND ONCOLOGY [place], [place] [address] (Wo rk) 02/02/2022 Infusion Hematology and Oncology 02/02/2022 Scheduled View Only Radiation Oncology 02/03/2022 Scheduled View Only Radiation Oncology 02/04/2022 Scheduled View Only Radiation Oncology 02/05/2022 Scheduled View Only Radiation Oncology 02/05/2022 Office Visit Radiation Oncology Adriana De La Rosa v, MD [address] [place] [address] [place] [address] (Wo rk) 02/06/2022 Scheduled View Only Radiation Oncology 02/09/2022 Office Visit Hematology and Arlene Bobby, Oncology [facility] HEMATOLOGY AND ONCOLOGY [place], [place] [address] (Wo rk) 02/09/2022 Infusion Hematology and Oncology 02/09/2022 Scheduled View Only Radiation Oncology 02/09/2022 Notes Only Radiation Oncology Adriana De La Rosa v, MD [address] [place] [address] [place] [address] (Wo rk) 02/10/2022 Scheduled View Only Radiation Oncology documented as of this encounter Visit Diagnoses Not on filedocumented in this encounter Care Teams Yoghurt Maker Relationship Specialty Start Date End Date Que Sharma DO PCP - General Family Medicine 02/08/20 [address] [place] [address] documented as of this encounter
--- OUTSIDE RECORDS SUMMARY | 2022-01-19 02:09 | XMS_ITS | Encounter Summary ---
:1945 [place] [address] Care Team Providers Name Role Phone Que Sharma DO Primary Care Provider Encounter Details Date Type Department Care Team Description 04/05/2020 Tech Visit Vascular Lab at [facility], Tasia Porter, Bi lateral carotid [facility] [place] [address] Social History Tobacco Use Types Packs/Day [...] 01/19/2022 Office Visit Hematology Tanvir Hawk MD [facility] HEMATOLOGY/[place] [address] Arlene Hill CLAY MINER [facility] [place] [address] 01/19/2022 Infusion Hematology and Oncology 01/19/2022 Scheduled View Only Radiation Oncology 01/20/2022 Scheduled View Only Radiation Oncology 01/21/2022 Scheduled View Only Radiation Oncology 01/22/2022 Scheduled View Only Radiation Oncology 01/22/2022 Office Visit Radiation Oncology Adriana De La Rosa v, MD [address] [place] [address] [place] [address] (Wo rk) 01/23/2022 Scheduled View Only Radiation Oncology 01/26/2022 Office Visit Tanvir Vivas MD [facility] HEMATOLOGY/[place] [address] Arlene Hill [employer] [facility] [place] [address] 01/26/2022 Infusion Hematology and Oncology 01/26/2022 Scheduled View Only Radiation Oncology 01/27/2022 Scheduled View Only Radiation Oncology 01/28/2022 Scheduled View Only Radiation Oncology 01/29/2022 Scheduled View Only Radiation Oncology 01/29/2022 Office Visit Radiation Oncology Adriana De La Rosa v, MD [address] [place] [address] DR [place] [place], [place] [address] (Wo rk) 01/30/2022 Scheduled View Only Radiation Oncology 02/02/2022 Office Visit Hematology and Arlene Bobby, Oncology [facility] HEMATOLOGY AND ONCOLOGY [place], [place] [address] (Wo rk) 02/02/2022 Infusion Hematology and Oncology 02/02/2022 Scheduled View Only Radiation Oncology 02/03/2022 Scheduled View Only Radiation Oncology 02/04/2022 Scheduled View Only Radiation Oncology 02/05/2022 Scheduled View Only Radiation Oncology 02/05/2022 Office Visit Radiation Oncology Adriana De La Rosa v, MD [address] [place] [address] RADIATION [place]CMILO [place], [place] [address] (Wo rk) 02/06/2022 Scheduled View Only Radiation Oncology 02/09/2022 Office Visit Hematology and Arlene Bobby, Oncology [facility] HEMATOLOGY AND ONCOLOGY [place], [place] [address] (Wo rk) 02/09/2022 Infusion Hematology and Oncology 02/09/2022 Scheduled View Only Radiation Oncology 02/09/2022 Notes Only Radiation Oncology Adriana De La Rosa v, MD [address] [place] [address] RADIATION [place]CMILO [place], [place] [id number] (Wo rk) 02/10/2022 Scheduled View Only Radiation Oncology documented as of this encounter Procedures Procedure Name Priority Date/Time Associated Diagnosis Comme nts CAROTID DUPLEX, Routine 04/05/2020 9:51 AM Bilateral carotid R esults for this BILATERAL EDT artery stenosis procedure ar e in the results section. documented in this encounter Results Carotid Duplex, Bilateral (04/05/2020 9:51 AM EDT) Component Value Ref Test Analysis Performed At [facility] Range Method Time Signature VB Text Department: Vascular Surgery Lab [facility]AS[facility] Report Patient: [id number] (LAURYN THOMAS) CPT: 54342 ICD10: I65.23 Referring Physician: ALEE SANDERS ?? Phone: Indications: ??Bilateral ICA stenosis, 1 month post-op R CEA follow-up. Bilateral duplex requested. ICD10 Diagnosis Code: I65.23 Findings: ICA Proximal, Right ? PSV (cm/s): 95 ? EDV (cm/s): 30 ? ICA/CCA: 0.9 ? %Stenosis: <15% ICA Distal, Right ? PSV (cm/s): 98 ? EDV (cm/s): 35 ? ICA/CCA: 1.0 CCA Distal, Right ? PSV (cm/s): 101 ? EDV (cm/s): 30 ? %Stenosis: <50% CCA Proximal, Right ? PSV (cm/s): 89 ? EDV (cm/s): 17 External Carotid Artery, Right ? PSV (cm/s): 99 ? EDV (cm/s): 7 ? %Stenosis: Minimal Vertebral, Right ? PSV (cm/s): 63 ? EDV (cm/s): 19 ? Direction of Flow: Antegrade ICA Proximal, Left ? PSV (cm/s): 304 ? EDV (cm/s): 85 ? ICA/CCA: 3.6 ? Plaque Structure: Echogenic ? Plaque Surface: Irregular ? %Stenosis: 50-69% ICA Distal, Left ? PSV (cm/s): 113 ? EDV (cm/s): 36 ? ICA/CCA: 1.3 CCA Distal, Left ? PSV (cm/s): 84 ? EDV (cm/s): 20 ? %Stenosis: Minimal CCA Proximal, Left ? PSV (cm/s): 115 ? EDV (cm/s): 19 External Carotid Artery, Left ? PSV (cm/s): 188 ? EDV (cm/s): 21 ? %Stenosis: <50% Vertebral, Left ? PSV (cm/s): 11 ? EDV (cm/s): 5 ? Direction of Flow: Notched Interpretation: RIGHT: Irregular plaque is present in th e distal common carotid artery near/at the inferior margin of the CEA along the posterior wall causing <50% stenosis. Widely patent carotid bifurcation and pr oximal internal carotid artery with no evidence of residual stenosis or plaque s/p CEA. Significant improvement from pre-op exam. The bifurcation level is in the mid neck. LEFT: There is bulky irregular plaque in the carotid bifurca tion extending through the proximal internal carotid artery causing 50-69% stenosis when compared to the more distal internal carotid artery. No identifiable change from previous exam. The bifurcation level is in the mid neck. Vertebral Artery Data: Patent RIGHT vertebral artery with no rmal antegrade Doppler waveforms and velocities. There is very minimal fl ow with a notched Doppler waveform identified in the LEFT vertebral artery as seen on recent previous exam. Previous Carotid Studies: Date ?RIGHT ICA St enosis ??PSV ?? Ratio ?? LEFT ICA Stenosis ?? PSV ?? Ratio ? 70-99% ? 432 ?? 6.40 ? 50-69% ? 280 ?? 2.80 ? <15% ? 66 ?1.00 ? n/a ?n/a ?? n/a Current Exam ? <15% ? 95 ?1.00 ? 50-69% ? 304 ?? 3.60 Electronically Signed by: GAUDENCIO RICHARDSON on 2020-04-05 11:16: 53 AM VB Text End of Report VASCUBASE Report Specimen (Source) Anatomical Collection Method Collection Time Re ceived Time Location / / Volume Laterality 04/05/2020 9:51 AM EDT Alee Sanders MD VASCULAR ORDERABLES Performing Organization Address City/State/ZIP Code Phon e Number [facility] documented in this encounter Visit Diagnoses Diagnosis Bilateral carotid artery stenosis Occlusion and stenosis of multiple and b ilateral precerebral arteries without mention of cerebral infarction documented in this encounter Care Teams Snaker Tractor Driver Relationship Specialty Start Date End Date Que Sharma DO PCP - General Family Medicine 02/08/20 [address] [place] [address] documented as of this encounter
--- OUTSIDE RECORDS SUMMARY | 2022-01-19 02:09 | XMS_ITS | Encounter Summary ---
:1945 Author Organization [facility] Address [address] [place] [address] Care Team Providers Name Role Phone Que Sharma DO Primary Care Provider Encounter Details Date Type Department Care Team Description 08/21/2021 Ancillary Procedure Radiology Library at Ramon Sharma, [facility] DO [address] [address] [place] [address] [phone] Social History Tobacco Use Types Packs/Day Years [...] 01/19/2022 Office Visit Hematology Tanvir Hawk MD [facility] HEMATOLOGY/[place] [address] Arlene Hill APRN [facility] HEMATOLOGY [place] [address] 01/19/2022 Infusion Hematology and Oncology 01/19/2022 Scheduled View Only Radiation Oncology 01/20/2022 Scheduled View Only Radiation Oncology 01/21/2022 Scheduled View Only Radiation Oncology 01/22/2022 Scheduled View Only Radiation Oncology 01/22/2022 Office Visit Radiation Oncology Adriana De La Rosa v, MD [address] [place] [address] [place] [address] (Wo rk) 01/23/2022 Scheduled View Only Radiation Oncology 01/26/2022 Office Visit Tanvir Vivas MD [facility] HEMATOLOGY/[place] [address] Oncology Arlene Bobby CANDLEMAKER [facility] HEMATOLOGY [place] [address] 01/26/2022 Infusion Hematology and Oncology 01/26/2022 Scheduled View Only Radiation Oncology 01/27/2022 Scheduled View Only Radiation Oncology 01/28/2022 Scheduled View Only Radiation Oncology 01/29/2022 Scheduled View Only Radiation Oncology 01/29/2022 Office Visit Radiation Oncology Adriana De La Rosa v, MD [address] [place] [address] DR CIPRIANO T[place]SSA[place], [place] [address] (Wo rk) 01/30/2022 Scheduled View Only Radiation Oncology 02/02/2022 Office Visit Hematology and Arlene Bobby, Oncology [facility] HEMATOLOGY AND ONCOLOGY [place], [place] [address] (Wo rk) 02/02/2022 Infusion Hematology and Oncology 02/02/2022 Scheduled View Only Radiation Oncology 02/03/2022 Scheduled View Only Radiation Oncology 02/04/2022 Scheduled View Only Radiation Oncology 02/05/2022 Scheduled View Only Radiation Oncology 02/05/2022 Office Visit Radiation Oncology Adriana De La Rosa v, MD [address] [place] [address] DR CIPRIANO T[place] [place], [place] [address] (Wo rk) 02/06/2022 Scheduled View Only Radiation Oncology 02/09/2022 Office Visit Hematology and Arlene Bobby, Oncology [facility] HEMATOLOGY AND ONCOLOGY [place], [place] [address] (Wo rk) 02/09/2022 Infusion Hematology and Oncology 02/09/2022 Scheduled View Only Radiation Oncology 02/09/2022 Notes Only Radiation Oncology Adriana De La Rosa v, MD [address] [place] [address] DR CIPRIANO TOUSSA[address] [place], [place] [address] (Wo rk) 02/10/2022 Scheduled View Only Radiation Oncology documented as of this encounter Procedures Procedure Name Priority Date/Time Associated Diagnosis Comme nts FILM LIBRARY Routine 08/21/2021 12:00 AM Results for this STORAGE ONLY DX EST procedure ar e in CHEST the results section. documented in this encounter Results Film Library- Storage Only DX Chest (08/21/2021 12:00 AM EST) Specimen (Source) Anatomical Location Collection Method / Collectio n Time Received Time / Laterality Volume Narrative DH RAD - 11/22/2021 12:16 AM EDT This exam is auto-finalizing. It's purpo se is for storage only. Que Sharma DO [facility] FILM LIBRARY ORDERABLES Performing Organization Address City/State/ZIP Code Phon e Number [place], [place] documented in this encounter Visit Diagnoses Not on filedocumented in this encounter Care Teams Green Belt Relationship Specialty Start Date End Date Que Sharma, PCP - General Family Medicine 02/08/20 [address] [place] [address] documented as of this encounter
--- OUTSIDE RECORDS SUMMARY | 2022-01-19 02:09 | XMS_ITS | Encounter Summary ---
:1945 Author Organization [facility] [place] [address] Care Team Providers Name Role Phone Que Sharma DO Primary Care Provider Reason for Referral Diagnostic Test (Routine) - Authorized Specialty Diagnoses / Procedures Referred By Contact Refer red To Contact Diagnoses Bilateral carotid artery stenosis History of CEA (carotid endarterectomy) Alee Sanders MD [facility] Vascular Lab 3v Procedures Carotid Duplex, Bilateral [facility] [place] [address] [place] [address] Referral ID Status Reason Start Expiration Visits Visits Date Date Requested Authorized [id number] Authorized Specialty 11/24/2021 11/24/2022 1 1 Service Requested Encounter Details Date Type Department Care Team Description 11/21/2021 Orders Only Vascular Surgery at Ya Castellano ateral carotid artery stenosis; [facility] QUITA Mccann History of CEA (carotid end[place]terectomy) [place] [address] Social History Tobacco Use Types Packs/Day [...] Office Visit Hematology and Tanvir Issa MD [facility] DR HEMATOLOGY/[place] [address] Oncology Arlene Bobby APRN [facility] [place] [address] 01/19/2022 Infusion Hematology and Oncology 01/19/2022 Scheduled View Only Radiation Oncology 01/20/2022 Scheduled View Only Radiation Oncology 01/21/2022 Scheduled View Only Radiation Oncology 01/22/2022 Scheduled View Only Radiation Oncology 01/22/2022 Office Visit Radiation Oncology Adriana De La Rosa v, MD [address] [place] [address] [place] [address] (Wo rk) 01/23/2022 Scheduled View Only Radiation Oncology 01/26/2022 Office Visit Hematology and Tanvir Issa MD [facility] DR HEMATOLOGY/[place] [address] Oncology Arlene Bobby [facility] [place] [address] 01/26/2022 Infusion Hematology and Oncology 01/26/2022 Scheduled View Only Radiation Oncology 01/27/2022 Scheduled View Only Radiation Oncology 01/28/2022 Scheduled View Only Radiation Oncology 01/29/2022 Scheduled View Only Radiation Oncology 01/29/2022 Office Visit Radiation Oncology Adriana De La Rosa v, MD [address] [place] [address] DR [place], [place] [address] (Wo rk) 01/30/2022 Scheduled View Only Radiation Oncology 02/02/2022 Office Visit Hematology and Arlene Bobby, Oncology [facility] HEMATOLOGY AND ONCOLOGY [place], [place] [address] (Wo rk) 02/02/2022 Infusion Hematology and Oncology 02/02/2022 Scheduled View Only Radiation Oncology 02/03/2022 Scheduled View Only Radiation Oncology 02/04/2022 Scheduled View Only Radiation Oncology 02/05/2022 Scheduled View Only Radiation Oncology 02/05/2022 Office Visit Radiation Oncology Adriana De La Rosa v, MD [address] [place] [address] DR [place], [place] [address] (Wo rk) 02/06/2022 Scheduled View Only Radiation Oncology 02/09/2022 Office Visit Hematology and Arlene Bobby, Oncology [facility] HEMATOLOGY AND ONCOLOGY [place], [place] [address] (Wo rk) 02/09/2022 Infusion Hematology and Oncology 02/09/2022 Scheduled View Only Radiation Oncology 02/09/2022 Notes Only Radiation Oncology Adriana De La Rosa v, MD [address] [place] [address] [place] [address] (Wo rk) 02/10/2022 Scheduled View Only Radiation Oncology documented as of this encounter Visit Diagnoses Diagnosis Bilateral carotid artery stenosis Occlusion and stenosis of multiple and b ilateral precerebral arteries without mention of cerebral infarction History of CEA (carotid endarterectomy) Other postprocedural status documented in this encounter Care Teams Purchasing/Receiving Relationship Specialty Start Date End Date Que Sharma DO PCP - General Family Medicine 02/08/20 [address] [place] [address] documented as of this encounter
--- OUTSIDE RECORDS SUMMARY | 2022-01-19 02:09 | XMS_ITS | Encounter Summary ---
:1945 Author Organization [facility] Address [address] [place] [address] Care Team Providers Name Role Phone Que Sharma DO Primary Care Provider Encounter Details Date Type Department Care Team Description 11/12/2021 Ancillary Procedure Radiology Library at [facility]on Sharma, [facility] [place] [address] [address] [place] [address] [phone] Social History Tobacco Use Types Packs/Day Years [...] Tanvir Hawk MD [facility] HEMATOLOGY/[place] [address] Arlene Hill APRN [facility] [place] [address] 01/19/2022 Infusion Hematology and Oncology 01/19/2022 Scheduled View Only Radiation Oncology 01/20/2022 Scheduled View Only Radiation Oncology 01/21/2022 Scheduled View Only Radiation Oncology 01/22/2022 Scheduled View Only Radiation Oncology 01/22/2022 Office Visit Radiation Oncology Adriana De La Rosa v, MD [address] [place] [address] [place] [address] (Wo rk) 01/23/2022 Scheduled View Only Radiation Oncology 01/26/2022 Office Visit Tanvir Vivas MD [facility] HEMATOLOGY/[place] [address] Oncology Arlene Bobby RN FLIGHT [facility] [place] [address] 01/26/2022 Infusion Hematology and Oncology 01/26/2022 Scheduled View Only Radiation Oncology 01/27/2022 Scheduled View Only Radiation Oncology 01/28/2022 Scheduled View Only Radiation Oncology 01/29/2022 Scheduled View Only Radiation Oncology 01/29/2022 Office Visit Radiation Oncology Adriana De La Rosa v, MD [address] [place] [address] DR [place]RI[address] [place], [place] [address]39 (Wo rk) 01/30/2022 Scheduled View Only Radiation Oncology 02/02/2022 Office Visit Hematology and Arlene Bobby, Oncology [facility] HEMATOLOGY AND ONCOLOGY [place], [place] [address] (Wo rk) 02/02/2022 Infusion Hematology and Oncology 02/02/2022 Scheduled View Only Radiation Oncology 02/03/2022 Scheduled View Only Radiation Oncology 02/04/2022 Scheduled View Only Radiation Oncology 02/05/2022 Scheduled View Only Radiation Oncology 02/05/2022 Office Visit Radiation Oncology Adriana De La Rosa v, MD [address] [place] [address] DR [address]RI[address]O [place], [place] [address]349 (Wo rk) 02/06/2022 Scheduled View Only Radiation Oncology 02/09/2022 Office Visit Hematology and Arlene Bobby, Oncology [facility] HEMATOLOGY AND ONCOLOGY [place], [place] [address] (Wo rk) 02/09/2022 Infusion Hematology and Oncology 02/09/2022 Scheduled View Only Radiation Oncology 02/09/2022 Notes Only Radiation Oncology Adriana De La Rosa v, MD [address] [place] [address] DR [address]O [place], [place] [address]77669 (Wo rk) 02/10/2022 Scheduled View Only Radiation Oncology documented as of this encounter Procedures Procedure Name Priority Date/Time Associated Diagnosis Comme nts FILM LIBRARY Routine 11/12/2021 12:00 AM Results for this STORAGE ONLY MR EDT procedure ar e in HEAD the results section. documented in this encounter Results Film Library- Storage Only MR Head (11/12/2021 12:00 AM EDT) Specimen (Source) Anatomical Location Collection Method / Collectio n Time Received Time / Laterality Volume Narrative DH RAD - 11/28/2021 5:05 AM EDT This exam is auto-finalizing. It's purpo se is for storage only. Que Sharma DO [facility]M LIBRARY ORDERABLES Performing Organization Address City/State/ZIP Code Phon e Number [place], [place] documented in this encounter Visit Diagnoses Not on filedocumented in this encounter Care Teams Cocoa Mill Operator Relationship Specialty Start Date End Date Que Sharma, PCP - General Family Medicine 02/08/20 [address] [place] [address] documented as of this encounter
--- OUTSIDE RECORDS SUMMARY | 2022-01-19 02:09 | XMS_ITS | Encounter Summary ---
:1945 Author Organization [facility] [place] [address] Care Team Providers Name Role Phone Que Sharma DO Primary Care Provider Encounter Details Date Type Department Care Team Description 11/07/2020 Telephone Vascular Surgery at [facility] Gisela Van [facility] [place] [address] Social History Tobacco Use Types Packs/Day [...] place to sleep or slept in a fpc (including now)? Sex Assigned at Date Recorded Not on file documented as of this encounter Miscellaneous Notes Telephone Encounter - Gisela Van - 11/07/2020 12:25 PM EDT [id number] to schedule appointment from recall documented in this encounter Plan of Treatment Upcoming Encounters Date Type Specialty Care Team Description 01/19/2022 Office Visit Hematology Tanvir Hawk MD [facility] HEMATOLOGY/[place] [address] Oncology Arlene Bobby APRN [facility] [place] [address] 01/19/2022 Infusion Hematology and Oncology 01/19/2022 Scheduled View Only Radiation Oncology 01/20/2022 Scheduled View Only Radiation Oncology 01/21/2022 Scheduled View Only Radiation Oncology 01/22/2022 Scheduled View Only Radiation Oncology 01/22/2022 Office Visit Radiation Oncology Adriana De La Rosa v, MD [address] [place] [address] RADIATION [place]CM[place], [place] 665369 (Wo rk) 01/23/2022 Scheduled View Only Radiation Oncology 01/26/2022 Office Visit Tanvir Vivas MD [facility] HEMATOLOGY/[place] [address] Oncology Arlene Bobby APRN [facility] [place] [address] 01/26/2022 Infusion Hematology and Oncology 01/26/2022 Scheduled View Only Radiation Oncology 01/27/2022 Scheduled View Only Radiation Oncology 01/28/2022 Scheduled View Only Radiation Oncology 01/29/2022 Scheduled View Only Radiation Oncology 01/29/2022 Office Visit Radiation Oncology Adriana De La Rosa v, MD [address] [place] [address] DR [address]O [place], [place] [address] (Wo rk) 01/30/2022 Scheduled View Only Radiation Oncology 02/02/2022 Office Visit Hematology and Arlene Bobby, Oncology [facility] HEMATOLOGY AND ONCOLOGY [place], [place] [address] (Wo rk) 02/02/2022 Infusion Hematology and Oncology 02/02/2022 Scheduled View Only Radiation Oncology 02/03/2022 Scheduled View Only Radiation Oncology 02/04/2022 Scheduled View Only Radiation Oncology 02/05/2022 Scheduled View Only Radiation Oncology 02/05/2022 Office Visit Radiation Oncology Adriana De La Rosa v, MD [address] [place] [address] DR [address] [place], [place] [address] (Wo rk) 02/06/2022 Scheduled View Only Radiation Oncology 02/09/2022 Office Visit Hematology and Arlene Bobby, Oncology [facility] HEMATOLOGY AND ONCOLOGY [place], [place] [address] (Wo rk) 02/09/2022 Infusion Hematology and Oncology 02/09/2022 Scheduled View Only Radiation Oncology 02/09/2022 Notes Only Radiation Oncology Adriana De La Rosa v, MD [address] [place] [address] DR [address] [place], [place] [id number] (Wo rk) 02/10/2022 Scheduled View Only Radiation Oncology documented as of this encounter Visit Diagnoses Not on filedocumented in this encounter Care Teams Electronics Specialist Relationship Specialty Start Date End Date Que Sharma DO PCP - General Family Medicine 02/08/[address] [place] [address] documented as of this encounter
--- OUTSIDE RECORDS SUMMARY | 2022-01-19 02:09 | XMS_ITS | Encounter Summary ---
:1945 Author Organization [facility] [place] [address] Care Team Providers Name Role Phone Que Sharma DO Primary Care Provider Reason for Referral Consultation (Routine) - Closed Specialty Diagnoses / Procedures Referred By Contact Refer red To Contact Pulmonology Diagnoses Malignant neoplasm of upper lobe bronchus, left Que Sharma DO [facility] [address] [place] [address] [place] [address] Fax: Referral ID Status Reason Start Date Expiration Date Visits V isits Requested Authorized [id number] Closed Consult, Test 11/14/2021 11/14/2022 10 10 & Treat PCP Updated and/or Approved Encounter Details Date Type Department Care Team Description 11/14/2021 Transcribe Orders eDH Incoming Que Sharma neoplasm Referrals DO Grey of upper lobe [phone] [address] [facility] bronchus, l eft [place] [id number] Social History Tobacco Use Types Packs/Day Years [...] place to sleep or slept in a fdc (including now)? Sex Assigned at Date Recorded Not on file documented as of this encounter Plan of Treatment Upcoming Encounters Date Type Specialty Care Team Description 01/19/2022 Office Visit Hematology and Tanvir Issa MD [facility] DR HEMATOLOGY/[place] [address] Oncology Arlene Bobby APRN [facility] HEMATOLOGY [place] [address] 01/19/2022 Infusion Hematology and Oncology 01/19/2022 Scheduled View Only Radiation Oncology 01/20/2022 Scheduled View Only Radiation Oncology 01/21/2022 Scheduled View Only Radiation Oncology 01/22/2022 Scheduled View Only Radiation Oncology 01/22/2022 Office Visit Radiation Oncology Adriana De La Rosa v, MD [address] [place] [address] [place] [address] (Wo rk) 01/23/2022 Scheduled View Only Radiation Oncology 01/26/2022 Office Visit Hematology and Tanvir Issa MD [facility] DR HEMATOLOGY/[place] [address] Oncology Arlene Bobby [facility] HEMATOLOGY [place] [address] 01/26/2022 Infusion Hematology and Oncology 01/26/2022 Scheduled View Only Radiation Oncology 01/27/2022 Scheduled View Only Radiation Oncology 01/28/2022 Scheduled View Only Radiation Oncology 01/29/2022 Scheduled View Only Radiation Oncology 01/29/2022 Office Visit Radiation Oncology Adriana De La Rosa v, MD [address] [place] [address] DR [address], [place] [id number] (Wo rk) 01/30/2022 Scheduled View Only Radiation Oncology 02/02/2022 Office Visit Hematology and Arlene Bobby, Oncology [facility] HEMATOLOGY AND ONCOLOGY [place], [place] [address] (Wo rk) 02/02/2022 Infusion Hematology and Oncology 02/02/2022 Scheduled View Only Radiation Oncology 02/03/2022 Scheduled View Only Radiation Oncology 02/04/2022 Scheduled View Only Radiation Oncology 02/05/2022 Scheduled View Only Radiation Oncology 02/05/2022 Office Visit Radiation Oncology Adriana De La Rosa v, MD [address] [place] [address] DR [address]RI[address]O [place], [place] 511249 (Wo rk) 02/06/2022 Scheduled View Only Radiation Oncology 02/09/2022 Office Visit Hematology and Arlene Bobby, Oncology [facility] HEMATOLOGY AND ONCOLOGY [place], [place] [address] (Wo rk) 02/09/2022 Infusion Hematology and Oncology 02/09/2022 Scheduled View Only Radiation Oncology 02/09/2022 Notes Only Radiation Oncology Adriana De La Rosa v, MD [address] [place] [address] [place] [address] (Wo rk) 02/10/2022 Scheduled View Only Radiation Oncology Scheduled Referrals Name Type Priority Associated Order Schedule Diagnoses Referral to Outpatient Referral Routine Malignant neoplasm Or dered: Pulmonology of upper lobe 11/14/2021 bronchus, left documented as of this encounter Visit Diagnoses Diagnosis Malignant neoplasm of upper lobe bronchu s, left documented in this encounter Care Teams Head Cashier Relationship Specialty Start Date End Date Que Sharma DO PCP - General Family Medicine 02/08/20 [address] [place] [address] documented as of this encounter
--- OUTSIDE RECORDS SUMMARY | 2022-01-19 02:10 | XMS_ITS | Encounter Summary ---
:1945 Author Organization [facility] [place] [address] Care Team Providers Name Role Phone EdithQue DO Primary Care Provider Encounter Details Date Type Department Care Team Description 02/22/2020 Telephone Vascular Surgery at [facility] [place] Gisela Smith [facility] [place] [address] Social History Tobacco Use Types Packs/Day [...] encounter Miscellaneous Notes Telephone Encounter - Gisela Smith - 02/22/2020 9:39 AM EDT I spoke with Viktor. We have him scheduled on 03/19/[address] Sanders. He will be going to [place] on 03/04/20 for blood work, EKG and Stress test. He knows he will get a call the day prior with arrival time and he is aware someone will contact himto schedule Covid testing. Telephone Encounter - Gisela Smith - 02/22/2020 8:56 AM EDT 2nd message left for call back to schedule procedure with Dr. Sanders. documented in this encounter Plan of Treatment Upcoming Encounters Date Type Specialty Care Team Description 01/19/2022 Office Visit Hematology and Tanvir Issa MD [facility] HEMATOLOGY/[place] [address] Oncology Arlene Bobby APRN [facility] HEMATOLOGY [place] [address] 01/19/2022 Infusion Hematology and Oncology 01/19/2022 Scheduled View Only Radiation Oncology 01/20/2022 Scheduled View Only Radiation Oncology 01/21/2022 Scheduled View Only Radiation Oncology 01/22/2022 Scheduled View Only Radiation Oncology 01/22/2022 Office Visit Radiation Oncology Adriana De La Rosa v, MD [address] [place] [address] [place] [address] (Wo rk) 01/23/2022 Scheduled View Only Radiation Oncology 01/26/2022 Office Visit Hematology and Tanvir Issa MD [facility] DR HEMATOLOGY/[place] [address] Oncology Arlene Bobby [facility] HEMATOLOGY [place] [address] 01/26/2022 Infusion Hematology and Oncology 01/26/2022 Scheduled View Only Radiation Oncology 01/27/2022 Scheduled View Only Radiation Oncology 01/28/2022 Scheduled View Only Radiation Oncology 01/29/2022 Scheduled View Only Radiation Oncology 01/29/2022 Office Visit Radiation Oncology Adriana De La Rosa v, MD [address] [place] [address] DR [address] [place]CM[place], [place] [phone] (Wo rk) 01/30/2022 Scheduled View Only Radiation Oncology 02/02/2022 Office Visit Hematology and Arlene Bobby, Oncology [facility] HEMATOLOGY AND ONCOLOGY [place], [place] [address] (Wo rk) 02/02/2022 Infusion Hematology and Oncology 02/02/2022 Scheduled View Only Radiation Oncology 02/03/2022 Scheduled View Only Radiation Oncology 02/04/2022 Scheduled View Only Radiation Oncology 02/05/2022 Scheduled View Only Radiation Oncology 02/05/2022 Office Visit Radiation Oncology Adriana De La Rosa v, MD [address] [place] [address] DR [place] [place], [place] [address] (Wo rk) 02/06/2022 Scheduled View Only Radiation Oncology 02/09/2022 Office Visit Hematology and Arlene Bobby, Oncology [facility] HEMATOLOGY AND ONCOLOGY [place], [place] [address] (Wo rk) 02/09/2022 Infusion Hematology and Oncology 02/09/2022 Scheduled View Only Radiation Oncology 02/09/2022 Notes Only Radiation Oncology Adriana De La Rosa v, MD [address] [place] [address] [place] [address] (Wo rk) 02/10/2022 Scheduled View Only Radiation Oncology documented as of this encounter Visit Diagnoses Not on filedocumented in this encounter Care Teams Mental Measurements Teacher Relationship Specialty Start Date End Date Que Sharma DO PCP - General Family Medicine 02/08/20 [address] [place] [address] documented as of this encounter
--- OUTSIDE RECORDS SUMMARY | 2022-01-19 02:10 | XMS_ITS | Encounter Summary ---
:1945 [place] [address] Care Team Providers Name Role Phone Que Sharma DO Primary Care Provider Encounter Details Date Type Department Care Team Description 02/14/2020 Tech Visit Vascular Lab at [facility], [facility], Tasia Porter, Bi lateral carotid [facility] [place] [address] Social History Tobacco Use Types Packs/Day [...] 01/19/2022 Office Visit Hematology Tanvir Hawk MD [facility] HEMATOLOGY/[place] [address] Arlene Hill PIPELINE SYSTEMS OPERATOR [facility] [place] [address] 01/19/2022 Infusion Hematology and Oncology 01/19/2022 Scheduled View Only Radiation Oncology 01/20/2022 Scheduled View Only Radiation Oncology 01/21/2022 Scheduled View Only Radiation Oncology 01/22/2022 Scheduled View Only Radiation Oncology 01/22/2022 Office Visit Radiation Oncology Adriana De La Rosa v, MD [address] [place] [address] [address] [place] [address] (Wo rk) 01/23/2022 Scheduled View Only Radiation Oncology 01/26/2022 Office Visit Tanvir Vivas MD [facility] HEMATOLOGY/[place] [address] Arlene Hill PIPELINE SYSTEMS OPERATOR [facility] [place] [address] 01/26/2022 Infusion Hematology and Oncology 01/26/2022 Scheduled View Only Radiation Oncology 01/27/2022 Scheduled View Only Radiation Oncology 01/28/2022 Scheduled View Only Radiation Oncology 01/29/2022 Scheduled View Only Radiation Oncology 01/29/2022 Office Visit Radiation Oncology Adriana De La Rosa v, MD [address] [place] [address] DR [place] [place], [place] [address] (Wo rk) 01/30/2022 Scheduled View Only Radiation Oncology 02/02/2022 Office Visit Hematology and Arlene Bobby, Oncology [facility] HEMATOLOGY AND ONCOLOGY [place], [place] [address] (Wo rk) 02/02/2022 Infusion Hematology and Oncology 02/02/2022 Scheduled View Only Radiation Oncology 02/03/2022 Scheduled View Only Radiation Oncology 02/04/2022 Scheduled View Only Radiation Oncology 02/05/2022 Scheduled View Only Radiation Oncology 02/05/2022 Office Visit Radiation Oncology Adriana De La Rosa v, MD [address] [place] [address] DR [address]RI[address]O [place], [place] [address] (Wo rk) 02/06/2022 Scheduled View Only Radiation Oncology 02/09/2022 Office Visit Hematology and Arlene Bobby, Oncology [facility] HEMATOLOGY AND ONCOLOGY [place], [place] [address] (Wo rk) 02/09/2022 Infusion Hematology and Oncology 02/09/2022 Scheduled View Only Radiation Oncology 02/09/2022 Notes Only Radiation Oncology Adriana De La Rosa v, MD [address] [place] [address] DR CIPRIANO [place], [place] [id number] (Wo rk) 02/10/2022 Scheduled View Only Radiation Oncology documented as of this encounter Procedures Procedure Name Priority Date/Time Associated Diagnosis Comme nts CAROTID DUPLEX, Routine 02/14/2020 10:05 AM Bilateral carotid Results for this BILATERAL EDT artery stenosis procedure ar e in the results section. documented in this encounter Results Carotid Duplex, Bilateral (02/14/2020 10:05 AM EDT) Component Value Ref Test Analysis Performed At [facility] Range Method Time Signature VB Text Department: Vascular Surgery Lab [facility]AS[facility] Report Patient: [id number] (LAURYN THOMAS) CPT: 21946 ICD10: I65.23 Referring Physician: TIARRA SOLOMON APRN ?? Phone: Indications: ??Carotid stenosis by CT ICD10 Diagnosis Code: I65.23 Findings: ICA Proximal, Right ? PSV (cm/s): 432 ? EDV (cm/s): 136 ? ICA/CCA: 6.4 ? Plaque Structure: Echogenic ? Plaque Surface: Irregular ? %Stenosis: 70-99% ICA Distal, Right ? PSV (cm/s): 85 ? EDV (cm/s): 36 ? ICA/CCA: 1.3 CCA Distal, Right ? PSV (cm/s): 67 ? EDV (cm/s): 27 ? %Stenosis: <50% CCA Proximal, Right ? PSV (cm/s): 111 ? EDV (cm/s): 24 External Carotid Artery, Right ? PSV (cm/s): 342 ? EDV (cm/s): 82 ? %Stenosis: >50% Vertebral, Right ? PSV (cm/s): 69 ? EDV (cm/s): 25 ? Direction of Flow: Antegrade ICA Proximal, Left ? PSV (cm/s): 280 ? EDV (cm/s): 88 ? ICA/CCA: 2.8 ? Plaque Structure: Echogenic ? Plaque Surface: Irregular ? %Stenosis: 50-69% ICA Distal, Left ? PSV (cm/s): 113 ? EDV (cm/s): 45 ? ICA/CCA: 1.1 CCA Distal, Left ? PSV (cm/s): 101 ? EDV (cm/s): 27 ? %Stenosis: Minimal CCA Proximal, Left ? PSV (cm/s): 126 ? EDV (cm/s): 25 External Carotid Artery, Left ? PSV (cm/s): 170 ? EDV (cm/s): 23 ? %Stenosis: <50% Vertebral, Left ? Direction of Flow: Notched Interpretation: RIGHT: Irregular plaque is present in the very distal comm on carotid artery causing <50% stenosis. There is bulky irregular calcified plaque in the carotid bifurcation and proximal internal carotid artery causing 70-99% stenosis when compared to the more distal internal car otid artery and >50% ECA stenosis. The bifurcation level is in the mid neck. LEFT: There is bulky irregular plaque in the carotid bifurca tion extending through the proximal internal carotid artery causing 50-69% stenosis when compared to the more distal internal carotid artery. The bifurcation level is in the mid neck. Vertebral Artery Data: Patent vertebral arteries with normal antegrade Doppler waveforms on the RIGHT. Unable to identi fy flow by duplex in the more proximal LEFT vertebral artery and ve ry minimal flow with a notched Doppler waveform seen distally. Doppler derived brachial arter y systolic pressures: (R) 137 mmHg and (L) 137 mmHg. Comparison: ??No previous study in our vascular lab da tabase for comparison. Electronically Signed by: KEN KELLEY on 2020-02-14 11:05: 49 AM VB Text End of Report [facility] Report Specimen (Source) Anatomical Collection Method Collection Time Re ceived Time Location / / Volume Laterality 02/14/2020 10:05 AM EDT Tiarra Solomon APRN VASCULAR ORDERABLES Performing Organization Address City/State/ZIP Code Phon e Number [email or web address] documented in this encounter Visit Diagnoses Diagnosis Bilateral carotid artery stenosis Occlusion and stenosis of multiple and b ilateral precerebral arteries without mention of cerebral infarction documented in this encounter Care Teams Wharf Tally Clerk Relationship Specialty Start Date End Date Que Sharma DO PCP - General Family Medicine 02/08/20 [address] [place] [address] documented as of this encounter
--- OUTSIDE RECORDS SUMMARY | 2022-01-19 02:10 | XMS_ITS | Encounter Summary ---
:1945 Author Organization [facility] [place] [address] Care Team Providers Name Role Phone Que Sharma DO Primary Care Provider Encounter Details Date Type Department Care Team Description 02/19/2020 Telephone Vascular Surgery at [facility] Mary Ellen Edgar [facility] [place] [phone] Social History Tobacco Use Types Packs/Day [...] this encounter Miscellaneous Notes Telephone Encounter - Mary Ellen Edgar - 02/19/2020 9:18 AM EDT Left msg for patient to let him know that I have faxed orders to [facility] for hisEcho and EKG. documented in this encounter Plan of Treatment Upcoming Encounters Date Type Specialty Care Team Description 01/19/2022 Office Visit Hematology Tanvir Hawk MD [facility] HEMATOLOGY/[place] [address] Arlene Hill APRN [facility] [place] [address] 01/19/2022 Infusion Hematology and Oncology 01/19/2022 Scheduled View Only Radiation Oncology 01/20/2022 Scheduled View Only Radiation Oncology 01/21/2022 Scheduled View Only Radiation Oncology 01/22/2022 Scheduled View Only Radiation Oncology 01/22/2022 Office Visit Radiation Oncology Adriana De La Rosa v, MD [address] [place] [address] [place] [address] (Wo rk) 01/23/2022 Scheduled View Only Radiation Oncology 01/26/2022 Office Visit Tanvir Vivas MD [facility] HEMATOLOGY/[place] [address] Oncology Arlene Bobby APRN [facility] HEMATOLOGY [place] [address] 01/26/2022 Infusion Hematology and Oncology 01/26/2022 Scheduled View Only Radiation Oncology 01/27/2022 Scheduled View Only Radiation Oncology 01/28/2022 Scheduled View Only Radiation Oncology 01/29/2022 Scheduled View Only Radiation Oncology 01/29/2022 Office Visit Radiation Oncology Adriana De La Rosa v, MD [address] [place] [address] DR [address]O [place], [place] [id number] (Wo rk) 01/30/2022 Scheduled View Only Radiation Oncology 02/02/2022 Office Visit Hematology and Arlene Bobby, Oncology [facility] HEMATOLOGY AND ONCOLOGY [place], [place] [address] (Wo rk) 02/02/2022 Infusion Hematology and Oncology 02/02/2022 Scheduled View Only Radiation Oncology 02/03/2022 Scheduled View Only Radiation Oncology 02/04/2022 Scheduled View Only Radiation Oncology 02/05/2022 Scheduled View Only Radiation Oncology 02/05/2022 Office Visit Radiation Oncology Adriana De La Rosa v, MD [address] [place] [address] [address] [place], [place] [id number] (Wo rk) 02/06/2022 Scheduled View Only Radiation Oncology 02/09/2022 Office Visit Hematology and Arlene Bobby, Oncology [facility] HEMATOLOGY AND ONCOLOGY [place], [place] [address] (Wo rk) 02/09/2022 Infusion Hematology and Oncology 02/09/2022 Scheduled View Only Radiation Oncology 02/09/2022 Notes Only Radiation Oncology Adriana De La Rosa v, MD [address] [place] [address] DR [address]IPRIANO [place], [place] [id number] (Wo rk) 02/10/2022 Scheduled View Only Radiation Oncology documented as of this encounter Visit Diagnoses Not on filedocumented in this encounter Care Teams Cephalometric Tracer Relationship Specialty Start Date End Date Que Sharma DO PCP - General Family Medicine 02/08/20 [address] [place] [address] documented as of this encounter
--- OUTSIDE RECORDS SUMMARY | 2022-01-19 02:10 | XMS_ITS | Encounter Summary ---
:1945 Author Organization [facility] [place] [address] Care Team Providers Name Role Phone Que Sharma DO Primary Care Provider Reason for Visit Reason Comments Pre-op Exam Encounter Details Date Type Department Care Team Description 03/04/2020 [facility] Postp rocedural cardiac insufficiency following other surgery ; Single Event [facility] MD [place] Pre-op testing; [address] [facility] Bilateral carotid artery stenosis [address], [place] [address] [phone] Social History Tobacco Use Types Packs/Day Years [...] 01/19/2022 Office Visit Hematology Tanvir Hawk MD [facility] HEMATOLOGY/[place] [address] Oncology Arlene Bobby APRN [facility] [place] [address] 01/19/2022 Infusion Hematology and Oncology 01/19/2022 Scheduled View Only Radiation Oncology 01/20/2022 Scheduled View Only Radiation Oncology 01/21/2022 Scheduled View Only Radiation Oncology 01/22/2022 Scheduled View Only Radiation Oncology 01/22/2022 Office Visit Radiation Oncology Adriana De La Rosa v, MD [address] [place] [address] [place] [address] (Wo rk) 01/23/2022 Scheduled View Only Radiation Oncology 01/26/2022 Office Visit Tanvir Vivas MD [facility] HEMATOLOGY/[place] [address] Oncology Arlene Bobby APRN [facility] [place] [address] 01/26/2022 Infusion Hematology and Oncology 01/26/2022 Scheduled View Only Radiation Oncology 01/27/2022 Scheduled View Only Radiation Oncology 01/28/2022 Scheduled View Only Radiation Oncology 01/29/2022 Scheduled View Only Radiation Oncology 01/29/2022 Office Visit Radiation Oncology Adriana De La Rosa v, MD [address] [place] [address] [place] [address] (Wo rk) 01/30/2022 Scheduled View Only Radiation Oncology 02/02/2022 Office Visit Hematology and Arlene Bobby, Oncology [facility] HEMATOLOGY AND ONCOLOGY [place], [place] [address] (Wo rk) 02/02/2022 Infusion Hematology and Oncology 02/02/2022 Scheduled View Only Radiation Oncology 02/03/2022 Scheduled View Only Radiation Oncology 02/04/2022 Scheduled View Only Radiation Oncology 02/05/2022 Scheduled View Only Radiation Oncology 02/05/2022 Office Visit Radiation Oncology Adriana De La Rosa v, MD [address] [place] [address] [place] [address] (Wo rk) 02/06/2022 Scheduled View Only Radiation Oncology 02/09/2022 Office Visit Hematology and Arlene Bobby, Oncology [facility] HEMATOLOGY AND ONCOLOGY [place], [place] [address] (Wo rk) 02/09/2022 Infusion Hematology and Oncology 02/09/2022 Scheduled View Only Radiation Oncology 02/09/2022 Notes Only Radiation Oncology Adriana De La Rosa v, MD [address] [place] [address] DR [address]O [place], [place] [address] (Wo rk) 02/10/2022 Scheduled View Only Radiation Oncology documented as of this encounter Procedures Procedure Name Priority Date/Time Associated Diagnosis Comme nts STRESS TEST SCAN 03/04/2020 12:00 AM Resu lts for this EDT procedure are i n the results section. ECG SCAN 03/04/2020 12:00 AM Results for this EDT procedure are i n the results section. documented in this encounter Results SCAN DOC: STRESS TEST (03/04/2020 12:00 AM EDT) Narrative 03/04/2020 12:00 AM EDT This result has an attachment that is no t available. Ordered by an unspecified provider. Scanning Provider MEDIA MGR SCAN EXT ORDR/RSLT SCAN DOC: ECG (03/04/2020 12:00 AM EDT) Narrative 03/04/2020 12:00 AM EDT This result has an attachment that is no t available. Ordered by an unspecified provider. 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
--- OUTSIDE RECORDS SUMMARY | 2022-01-19 02:10 | XMS_ITS | Encounter Summary ---
:1945 Author Organization [facility] [address] Care Team Providers Name Role Phone Que Sharma DO Primary Care Provider Encounter Details Date Type Department Care Team Description 02/22/2020 Telephone Vascular Surgery at [facility] Kaitlin Saeed [facility] [place] [address] Social History Tobacco Use Types Packs/Day [...] encounter Miscellaneous Notes Telephone Encounter - Kaitlin Saeed - 02/22/2020 2:41 PM EDT Called [facility] regarding the Echo to be scheduled 03/04 as they were looking for a prior authorization. Informed them that patient has Medicare. Elle, the mold stacker believes this was an old message from their office and we can disregard it as patient is all set and scheduled. documented in this encounter Plan of Treatment Upcoming Encounters Date Type Specialty Care Team Description 01/19/2022 Office Visit Hematology and Tanvir Issa MD [facility] DR HEMATOLOGY/[place] [address] Oncology Arlene Bobby APRN [facility] [place] [address] 01/19/2022 Infusion Hematology and Oncology 01/19/2022 Scheduled View Only Radiation Oncology 01/20/2022 Scheduled View Only Radiation Oncology 01/21/2022 Scheduled View Only Radiation Oncology 01/22/2022 Scheduled View Only Radiation Oncology 01/22/2022 Office Visit Radiation Oncology Adriana De La Rosa v, MD [address] [place] [address] [place] [address] (Wo rk) 01/23/2022 Scheduled View Only Radiation Oncology 01/26/2022 Office Visit Tanvir Vivas MD [facility] HEMATOLOGY/[place] [address] Oncology Arlene Bobby [facility] [place] [address] 01/26/2022 Infusion Hematology and Oncology 01/26/2022 Scheduled View Only Radiation Oncology 01/27/2022 Scheduled View Only Radiation Oncology 01/28/2022 Scheduled View Only Radiation Oncology 01/29/2022 Scheduled View Only Radiation Oncology 01/29/2022 Office Visit Radiation Oncology Adriana De La Rosa v, MD [address] [place] [address] DR [address] [place] [place], [place] [address] (Wo rk) 01/30/2022 Scheduled View Only Radiation Oncology 02/02/2022 Office Visit Hematology and Arlene Bobby, Oncology [facility] HEMATOLOGY AND ONCOLOGY [place], [place] [address] (Wo rk) 02/02/2022 Infusion Hematology and Oncology 02/02/2022 Scheduled View Only Radiation Oncology 02/03/2022 Scheduled View Only Radiation Oncology 02/04/2022 Scheduled View Only Radiation Oncology 02/05/2022 Scheduled View Only Radiation Oncology 02/05/2022 Office Visit Radiation Oncology Adriana De La Rosa v, MD [address] [place] [address] [place] [address] (Wo rk) 02/06/2022 Scheduled View Only Radiation Oncology 02/09/2022 Office Visit Hematology and Arlene Bobby, Oncology [facility] HEMATOLOGY AND ONCOLOGY [place], [place] [address] (Wo rk) 02/09/2022 Infusion Hematology and Oncology 02/09/2022 Scheduled View Only Radiation Oncology 02/09/2022 Notes Only Radiation Oncology Adriana De La Rosa v, MD [address] [place] [address] [address] [place] [place], [place] [address] (Wo rk) 02/10/2022 Scheduled View Only Radiation Oncology documented as of this encounter Visit Diagnoses Not on filedocumented in this encounter Care Teams Sales Developer Relationship Specialty Start Date End Date Que Sharma DO PCP - General Family Medicine 02/08/20 [address] [place] [phone] documented as of this encounter
--- OUTSIDE RECORDS SUMMARY | 2022-01-19 02:10 | XMS_ITS | Encounter Summary ---
:1945 Author Organization [facility] Address [address] [place] [address] Care Team Providers Name Role Phone Que Sharma DO Primary Care Provider Reason for Visit Auth/Cert Specialty Diagnoses / Procedures Referred By Contact Refer red To Contact Diagnoses Bilateral carotid artery stenosis carotid stenosis . Procedures PRO THROMBOENDARTECTMY NECK, NECK INCIS @ENDARTERECTOMY, CAROTID, VERTEBRAL,SUBCLAVIAN W\WO PATCH GRAFT (WRVU 21.16) Referral ID Status Reason Start Date Expiration Date Visits Requ ested Visits Authorized [id number] 1 1 Encounter Details Date Type Department Care Team Description 03/19/2020 - Hospital Encounter 4 [place] Nat SandersAlee carotid artery stenosis; 03/20/2020 [facility] MD Siobhan Pre-op testing; [facility] Cigarette smoker; [facility] Bilateral carotid artery stenosis; [facility] VASCULAR SURGERY Pre-op testing; [place], [place] [id number] [phone] Social History Tobacco Use Types Packs/Day Years [...] Sign Reading Time Taken Comments Blood Pressure 126/57 03/20/2020 11:00 AM EDT Pulse 80 03/20/2020 11:00 AM EDT Temperature 36.7 ??C (98.1 ??F) 03/20/2020 11:00 AM EDT Respiratory Rate 17 03/20/2020 7:57 AM EDT Oxygen Saturation 97% 03/20/2020 11:00 AM EDT Inhaled Oxygen Concentration - - Weight 89.9 kg (198 lb 3.1 oz) 03/20/2020 4:12 AM EDT Height 172.7 cm (5' 8) 03/19/2020 10:33 AM EDT Body Mass Index 30.14 03/19/2020 10:33 AM EDT documented in this encounter Discharge Summaries Kaitlin Phipps APRN - 03/20/2020 11:31 AM EDT Inpatient - Discharge Summary Patient Name: Lauryn Ortega Patient Age: 74 y.o. Birthdate: 1945 Admit date: 03/19/2020 Discharge date and time: 03/20/2020 Attending Physician: Alee Sanders MD Discharging Provider: Kaitlin Phipps APRN Discharging Service: Vascular Surgery Operations/Major Procedures: 03/19/2020: Right CEA Active Hospital Problems: Active Hospital Problems Diagnosis ??? Bilateral carotid artery stenosis ??? Pre-op testing ??? Cigarette smoker Resolved Hospital Problems No resolved problems to display. Active Non Hospital Problems: There are no active non-hospital problems to display for this patient. History of Presentation: 74 year old male bilateral asymptomatic carotid stenosis. Discovered for bilateral bruit. No history of symptoms. PSH: Appendix >4 mets, active smoker, stress test negative Right PSV 432 EDV 136 ICA/CCA 6.4 CTA: 80% stenosis RIGHT internal carotid, 65% left, C4-5 Hospital Course: Pt admitted following the above procedure. Pt's recovery was uneventful. He was hemodynamically stable, required no PRN antihypertensives, denied headache. He remained neurologically CN 2-12 intact, no focal deficits. Incision was well approximated without drainage and minimal swelling. He ambulated independently, tolerated regular diet and was voiding adequate amounts. He is deemed medically stable and is cleared for discharge to home. He will return in 4 weeks with bilateral carotid duplex and follow up with surgeon. Day of discharge exam: BP 121/59 (BP Location (NBP): Right arm, Patient Position: Sitting) Pulse 68 Temp 36.6 ??C (97.9??F) (Oral) Resp 17 Ht 172.7 cm (5' 8) Wt 89.9 kg (198 lb 3.1 oz) SpO2 96% BMI 30.14 kg/m?? General: resting comfortably, no acute distress HEENT: normocephalic, atraumatic Neck: right neck incision c/d/i, soft, no appreciable masses CVS: regular rate Pulm: non-labored breathing on 2L NC Abd: soft, non tender, non distended Ext: warm and well perfused Neuro: CN II-XII grossly intact, no focal deficits, full strength in all extremities Important Studies and Lab Data: Labs: N/A Discharge Condition: Good Discharge to: Home Future Appointments and Orders Future Appointments and Orders Future Appointments Provider Department Dept Phone 04/05/2020 10:00 AM [place] [facility] [place] [facility] 04/05/2020 11:00 AM Kaitlin Phipps APRN V[place] [facility] [place] at: [facility] Future Orders Complete By Expires Carotid Duplex, Bilateral [VAS1 Custom] 04/18/2020 03/19/2021 Process Instructions: There is no in-house vascular slab depiler operator available on weeknights (5pm-8am), weekends, or holidays. IF THIS IS A REQUEST FOR AN EMERGENT STUDY DURING THOSE HOURS, please have the senior provider responsible for the patient page the Vascular Surgery Fellow/Senior Resident onsite case manager to discuss options. Scheduling Instructions: Questions: Indication for study/signs & symptoms: s/p R CEA with B car stenosis Question to be answered: patency Preferred [place] [facility] [place] Anticoagulation & Antiplatelet: Anticoagulation: N/A Antiplatelet: Agent: Aspirin 81mg PO daily Indication: ASCVD Intended Duration: Indefinitely For questions regarding these medications, please contact: PCP Discharge Medications: Your Medications Continued medications, unchanged Dose Details allopurinoL 100 mg Tab Commonly known as: Zyloprim Refills: 0 Aspir-Low 81 mg Tbec Daily. Generic drug: aspirin EC Refills: 0 benazepril-hydrochlorthiazide 20-12.5 mg Tab Commonly known as: LOTENSIN HCT Refills: 0 ergocalciferoL (vitamin D2) 50,000 unit Cap Commonly known as: vitamin D2 TAKE 1 CAPSULE BY MOUTH ONE TIME PER WEEK Refills: 0 ferrous sulfate 325 mg (65 mg iron) Tab ferrous sulfate 325 mg (65 mg iron) tablet 1 tablet by mouth daily Refills: 0 furosemide 40 mg Tab Commonly known as: Lasix TAKE 1 TABLET BY MOUTH TWICE A DAY Refills: 0 Lexapro 10 mg Tab Daily. Generic drug: escitalopram Refills: 0 omeprazole 20 mg Cpdr Commonly known as: PriLOSEC TAKE 1 CAPSULE BY MOUTH EVERY DAY Refills: 0 potassium chloride 10 mEq Cpsr Commonly known as: MICRO-K TAKE 1 CAPSULE BY MOUTH EVERY DAY WHEN TAKING FUROSEMIDE Refills: 0 pravastatin 10 mg Tab Commonly known as: Pravachol Daily. Refills: 0 tamsulosin 0.4 mg Cap Commonly known as: Flomax Refills: 0 Updated Allergies/ADRs: No Known Allergies Follow-up Recommendations for Providers: Patient will be seen in f/u in 4 weeks with bilateral carotid duplex. Please call with incisional separation, drainage, swelling or erythema Instructions Given to Patient at Discharge: Patient Instructions You were admitted to the hospital after having a right carotid endarterectomy. This operation went very well. Dr. Sanders will want you to be seen in approximately one month with a carotid ultrasound ofyour neck first. This will be scheduled and sent to you in the mail. If for some reason you don't receive this in a week, please call our office at the number below as your follow-up is very important. Please take your blood pressure twice daily and call us on Wednesday am [phone]. At that time we will tell you when you can resume your Lasix (water pill), Potassium and Lotensin ( blood pressure medication). Please hold these medications until you talk with us on Wednesday morning. Call your doctor if: Any change in vision, numbness or inability to move any extremity, inability tospeak and or a headache unresponsive to Tylenol. Activity level: up as tolerated but take it easy for a week or so. Diet: regular Driving: ok after a week if you feel perfect and you were driving before Shower/Bath: showering or bath is ok Wound Care: wash with soap and water, careful shaving as your neck may be a little numb. This will gradually disappear. You should see your Primary Care Physician within 1-2 weeks for a post hospital follow-up. For any problems or questions please call our office at [phone] For issues on weeknights after 5pm and weekends please call [phone] and ask for the Vascular Fellow onsite case manager. documented in this encounter Discharge Instructions Discharge InstructionsValentin Myles RN - 03/20/2020 12:45 PM EDT Congratulations for quitting smoking! Your quit date for quitting smoking is flexible; within the next 2-4 weeks ?? You have chosen to quit smoking using Nicotine patches daily and lozenges as needed. ?? Nicotine patch instructions: Use the 21 mg nicotine patches daily for 4 weeks then, Decrease to the 14 mg patches daily for 2 weeks then, Decrease to the 7 mg patches daily for 2 weeks. ?? If at any time when you decrease the dose you feel an increase in cravings to smoke you may go back to the higher dose for another 2 weeks and then try to decrease the dose again. Do not hesitate to call if you have questions about this or are struggling with cravings or withdrawal symptoms. Place the patch on your skin in an area that has a minimal amount of hair, typically between the neck and waist or upper arms. Avoid placing it over scars or tattoos. Change the place where you put it on your skin daily. Remove the patch each morning and replace with a new patch. Fold the patch in half, with the sticky sides in and dispose of it safely, keeping it out of reach of children or pets. Some patients experience nightmares or bad dreams on the patch. If this happens you should remove the patch at bedtime and just replace it each morning. ?? The nicotine patch releases a constant amount of nicotine in the body. The nicotine dissolves right through the skin and enters the body. Less nicotine is obtained through the patch than in cigarettes.The patch does NOT contain all the tars and poisonous gases that are found in cigarettes. ?? Side effects from wearing the patch can include: headaches, dizziness, upset stomach, weakness, blurred vision, vivid dreams, mild itching and burning on the skin, and diarrhea. ?? Wearing the nicotine patch decreases the chances of suffering from several of the major smoking withdrawal symptoms such as tenseness, irritability, drowsiness and lack of concentration. ?? The nicotine patch can be combined with other Nicotine Replacement Therapy products such as Nicotinegum or lozenges. Ask your healthcare provider about combination therapy to increase your chances of successfully quitting tobacco for good! ?? The US Food and Drug Administration has recently released a statement that there are no significant risks associated with the use of Nicotine Replacement Therapy products for longer than the labeled number of weeks of use. ?? If you are still having strong cravings to smoke or are struggling to quit completely while using the Nicotine patch talk with your healthcare provider for additional help. ?? References: Treating Tobacco Use and Dependence, Clinical Practice Guideline 2008 Update, U.S. Department of Health and Human Services, November 2007 Nicotine lozenge instructions: Use the 4 mg lozenges as soon as you wake up, 30 minutes before mealsand at bedtime at a minimum. ?? Nicotine lozenges must be used properly in order to be effective. Nicotine from the lozenge is absorbed through the mucous membranes in your mouth at a certain acidity or pH level. Therefore do not eator drink anything but water for 15 minutes prior to or during use. ?? Directions: Place the nicotine lozenge on the tongue or between the cheek and the jaw. Allow the lozenge to dissolve. Do not bite, chew or swallow whole or in pieces. Do not ???work?? the lozenge likea hard candy or you may create too much saliva and swallow this extra liquid which may upset your stomach. The most common side effects from Nicotine lozenges are nausea, hiccups and heartburn. This can be reduced by following the instructions for proper use. ?? Nicotine lozenges come in two strengths, 2 mg and 4 mg. You should use the 2 mg lozenge if you smokeyour first cigarette more than 30 minutes after waking. You should use the 4 mg lozenge if you smokeyour first cigarette less than 30 minutes after waking. You can use up to 20 lozenges a day. ?? Nicotine lozenges can be combined with Nicotine patches for increased chances of successfully quitting tobacco for good! ?? The US Food and Drug Administration has recently released a statement that there are no significant risks associated with the use of Nicotine Replacement Therapy products for longer than the labeled number of weeks of use. ?? References: Treating Tobacco Use and Dependence, Clinical Practice Guideline 2008 Update, U.S. Department of Health and Human Services, November 2007 Valentin Myles, MSN, RN-BC, NCTTP Tobacco Desktop Publishing Specialist [email or web address] Patient InstructionsToKaitlin sauer APRN - 03/19/2020 12:43 PM EDT You were admitted to the hospital after having a right carotid endarterectomy. This operation went very well. Dr. Sanders will want you to be seen in approximately one month with a carotid ultrasound ofyour neck first. This will be scheduled and sent to you in the mail. If for some reason you don't receive this in a week, please call our office at the number below as your follow-up is very important. Please take your blood pressure twice daily and call us on Wednesday am [phone]. At that time we will tell you when you can resume your Lasix (water pill), Potassium and Lotensin ( blood pressure medication). Please hold these medications until you talk with us on Wednesday morning. Call your doctor if: Any change in vision, numbness or inability to move any extremity, inability tospeak and or a headache unresponsive to Tylenol. Activity level: up as tolerated but take it easy for a week or so. Diet: regular Driving: ok after a week if you feel perfect and you were driving before Shower/Bath: showering or bath is ok Wound Care: wash with soap and water, careful shaving as your neck may be a little numb. This will gradually disappear. You should see your Primary Care Physician within 1-2 weeks for a post hospital follow-up. For any problems or questions please call our office at [phone] For issues on weeknights after 5pm and weekends please call [phone] and ask for the Vascular Fellow onsite case manager. AttachmentsThe following attachments cannot be sent through Care Everywhere. Smoking: Stopping (Filipino)Smoking Cessation: Health Benefits: General Info (Filipino)documented in this encounter Medications at Time of Discharge Medication Sig Dispensed Refills Start Date End Date aspirin EC 81 mg Tablet, Daily. 0 [...] mg Tablet documented as of this encounter Progress Notes Clair Hogan, RN - 03/20/2020 1:52 PM EDT Pt received discharge education. Pt reports he has no further questions at this time. Pt will be driven home by daughter, who was present at bedside for discharge teaching. WCM Yanira Goode RN - 03/20/2020 1:30 PM EDT Office of Care Management Assessment Medical record reviewed. Plan of care and patient status discussed with direct care RN and/or Care Team in multidisciplinary rounds. Screening: Last COVID test Date and Time: Resulted: 03/16/2020 17:57 Status: Final result Specimen Information: Nares; Nasopharyngeal Swab ?? Component Value Flag Ref Range Units Status SARS-CoV-2 RNA Not Detected Not Detected Final Comment: : 74 y.o. male here for carotid enterectomy Present on Admission: None Patient has not been admitted to a hospital within the last 30 days. Patient receiving hospital care under IPI- SDP Admission (IP) status. Admission order reviewed. Primary Insurance on file: MEDICARE Secondary Insurance on file: [facility] Primary care provider on file: Que Sharma DO [phone] Advance Directive on file and Code Status: <no information>, Attempt Cardiopulmonary Resuscitation - Inpatient Patient???s Functional Status: Independent Living Situation: Lives with daughter and she will be home to provide help if needed Luis Merchant [facility] [phone] Supports:Family Assessment: Patient with no apparent RNCM/SW needs at this time. No housing, transportation, insurance, resources concerns identified at this time. Supports in place to achieve a safe post-hospital transition. No identified barriers to accessing necessary care and/or follow-up after discharge. Plan: Patient to d/c to Home via family car when medically ready. assistant professor of forestry/Opening Machine Cleaner will continue to follow patient???s progress and remain available if situation changes for coordination of care, psychosocial support and/or discharge planning. Yanira Goode RN Pager [phone] Janae Farooq RN - 03/19/2020 6:45 PM EDT Lauryn arrived to 402 via bed from PACU. Oriented to room and call sultana. Keyon initiated, VSS. Neckincision CDI. Bladder scanned in PACU for 91mL at 1840. Will be DTV at 2240. Hafsa Ray RN - 03/19/2020 6:42 PM EDT Break coverage Report called to SHAYY Caceres Cheryl Woods RN - 03/19/2020 6:00 PM EDT 1445 Pt arrived to PACU, neuro intact AAOx4, following commands/denies pain at incision site. Pupilsnoted to be round and reactive, L 1mm and R 2mm. Team made aware while at bedside. Continue to monitor. 1800 No changes to pupils, remain slightly different sizes both round and briskly reactive. Vascularresident made aware, pt otherwise neuro intact and unchanged. Hemodynamically stable, resting comfortably in bed. Per MD will continue to monitor. Ty Hawthorne MD - 03/19/2020 5:16 PM EDT Vascular Surgery Post Op Check Lauryn Ortega is a 74 y.o. male s/p RIGHT carotid endarterectomy Subjective: No headache, visual changes, nausea/vomiting, chest pain, SOB. Pain well controlled, offers no complaints. Objective: Temp: [36.8 ??C (98.2 ??F)] Heart Rate: [55-80] Resp: [14-25] BP: (101-143)/(49-65) SpO2: [98 %-100 %] Heart Rate from SpO2: [55 bpm-74 bpm] No intake/output data recorded. I/O this shift: In: 1600 [I.V.:1600] Out: 222 [Urine:200; Blood:22] UOP since OR: salazar removed at end of case, due to void by 9PM Physical Exam General: resting comfortably, no acute distress HEENT: normocephalic, atraumatic Neck: right neck incision c/d/i, soft, no appreciable masses CVS: regular rate Pulm: non-labored breathing on 2L NC Abd: soft, non tender, non distended Ext: warm and well perfused Neuro: CN II-XII grossly intact, no focal deficits, full strength in all extremities Assessment/Plan: Lauryn Ortega is a 74 y.o. male s/p RIGHT carotid endarterectomy currently in stable condition and recovering well. The incision is clean, dry, intact with no evidence of hematoma. - pain well controlled - hemodynamically stable - maintain SBP goal 100-160 - salazar dc'ed at end of case, due to void by 9PM Ty Hawthorne MD 03/19/2020 Pager: [phone] documented in this encounter H&P Notes Harsh Guaman MD - 03/19/2020 11:27 AM EDT Patient Name: Lauryn Ortega Patient Age: 74 y.o. Birthdate: 1945 Admit date: 03/19/2020 Attending Physician: Alee Sanders MD Vascular Surgery History and Physical HPI: 74 year old male bilateral asymptomatic carotid stenosis. Discovered for bilateral bruit. No historyof symptoms. PSH: Appendix >4 mets, active smoker, stress test negative Right PSV 432 EDV 136 ICA/CCA 6.4 CTA: 80% stenosis RIGHT internal carotid, 65% left, C4-5 Problem List: Patient Active Problem List Diagnosis Code ??? Bilateral carotid artery stenosis I65.23 ??? Pre-op testing Z01.818 ??? Cigarette smoker F17.210 Review of Systems: A full review encompassing at least 10 organ systems including general, neuro, pulm, cardiac, GI, , MSK, Endo, and psych was negative other than that listed in the HPI Medical History No past medical history on file. Surgical History No past surgical history on file. Social History Social History Socioeconomic History ??? Marital status: [...] file Gets together: Not on file Attends advent service: Not on file Active member of [...] Social History Narrative ??? Not on file Family History No family history on file. Medications No current facility-administered medications on file prior to encounter. Current Outpatient Medications on File Prior to Encounter Medication Sig Dispense Refill ??? allopurinoL (Zyloprim) [...] Daily. ??? tamsulosin (Flomax) 0.4 mg Capsule Allergies Patient has no known allergies. Physical Exam BP 143/65 Pulse 80 Temp 36.8 ??C (98.2 ??F) (Temporal) Resp 18 Ht 172.7 cm (5' 8) Wt 88.5kg (195 lb) SpO2 99% BMI 29.65 kg/m?? General: alert, cooperative, no acute distress HEENT: normocephalic, atraumatic Neck: trachea midline Cardiac: regular rate and rhythm, no murmurs rubs or gallops Pulmonary: clear to auscultation bilaterally Abdominal: soft, non tender, non distended Last 3 Lytes Recent Labs 03/19/20 1014 NA 138 K 4.3 CL 103 CO2 26 BUN 22* CREATININE 1.64* Assessment & Plan: 74 year old male with Asymptomatic Right Carotid Stenosis. RIGHT Carotid Endarterectomy Admit to Vascular Surgery Harsh Guaman MD Vascular Surgery Fellow Pager [phone] 03/19/2020 11:28 AM documented in this encounter Miscellaneous Notes Consult Note - Valentin Myles RN - 03/20/2020 12:45 PM EDT TOBACCO DEPENDENCE TREATMENT NOTE 03/20/2020 Name: Lauryn Ortega Date of : 1945 Reason for visit: Lauryn Ortega is a current everyday smoker and [facility] The following information has been reviewed with the patient: Social History: Marital status: () ETOH: No Drug use: No Caffeine: 5-6 cups/day Pets: No Smoking history: Type of tobacco used: ( ) Smokeless tobacco ( ) e-cigarette (X) Cigarettes Brand currently smoking: [employer] filter cigars Current amount: 1 ppd (1 pack=20 cigars) Age initiated: 11 Years smoked: 61 Previous quit attempts and methods: No previous quit attempts Are there other smokers in the home: Pt plans to winter in [place] and live by himself. Ready to set a quit date: Pt is not ready to commit to a quit attempt at this time; however, he is willing to think about quitting and make a decision within the next 2-4 weeks. Stage of Change: CONTEMPLATIVE Precontemplative: Contemplative: Preparation: Action: Maintenance: Assessment/Plan: Referral received. Chart reviewed. I met with Lauryn Ortega this morning to discuss his tobacco use and assess his readiness to quit. I reviewed the physiology of addiction as well asapparent health risks specific for him. I advised him that quitting smoking is one of the best things he can do for his health now and in the future. I discussed the options for treatment including NRT, Zyban and Chantix. I reviewed possible side effects of therapy. I stressed that medication alone isnot optimum but used in conjunction with behavioral counseling will add to success for cessation. The patient decided that the best course of action for him would be NRT. He is not currently using NRT and reports that he was experiencing mild cravings to smoke this morning. He does not wish to begin NRT during this admission. He would feel more confident in making the decision to quit if he had support at discharge. He was given one box of 21 mg nicotine patches and one box of 4 mg nicotine lozenges. Instructions were reviewed and will be included in AVS. Daughter, Yasmin, at the bedside and is a strong support for him. He was also given the Tobacco Treatment Program brochure along with my contact information and was encouraged to contact me with any questions orconcerns related to committing to a quit attempt or use of NRT. He does not have a PCP established in [place]. He was encouraged to contact the [place] quit line should he need additional support with this quit attempt. This office will follow-up by telephone in one month. Valentin Myles, MSN, RN-BC, NCTTP Tobacco Desktop Publishing Specialist [facility] Pager #[phone] Plan of Care - Bessie Hoyos RN - 03/20/2020 4:56 AM EDT OUTCOME EVALUATION NOTE: OUTCOME SUMMARY: Lauryn slept well between care. AAOx4. VSS on RA. Afebrile. Pt denies nausea, SOB, CP, pressure, palpitations, sweating, fever, numbness, tingling, KIMBALL. R neck incision CDI, no hematoma, CSMTs intact, some talia-incision redness. Pt endorses sore throat but no c/o SOB, difficulty breathing/swallowing. AUOP. Low PVRs. No flatus. OOB several times overnight PLAN MOVING FORWARD: Mon incision for S+S infection, swelling/drainage, Q4 NVC checks, Encourage activity INDIVIDUALIZED FALL PREVENTION INTERVENTIONS: Patient-specific fall risk factors per assessment: [current deficits]: Lines/tubes, gen weakness Assistance [level of assistance required for transfers and ambulation]: 1xSBA Supervision [direct monitoring required during toileting and ADLs]: Hands on Surveillance [continuous indirect monitoring]: Masimo, purposeful rounding, call sultana in reach Patient-specific fall prevention interventions for sensory deficits provided, if applicable: Yes, environmental modifications, lights adjusted to task, non-skid socks CPG GOAL OUTCOME EVALUATION: Op Note - Harsh Guaman MD - 03/19/2020 7:21 PM EDT [facility] [place] Patient Name: Lauryn Ortega : [id number] MR#: [id number] Case Date: 03/19/2020 Surgeon: Surgeon(s) and Role: * Alee Sanders MD - Primary * Harsh Guaman MD - Fellow Preoperative diagnosis: Asymptomatic RIGHT carotid stenosis Postoperative diagnosis: Same Procedure(s) (LRB): @ENDARTERECTOMY, CAROTID, VERTEBRAL,SUBCLAVIAN W\WO PATCH GRAFT (WRVU 21.16) (Right) Operation: Right Carotid Endarterectomy Implants: Implant Name Type Inv. Item Serial No. Certified Massage Therapist Lot No. LRB No. Used Action PATCH,BIOL,XENOSURE,.8X8CM ([id number]) - [id number] IMPLANTS PATCH,BIOL,XENOSURE,.[id number] ([id number]) [facility] [id number] Right 1 Implanted EBL: 22cc Urine Output: 200cc Intravenous Fluid: 1400cc Blood Products: 0 Heparin: 9000u Protamine: 40mg Indications for the procedure: This is a 74 year old male who had an asymptomatic bruit discovered by his Family Doctor. He then underwent workup which demonstrated on duplex carotid doppler a Right PSV 432 EDV 136 ICA/CCA 6.4. A CTA demonstrated 80% stenosis RIGHT internal carotid, 65% on the left. He was seen and evaluated by Dr Sanders, and determined to be appropriate for the following operation. Details of Operation: The patient was identified in the preoperative holding area and transported in stable condition to the operating suite where after the smooth induction of general anesthesia the patient was prepped anddraped in the standard sterile fashion and the following operation was performed. A longituidnal incision was made with a knife along the anterior border of the right sternocleidomastoid. The subcutaneous tissue and platysma were divided using a combination of blunt dissection and bovie electrocautery dissection. The sternocleidomastoid and internal jugular vein were retracted laterally to expose the facial vein. As soon as we visualized the carotid sheath, systemic heparin was administered and ACT serially monitored throughout the case. The facial vein was divided. This exposed the bifurcation. The common carotid artery, external carotid artery, superior thyroid artery and internal carotid artery were each circumferentially dissected and encircled with vessel loops.The vagus and hypoglossal nerves were identified and preserved. The internal, common and external carotid arteries were clamped. A longitudinal arteriotomy was made with an 11 blade. This was extended onto the common carotid artery proximally and the internal carotid artery distally using Pott's and Iris scissors. A #11 [place] Shunt was brought onto the field. The ICA clamp was removed. The shunt was inserted. There was backbleeding. We removed the CCA clamp. The proximal end of the shunt was inserted. The hemostat on the shunt was opened. The vessel loop was tightened. Using a [place] elevator, endarterectomy of the common carotid and internal carotid arteries was performed. The distal internal carotid artery plaque was feathered off Eversion endarterectomy of the external carotid artery was performed and the carotid plaque was removed. The endarterectomy site was insp ected for loose arterial wall tissue that was removed with fine forceps. Bovine pericardial patch angioplasty was performed in a standard fashion with two lengths of double-armed 6-0 Prolene. Prior to completion of the patch, the shunt was removed. The ICA was clamped. The CCA was clamped. The ECA wasbackbled. The arteries were flushed with heparinized saline to expel any air or debris. The patch angioplasty was completed and the carotid artery was re-perfused. Intraoperative ultrasound did not demonstrate any flap or thrombus. Protamine was administered. Hemostasis was achieved with thrombin-soaked gelfoam. The wound was thenclosed in layers by reapproximating the sternocleidomastoid muscle, followed by the platysma with interrupted Vicryl suture. Skin was reapproximated with 4-0 Monocryl. The wound was covered with a sterile dressing and the operation was terminated. The patient tolerated the operation well. The patient was awakened and extubated in the operating room and transported in stable condition to the post-anesthesia care unit for further monitoring. Dr Sanders was present for the entire operation. Dictated by: Harsh Guaman Vascular Surgery Fellow [id number] 03/19/2020 7:22 PM Associated attestation - Alee Sanders MD - 03/20/2020 9:28 AM EDT Attestation: Case Date: 03/19/2020 I was present and I participated during the entire procedure (does not need to include opening and closing). Alee Sanders MD 03/20/2020 documented in this encounter Plan of Treatment Upcoming Encounters Date Type Specialty Care Team Description 01/19/2022 Office Visit Tanvir Vivas MD [facility] HEMATOLOGY/[place] [address] Oncology Arlene Bobby [facility] [place] [address] 01/19/2022 Infusion Hematology and Oncology 01/19/2022 Scheduled View Only Radiation Oncology 01/20/2022 Scheduled View Only Radiation Oncology 01/21/2022 Scheduled View Only Radiation Oncology 01/22/2022 Scheduled View Only Radiation Oncology 01/22/2022 Office Visit Radiation Oncology Adriana De La Rosa v, MD [address] [place] [address] DR CIPRIANO TOUSSAINT [place], [place] [phone] (Wo rk) 01/23/2022 Scheduled View Only Radiation Oncology 01/26/2022 Office Visit Tanvir Vivas MD [facility] HEMATOLOGY[place] [address] Arlene Hill CONTACT CENTER ASSISTANT [facility] [place] [address] 01/26/2022 Infusion Hematology and Oncology 01/26/2022 Scheduled View Only Radiation Oncology 01/27/2022 Scheduled View Only Radiation Oncology 01/28/2022 Scheduled View Only Radiation Oncology 01/29/2022 Scheduled View Only Radiation Oncology 01/29/2022 Office Visit Radiation Oncology Adriana De La Rosa v, MD [address] [place] [address] DR CIPRIANO TOUSSAINT [place], [place] [phone] (Wo rk) 01/30/2022 Scheduled View Only Radiation Oncology 02/02/2022 Office Visit Hematology and Arlene Bobby, Oncology [facility] HEMATOLOGY AND ONCOLOGY [place], [place] [address] (Wo rk) 02/02/2022 Infusion Hematology and Oncology 02/02/2022 Scheduled View Only Radiation Oncology 02/03/2022 Scheduled View Only Radiation Oncology 02/04/2022 Scheduled View Only Radiation Oncology 02/05/2022 Scheduled View Only Radiation Oncology 02/05/2022 Office Visit Radiation Oncology Adriana De La Rosa v, MD [address] [place] [address] DR COTA ONCMILO [place], [place] [phone] (Wo rk) 02/06/2022 Scheduled View Only Radiation Oncology 02/09/2022 Office Visit Hematology and Arlene Bobby, Oncology [facility] HEMATOLOGY AND ONCOLOGY [place], [place] [address] (Wo rk) 02/09/2022 Infusion Hematology and Oncology 02/09/2022 Scheduled View Only Radiation Oncology 02/09/2022 Notes Only Radiation Oncology Adriana De La Rosa v, MD [address] [place] [address] DR CIPRIANO TOUSSAINT [place], [place] [phone] (Wo rk) 02/10/2022 Scheduled View Only Radiation Oncology documented as of this encounter Procedures Procedure Name Priority Date/Time Associated Comments Diagnosis HEMOGRAM Routine 03/20/2020 5:45 AM Results f or this EDT procedure are i n the results section. DIFFERENTIAL, Routine 03/20/2020 5:45 AM Results for this AUTOMATED EDT procedure are i n the results section. HC VENIPUNCTURE Routine 03/20/2020 5:45 AM EDT HC PHOSPHORUS, SERUM Routine 03/20/2020 5:45 AM R esults for this EDT procedure are i n the results section. HC MAGNESIUM, SERUM Routine 03/20/2020 5:45 AM Re sults for this EDT procedure are i n the results section. BASIC METABOLIC PANEL Routine 03/20/2020 5:45 AM Results for this (NON-FASTING) EDT procedure are in the results section. ABORH RECHECK STATUS Routine 03/19/2020 1:07 PM R esults for this EDT procedure are i n the results section. ABO/RH TYPING Routine 03/19/2020 1:07 PM Results for this EDT procedure are i n the results section. ANTIBODY SCREEN Routine 03/19/2020 1:07 PM Result s for this EDT procedure are i n the results section. HC ANTIBODY Routine 03/19/2020 1:07 PM DETECTION,CAPTURE-R EDT CAROTID DUPLEX, Routine 03/19/2020 1:04 PM Bilateral carotid R esults for this UNILATERAL EDT artery stenosis procedure ar e in the results section. BLOOD GAS 2 ARTERIAL Routine 03/19/2020 12:42 Res ults for this PM EDT procedure are i n the results section. @ENDARTERECTOMY, Yes 03/19/2020 11:59 Bilateral carotid CAROTID, AM EDT artery stenosis VERTEBRAL,SUBCLAVIAN Pre-op test ing W\WO PATCH GRAFT Cigarette smoker (WRVU 21.16) HEMOGRAM Routine 03/19/2020 10:14 Results for this AM EDT procedure are i n the results section. PREALBUMIN Routine 03/19/2020 10:14 Results for this AM EDT procedure are i n the results section. BASIC METABOLIC PANEL Routine 03/19/2020 10:14 Re sults for this (NON-FASTING) AM EDT procedure are in the results section. ENDART, CAROTID, Routine 03/19/2020 9:40 AM Bilateral carotid VERTEBRAL,SUBCLAVIAN EDT artery sten osis W\WO PATCH GRAFT, BY Pre-op test ing NECK INCIS Cigarette smoker documented in this encounter Results Carotid Duplex, Bilateral (04/05/2020 9:51 AM EDT) Component Value Ref Test Analysis Performed At [facility] Kickboard Range Method Time Signature VB Text Department: Vascular Surgery Lab VASCUBASE Report Patient: [id number] (LAURYN ORTEGA) CPT: 81036 ICD10: I65.23 Referring Physician: ALEE SANDERS ?? [...] Address City/State/ZIP Code Phon e Number VASCUBASE Differential, Automated (03/20/2020 5:45 AM EDT) P athologist Signature Neutrophils % 72.9 % [facility] Neutr Abs (ANC) 5.33 1.70 - [facility] 6.10 [facility] x10(3)/[facility] LABORATORY Lymphocytes % 20.5 % [facility] Lymphocytes Abs 1.5 0.9 - 3.2 [facility] x10(3)/[facility] LABORATORY Monocytes % 6.1 % [facility] Monocyte Abs 0.4 0.3 - 0.9 [facility] x10(3)/[facility] LABORATORY Eosinophils % 0.1 % [facility] Eosinophils Abs 0.0 0.0 - 0.4 [facility] x10(3)/[facility] LABORATORY Basophils % 0.1 % [facility] Basophils Abs 0.0 0.0 - 0.1 [facility] x10(3)/[facility] LABORATORY Immature Gran % 0.30 % [facility] Comment: Immature granulocytes(IG's)percentage an d absolute count will include metamyelocytes, myelocytes, and promyelo cytes. Blood smears from CBCs yielding IG's will be scanned manually for concor dance. If this scan disagrees with the automated IG or if promyelocytes are not ed, a manual differential will be performed. Michelle Gran Abs 0.02 0.00 - 0.04 x10(3)/[facility] Specimen Anatomical Collection Method Collection Time Receive d Time (Source) Location / / Volume Laterality Blood specimen 03/20/2020 5:45 AM 020 6:11 (specimen) EDT AM EDT Resulting Agency Comment Spec In Lab Ty Hawthorne MD HEMATOLOGY ORDERABLES Performing Organization Address City/State/[place] [address] (ABNORMAL) Hemogram (03/20/2020 5:45 AM EDT) Analysis Performed At Patho logist Time Signature WBC 7.3 4.0 - 9.5 [facility] x10(3)/[facility] LABORATORY RBC 2.76 (L) 4.58 - [facility] 5.54 [facility] x10(6)/[facility] LABORATORY Hemoglobin 9.0 (L) 13.7 - [facility] 16.5 gm/dL [facility] Hematocrit 27.4 (L) 40.5 - [facility] 48.5 % [facility] MCV 99.3 (H) 82.9 - [facility] 93.1 [facility] LABORATORY MCH 32.6 (H) 27.5 - [facility] 32.1 pg [facility] MCHC 32.8 32.0 - [facility] 35.7 gm/dL [facility] Platelets 170 145 - 357 [facility] x10(3)/[facility] LABORATORY RDWSD 46.7 (H) 36.0 - [facility] 45.0 [facility] LABORATORY RDWCV 13.0 11.4 - [facility] [place] 13.8 % [facility] MPV 10.1 7.6 - 12.9 [facility] LABORATORY nRBC % Auto 0.0 % [facility] nRBC Abs Auto 0.000 0.000 - [facility] [place] 0.000 [facility] x10(3)/[facility] LABORATORY Specimen Anatomical Collection Method Collection Time Receive d Time (Source) Location / / Volume Laterality Blood specimen 03/20/2020 5:45 AM 020 6:11 (specimen) EDT AM EDT Resulting Agency Comment Spec In Lab Ty Hawthorne MD HEMATOLOGY ORDERABLES Performing Organization Address City/[facility]/ZIP Code Phon e Number [address] Phosphorus (03/20/2020 5:45 AM EDT) P athologist Signature Phosphorus 3.0 2.5 - 4.5 [facility] [place] mg/dL [facility] Specimen Anatomical Collection Method Collection Time Receive d Time (Source) Location / / Volume Laterality Blood specimen 03/20/2020 5:45 AM 020 6:11 (specimen) EDT AM EDT Resulting Agency Comment Spec In Lab Alee Sanders MD CHEMISTRY ORDERABLES Performing Organization Address City/[facility]/ZIP Code Phon e Number [address] Magnesium (03/20/2020 5:45 AM EDT) athologist Signature Magnesium 0.78 0.69 - 1.07 [facility] mmol/L [facility] Specimen Anatomical Collection Method Collection Time Receive d Time (Source) Location / / Volume Laterality Blood specimen 03/20/2020 5:45 AM 020 6:11 (specimen) EDT AM EDT Resulting Agency Comment Spec In Lab Alee Sanders MD CHEMISTRY ORDERABLES Performing Organization Address City/State/[place] [address] (ABNORMAL) Basic Metabolic Panel (non-fasting) (03/20/2020 5:45 AM EDT) athologist Signature Glucose Lvl 173 65 - 199 [facility] mg/dL [facility] Comment: Diabetes: >=200 mg/dL plus symp toms BUN 21 (H) 10 - 20 mg/dL [facility] Creatinine 1.53 (H) 0.80 - 1.50 mg/dL [facility] Sodium 137 135 - 145 mmol/L [facility] Potassium 5.0 3.5 - 5.0 mmol/L [facility] Comment: Please note: ??Patients with WBC >100,00 0 may have falsely elevated Potassium levels. ??For accurate Potassium quantif ication in these patients send serum separator tube (gold top) for subsequent determinations. ??Contact the Clinical Chemistry Laboratory if there are any qu estions. Chloride 102 98 - 107 mmol/L [facility] CO2 26 22 - 31 mmol/L [facility] Anion Gap 9 5 - 15 mmol/L [facility] Calcium 9.3 8.5 - 10.5 mg/dL [facility] Estimated GFR 44 (L) >=60 mL/min/1.73 m?? [facility] Comment: The eGFR was calculated using the CKD-EP I equation. As with all creatinine based estimates of kidney function, eGFR values calculated with the CKD-EPI equation are not accurate in patients wi th acute kidney failure, extremes of body mass or the acutely ill. [email or web address] eGFR 50 (L) >=60 mL/min/1.73 m?? [facility] Comment: The eGFR was calculated using the CKD-EP I equation. As with all creatinine based estimates of kidney function, eGFR values calculated with the CKD-EPI equation are not accurate in patients wi th acute kidney failure, extremes of body mass or the acutely ill. [email or web address] Specimen Anatomical Collection Method Collection Time Receive d Time (Source) Location / / Volume Laterality Blood specimen 03/20/2020 5:45 AM 020 6:11 (specimen) EDT AM EDT Resulting Agency Comment Spec In Lab Alee Sanders MD CHEMISTRY ORDERABLES Performing Organization Address City/[facility]/[place] [address] ABORH Recheck Status (03/19/2020 1:07 PM EDT) [facility] Method Time Signature ABORH Recheck Order Placed [facility] LABORATORY ABORH Type Complete [facility] LABORATORY Specimen Anatomical Collection Method Collection Time Receive d Time (Source) Location / / Volume Laterality Blood specimen 03/19/2020 1:07 PM 020 1:07 (specimen) EDT PM EDT Resulting Agency Comment Spec In Lab Alee Sanders MD BLOOD BANK ORDERABLES Performing Organization Address City/[facility]/[place] [address] Antibody screen (03/19/2020 1:07 PM EDT) [facility] Kick[facility] Method Time Signature Ab Screen Negative [facility] LABORATORY Expires at 03/22/2020 [facility] 2359 on: [facility] Specimen Anatomical Collection Method Collection Time Receive d Time (Source) Location / / Volume Laterality Blood specimen 03/19/2020 1:07 PM 020 1:07 (specimen) EDT PM EDT Resulting Agency Comment Spec In Lab Alee Sanders MD BLOOD BANK ORDERABLES Performing Organization Address City/State/[place] [address] ABO/Rh Typing (03/19/2020 1:07 PM EDT) P athologist Signature ABORh Type O Pos [facility] Specimen Anatomical Collection Method Collection Time Receive d Time (Source) Location / / Volume Laterality Blood specimen 03/19/2020 1:07 PM 020 1:07 (specimen) EDT PM EDT Resulting Agency Comment Spec In Lab Alee Sanders MD BLOOD BANK ORDERABLES Performing Organization Address City/[facility]/ZIP Code Phon e Number [address] Carotid Duplex, Unilateral (03/19/2020 1:04 PM EDT) Component Value Ref Test Analysis Performed At Patholo gist Range Method Time Signature VB Text Department: Vascular Surgery Lab VASCUBASE Report Patient: [id number] (LAURYN ORTEGA) CPT: 92331 ICD10: I65.23 Referring Physician: ALEE SANDERS ?? Phone: Indications: Intra-op right CEA, ? patency ICD10 Diagnosis Code: I65.23 Findings: Right ?PSV (cm/s) ??EDV (cm/s) ??ICA/CCA ??%Stenosis ?? ICA Proximal ? 66 ?17 ?1.0 ??<15% ? CCA Distal ? 69 ?25 ? Minimal ? External Carotid Artery ?87 ?13 ? Interpretation: RIGHT: Widely patent carotid bifurcation with no evidence of flap or residual stenosis. Significantly impr donavon compared to the preoperative exam performed on 02/14/2020. Previous Carotid Studies: Date ?RIGHT ICA St enosis ??PSV ?? Ratio ?? LEFT ICA Stenosis ?? PSV ?? Ratio ? 70-99% ? 432 ?? 6.40 ? 50-69% ? 280 ?? 2.80 Current Exam ? <15% ? 66 ?1.00 ? n/a ?n/a ?? n/a Electronically Signed by: ALEE SANDERS on 2020-03-20 09:08: 39 AM VB Text End of Report VASCUBASE Report Specimen (Source) Anatomical Collection Method Collection Time Re ceived Time Location / / Volume Laterality 03/19/2020 1:04 PM EDT Alee Sanders MD VASCULAR ORDERABLES Performing Organization Address City/State/ZIP Code Phon e Number VASCUBASE (ABNORMAL) BLOOD GAS 2 ARTERIAL (03/19/2020 12:42 PM EDT) Analysis Performed At Patho logist Time Signature pH Art 7.39 7.35 - [facility] 7.45 [facility] pCO2 Art 41 35 - 45 [facility] LABORATORY pO2 Art 398 (H) 85 - 104 [facility] LABORATORY HCO3 Art 24.5 20.0 - [facility] 26.0 [facility] mmol/L [facility] BE Art -0.7 -3.0 - 3.0 [facility] mmol/L [facility] Hgb Blood Gas 10.5 (L) 13.7 - [facility] 16.5 gm/dL [facility] O2HB Art 96.0 94.0 - [facility] 97.0 % [facility] COHB Art 3.0 % [facility] Comment: Nonsmokers: 0.5-1.5% COHB Smokers: Variable, but usually less than 10% Toxic: 20-30% COHB Lethal: Greater than 60% COHB METHB Art 0.3 <=1.5 % [facility] Na Whole Blood 136 135 - 145 mmol/L [facility] K Whole Blood 4.1 3.5 - 5.0 mmol/L [facility] Comment: Please note: Patients with WBC >100,000 may have falsely elevated Potassium levels. Contact the Clinical Chemistry L aboratory if there are any questions. ICa Whole Blood 1.17 1.15 - 1.33 mmol/L [facility] Comment: Note: ??Total bilirubin higher than 20 m g/dL may lead to falsely low ionized calcium. CL Whole Blood 109 (H) 98 - 107 mmol/L [facility] Gluc Whole Bld 119 65 - 199 mg/dL [facility] Comment: Diabetes: >=200 mg/dL plus symp toms. Lactate WB 1.6 0.5 - 2.2 mmol/L [facility] FIO2 Art 96 % [facility] PF Ratio Art 415 [facility] Temp Art 35.6 Celsius [facility] Specimen Anatomical Collection Method Collection Time Receive d Time (Source) Location / / Volume Laterality Blood specimen 03/19/2020 12:42 0 (specimen) PM EDT 12:42 PM EDT Alee Sanders MD CHEMISTRY ORDERABLES Performing Organization Address City/State/[place] [address] Prealbumin (03/19/2020 10:14 AM EDT) P athologist Signature Prealbumin 28 20 - 40 [facility] mg/dL [facility] Comment: Prealbumin levels are generally lower in the pediatric population; adult concentrations are usually attained near puberty. Specimen Anatomical Collection Method Collection Time Receive d Time (Source) Location / / Volume Laterality Blood specimen Venous Draw / 03/19/2020 10:14 03/19/20 20 (specimen) Unknown AM EDT 10:26 AM EDT Resulting Agency Comment Spec In Lab Alee Sanders MD CHEMISTRY ORDERABLES Performing Organization Address City/State/[place] [address] (ABNORMAL) Hemogram (03/19/2020 10:14 AM EDT) [facility] Method Time Signature WBC 4.6 4.0 - 9.5 [facility] x[facility](3)/[facility] LABORATORY RBC 3.17 (L) 4.58 - [facility] 5.54 [facility] x10(6)/[facility] LABORATORY Hemoglobin 10.6 (L) 13.7 - [facility] [place] 16.5 gm/dL [facility] Hematocrit 31.7 (L) 40.5 - [facility] 48.5 % [facility] MCV 100.0 (H) 82.9 - [facility] 93.1 [facility] LABORATORY MCH 33.4 (H) 27.5 - [facility] 32.1 pg [facility] MCHC 33.4 32.0 - [facility] 35.7 gm/dL [facility] Platelets 206 145 - 357 [facility] x10(3)/[facility] LABORATORY RDWSD 48.1 (H) 36.0 - [facility] [facility] 45.0 [facility] LABORATORY RDWCV 13.0 11.4 - [facility] % [facility] LABORATORY MPV 9.8 7.6 - 12.9 [facility] nRBC % Auto 0.0 % [facility] LABORATORY nRBC Abs Auto 0.000 0.000 - [facility] 0.000 [facility] x10(3)/[facility] LABORATORY Specimen Anatomical Collection Method Collection Time Receive d Time (Source) Location / / Volume Laterality Blood specimen Venous Draw / 03/19/2020 10:14 03/19/20 20 (specimen) Unknown AM EDT 10:26 AM EDT Resulting Agency Comment Spec In Lab Alee Sanders MD HEMATOLOGY ORDERABLES Performing Organization Address City/[facility]/[place]IP [place] [address] (ABNORMAL) Basic Metabolic Panel (non-fasting) (03/19/2020 10:14 AM EDT) P athologist Signature Glucose Lvl 155 65 - 199 [facility] mg/dL [facility] Comment: Diabetes: >=200 mg/dL plus symp toms BUN 22 (H) 10 - 20 mg/dL [facility] LABORATORY Creatinine 1.64 (H) 0.80 - 1.50 mg/dL [facility] LABORATORY Sodium 138 135 - 145 mmol/L [facility] LABORATORY Potassium 4.3 3.5 - 5.0 mmol/L [facility] LABORATORY Comment: Please note: ??Patients with WBC >100,00 0 may have falsely elevated Potassium levels. ??For accurate Potassium quantif ication in these patients send serum separator tube (gold top) for subsequent determinations. ??Contact the Clinical Chemistry Laboratory if there are any qu estions. Chloride 103 98 - 107 mmol/L [facility]OR[facility] CO2 26 22 - 31 mmol/L [facility] Anion Gap 9 5 - 15 mmol/L [facility] LABORATORY Calcium 9.7 8.5 - 10.5 mg/dL [facility] LABORATORY Estimated GFR 40 (L) >=60 mL/min/1.73 m?? [facility] LABORATORY Comment: The eGFR was calculated using the CKD-EP I equation. As with all creatinine based estimates of kidney function, eGFR values calculated with the CKD-EPI equation are not accurate in patients wi th acute kidney failure, extremes of body mass or the acutely ill. [email or web address] MUS[facility]GEEnkf eGFR 46 (L) >=60 mL/min/1.73 m?? [facility] Comment: The eGFR was calculated using the CKD-EP I equation. As with all creatinine based estimates of kidney function, eGFR values calculated with the CKD-EPI equation are not accurate in patients wi th acute kidney failure, extremes of body mass or the acutely ill. [email or web address] Specimen Anatomical Collection Method Collection Time Receive d Time (Source) Location / / Volume Laterality Blood specimen Venous Draw / 03/19/2020 10:14 03/19/20 20 (specimen) Unknown AM EDT 10:26 AM EDT Resulting Agency Comment Spec In Lab Alee Sanders MD CHEMISTRY ORDERABLES Performing Organization Address City/State/[place] [address] documented in this encounter Visit Diagnoses Diagnosis Bilateral carotid artery stenosis Occlusion and stenosis of multiple and b ilateral precerebral arteries without mention of cerebral infarction Pre-op testing Preoperative examination, unspecified Cigarette smoker Tobacco use disorder documented in this encounter Admitting Diagnoses Diagnosis Bilateral carotid artery stenosis Occlusion and stenosis of multiple and b ilateral precerebral arteries without mention of cerebral infarction Pre-op testing Preoperative examination, unspecified Cigarette smoker Tobacco use disorder documented in this encounter Administered Medications Inactive Administered Medications - up to 3 most recent administrations Medication Order MAR Action Action Date Dose Rate Site acetaminophen (Tylenol) tablet 500 Given 03/20/2020 9:12 AM EDT 500 mg mg 500 mg, Oral, EVERY 4 HOURS PRN, Starting on Wed03/19/20 at 1841, Until Wed03/20/20 at 1555, Pain, For Mild Pain (1-3) or Fever., Maximum dose of acetaminophen is 4000 mg from all sources in 24 hours., Routine Given 03/19/2020 8:26 PM EDT 500 mg aspirin EC tablet 81 mg Given 03/20/2020 9:09 AM EDT 81 mg 81 mg, Oral, DAILY, First dose on Wed03/20/20 at 0900, Until Discontinued, Routine atorvastatin (Lipitor) tablet 80 mg Given 03/19/2020 8:26 PM EDT 80 mg 80 mg, Oral, EVERY EVENING, First dose on Wed03/19/20 at 1930, Until Discontinued ceFAZolin (Ancef) 1 g in dextrose 5% New Bag 03/19/2020 11:35 PM EDT 1 g 100 mL/hr 50 mL infusion 1 g, Intravenous, EVERY 8 HOURS, 2 doses, First dose on Wed03/19/20 at 1615, Last dose on Wed03/20/20 at 0015, Administer over 30 Minutes, Redose after 4 hours, Recovery (Recovery-Hospital Unit), Indication for (Active or Suspected): Prophylaxis New Bag 03/19/2020 6:56 PM EDT 1 g 100 mL/hr escitalopram (Lexapro) tablet 10 mg Given 03/20/2020 9:08 AM EDT 10 mg 10 mg, Oral, DAILY, First dose on Wed03/20/20 at 0900, Until Discontinued, Routine ipratropium-albuteroL (DUONEB) 0.5 mg-3 mg(2.5 Given 0 03/20/2020 9:12 AM EDT 3 mLs mg base)/3 mL nebulizer solution 3 mL 3 mL, Nebulization, DAILY PRN, Starting on Wed03/19/20 at 1554, Until Wed03/20/20 at 1555, Wheezing, Recovery (Recovery-Hospital Unit), Routine ondansetron (ZOFRAN) injection 4-8 mg 4-8 mg, Intravenous, EVERY 8 HOURS PRN, Starting on Wed03/19/20 at 1841, Until Wed03/20/20 at 1555, Nausea, Start with 4mg and if ineffective in 30 minutes, give an additional 4mg ondansetron (Zofran) tablet 4-8 mg 4-8 mg, Oral, EVERY 8 HOURS PRN, Startin g on Wed03/19/20 at 1841, Until Wed03/20/20 at 1555, Nausea, Vomiting, If multipl e antiemetics are ordered, use ondansetron first. PO Preferred. If patient unable to take PO, may give IV if ordered. May repeat times one in 45 minutes if ineffective. , Isabela mendoza pantoprazole EC (Protonix) tablet 20 mg Given 03/20/2020 9:08 AM EDT 20 mg 20 mg, Oral, DAILY, First dose on Wed03/20/20 at 0900, Until Discontinued, DO NOT CRUSH OR OPEN, Routine tamsulosin (Flomax) capsule 0.4 mg Given 03/20/2020 9:08 AM EDT 0.4 mg 0.4 mg, Oral, DAILY, First dose on Wed03/20/20 at 0900, Until Discontinued, DO NOT CRUSH OR OPEN, Routine documented in this encounter Active and Recently Administered Medications Times are shown in EDT. Scheduled Medication Order 03/18/2020 03/19/2020 03/20/2020 aspirin EC tablet 81 mg 908 (Gi betina - Provider: Clair Hogna RN) 81 mg, Oral, DAILY, First dose on Wed at 0900, Until Discontinued, Routine atorvastatin (Lipitor) tablet 80 mg 2025 (Given - Provider: Bessie Hoyos RN) 80 mg, Oral, EVERY EVENING, First dose o n Wed03/19/20 at 1930, Until Discontinued ceFAZolin (Ancef) 1 g in dextrose 5% 50 mL infusion ([facility] ED) 1856 (New Bag - Provider: Janae Farooq RN)1926 (Stopped - Provider: Bessie Hoyos RN)2335 (New Bag - Provider: Bessie Hoyos RN) 0005 (Stopped - Provider: Bessie Hoyos RN) 1 g, Intravenous, EVERY 8 HOURS, 2 doses , First dose on Wed03/19/20 at 1615, Last dose on Wed03/20/20 at 0015, Administer over 30 Minutes, Redose after 4 hours, Recovery (Recovery-Hospital Unit), Indication for (Active or Suspected): Prophylaxis ceFAZolin (Ancef) 2 g in dextrose 5% 100 mL infusion ([facility]) 1218 (Given - Provider: Cain Nath CRNA) 2 g, Intravenous, ONCE, 1 dose, 03/19 at 1100, Administer over 30 Minutes, Redose every 3 hours if CrCl is greater than 20. Redose every 8 hours if CrCl is less than 20., Day of Surgery (Day of Pr ocedure), Indication for (Active or Suspected): Prophylaxis escitalopram (Lexapro) tablet 10 mg 907 (Given - Provider: Clair Hogan RN) 10 mg, Oral, DAILY, First dose on Wed at 0900, Until Discontinued, Routine pantoprazole EC (Protonix) tablet 20 mg 907 (Given - Provider: Clair Hogan RN) 20 mg, Oral, DAILY, First dose on Wed at 0900, Until Discontinued, DO NOT CRUSH OR OPEN, Routine tamsulosin (Flomax) capsule 0.4 mg 907 (Given - Provider: Clair Hogan RN) 0.4 mg, Oral, DAILY, First dose on Wed at 0900, Until Discontinued, DO NOT CRUSH OR OPEN, Routine Continuous Medication Order 03/18/2020 03/19/2020 03/20/2020 lactated ringers infusion (CANCELED) 115 2 (New Bag - Provider: Cani Nath CRNA)1324 (New Bag - Provider: Clair Shankar CRNA)1435 (Anesthesia Volume Adjustment - Provider: Cain Nath CRNA) 1,000 mL, at 100 mL/hr, Intravenous, CON TINUOUS, Starting 03/19/20 at 1100, Until Wed03/19/20 at 1841, Day of Surgery (Day of Procedure) PRN Medication Order 03/18/2020 03/19/2020 03/20/2020 acetaminophen (Tylenol) tablet 500 mg 20 (Given - Provider: Bessie Hoyos RN) 09 (Given - Provider: Clair Hogan RN) 500 mg, Oral, EVERY 4 HOURS PRN, Startin g Wed03/19/20 at 1841, Until Wed03/20/20 at 1555, Pain, For Mild Pain (1-3) or Fever., Maximum dose of acetaminophen is 4000 mg from all sources in 24 hours., Routine gelatin adsorbable (GELFOAM) sponge (CANCELED) 1338 (Given - Provider: Alee Sanders MD - Comment: Gelfoam soaked in 5,000 units of Thrombin, used PRN for hemostasis.) ONCE PRN, Starting e 03/19/20 at 1338, Until Wed03/20/20 at 1555, Intra- Operative (Intra-Procedure) hydrALAZINE (APRESOLINE) injection 10 mg 10 mg, Intravenous, EVERY 1 HOUR PRN, St arting Wed03/19/20 at 1841, Until Wed03/20/20 at 1555, High Blood Pressure, for blood pressure > 150 for maximum of 2 doses then louann MCLEOD, Use if 2 doses of labetalol ineffective in achieving goal., Routine ipratropium-albuteroL (DUONEB) 0.5 mg-3 mg(2.5 mg base)/3 mL nebulizer solution 3 mL 911 (Given - Provid er: Clair Hogan RN) 3 mL, Nebulization, DAILY PRN, Starting 03/19/20 at 1554, Until Wed03/20/20 at 1555, Wheezing, Recovery (Recovery-Hospital Unit), Routine labetaloL (Normodyne,Trandate) injection 10 mg 10 mg, Intravenous, EVERY 1 HOUR PRN, St arting Wed03/19/20 at 1841, Until Wed03/20/20 at 1555, High Blood Pressure, for SBP > 150, hold for HR < 60 for maximum of 2 doses, then louann MCLEOD., May repea t 10 mg in 15 minutes once if SBP goal not achieved, Routine ondansetron (ZOFRAN) injection 4-8 mg(Linked Group 1) 4-8 mg, Intravenous, EVERY 8 HOURS PRN, Starting Wed03/19/20 at 1841, Until Wed03/20/20 at 1555, Nausea, Start with 4mg and if ineffective in 30 minutes, give an additional 4mg ondansetron (Zofran) tablet 4-8 mg(Linked Group 1) 4-8 mg, Oral, EVERY 8 HOURS PRN, Startin g Wed03/19/20 at 1841, Until Wed03/20/20 at 1555, Nausea, Vomiting, If multiple antiemetics are ordered, use ondansetron first. PO Preferred. If patient unab le to take PO, may give IV if ordered. M ay repeat times one in 45 minutes if ineffective. , Routine thrombin (bovine) (THROMBIN-JMI) solution (CANCELED) 1339 (Given - Provider: Alee Sanders MD - Comment: Gelfoam soaked in 5,000 units of Thrombin, used PRN for hemostasis.) ONCE PRN, Starting Wed03/19/20 at 1339, Until Wed03/20/20 at 1555, Intra- Operative (Intra-Procedure) Linked Groups Order Group 1: ondansetron (Zofran) tablet 4-8 mgJump to med 4-8 mg, Oral, EVERY 8 HOURS PRN, Startin g Wed03/19/20 at 1841, Until Wed03/20/20 at 1555, Nausea, Vomiting
If multiple antiemetics are ordered, use ondansetron first. PO Preferre d. If patient unable to take PO, may giv e IV if ordered. May repeat times one in 45 minutes if ineffective.
Routine Or ondansetron (ZOFRAN) injection 4-8 mgJump to med 4-8 mg, Intravenous, EVERY 8 HOURS PRN, Starting Tu03/19/20 at 1841, Until Wed03/20/20 at 1555, Nausea
Start with 4mg and if ineffective in 30 minutes, give an additional 4mg
documented in this encounter Care Teams Semi Driver Relationship Specialty Start Date End Date Que Sharma DO PCP - General Family Medicine 02/08/20 [address] [place] [address] documented as of this encounter
--- OUTSIDE RECORDS SUMMARY | 2022-01-19 02:10 | XMS_ITS | Encounter Summary ---
:1945 Author Organization [facility] [place] [address] Care Team Providers Name Role Phone Que Sharma DO Primary Care Provider Reason for Referral Diagnostic Test (Routine) - Specialty Diagnoses / Procedures Referred By Contact Refer red To Contact Diagnoses Postprocedural cardiac insufficiency following other surgery Pre-op testing Bilateral carotid artery stenosis [facility] Vascular Surg 3v Procedures Echo pharm stress test (DSE) [place] [address] Referral ID Status Reason Start Date Expiration Visits Visits Date Requested Authorized [id number] Specialty 02/22/2020 08/20/2020 1 1 Service Requested Encounter Details Date Type Department Care Team Description 02/22/2020 Orders Only Vascular Surgery at [facility] Post procedural cardiac insufficiency following other surgery ; [facility] L, RN Pre-op testing; [facility] Bilateral [place] [address] Social History Tobacco Use Types Packs/Day Years [...] Visit Hematology Tanvir Hawk MD [facility] [address] HEMATOLOGY/[place] [address] Oncology Arlene Bobby APRN [facility] [place] [address] 01/19/2022 Infusion Hematology and Oncology 01/19/2022 Scheduled View Only Radiation Oncology 01/20/2022 Scheduled View Only Radiation Oncology 01/21/2022 Scheduled View Only Radiation Oncology 01/22/2022 Scheduled View Only Radiation Oncology 01/22/2022 Office Visit Radiation Oncology Adriana De La Rosa v, MD [address] [place] [address] RADIATION [place]CM[place], [place] [address] (Wo rk) 01/23/2022 Scheduled View Only Radiation Oncology 01/26/2022 Office Visit Hematology Tanvir Hawk MD [facility] [address] HEMATOLOGY/[place] [address] Oncology Arlene Bobby [facility] [place] [address] 01/26/2022 Infusion Hematology and Oncology 01/26/2022 Scheduled View Only Radiation Oncology 01/27/2022 Scheduled View Only Radiation Oncology 01/28/2022 Scheduled View Only Radiation Oncology 01/29/2022 Scheduled View Only Radiation Oncology 01/29/2022 Office Visit Radiation Oncology Adriana De La Rosa v, MD [address] [place] [address] DR [place] [place], [place] [id number] (Wo rk) 01/30/2022 Scheduled View Only Radiation Oncology 02/02/2022 Office Visit Hematology and Arlene Bobby, Oncology [facility] HEMATOLOGY AND ONCOLOGY [place], [place] [address] (Wo rk) 02/02/2022 Infusion Hematology and Oncology 02/02/2022 Scheduled View Only Radiation Oncology 02/03/2022 Scheduled View Only Radiation Oncology 02/04/2022 Scheduled View Only Radiation Oncology 02/05/2022 Scheduled View Only Radiation Oncology 02/05/2022 Office Visit Radiation Oncology Adriana De La Rosa v, MD [address] [place] [address] DR [place] [place], [place] [address] (Wo rk) 02/06/2022 Scheduled View Only Radiation Oncology 02/09/2022 Office Visit Hematology and Arlene Bobyb, Oncology [facility] HEMATOLOGY AND ONCOLOGY [place], [place] [address] (Wo rk) 02/09/2022 Infusion Hematology and Oncology 02/09/2022 Scheduled View Only Radiation Oncology 02/09/2022 Notes Only Radiation Oncology Adriana De La Rosa v, MD [address] [place] [address] DR [place] [place], [place] [address] (Wo rk) 02/10/2022 Scheduled View Only Radiation Oncology Scheduled Orders Name Type Priority Associated Diagnoses Order S chedule Echo pharm stress Echocardiography Routine Postprocedural card iac Expected: test (DSE) insufficiency following 02/03 other surgery (Approximate), Pre-op testing Expires: Bilateral carotid artery stenosis documented as of this encounter Visit Diagnoses Diagnosis Postprocedural cardiac insufficiency fol lowing other surgery Pre-op testing Preoperative examination, unspecified Bilateral carotid artery stenosis Occlusion and stenosis of multiple and b ilateral precerebral arteries without mention of cerebral infarction documented in this encounter Care Teams Video Game Developer Relationship Specialty Start Date End Date Que Sharma DO PCP - General Family Medicine 02/08/20 [address] [place] [address] documented as of this encounter
--- OUTSIDE RECORDS SUMMARY | 2022-01-19 02:10 | XMS_ITS | Encounter Summary ---
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 Sex Assigned at Date Recorded Not on file documented as of this encounter Plan of Treatment Upcoming Encounters Date Type Specialty Care Team Description 01/19/2022 Office Visit Hematology Tanvir Hawk MD [facility] HEMATOLOGY/[place] [address] Oncology Arlene Bobby APRN [facility] [place] [address] 01/19/2022 Infusion Hematology and Oncology 01/19/2022 Scheduled View Only Radiation Oncology 01/20/2022 Scheduled View Only Radiation Oncology 01/21/2022 Scheduled View Only Radiation Oncology 01/22/2022 Scheduled View Only Radiation Oncology 01/22/2022 Office Visit Radiation Oncology Adriana De La Rosa v, MD [address] [place] [address] [place] [address] (Wo rk) 01/23/2022 Scheduled View Only Radiation Oncology 01/26/2022 Office Visit Tanvir Vivas MD [facility] HEMATOLOGY/[place] [address] Oncology Arlene Bobby APRN [facility] [place] [address] 01/26/2022 Infusion Hematology and Oncology 01/26/2022 Scheduled View Only Radiation Oncology 01/27/2022 Scheduled View Only Radiation Oncology 01/28/2022 Scheduled View Only Radiation Oncology 01/29/2022 Scheduled View Only Radiation Oncology 01/29/2022 Office Visit Radiation Oncology Adriana De La Rosa v, MD [address] [place] [address] RAD[place]ATION [place]CM[place], [place] [id number] (Wo rk) 01/30/2022 Scheduled View Only Radiation Oncology 02/02/2022 Office Visit Hematology and Arlene Bobby, Oncology [facility] HEMATOLOGY AND ONCOLOGY [place], [place] [address] (Wo rk) 02/02/2022 Infusion Hematology and Oncology 02/02/2022 Scheduled View Only Radiation Oncology 02/03/2022 Scheduled View Only Radiation Oncology 02/04/2022 Scheduled View Only Radiation Oncology 02/05/2022 Scheduled View Only Radiation Oncology 02/05/2022 Office Visit Radiation Oncology Adriana De La Rosa v, MD [address] [place] [address] DR [address], [place] [id number] (Wo rk) 02/06/2022 Scheduled View Only Radiation Oncology 02/09/2022 Office Visit Hematology and Arlene Bobby, Oncology [facility] HEMATOLOGY AND ONCOLOGY [place], [place] [address] (Wo rk) 02/09/2022 Infusion Hematology and Oncology 02/09/2022 Scheduled View Only Radiation Oncology 02/09/2022 Notes Only Radiation Oncology Adriana De La Rosa v, MD [address] [place] [address] DR [place] [place], [place] [id number] (Wo rk) 02/10/2022 Scheduled View Only Radiation Oncology documented as of this encounter Results Carotid Duplex, Bilateral (02/14/2020 10:05 AM EDT) Component Value Ref Test Analysis Performed At [facility] gist Range Method Time Signature VB Text Department: Vascular Surgery Lab VASCUBASE Report Patient: [id number] (LAURYN THOMAS) CPT: 64024 ICD10: I65.23 Referring Physician: TIARRA SOLOMON APRN [...] infarction documented in this encounter Care Teams Canvas Products Sales Representative Relationship Specialty Start Date End Date Que Sharma DO PCP - General Family Medicine 02/08/20 [address] [place] [address] documented as of this encounter
--- OUTSIDE RECORDS SUMMARY | 2022-01-19 02:10 | XMS_ITS | Encounter Summary ---
:1945 Author Organization [facility] Address [address] [place] [address] Care Team Providers Name Role Phone Raymundo Kumar DO, David Primary Care Provider Encounter Details Date Type Department Care Team Description 02/02/2020 Ancillary Procedure Radiology Library at Job Fonseca DO [address] [address] [place] [address] [phone] Social History Tobacco Use Types Packs/Day Years [...] 01/19/2022 Office Visit Hematology Tanvir Hawk MD [facility] HEMATOLOGY/ONCOLOGY [place] [address] Oncology Arlene Bobby APRN [facility] HEMATOLOGY AND [place] [address] 01/19/2022 Infusion Hematology and Oncology 01/19/2022 Scheduled View Only Radiation Oncology 01/20/2022 Scheduled View Only Radiation Oncology 01/21/2022 Scheduled View Only Radiation Oncology 01/22/2022 Scheduled View Only Radiation Oncology 01/22/2022 Office Visit Radiation Oncology Adriana De La Rosa v, MD [address] [place] [address] [place] [address] (Wo rk) 01/23/2022 Scheduled View Only Radiation Oncology 01/26/2022 Office Visit Tanvir Vivas MD [facility] HEMATOLOGY/ONCOLOGY [place] [address] Oncology Arlene Bobby APRN [facility] HEMATOLOGY AND [place] [address] 01/26/2022 Infusion Hematology and Oncology 01/26/2022 Scheduled View Only Radiation Oncology 01/27/2022 Scheduled View Only Radiation Oncology 01/28/2022 Scheduled View Only Radiation Oncology 01/29/2022 Scheduled View Only Radiation Oncology 01/29/2022 Office Visit Radiation Oncology Adriana De La Rosa v, MD [address] [place] [address] RADIATION [place]CM[place], [place] [id number] (Wo rk) 01/30/2022 Scheduled View Only Radiation Oncology 02/02/2022 Office Visit Hematology and Arlene Bobby, Oncology [facility] HEMATOLOGY AND ONCOLOGY [place] [address] (Wo rk) 02/02/2022 Infusion Hematology and Oncology 02/02/2022 Scheduled View Only Radiation Oncology 02/03/2022 Scheduled View Only Radiation Oncology 02/04/2022 Scheduled View Only Radiation Oncology 02/05/2022 Scheduled View Only Radiation Oncology 02/05/2022 Office Visit Radiation Oncology Adriana De La Rosa v, MD [address] [place] [address] [address] [place], [place] [phone] (Wo rk) 02/06/2022 Scheduled View Only Radiation Oncology 02/09/2022 Office Visit Hematology and Arlene Bobby, Oncology [facility] HEMATOLOGY AND ONCOLOGY [place], [place] [address] (Wo rk) 02/09/2022 Infusion Hematology and Oncology 02/09/2022 Scheduled View Only Radiation Oncology 02/09/2022 Notes Only Radiation Oncology Adriana De La Rosa v, MD [address] [place] [address] DR [place] [id number] (Wo rk) 02/10/2022 Scheduled View Only Radiation Oncology documented as of this encounter Procedures Procedure Name Priority Date/Time Associated Diagnosis Comme nts FILM LIBRARY - Routine 02/02/2020 12:00 AM Result s for this STORAGE ONLY CT EDT procedure ar e in NECK the results section. documented in this encounter Results Film Library- Storage Only CT Neck (02/02/2020 12:00 AM EDT) Specimen (Source) Anatomical Location Collection Method / Collectio n Time Received Time / Laterality Volume Narrative DH RAD - 02/06/2020 2:06 PM EDT This exam is auto-finalizing. It's purpo se is for storage only. Job Kumar DO IM FILM LIBRARY ORDERABLES Performing Organization Address City/State/ZIP Code Phon e Number [place], [place] documented in this encounter Visit Diagnoses Not on filedocumented in this encounter Care Teams Tentering Machine Off Bearer Relationship Specialty Start Date End Date Job Fonseca DO PCP - General 12/19/14 02/07/20 documented as of this encounter
--- OUTSIDE RECORDS SUMMARY | 2022-01-19 02:10 | XMS_ITS | Encounter Summary ---
:1945 [place] [address] Care Team Providers Name Role Phone Edith Que Grey VITAL Primary Care Provider Reason for Visit Auth/Cert Specialty Diagnoses / Procedures Referred By Contact Refer red To Contact Diagnoses Bilateral carotid artery stenosis carotid stenosis . Procedures PRO THROMBOENDARTECTMY NECK, NECK INCIS @ENDARTERECTOMY, CAROTID, VERTEBRAL,SUBCLAVIAN W\WO PATCH GRAFT (WRVU 21.16) Referral ID Status Reason Start Date Expiration Date Visits Requ ested Visits Authorized [id number] 1 1 Encounter Details Date Type Department Care Team Description 03/19/2020 Anesthesia Event Main Operating Room Gordon Cosby MD [facility] [place] [address] [place] [address] [phone] Anesthesia Record Procedure Summary Procedure Name Responsible Anesthesia Start Anesthesia Stop Time Anesthesiologist Time @ENDARTERECTOMYParker Kiran, MD 03/19/20 1200 03/19/20 1445 CAROTID, VERTEBRAL,SUBCLAVIA N W\WO PATCH GRAFT (WRVU 21.16) (Right Neck) Events Date Time Event Comment 03/19/2020 1155 1200 AN Verify 1200 Start 1200 An Start Data 1206 An Induction 1211 An Intubation 1223 Anesthesia Ready 1302 Heparin 1305 Break/Relief In I assumed care f or Break Relief before which we: 1. Identifie d the patient 2. Identified the responsible provider(s) 3. Reviewed the pertinent medica l history 4. Discussed the surgical plan an d course 5. Reviewed intra-op anesthesia manag ement and issues during anesthesia 6. Se t expectations for the relief (and/or post-pro cedure) period 7. Allowed opportunity for questions and acknowledgement of understanding Clair Shankar, KERMIT 1315 Vascular Clamp ON 1316 Quick Note Vascular shunt i n place 1351 Vascular Clamp OFF 1422 Extubation/LMA Out Patient has m et criteria for extubation. Oropharynx sucti oned and patient extubated to 6lpm O2 via simp le mask. Spontaneous ventilation main tained and no distress noted. 1436 an stop data 1443 Recovery or ICU Handoff Patient care was transferred to the destination unit staff after review of the patient's medica l history, current anesthetic/surgi peter status and plan, according to the Provider Handoff Checklist. Patient neuro ex am matches preop baseline. Strength equal i n extremities bilaterally, no focal deficit no kavon. 1445 Stop Name Total fentaNYL 200 mcg IV Lidocaine 100 mg Propofol 270 mg Propofol INF 730.13 mg Rocuronium 10 mg PHENYLephrine 320 mcg Heparin 9,000 Units Dexamethasone 4 mg Ondansetron 4 mg Neostigmine 4 mg Glycopyrrolate 0.7 mg PHENYLephrine INF 4,640 mcg ceFAZolin (Ancef) 2 g in dextrose 5% 100 mL infusion 2 g lactated ringers infusion 1,400 mL Sodium Chloride 0.9% 200 mL Agents Name O2 Air N2O Sevoflurane (et) Blood No blood administrations on file. Lines, Drains, and Airways Type Details Placement Removal Incision 03/19/20; 1250; neck 03/19/20 1250 by Mony Joaquin RN PIV 03/19/20; 1054; 03/19/20 1054 by 03/20/20 1237 b y metacarpal vein (top of Melissa Wilde RN W Clair almeida RN hand), left; [id number] catheter system; 18 gauge, 1 in length; Nevaeh Hernandez RN ; distraction, intradermal injection; 03/20/20; 1237 ETT Mask Ventilation: Adjunct 03/19/20 1211 by 03/19 1422 by (2) (Two person, no Cain Nath, KERMIT duran, Cain Villalobos, issue); ETT Type: Zacariased, KERMIT Oral; ETT Size: 7.5 mm; Mac Blade: 4; Notes: Asleep, Pre-O2, Stylette; Attempts: 1; Laryngoscopy Grade: 1; ETT Placement Verified By: Auscultation, Capnometry; Secured at Teeth: 24 cm; Inserted by: Agustina COHEN Urethral Catheter 03/19/20; 1218; Surgery 03/19/20 1218 by 03/19 1422 by longer than 2 hours; Celeste Ac RN Chas e, Mony Castellano RN indwelling double lumen catheter; latex; 14; inserted at this facility; 1; 10; 10; none; leg bag to dependent drainage; 03/19/20; 1422 Arterial Line 03/19/20; 1222; radial 03/19/20 1222 by 03/19/20 1831 by artery, left; 20 gauge; Cain Nath CRNA C ardew, Kailee A, RN Matt Thomson SRNA; Sterile Prep, Sterile Gloves; 03/19/20; 1831 PIV 03/19/20; 1223; 03/19/20 1223 by 03/20/20 1236 b y metacarpal vein (top of Cain Nath CRNA W ilson, Sarah N, RN hand), right; [id number]-zrq-ypemwr catheter system; 16 gauge; Portillo; 03/20/20; 1236 documented in this encounter Social History Tobacco [...] encounter OR Notes Anesthesia Postprocedure Evaluation - Gordon Canales MD - 03/19/2020 4:33 PM EDT Department of Anesthesiology Post-procedure Note Patient: Don Ortega Procedure Summary Date: 03/19/20 Room / Location: [facility] MAIN OR Anesthesia Start: 1200 Anesthesia Stop: 1445 Procedure: @ENDARTERECTOMY, CAROTID, VERTEBRAL,SUBCLAVIAN W\WO PATCH GRAFT (WRVU 21.16) (Right Neck) Diagnosis: Bilateral carotid artery stenosis Pre-op testing Cigarette smoker (carotid stenosis) Surgeon: Alee Sanders MD Responsible Provider: Gordon Canales MD Anesthesia Type: general ASA Status: 3 All Anesthesia Providers: Anesthesiologist: Gordon Canales MD PRECISION OPTICS TECHNICIAN: Cain Nath CRNA Vitals Value Taken Time BP 114/57 03/19/20 1630 Temp Pulse 57 03/19/20 1632 Resp 17 03/19/20 1632 SpO2 100 % 03/19/20 1632 Pain Level 0 03/19/20 1445 Vitals shown include unvalidated device data. Patient Location: PACU/[facility] Level of Consciousness: Awake and Alert Pain Management: Satisfactory Analgesia PONV: None Cardiovascular Status: At Baseline and Hemodynamically Stable Respiratory Status: At Baseline Postoperative Fluid Status: Intravascular EUvolemia Possible Anesthetic Complications: NONE apparent at time of evaluation Final Primary Anesthesia Type: General (The anesthetic type performed was the same as planned.) Comments: Gordon Canales MD Anesthesia Preprocedure Evaluation - Gordon Canales MD - 03/18/2020 4:09 PM EDT Images from the original note were not included. Pre-Anesthesia Evaluation for: Don Ortega a 74 y.o. male. Procedure(s): @ENDARTERECTOMY, CAROTID, VERTEBRAL,SUBCLAVIAN W\WO PATCH GRAFT (WRVU 21.16) Patient Active Problem List Diagnosis ??? Bilateral carotid artery stenosis Added automatically from request for surgery [id number] ??? Pre-op testing Added automatically from request for surgery [id number] ??? Cigarette smoker Added automatically from request for surgery [id number] No past medical history on file. No past surgical history on file. Social History Tobacco Use ??? Smoking status: Current Every Day Smoker Packs/day: 1.00 Years: 63.00 Pack years: 63.00 Types: Cigars ??? Smokeless tobacco: Never Used Substance Use Topics ??? Alcohol use: Not on file Social History Substance and Sexual Activity Drug Use Not on file No Known Allergies Medications: MAR and/or home medications have been reviewed. Physical Exam: No data found. There is no height or weight on file to calculate BMI. Airway Assessment: Mallampati: II TM distance: >3 FB Neck ROM: full Cardiovascular Assessment: Pulmonary Assessment: breath sounds clear to auscultation Dental Assessment: Misc Assessment: Patient is wearing No contact(s). IV access: Peripheral line Anesthesia Plan: ASA 3 general, with a(n) intravenous induction Don Ortega is a 74 y.o. BMI 30 male presenting for RIGHT CEA. Pt has a PMH of 61 pk-yr smoker with asymptomatic right internal carotid artery with high-grade stenosis and moderate asymptomatic left internal carotid artery stenosis. Also history of HTN, HLD, lasix-dependent, and depression. Prior anesthetic hx: no prior anesthesia history on file Labs were reviewed Allergies: No Known Allergies NPO Status: Appropriate Anesthetic Plan: GA with ETT Arterial line monitoring in addition to standard ASA monitoring Adequate IV access Gordon Canales MD PhD #[id number] [facility] Informed Consent: Anesthetic plan and risks discussed with patient. Use of blood products discussed with patient who consented to blood products. Plan discussed with PRECISION OPTICS TECHNICIAN. PAT Clinic Note documented in this encounter Plan of Treatment Upcoming Encounters Date Type Specialty Care Team Description 01/19/2022 Office Visit Tanvir Vivas MD [facility] HEMATOLOGY/[place] [address] Oncology Arlene Bobby [facility] [place] [address] 01/19/2022 Infusion Hematology and Oncology 01/19/2022 Scheduled View Only Radiation Oncology 01/20/2022 Scheduled View Only Radiation Oncology 01/21/2022 Scheduled View Only Radiation Oncology 01/22/2022 Scheduled View Only Radiation Oncology 01/22/2022 Office Visit Radiation Oncology Adriana De La Rosa v, MD [address] [place] [address] DR [place]O [place], [place] [id number] (Wo rk) 01/23/2022 Scheduled View Only Radiation Oncology 01/26/2022 Office Visit Tanvir Vivas MD [facility] HEMATOLOGY/[place] [address] Arlene Hill [facility] [place] [address] 01/26/2022 Infusion Hematology and Oncology 01/26/2022 Scheduled View Only Radiation Oncology 01/27/2022 Scheduled View Only Radiation Oncology 01/28/2022 Scheduled View Only Radiation Oncology 01/29/2022 Scheduled View Only Radiation Oncology 01/29/2022 Office Visit Radiation Oncology Adriana De La Rosa v, MD [address] [place] [address] DR [place]ANO [place], [place] [phone] (Wo rk) 01/30/2022 Scheduled View Only Radiation Oncology 02/02/2022 Office Visit Hematology and Arlene Bobby, Oncology [facility] HEMATOLOGY AND ONCOLOGY [place], [place] [address] (Wo rk) 02/02/2022 Infusion Hematology and Oncology 02/02/2022 Scheduled View Only Radiation Oncology 02/03/2022 Scheduled View Only Radiation Oncology 02/04/2022 Scheduled View Only Radiation Oncology 02/05/2022 Scheduled View Only Radiation Oncology 02/05/2022 Office Visit Radiation Oncology Adriana De La Rosa v, MD [address] [place] [address] DR COTA [place]O [place], [place] [phone] (Wo rk) 02/06/2022 Scheduled View Only Radiation Oncology 02/09/2022 Office Visit Hematology and Arlene Bobby, Oncology [facility] HEMATOLOGY AND ONCOLOGY [place], [place] [address] (Wo rk) 02/09/2022 Infusion Hematology and Oncology 02/09/2022 Scheduled View Only Radiation Oncology 02/09/2022 Notes Only Radiation Oncology Adriana De La Rosa v, MD [address] [place] [address] DR COTA [place], [place] [id number] (Wo rk) 02/10/2022 Scheduled View Only Radiation Oncology documented as of this encounter Visit Diagnoses Not on filedocumented in this encounter Administered Medications Inactive Administered Medications - up to 3 most recent administrations Medication Order MAR Action Action Date Dose Rate Site ceFAZolin (Ancef) 2 g in dextrose Given 03/19/2020 12:18 PM EDT 2 g 5% 100 mL infusion 2 g, Intravenous, ONCE, 1 dose, On Wed03/19/20 at 1100, Administer over 30 Minutes, Redose every 3 hours if CrCl is greater than 20. Redose every 8 hours if CrCl is less than 20., Day of Surgery (Day of Procedure), Indication for (Active or Suspected): Prophylaxis dexamethasone (Decadron) injection Given 03/19/2020 2:01 PM EDT 4 mg PRN, Starting on Wed03/19/20 at 1401, Until Wed03/19/20 at 1445, Anesthesia Intra-op, Routine fentaNYL 50 mcg/mL multi-dose injection Given 03/19/2020 2:10 PM EDT 50 mcg PRN, Starting on Wed03/19/20 at 1232, Until Wed03/19/20 at 1445, Anesthesia Intra-op, Routine Given 03/19/2020 1:52 PM EDT 50 mcg Given 03/19/2020 12:32 PM EDT 50 mcg glycopyrrolate (ROBINUL) multi-dose inje ction Given 03/19/2020 2:13 PM EDT 0.7 mg PRN, Starting on Wed03/19/20 at 1413, Until Wed03/19/20 at 1445, Anesthesia Intra-op, Routine heparin (porcine) 1,000 unit/mL Given 03/19/2020 1:02 PM EDT 9,0 00 Units injection PRN, Starting on Wed03/19/20 at 1302, Until Wed03/19/20 at 1445, Anesthesia Intra-op, Routine lactated ringers infusion New Bag 03/19/2020 1:24 PM EDT 1,000 mL, at 100 mL/hr, Intravenous, CONTINUOUS, Starting on Wed03/19/20 at 1100, Until Wed03/19/20 at 1841, Day of Surgery (Day of Procedure) New Bag 03/19/2020 11:52 AM EDT lidocaine (PF) (XYLOCAINE) 100 mg/5 mL (2 %) Given 12:06 PM EDT 100 mg injection PRN, Starting on Wed03/19/20 at 1206, Until Wed03/19/20 at 1445, Anesthesia Intra-op, Routine neostigmine (BLOXIVERZ) injection Given 03/19/2020 2:13 PM EDT 4 mg PRN, Starting on Wed03/19/20 at 1413, Until Wed03/19/20 at 1445, Anesthesia Intra-op, Routine ondansetron (ZOFRAN) injection Given 03/19/2020 2:27 PM EDT 4 mg PRN, Starting on Wed03/19/20 at 1427, Until Wed03/19/20 at 1445, Anesthesia Intra-op, Routine PHENYLephrine Rate/Dose Change 03/19/2020 2:13 10 mcg/min 7.5 mL/hr (MANOLO-SYNEPHRINE) 20 mg in PM EDT sodium chloride 250 mL (standard ADULT & Pedi greater than 20kg) infusion CONTINUOUS PRN, Starting on Wed03/19/20 at 1241, Until Wed03/19/20 at 1445, Anesthesia Intra-op, Routine Rate/Dose Change 03/19/2020 2:10 PM EDT 30 mcg/min 22.5 mL/hr Rate/Dose Change 03/19/2020 2:04 PM EDT 50 mcg/min 37.5 mL/hr PHENYLephrine in NS (PF) (MANOLO-SYNEPHRINE) 0.8 Given 1:20 PM EDT 80 mcg mg/10 mL (80 mcg/mL) multi-dose injection Syrg PRN, Starting on Wed03/19/20 at 1244, Until Wed03/19/20 at 1445, Anesthesia Intra-op, Routine Given 03/19/2020 12:44 PM EDT 80 mcg Given 03/19/2020 12:09 PM EDT 80 mcg propofoL (Diprivan) 10 mg/mL bolus injection Given 0 1:22 PM EDT 30 mg (Anesthesia) PRN, Starting on Wed03/19/20 at 1230, Until Wed03/19/20 at 1445, Anesthesia Intra-op Given 03/19/2020 12:30 PM EDT 40 mg Given 03/19/2020 12:09 PM EDT 50 mg propofoL (Diprivan) Rate/Dose 03/19/2020 2:01 75 mcg/kg/min 39.8 mL/ hr infusion Change PM EDT CONTINUOUS PRN, Starting on Wed03/19/20 at 1249, Until e 03/19/20 at 1445, Anesthesia Intra-op, Routine New Bag 03/19/2020 12:49 PM EDT 100 mcg/kg/min 53.1 mL/hr rocuronium (ZEMURON) multi-dose injectio n Given 03/19/2020 1:22 PM EDT 10 mg PRN, Starting on e 03/19/20 at 1322, Until Wed03/19/20 at 1445, Anesthesia Intra-op, Routine sodium chloride 0.9% infusion New Bag 03/19/2020 12:23 PM EDT CONTINUOUS PRN, Starting on Wed03/19/20 at 1223, Until Wed03/19/20 at 1445, Anesthesia Intra-op documented in this encounter Care Teams Treating Inspector Relationship Specialty Start Date End Date Que Sharma DO PCP - General Family Medicine 02/08/20 [address] [place] [address] documented as of this encounter
--- OUTSIDE RECORDS SUMMARY | 2022-01-19 02:10 | XMS_ITS | Encounter Summary ---
:1945 [place] [address] Care Team Providers Name Role Phone Que Sharma DO Primary Care Provider Reason for Visit Auth/Cert Specialty Diagnoses / Procedures Referred By Contact Refer red To Contact Diagnoses Bilateral carotid artery stenosis carotid stenosis . Procedures PRO THROMBOENDARTECTMY NECK, NECK INCIS @ENDARTERECTOMY, CAROTID, VERTEBRAL,SUBCLAVIAN W\WO PATCH GRAFT (WRU 21.16) Referral ID Status Reason Start Date Expiration Date Visits Requ ested Visits Authorized [id number] 1 1 Encounter Details Date Type Department Care Team Description 03/19/2020 Surgery Main Operating Room Kervin Sanders rn, MD @ENDARTERECTOMY, [facility] CAROTID, [facility] DR POP,SUBCLAVIAN [facility] VASCULAR SURG KAITLIN W\WO PATCH GRAFT ([place] [address] 21.16) [place] [address] [phone] Social History Tobacco Use Types Packs/Day Years [...] Sign Reading Time Taken Comments Blood Pressure 127/56 03/19/2020 2:45 PM EDT Pulse 75 03/19/2020 2:45 PM EDT Temperature 36.8 ??C (98.2 ??F) 03/19/2020 10:33 AM EDT Respiratory Rate 20 03/19/2020 2:45 PM EDT Oxygen Saturation 100% 03/19/2020 2:45 PM EDT Inhaled Oxygen Concentration - - Weight 88.5 kg (195 lb) 03/19/2020 10:33 AM EDT Height 172.7 cm (5' 8) [...] AM Tasia Cody [place] Vascular Lab at [facility] Arrive at: Utilities Ground Worker Area 3V [phone] 04/05/2020 11:00 AM Kaitlin Phipps APRN Vascular Surgery at [facility] Arrive at: Utilities Ground Worker Area 3V [phone] Future Orders Complete By Expires Carotid Duplex, Bilateral [VAS1 Custom] 04/18/2020 03/19/2021 Process Instructions: There is no in-house vascular cath lab radiology technician available on weeknights (5pm-8am), weekends, or holidays. IF THIS IS A REQUEST FOR AN EMERGENT STUDY DURING THOSE HOURS, please have the senior provider responsible for the patient page the Vascular Surgery Fellow/Senior Resident cotton stripper to discuss options. Scheduling Instructions: Questions: Indication for study/signs & symptoms: s/p R CEA with B car stenosis Question to be answered: patency Preferred location?: [facility] Clinics Anticoagulation & Antiplatelet: Anticoagulation: N/A Antiplatelet: [...] daily and call us on Wednesday am [phone]. At that time we will tell you [...] or questions please call our office at [phone] For issues on weeknights after 5pm and weekends please call [phone] and ask for the Vascular Fellow cotton stripper. documented in this encounter Discharge Instructions Discharge [...] 2007 Valentin Myles, MSN, RN-BC, NCTTP Tobacco Manager Filter [email or web address] Patient InstructionsTocamachoKaitlinWILFRED - 03/19/2020 12:43 PM EDT You were [...] daily and call us on Wednesday am [phone]. At that time we will tell you [...] or questions please call our office at [phone] For issues on weeknights after 5pm and weekends please call [phone] and ask for the Vascular Fellow cotton stripper. AttachmentsThe following attachments cannot be sent through Care Everywhere. Smoking: Stopping (Swazi)Smoking Cessation: Health Benefits: General Info (Swazi)documented in this encounter Medications at Time of [...] of this encounter Progress Notes Clair Hogan, SHAYY - 03/20/2020 1:52 PM EDT Pt received [...] on file: MEDICARE Secondary Insurance on file: [employer] [place] [employer] Primary care provider on file: Que Sharma DO [phone] Advance Directive on file and Code Status: <no information>, Attempt Cardiopulmonary Resuscitation - Inpatient Patient???s Functional Status: Independent Living Situation: Lives with daughter and she will be [place] [address] Supports:Family Assessment: Patient with no apparent RNCM/SW needs at this time. No housing, transportation, insurance, resources concerns identified at this time. Supports in place to achieve a safe post-hospital transition. No identified barriers to accessing necessary care and/or follow-up after discharge. Plan: Patient to d/c to Home via family car when medically ready. data consultant/Front Desk Assistant will continue to follow patient???s progress and remain available if situation changes for coordination of care, psychosocial support and/or discharge planning. Yanira Goode RN Pager [phone] Janae Farooq RN - 03/19/2020 6:45 PM [...] by 9PM Ty Hawthorne MD 03/19/2020 Pager: [phone] documented in this encounter H&P Notes Harsh [...] file Gets together: Not on file Attends rastafari service: Not on file Active member of [...] Harsh Guaman MD Vascular Surgery Fellow Pager [phone] 03/19/2020 11:28 AM documented in this encounter Miscellaneous Notes Consult Note - Valentin Myles RN - 03/20/2020 12:45 PM EDT TOBACCO DEPENDENCE TREATMENT NOTE 03/20/2020 Name: Lauryn Ortega Date of : 1945 Reason for visit: Lauryn Ortega is a current everyday smoker and was referred for smoking cessationcounseling. The following information has been reviewed with the patient: Social History: Marital status: () ETOH: No Drug use: No Caffeine: 5-6 cups/day Pets: No Smoking history: Type of tobacco used: ( ) Smokeless tobacco ( ) e-cigarette (X) Cigarettes Brand currently smoking: [employer] filter cigars Current amount: 1 ppd (1 pack=20 cigars) Age initiated: 11 Years smoked: 61 Previous quit attempts and methods: No previous quit attempts Are there other smokers in the home: Pt plans to winter in [place] and live by himself. Ready to set [...] does not have a PCP established in [place]. He was encouraged to contact the [place] quit line should he need additional support with this quit attempt. This office will follow-up by telephone in one month. Valentin Myles, MSN, RN-, NCTTP Tobacco Manager Filter [facility] Pager #[phone] Plan of Care - Bessie Hoyos RN [...] Guaman MD - 03/19/2020 7:21 PM EDT [facility] Operative Note Patient Name: Lauryn Ortega : [id number] MR#: [id number] Case Date: 03/19/2020 Surgeon: Surgeon(s) and Role: * Alee Sanders MD - Primary * Harsh Guaman MD - Fellow Preoperative diagnosis: Asymptomatic RIGHT carotid stenosis Postoperative diagnosis: Same Procedure(s) (LRB): @ENDARTERECTOMY, CAROTID, VERTEBRAL,SUBCLAVIAN W\WO PATCH GRAFT (WRVU 21.16) (Right) Operation: Right Carotid Endarterectomy Implants: Implant Name Type Inv. Item Serial No. Radiology Manager Lot No. LRB No. Used Action PATCH,BIOL,XENOSURE,.[id number] ([id number]) - [id number] IMPLANTS PATCH,BIOL,XENOSURE,.[id number] ([id number]) [facility] [id number] Right 1 Implanted EBL: 22cc Urine Output: [...] using Pott's and Iris scissors. A #11 Hamilton Shunt was brought onto the field. The ICA clamp was removed. The shunt was inserted. There was backbleeding. We removed the CCA clamp. The proximal end of the shunt was inserted. The hemostat on the shunt was opened. The vessel loop was tightened. Using a Geneva elevator, endarterectomy of the common carotid and [...] post-anesthesia care unit for further monitoring. Dr Sandesr was present for the entire operation. Dictated [...] Description 01/19/2022 Office Visit Tanvir Vivas MD [facility] HEMATOLOGY/[place] [address] Oncology Arlene Bobby [facility] [place] [address] 01/19/2022 Infusion Hematology and Oncology 01/19/2022 Scheduled View Only Radiation Oncology 01/20/2022 Scheduled View Only Radiation Oncology 01/21/2022 Scheduled View Only Radiation Oncology 01/22/2022 Scheduled View Only Radiation Oncology 01/22/2022 Office Visit Radiation Oncology Adriana De La Rosa v, MD [address] [place] [address] RADIATION [place], [place] [id number] (Wo rk) 01/23/2022 Scheduled View Only Radiation Oncology 01/26/2022 Office Visit Hematology Tanvir Hawk MD [facility] HEMATOLOGY/[place] [address] Arlene Hill TASTE TESTER [facility] [place] [address] 01/26/2022 Infusion Hematology and Oncology 01/26/2022 Scheduled View Only Radiation Oncology 01/27/2022 Scheduled View Only Radiation Oncology 01/28/2022 Scheduled View Only Radiation Oncology 01/29/2022 Scheduled View Only Radiation Oncology 01/29/2022 Office Visit Radiation Oncology Adriana De La Rosa v, MD [address] [place] [address] RADIATION [place], [place] [phone] (Wo rk) 01/30/2022 Scheduled View Only Radiation Oncology 02/02/2022 Office Visit Hematology and Arlene Bobby, Oncology [facility] HEMATOLOGY AND ONCOLOGY [place], [place] [address] (Wo rk) 02/02/2022 Infusion Hematology and Oncology 02/02/2022 Scheduled View Only Radiation Oncology 02/03/2022 Scheduled View Only Radiation Oncology 02/04/2022 Scheduled View Only Radiation Oncology 02/05/2022 Scheduled View Only Radiation Oncology 02/05/2022 Office Visit Radiation Oncology Adriana De La Rosa v, MD [address] [place] [address] RADIATION [place], [place] [id number] (Wo rk) 02/06/2022 Scheduled View Only Radiation Oncology 02/09/2022 Office Visit Hematology and Arlene Bobby, Oncology [facility] HEMATOLOGY AND ONCOLOGY [place], [place] [address] (Wo rk) 02/09/2022 Infusion Hematology and Oncology 02/09/2022 Scheduled View Only Radiation Oncology 02/09/2022 Notes Only Radiation Oncology Adriana De La Rosa v, MD [address] [place] [address] DR [place]OTA [place], [place] [id number] (Wo rk) 02/10/2022 Scheduled View Only Radiation [...] Component Value Ref Test Analysis Performed At [facility] Survios Range Method Time Signature VB Text Department: Vascular Surgery Lab VASCUBASE Report Patient: [id number] (MARTHALAURYN Villalobos) CPT: 78709 ICD10: I65.23 Referring Physician: ALEE SANDERS ?? [...] P athologist Signature Neutrophils % 72.9 % [facility] Neutr Abs (ANC) 5.33 1.70 - [facility] 6.10 [facility] x10(3)/[facility] LABORATORY Lymphocytes % 20.5 % [facility] Lymphocytes Abs 1.5 0.9 - 3.2 [facility] x10(3)/[facility] LABORATORY Monocytes % 6.1 % [facility] Monocyte Abs 0.4 0.3 - 0.9 [facility] x10(3)/[facility] LABORATORY Eosinophils % 0.1 % [facility] Eosinophils Abs 0.0 0.0 - 0.4 [facility] x10(3)/[facility] LABORATORY Basophils % 0.1 % [facility] Basophils Abs 0.0 0.0 - 0.1 [facility] x10(3)/[facility] LABORATORY Immature Gran % 0.30 % [facility] Comment: Immature granulocytes(IG's)percentage an d absolute count will include metamyelocytes, myelocytes, and promyelo cytes. Blood smears from CBCs yielding IG's will be scanned manually for concor dance. If this scan disagrees with the automated IG or if promyelocytes are not ed, a manual differential will be performed. Michelle Gran Abs 0.02 0.00 - 0.04 x10(3)/[facility] LABORATORY Specimen Anatomical Collection Method Collection Time Receive d Time (Source) Location / / Volume Laterality Blood specimen 03/20/2020 5:45 AM 020 6:11 (specimen) EDT AM EDT Resulting Agency Comment Spec In Lab Ty Hawthorne MD HEMATOLOGY ORDERABLES Performing Organization Address City/State/[place] [address] (ABNORMAL) Hemogram (03/20/2020 5:45 AM EDT) Analysis Performed At Patho logist Time Signature WBC 7.3 4.0 - 9.5 [facility] x10(3)/[facility] LABORATORY RBC 2.76 (L) 4.58 - [facility] 5.54 [facility] x10(6)/[facility] LABORATORY Hemoglobin 9.0 (L) 13.7 - [facility] 16.5 gm/dL [facility] LABORATORY Hematocrit 27.4 (L) 40.5 - [facility] [place] 48.5 % [facility] LABORATORY MCV 99.3 (H) 82.9 - [facility] 93.1 [facility] LABORATORY MCH 32.6 (H) 27.5 - [facility] 32.1 pg [facility] LABOR[facility]ORY MCHC 32.8 32.0 - [facility] 35.7 gm/dL [facility] LABOR[facility]ORY Platelets 170 145 - 357 [facility] x10(3)/[facility] LABORATORY RDWSD 46.7 (H) 36.0 - [facility] 45.0 [facility] LABORATORY RDWCV 13.0 11.4 - [facility] 13.8 % [facility] LABORATORY MPV 10.1 7.6 - 12.9 [facility] LABORATORY nRBC % Auto 0.0 % [facility] nRBC Abs Auto 0.000 0.000 - [facility] 0.000 [facility] x10(3)/[facility] LABORATORY Specimen Anatomical Collection Method Collection Time Receive d Time (Source) Location / / Volume Laterality Blood specimen 03/20/2020 5:45 AM 020 6:11 (specimen) EDT AM EDT Resulting Agency Comment Spec In Lab Ty Hawthorne MD HEMATOLOGY ORDERABLES Performing Organization Address City/[facility]/ZIP Code Phon e Number [address] Phosphorus (03/20/2020 5:45 AM EDT) P athologist Signature Phosphorus 3.0 2.5 - 4.5 [facility] mg/dL [facility] LABORATORY Specimen Anatomical Collection Method Collection Time Receive d Time (Source) Location / / Volume Laterality Blood specimen 03/20/2020 5:45 AM 020 6:11 (specimen) EDT AM EDT Resulting Agency Comment Spec In Lab Alee Sanders MD CHEMISTRY ORDERABLES Performing Organization Address City/[facility]/ZIP Code Phon e Number [address] Magnesium (03/20/2020 5:45 AM EDT) P athologist Signature Magnesium 0.78 0.69 - 1.07 [facility] mmol/L [facility] LABORATORY Specimen Anatomical Collection Method Collection Time Receive d Time (Source) Location / / Volume Laterality Blood specimen 03/20/2020 5:45 AM 020 6:11 (specimen) EDT AM EDT Resulting Agency Comment Spec In Lab Alee Sanders MD CHEMISTRY ORDERABLES Performing Organization Address City/State/[place] [address] (ABNORMAL) Basic Metabolic Panel (non-fasting) (03/20/2020 5:45 AM EDT) athologist Signature Glucose Lvl 173 65 - 199 [facility] mg/dL [facility] Comment: Diabetes: >=200 mg/dL plus symp toms BUN 21 (H) 10 - 20 mg/dL [facility] LABORATORY Creatinine 1.53 (H) 0.80 - 1.50 mg/dL [facility] Sodium 137 135 - 145 mmol/L [facility] Potassium 5.0 3.5 - 5.0 mmol/L [facility] Comment: Please note: ??Patients with WBC >100,00 0 may have falsely elevated Potassium levels. ??For accurate Potassium quantif ication in these patients send serum separator tube (gold top) for subsequent determinations. ??Contact the Clinical Chemistry Laboratory if there are any qu estions. Chloride 102 98 - 107 mmol/L [facility] CO2 26 22 - 31 mmol/L [facility] Anion Gap 9 5 - 15 mmol/L [facility] Calcium 9.3 8.5 - 10.5 mg/dL [facility] Estimated GFR 44 (L) >=60 mL/min/1.73 m?? [facility] Comment: The eGFR was calculated using the CKD-EP I equation. As with all creatinine based estimates of kidney function, eGFR values calculated with the CKD-EPI equation are not accurate in patients wi th acute kidney failure, extremes of body mass or the acutely ill. http://tinyurl.com/DHMCnkf eGFR 50 (L) >=60 mL/min/1.73 m?? [facility] Comment: The eGFR was calculated using the CKD-EP I equation. As with all creatinine based estimates of kidney function, eGFR values calculated with the CKD-EPI equation are not accurate in patients wi th acute kidney failure, extremes of body mass or the acutely ill. [email or web address]/[email or web address]nk[facility] Specimen Anatomical Collection Method Collection Time Receive d Time (Source) Location / / Volume Laterality Blood specimen 03/20/2020 5:45 AM 020 6:11 (specimen) EDT AM EDT Resulting Agency Comment Spec In Lab Alee Sanders MD CHEMISTRY ORDERABLES Performing Organization Address City/[facility] Phon e Number [address] ABORH Recheck Status (03/19/2020 1:07 PM EDT) [facility] Method Time Signature ABORH Recheck Order Placed [facility] LABORATORY ABORH Type Complete [facility] LABORATORY Specimen Anatomical Collection Method Collection Time Receive d Time (Source) Location / / Volume Laterality Blood specimen 03/19/2020 1:07 PM 020 1:07 (specimen) EDT PM EDT Resulting Agency Comment Spec In Lab Alee Sanders MD BLOOD BANK ORDERABLES Performing Organization Address City/[facility]/[place] [address] Antibody screen (03/19/2020 1:07 PM EDT) [facility] Method Time Signature Ab Screen Negative [facility] LABORATORY Expires at 03/22/2020 [facility] [id number] on: [facility] LABORATORY Specimen Anatomical Collection Method Collection Time Receive d Time (Source) Location / / Volume Laterality Blood specimen 03/19/2020 1:07 PM 020 1:07 (specimen) EDT PM EDT Resulting Agency Comment Spec In Lab Alee Sanders MD BLOOD BANK ORDERABLES Performing Organization Address City/State/ZIP Code Phon e Number [address] ABO/Rh Typing (03/19/2020 1:07 PM EDT) P athologist Signature ABORh Type O Pos [facility] Specimen Anatomical Collection Method Collection Time Receive d Time (Source) Location / / Volume Laterality Blood specimen 03/19/2020 1:07 PM 020 1:07 (specimen) EDT PM EDT Resulting Agency Comment Spec In Lab Alee Sanders MD BLOOD BANK ORDERABLES Performing Organization Address City/State/ZIP Code Phon e Number [address] Carotid Duplex, Unilateral (03/19/2020 1:04 PM EDT) Component Value Ref Test Analysis Performed At Patholo gist Range Method Time Signature VB Text Department: Vascular Surgery Lab VASCUBASE Report Patient: [id number] (LAURYN ORTEGA) CPT: 92934 ICD10: I65.23 Referring Physician: ALEE SANDERS ?? [...] Time Signature pH Art 7.39 7.35 - [facility] 7.45 [facility] LABORATORY pCO2 Art 41 35 - 45 [facility] LABORATORY pO2 Art 398 (H) 85 - 104 [facility] LABORATORY HCO3 Art 24.5 20.0 - [facility] 26.0 [facility] mmol/L [facility] LABORATORY BE Art -0.7 -3.0 - 3.0 [facility] mmol/L [facility] LABORATORY Hgb Blood Gas 10.5 (L) 13.7 - [facility] 16.5 gm/dL [facility] O2HB Art 96.0 94.0 - [facility] 97.0 % [facility] LABORATORY COHB Art 3.0 % [facility] Comment: Nonsmokers: 0.5-1.5% COHB Smokers: Variable, but usually less than 10% Toxic: 20-30% COHB Lethal: Greater than 60% COHB METHB Art 0.3 <=1.5 % [facility] LABORATORY Na Whole Blood 136 135 - 145 mmol/L [facility] K Whole Blood 4.1 3.5 - 5.0 mmol/L [facility] Comment: Please note: Patients with WBC >100,000 may have falsely elevated Potassium levels. Contact the Clinical Chemistry L aboratory if there are any questions. ICa Whole Blood 1.17 1.15 - 1.33 mmol/L [facility] Comment: Note: ??Total bilirubin higher than 20 m g/dL may lead to falsely low ionized calcium. CL Whole Blood 109 (H) 98 - 107 mmol/L [facility] LABORATORY Gluc Whole Bld 119 65 - 199 mg/dL [facility] Comment: Diabetes: >=200 mg/dL plus symp toms. Lactate WB 1.6 0.5 - 2.2 mmol/L [facility] LABORATORY FIO2 Art 96 % [facility] LABORATORY PF Ratio Art 415 [facility] LABORATORY Temp Art 35.6 Celsius [facility] LABORATORY Specimen Anatomical Collection Method Collection Time Receive d Time (Source) Location / / Volume Laterality Blood specimen 03/19/2020 12:42 0 (specimen) PM EDT 12:42 PM EDT Alee Sanders MD CHEMISTRY ORDERABLES Performing Organization Address City/State/[place] [address] Prealbumin (03/19/2020 10:14 AM EDT) P athologist Signature Prealbumin 28 20 - 40 [facility] mg/dL [facility] Comment: Prealbumin levels are generally lower [...] Organization Address City/State/[place] [address] (ABNORMAL) Hemogram (03/19/2020 10:14 AM EDT) [facility] gist Method Time Signature WBC 4.6 4.0 - 9.5 [facility] x10(3)/[facility] LABORATORY RBC 3.17 (L) 4.58 - [facility] 5.54 [facility] x10(6)/[facility] LABORATORY Hemoglobin 10.6 (L) 13.7 - [facility] 16.5 gm/dL [facility] LABOR[facility]ORY Hematocrit 31.7 (L) 40.5 - [facility] 48.5 % [facility] LABORATORY MCV 100.0 (H) 82.9 - [facility] 93.1 [facility] LABORATORY MCH 33.4 (H) 27.5 - [facility] 32.1 pg [facility] LABORATORY MCHC 33.4 32.0 - [facility] 35.7 gm/dL [facility] LABORATORY Platelets 206 145 - 357 [facility] x10(3)/[facility] LABORATORY RDWSD 48.1 (H) 36.0 - [facility] 45.0 [facility] LABORATORY RDWCV 13.0 11.4 - [facility] 13.8 % [facility] LABORATORY MPV 9.8 7.6 - 12.9 [facility] LABORATORY nRBC % Auto 0.0 % [facility] nRBC Abs Auto 0.000 0.000 - [facility] 0.000 [facility] x10(3)/[facility] LABORATORY Specimen Anatomical Collection Method Collection Time Receive d Time (Source) Location / / Volume Laterality Blood specimen Venous Draw / 03/19/2020 10:14 03/19/20 20 (specimen) Unknown AM EDT 10:26 AM EDT Resulting Agency Comment Spec In Lab Alee Sanders MD HEMATOLOGY ORDERABLES Performing Organization Address City/State/[place] [address] (ABNORMAL) Basic Metabolic Panel (non-fasting) (03/19/2020 10:14 AM EDT) P athologist Signature Glucose Lvl 155 65 - 199 [facility] mg/dL [facility] LAB[facility] Comment: Diabetes: >=200 mg/dL plus symp toms BUN 22 (H) 10 - 20 mg/dL [facility] LABORATORY Creatinine 1.64 (H) 0.80 - 1.50 mg/dL [facility] Sodium 138 135 - 145 mmol/L [facility] Potassium 4.3 3.5 - 5.0 mmol/L [facility] Comment: Please note: ??Patients with WBC >100,00 0 may have falsely elevated Potassium levels. ??For accurate Potassium quantif ication in these patients send serum separator tube (gold top) for subsequent determinations. ??Contact the Clinical Chemistry Laboratory if there are any qu estions. Chloride 103 98 - 107 mmol/L [facility] CO2 26 22 - 31 mmol/L [facility] Anion Gap 9 5 - 15 mmol/L [facility] Calcium 9.7 8.5 - 10.5 mg/dL [facility] Estimated GFR 40 (L) >=60 mL/min/1.73 m?? [facility] Comment: The eGFR was calculated using the CKD-EP I equation. As with all creatinine based estimates of kidney function, eGFR values calculated with the CKD-EPI equation are not accurate in patients wi th acute kidney failure, extremes of body mass or the acutely ill. [email or web address]/[facility] eGFR 46 (L) >=60 mL/min/1.73 m?? [facility] Comment: The eGFR was calculated using the CKD-EP I equation. As with all creatinine based estimates of kidney function, eGFR values calculated with the CKD-EPI equation are not accurate in patients wi th acute kidney failure, extremes of body mass or the acutely ill. http://[employer]/[facility] Specimen Anatomical Collection Method Collection Time Receive d Time (Source) Location / / Volume Laterality Blood specimen Venous Draw / 03/19/2020 10:14 03/19/20 20 (specimen) Unknown AM EDT 10:26 AM EDT Resulting Agency Comment Spec In Lab Alee Sanders MD CHEMISTRY ORDERABLES Performing Organization Address City/State/[place] [address] documented in this encounter Visit Diagnoses Diagnosis Bilateral carotid artery stenosis Occlusion and stenosis of multiple and b ilateral precerebral arteries without mention of cerebral infarction Pre-op testing Preoperative examination, unspecified Cigarette smoker Tobacco use disorder Bilateral carotid artery stenosis Occlusion and stenosis [...] dose on Wed03/19/20 at 1930, Until Discontinued escitalopram (Lexapro) tablet 10 mg Given 03/20/2020 9:08 AM EDT 10 mg 10 mg, Oral, DAILY, First dose on Wed03/20/20 at 0900, Until Discontinued, Routine gelatin adsorbable (GELFOAM) Given 03/19/2020 1:38 PM EDT 3 each 19- Surgical Site sponge ONCE PRN, Starting on Wed03/19/20 at 1338, Until Wed03/20/20 at 1555, Intra-Operative (Intra-Procedure) ipratropium-albuteroL (DUONEB) 0.5 mg-3 mg(2.5 Given 0 [...] Discontinued, DO NOT CRUSH OR OPEN, Routine thrombin (bovine) Given 03/19/2020 1:39 PM 5,000 Units 19- Surgical Site (THROMBIN-JMI) solution EDT ONCE PRN, Starting on Wed03/19/20 at 1339, Until Wed03/20/20 at 1555, Intra-Operative (Intra-Procedure) documented in this encounter Active and Recently Administered Medications Times are shown in EDT. Scheduled Medication Order 03/18/2020 03/19/202003/2003/20/2020 aspirin EC tablet 81 mg 908 (Gi betina - Provider: Clair Hogan RN) 81 mg, Oral, DAILY, First dose on Wed at 0900, Until Discontinued, Routine atorvastatin (Lipitor) tablet 80 mg 2025 (Given - Provider: Bessie Hoyos, SHAYY) 80 mg, Oral, EVERY EVENING, First dose o n Wed03/19/20 at 1930, Until Discontinued ceFAZolin (Ancef) 1 g in dextrose 5% 50 mL infusion (COMPLET ED) 1856 (New Bag - Provider: Janae Farooq RN)1926 (Stopped - Provider: Bessie Hoyos, SHAYY)2335 (New Bag - Provider: Bessie Hoyos, SHAYY) 0005 (Stopped - Provider: Bessie Hoyos RN) 1 g, Intravenous, EVERY 8 HOURS, 2 doses , First dose on Wed03/19/20 at 1615, Last dose on Wed03/20/20 at 0015, Administer over 30 Minutes, Redose after 4 hours, Recovery (Recovery-Hospital Unit), Indication for (Active or Suspected): Prophylaxis ceFAZolin (Ancef) 2 g in dextrose 5% 100 mL infusion (COMPLE ABDIEL) 1218 (Given - Provider: Cain Nath [...] (CANCELED) 115 2 (New Bag - Provider: Cain Nath CRNA)1324 (New Bag - Provider: Clair Shankar CRNA)1435 (Anesthesia Volume Adjustment - Provider: Cain Nath CRNA) 1,000 mL, at 100 mL/hr, Intravenous, CON TINUOUS, Starting Wed03/19/20 at 1100, Until Wed03/19/20 at 1841, Day of Surgery (Day of Procedure) PRN Medication Order 03/18/2020 03/19/2020 03/20/2020 acetaminophen (Tylenol) tablet 500 mg 20 (Given - Provider: Bessie Hoyos RN) 911 (Given - Provider: Clair Hogan RN) 500 [...] Intravenous, EVERY 1 [address] PRN, St arting e 03/19/20 at 1841, Until Wed03/20/20 at 1555, High Blood Pressure, for blood pressure > 150 for maximum of 2 doses then louann MCLEOD, Use if 2 doses of labetalol ineffective in achieving goal., Routine ipratropium-albuteroL (DUONEB) 0.5 mg-3 mg(2.5 mg base)/3 mL nebulizer solution 3 mL 09 (Given - Provid er: Clair Hogan RN) 3 mL, Nebulization, DAILY PRN, Starting Wed03/19/20 at 1554, Until Wed03/20/20 at 1555, [...] mg, Intravenous, EVERY 8 HOURS PRN, Starting 03/19/20 at 1841, Until 03/20/20 at 1555, Nausea
Start with 4mg and if ineffective in 30 minutes, give an additional 4mg
documented in this encounter Care Teams Assistant Counsel Relationship Specialty Start Date End Date Que Sharma DO PCP - General Family Medicine 02/08/20 [address] [place] [address] documented as of this encounter
--- OUTSIDE RECORDS SUMMARY | 2022-01-19 02:10 | XMS_ITS | Encounter Summary ---
:1945 Author Organization [facility] [place] [address] Care Team Providers Name Role Phone Que Sharma DO Primary Care Provider Encounter Details Date Type Department Care Team Description 03/15/2020 Hospital Encounter Laboratory [facility] [place] [address] Social History Tobacco Use Types Packs/Day [...] Visit Hematology and Tanvir Issa MD [facility] DR HEMATOLOGY/ONCOLOGY DEPT [place], [place] [id number] Oncology Arlene Bobby APRN [facility] [place] [address] 01/19/2022 Infusion Hematology and Oncology 01/19/2022 Scheduled View Only Radiation Oncology 01/20/2022 Scheduled View Only Radiation Oncology 01/21/2022 Scheduled View Only Radiation Oncology 01/22/2022 Scheduled View Only Radiation Oncology 01/22/2022 Office Visit Radiation Oncology Adriana De La Rosa v, MD [address] [place] [address] DR [address] [place], [place] [id number] (Wo rk) 01/23/2022 Scheduled View Only Radiation Oncology 01/26/2022 Office Visit Hematology and Tanvir Issa MD [facility] HEMATOLOGY/[place] [address] Oncology Arlene Bobby [facility] [place] [address] 01/26/2022 Infusion Hematology and Oncology 01/26/2022 Scheduled View Only Radiation Oncology 01/27/2022 Scheduled View Only Radiation Oncology 01/28/2022 Scheduled View Only Radiation Oncology 01/29/2022 Scheduled View Only Radiation Oncology 01/29/2022 Office Visit Radiation Oncology Adriana De La Rosa v, MD [address] [place] [address] [address] [place], [place] [address] (Wo rk) 01/30/2022 Scheduled View Only Radiation Oncology 02/02/2022 Office Visit Hematology and Arlene Bobby, Oncology [facility] HEMATOLOGY AND ONCOLOGY [place], [place] [address] (Wo rk) 02/02/2022 Infusion Hematology and Oncology 02/02/2022 Scheduled View Only Radiation Oncology 02/03/2022 Scheduled View Only Radiation Oncology 02/04/2022 Scheduled View Only Radiation Oncology 02/05/2022 Scheduled View Only Radiation Oncology 02/05/2022 Office Visit Radiation Oncology Adriana De La Rosa v, MD [address] [place] [address] [address] [place], [place] [address] (Wo rk) 02/06/2022 Scheduled View Only Radiation Oncology 02/09/2022 Office Visit Hematology and Arlene Bobby, Oncology [facility] DR HEMATOLOGY AND ONCOLOGY [place], [place] [address] (Wo rk) 02/09/2022 Infusion Hematology and Oncology 02/09/2022 Scheduled View Only Radiation Oncology 02/09/2022 Notes Only Radiation Oncology Adriana De La Rosa v, MD [address] [place] [address] [place] [address] (Wo rk) 02/10/2022 Scheduled View Only Radiation Oncology documented as of this encounter Procedures Procedure Name Priority Date/Time Associated Diagnosis Comme nts COVID-19 PCR Routine 03/15/2020 11:35 AM Results for this EDT procedure are i n the results section . documented in this encounter Results COVID-19 PCR (03/15/2020 11:35 AM EDT) [facility] Method Time Signature SARS-CoV-2 Not Detected Not Detected [facility] Comment: This result should be interpreted in com bination with the clinical observations, patient history and epidem iological information. For testing of asymptomatic individuals, assay performa nce characteristics and clinical utility have not been evaluated. Testing for SARS-CoV-2 (Severe acute respiratory syndrome coronavirus 2, form erly known as 2019 novel coronavirus or 2019-nCoV) to aid in the diagnosis of CO VID-19 is performed using the [employer] RealTime SARS-CoV-2 as authorized by the FDA Emergency Use Authorization (EUA). This EUA assay is intended for In-vitro Diagnostic (IVD) use with respiratory specimens such as nasopharyngeal swabs c ollected from individuals during the acute phase of infection. This assay is performed based on the instructions for use provided by the [employer] and additional guidance provided by CDC and FDA. Testing is performed in the [facility] within the Department of Path ology and Laboratory Medicine at [facility], cert ified under the Clinical Laboratory Improvement Amendments of 1988 (CLIA), 4 2 U.S.C. section 263a, to perform high complexity tests. Assay performance has been verified according to clinical laboratory regulatory requirements. Test results are provided above. A resul t of Not Detected indicates that the viral RNA target is not present but does not preclude SARS-CoV-2 infection. False negative results may occur if a sp ecimen is improperly collected, transported or handled; if amplification inhibitors are present; or if inadequate numbers of viral particles ar e present in the specimen. A result of Detected suggests a current or recent infection and the patient is presumed to be infected. As required or requested by public health authorities, positive specimens may be sent for additional aisha ting. Positive and negative predictive values for this test are highly dependen t on disease prevalence. A result of Invalid indicates that neither the vir al RNA targets nor the internal control target was detected. An invalid result s uggests the presence of inhibitors. Recollection is recommended in the case of an invalid result. CDC COVID-19 criteria for testing on hum an specimens and clinical management guidance information are available at [facility] CDC Coronavirus Disease 2019 (COVID-19) webpage under Information fo r Healthcare Professionals (https://www.cdc.gov/coronavirus/2019-nc ov/hcp/index.html) Additional information about this and ot her EUA tests can be found in provider and patient fact sheets at the following FDA website: https://www.fda.gov/medical-devices/xlkmpjzmg-whmtlzrpnt-kdmnahe-devices/emergen kp-bol-ropoihuecztdcm#omupe37zix SARS-Cov-2 RNA Source [facility] [facility] Specimen (Source) Anatomical Collection Method Collection Time Re ceived Time Location / / Volume Laterality Nasopharyngeal swab BOTH ANTERIOR Other / Unknown 03/15/2020 11:35 03/16/2020 (specimen) NARES / Unknown AM EDT 2:55 AM EDT Resulting Agency Comment Spec In Lab Alee Sanders MD MICROBIOLOGY - GENERAL ORDER BILL Performing Organization Address City/State/ZIP [place] [address] documented in this encounter Visit Diagnoses Diagnosis COVID-19 ruled out documented in this encounter Care Teams Travel Registered Nurse Oncology Relationship Specialty Start Date End Date Que Sharma DO PCP - General Family Medicine 02/08/20 [address] [place] [address] documented as of this encounter
--- OUTSIDE RECORDS SUMMARY | 2022-01-19 02:10 | XMS_ITS | Encounter Summary ---
:1945 [place] [address] Care Team Providers Name Role Phone Que Sharma DO Primary Care Provider Encounter Details Date Type Department Care Team Description 03/06/2020 Telephone [facility] Madonna Thompson [facility] [place] [address] Social History Tobacco Use Types Packs/Day [...] this encounter Miscellaneous Notes Telephone Encounter - Randi Quinonez - 03/07/2020 1:36 PM EDT Please send an order to [facility] for covid testing Telephone Encounter - Lani Thompson - 03/06/2020 12:01 PM EDT LMS to schedule pre-op COVID test documented in this encounter Plan of Treatment Upcoming Encounters Date Type Specialty Care Team Description 01/19/2022 Office Visit Hematology and Tanvir Issa MD [facility] HEMATOLOGY/[place] [address] Oncology Arlene Bobby APRN [facility] HEMATOLOGY [place] [address] 01/19/2022 Infusion Hematology and Oncology 01/19/2022 Scheduled View Only Radiation Oncology 01/20/2022 Scheduled View Only Radiation Oncology 01/21/2022 Scheduled View Only Radiation Oncology 01/22/2022 Scheduled View Only Radiation Oncology 01/22/2022 Office Visit Radiation Oncology Adriana De La Rosa v, MD [address] [place] [address] [place] [address] (Wo rk) 01/23/2022 Scheduled View Only Radiation Oncology 01/26/2022 Office Visit Tanvir Vivas MD [facility] HEMATOLOGY/[place] [address] Oncology Arlene Bobby [facility] HEMATOLOGY [place] [address] 01/26/2022 Infusion Hematology and Oncology 01/26/2022 Scheduled View Only Radiation Oncology 01/27/2022 Scheduled View Only Radiation Oncology 01/28/2022 Scheduled View Only Radiation Oncology 01/29/2022 Scheduled View Only Radiation Oncology 01/29/2022 Office Visit Radiation Oncology Adriana De La Rosa v, MD [address] [place] [address] [address] [place], [place] [id number] (Wo rk) 01/30/2022 Scheduled View Only Radiation Oncology 02/02/2022 Office Visit Hematology and Arlene Bobby, Oncology [facility] HEMATOLOGY AND ONCOLOGY [place], [place] [address] (Wo rk) 02/02/2022 Infusion Hematology and Oncology 02/02/2022 Scheduled View Only Radiation Oncology 02/03/2022 Scheduled View Only Radiation Oncology 02/04/2022 Scheduled View Only Radiation Oncology 02/05/2022 Scheduled View Only Radiation Oncology 02/05/2022 Office Visit Radiation Oncology Adriana De La Rosa v, MD [address] [place] [address] [place] [address] (Wo rk) 02/06/2022 Scheduled View Only Radiation Oncology 02/09/2022 Office Visit Hematology and Arlene Bobby, Oncology [facility] HEMATOLOGY AND ONCOLOGY [place], [place] [address] (Wo rk) 02/09/2022 Infusion Hematology and Oncology 02/09/2022 Scheduled View Only Radiation Oncology 02/09/2022 Notes Only Radiation Oncology Adriana De La Rosa v, MD [address] [place] [address] [address] [place], [place] [id number] (Wo rk) 02/10/2022 Scheduled View Only Radiation Oncology documented as of this encounter Visit Diagnoses Not on filedocumented in this encounter Care Teams Retail Marketing Executive Relationship Specialty Start Date End Date uQe Sharma DO PCP - General Family Medicine 02/08/20 [address] [place] [address] documented as of this encounter
--- OUTSIDE RECORDS SUMMARY | 2022-01-19 02:10 | XMS_ITS | Encounter Summary ---
:1945 Author Organization [facility] [place] [address] Care Team Providers Name Role Phone Que Sharma DO Primary Care Provider Reason for Visit Consultation (Routine) - Closed Specialty Diagnoses / Procedures Referred By Contact Refer red To Contact Vascular Surgery Diagnoses blockage in internal cartoids, CT report included Dimple Bennett [facility] Vascular Surg 3v A, EXOTIC DANCER [address] [phone] Referral ID Status Reason Start Date Expiration Date Visits V isits Requested Authorized [id number] Closed Consult, 02/08/2020 02/07/2021 1 1 [facility] Encounter Details Date Type Department Care Team Description 02/14/2020 Office Visit Vascular Surgery at Alee Sanders, Nacho ateral carotid artery stenosis; [facility] Pre-op testing; [facility] Cigarette smoker; [facility] Postprocedural cardiac insufficiency sixto miller other surgery [place], [place] VASCULAR SURGERY [id number] [place] [address] Social History Tobacco Use Types Packs/Day Years [...] Sign Reading Time Taken Comments Blood Pressure 136/59 02/14/2020 11:05 AM EDT Pulse 87 02/14/2020 11:04 AM EDT Temperature - - Respiratory Rate - - Oxygen Saturation - - Inhaled Oxygen Concentration - - Weight 88.5 kg (195 lb) 02/14/2020 11:04 AM EDT reporte d Height 172.7 cm (5' 8) 02/14/2020 11:04 AM EDT reporte d Body Mass Index 29.65 02/14/2020 11:04 AM EDT documented in this encounter Progress Notes Alee Sanders MD - 02/14/2020 10:00 AM EDT OUTPATIENT VASCULAR SURGERY CONSULTATION Reason for Visit: carotid stenosis Prior Vascular History: none History of Present Illness: Don Ortega is referred by Dr. Bennett. This patient underwent a routine physical exam which discovered bilateral carotid artery bruits. He underwent carotid CT angiography that demonstrated bilateral ICA stenosis. He is now referred for asymptomatic disease. He has no history of prior TIA, CVA, or amaurosis fugax. He denies any lateralizing neurologic symptoms. 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 He relates neurologicevaluation that showed a negative MRI and no evidence of parkinsonism. He denies any prior coronary artery disease. Surgical history includes ruptured appendix. He has a history of prostate cancer for which he received brachytherapy. This was about 10 years ago. He is overall of good health and continues to do all work around his home. He can climb multiple flights of sta irs without developing angina or dyspnea on exertion. He is not diabetic. He is an active smoker smoking 1 carton of small cigars per day since he was in his teens. He has no interest in quitting. He does not require supplemental oxygen and denies a history of COPD. No family history of coronary disease or cerebrovascular disease. Problem List There are no active problems to display for this patient. Review of Systems: Constitutional (weight change, fever) - Denies Neuro (dizziness, seizures, numbness, tingling) - Denies Eyes (vision) - Denies Ears, nose, throat (hearing) - Denies Cardiovascular (CP) - Denies Respiratory (SOB) - Denies GI (abd pain, nausea, emesis, blood in stool) - Denies (hematuria, dysuria, frequency) - Denies Muscoloskeletal (extremity pain, weakness) - Denies Skin (ulcers, rashes) - Denies No past medical history on file. No past surgical history on file. Current Outpatient Medications Medication Sig Dispense Refill ??? allopurinoL (Zyloprim) [...] 0.4 mg Capsule No current facility-administered medications for this visit. Functional Status/Social Hx: Walks independently, Lives at home, Retired, Drives Car, active tobaccoUse, Occasional EthOH Family Hx: Negative for Thrombosis, Bleeding Disorders Physical Exam: Temp: -- Heart Rate: [87] Resp: -- BP: (136)/(55-59) SpO2: -- Heart Rate from SpO2: -- Estimated body mass index is 29.65 kg/m?? as calculated from the following: Height as of this encounter: 172.7 cm (5' 8). Weight as of this encounter: 88.5 kg (195 lb). General - NAD, appears stated age Neuro - Alert and Oriented, Motor Sensory grossly intact in all extremities, CN 2-12 normal, intention tremor symmetrically in both arms Skin - No prominent markings or lesions Ear, Nose, Throat - No masses, No lesions Cardiac - RRR, no murmurs Lungs - Clear Abd - Soft, NT, ND, Aortic pulse is not palpable due to habitus. Musculoskeletal- full ROM upper and lower extremities Psych- alert oriented X3 Extremity - [place], warm, no ulceration, brisk capillary refill, no edema Vascular: Palpable bilateral radial, carotid, and femoral pulses. No carotid bruits. No appreciable popliteal aneurysms. Labs: None Studies: Images personally reviewed. ICA Proximal, Right ?PSV (cm/s): 432 ?EDV (cm/s): 136 ?ICA/CCA: 6.4 ?Plaque Structure: Echogenic ?Plaque Surface: Irregular ?%Stenosis: 70-99% ICA Distal, Right ?PSV (cm/s): 85 ?EDV (cm/s): 36 ?ICA/CCA: 1.3 CCA Distal, Right ?PSV (cm/s): 67 ?EDV (cm/s): 27 ?%Stenosis: <50% CCA Proximal, Right ?PSV (cm/s): 111 ?EDV (cm/s): 24 External Carotid Artery, Right ?PSV (cm/s): 342 ?EDV (cm/s): 82 ?%Stenosis: >50% Vertebral, Right ?PSV (cm/s): 69 ?EDV (cm/s): 25 ?Direction of Flow: Antegrade ICA Proximal, Left ?PSV (cm/s): 280 ?EDV (cm/s): 88 ?ICA/CCA: 2.8 ?Plaque Structure: Echogenic ?Plaque Surface: Irregular ?%Stenosis: 50-69% ICA Distal, Left ?PSV (cm/s): 113 ?EDV (cm/s): 45 ?ICA/CCA: 1.1 CCA Distal, Left ?PSV (cm/s): 101 ?EDV (cm/s): 27 ?%Stenosis: Minimal CCA Proximal, Left ?PSV (cm/s): 126 ?EDV (cm/s): 25 External Carotid Artery, Left ?PSV (cm/s): 170 ?EDV (cm/s): 23 ?%Stenosis: <50% Vertebral, Left ?Direction of Flow: Notched ? Interpretation: ?? RIGHT: Irregular plaque is present in the very distal common carotid artery causing <50% stenosis. There is bulky irregular calcified plaque in the carotid bifurcation and proximal internal carotid artery causing 70-99% stenosis when compared to the more distal internal carotid artery and >50% ECA stenosis. The bifurcation level is in the mid neck. ? LEFT: There is bulky irregular plaque in the carotid bifurcation extending through the proximal internal carotid artery causing 50-69% stenosis when compared to the more distal internal carotid artery. The bifurcation level is in the mid neck. ? Vertebral Artery Data: Patent vertebral arteries with normal antegrade Doppler waveforms on the RIGHT. Unable to identify flow by duplex in the more proximal LEFT vertebral artery and very minimal flow with a notched Doppler waveform seen distally. Doppler derived brachial artery systolic pressures: (R) 137 mmHg and (L) 137 mmHg. ?? Comparison: ??No previous study in our vascular lab database for comparison. ?? CT carotids is available for review which demonstrates approximately 80% degree stenosis of the right internal carotid artery and approximately 65% on the left. Carotid bifurcation is in the mid neck. Assessment and Plan: Mr. Ortega is a 74-year-old male smoker with asymptomatic right internal carotid artery high-grade stenosis and moderate asymptomatic left internal carotid artery stenosis. We reviewed the natural history and pathophysiology of his disease. I urged him to quit smoking but he is not interested. He is onoptimal medical therapy including antiplatelet statin and antihypertensive therapy. I urged him to continue these. We discussed his current stroke risk and I explained that this could be less with an intervention especially on the right side given the advanced degree of stenosis. We reviewed carotid endarterectomy and carotid stenting both via transcervical and transfemoral approach. After weighing the pros and cons we agreed to proceed with a right carotid endarterectomy. All risks were reviewed indetail including cardiac, pulmonary, stroke, infection, and other complications. He will obtain a preoperative stress test and we will plan for surgery at the next available time point. Alee Sanders MD, MS Section of Vascular Surgery documented in this encounter Plan of Treatment Upcoming Encounters Date Type Specialty Care Team Description 01/19/2022 Office Visit Hematology and Tanvir Issa MD [facility] HEMATOLOGY/[place] [address] Oncology Arlene Bobby APRN [facility] [place] [address] 01/19/2022 Infusion Hematology and Oncology 01/19/2022 Scheduled View Only Radiation Oncology 01/20/2022 Scheduled View Only Radiation Oncology 01/21/2022 Scheduled View Only Radiation Oncology 01/22/2022 Scheduled View Only Radiation Oncology 01/22/2022 Office Visit Radiation Oncology Adriana De La Rosa v, MD [address] [place] [address] [place], [place] [id number] (Wo rk) 01/23/2022 Scheduled View Only Radiation Oncology 01/26/2022 Office Visit Hematology and Tanvir Issa MD [facility] DR HEMATOLOGY/[place] [address] Oncology Arlene Bobby EXOTIC DANCER [facility] [place] [address] 01/26/2022 Infusion Hematology and Oncology 01/26/2022 Scheduled View Only Radiation Oncology 01/27/2022 Scheduled View Only Radiation Oncology 01/28/2022 Scheduled View Only Radiation Oncology 01/29/2022 Scheduled View Only Radiation Oncology 01/29/2022 Office Visit Radiation Oncology Adriana De La Rosa v, MD [address] [place] [address] DR [place]RIANO [place], [place] [id number] (Wo rk) 01/30/2022 Scheduled View Only Radiation Oncology 02/02/2022 Office Visit Hematology and Arlene Bobby, Oncology [facility] HEMATOLOGY AND ONCOLOGY [place], [place] [address] (Wo rk) 02/02/2022 Infusion Hematology and Oncology 02/02/2022 Scheduled View Only Radiation Oncology 02/03/2022 Scheduled View Only Radiation Oncology 02/04/2022 Scheduled View Only Radiation Oncology 02/05/2022 Scheduled View Only Radiation Oncology 02/05/2022 Office Visit Radiation Oncology Adriana De La Rosa v, MD [address] [place] [address] RADIATION [place], [place] [id number] (Wo rk) 02/06/2022 Scheduled View Only Radiation Oncology 02/09/2022 Office Visit Hematology and Arlene Bobby, Oncology [facility] HEMAT[facility]Y AND ONCOLOGY [place], [place] [address] (Wo rk) 02/09/2022 Infusion Hematology and Oncology 02/09/2022 Scheduled View Only Radiation Oncology 02/09/2022 Notes Only Radiation Oncology Adriana De La Rosa v, MD [address] [place] [address] RADIATION [place], [place] [id number] (Wo rk) 02/10/2022 Scheduled View Only Radiation Oncology documented as of this encounter Visit Diagnoses Diagnosis Bilateral carotid artery stenosis Occlusion and stenosis of multiple and b ilateral precerebral arteries without mention of cerebral infarction Pre-op testing Preoperative examination, unspecified Cigarette smoker Tobacco use disorder Postprocedural cardiac insufficiency fol lowing other surgery documented in this encounter Care Teams Tentering Machine Off Bearer Relationship Specialty Start Date End Date Que Sharma DO PCP - General Family Medicine 02/08/[address] [place] [address] documented as of this encounter
--- OUTSIDE RECORDS SUMMARY | 2022-01-19 02:10 | XMS_ITS | Encounter Summary ---
:1945 Author Organization [facility] [place] [address] Care Team Providers Name Role Phone EdithQue DO Primary Care Provider Encounter Details Date Type Department Care Team Description 02/19/2020 Telephone Vascular Surgery at [facility] Gisela Smith [facility] [place] [phone] Social History Tobacco Use Types Packs/Day [...] place to sleep or slept in a halfway (including now)? Sex Assigned at Date Recorded Not on file documented as of this encounter Miscellaneous Notes Telephone Encounter - Gisela Smith - 02/19/2020 11:50 AM EDT LVM for call back to schedule procedure with Dr. Sanders. documented in this encounter Plan of Treatment Upcoming Encounters Date Type Specialty Care Team Description 01/19/2022 Office Visit Hematology Tanvir Hawk MD [facility] HEMATOLOGY/[place] [address] Oncology Arlene Bobby APRN [facility] [place]EMATOLOG[place] [address] 01/19/2022 Infusion Hematology and Oncology 01/19/2022 Scheduled View Only Radiation Oncology 01/20/2022 Scheduled View Only Radiation Oncology 01/21/2022 Scheduled View Only Radiation Oncology 01/22/2022 Scheduled View Only Radiation Oncology 01/22/2022 Office Visit Radiation Oncology Adriana De La Rosa v, MD [address] [place] [address] [place] [address] (Wo rk) 01/23/2022 Scheduled View Only Radiation Oncology 01/26/2022 Office Visit Tanvir Vivas MD [facility] HEMATOLOGY/[place] [address] Oncology Arlene Bobby APRN [facility] [place]OLOG[place] [address] 01/26/2022 Infusion Hematology and Oncology 01/26/2022 Scheduled View Only Radiation Oncology 01/27/2022 Scheduled View Only Radiation Oncology 01/28/2022 Scheduled View Only Radiation Oncology 01/29/2022 Scheduled View Only Radiation Oncology 01/29/2022 Office Visit Radiation Oncology Adriana De La Rosa v, MD [address] [place] [address] DR CIPRIANO [place], [place] [phone] (Wo rk) 01/30/2022 Scheduled View Only Radiation Oncology 02/02/2022 Office Visit Hematology and Arlene Bobby, Oncology [facility] HEMATOLOGY AND ONCOLOGY [place], [place] [address] (Wo rk) 02/02/2022 Infusion Hematology and Oncology 02/02/2022 Scheduled View Only Radiation Oncology 02/03/2022 Scheduled View Only Radiation Oncology 02/04/2022 Scheduled View Only Radiation Oncology 02/05/2022 Scheduled View Only Radiation Oncology 02/05/2022 Office Visit Radiation Oncology Adriana De La Rosa v, MD [address] [place] [address] DR [place], [place] [id number] (Wo rk) 02/06/2022 Scheduled View Only Radiation Oncology 02/09/2022 Office Visit Hematology and Arlene Bobby, Oncology [facility] HEMATOLOGY AND ONCOLOGY [place], [place] [address] (Wo rk) 02/09/2022 Infusion Hematology and Oncology 02/09/2022 Scheduled View Only Radiation Oncology 02/09/2022 Notes Only Radiation Oncology Adriana De La Rosa v, MD [address] [place] [address] DR CIPRIANO [place], [place] [phone] (Wo rk) 02/10/2022 Scheduled View Only Radiation Oncology documented as of this encounter Visit Diagnoses Not on filedocumented in this encounter 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
--- OUTSIDE RECORDS SUMMARY | 2022-01-19 02:10 | XMS_ITS | Encounter Summary ---
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 CHAIN BUYER [facility] HEMATOLOGY [place] [address] 01/19/2022 Infusion Hematology and Oncology 01/19/2022 Scheduled View Only Radiation Oncology 01/20/2022 Scheduled View Only Radiation Oncology 01/21/2022 Scheduled View Only Radiation Oncology 01/22/2022 Scheduled View Only Radiation Oncology 01/22/2022 Office Visit Radiation Oncology Adriana De La Rosa v, MD [address] [place] [address] DR [place] [address] (Wo rk) 01/23/2022 Scheduled View Only Radiation Oncology 01/26/2022 Office Visit Tanvir Vivas MD [facility] HEMATOLOGY/[place] [address] Arlene Hill SUPPLY CHAIN BUYER [facility] DR [place] [address] 01/26/2022 Infusion Hematology and Oncology 01/26/2022 Scheduled View Only Radiation Oncology 01/27/2022 Scheduled View Only Radiation Oncology 01/28/2022 Scheduled View Only Radiation Oncology 01/29/2022 Scheduled View Only Radiation Oncology 01/29/2022 Office Visit Radiation Oncology Adriana De La Rosa v, MD [address] [place] [address] DR [place] [address] (Wo rk) 01/30/2022 Scheduled View Only Radiation Oncology 02/02/2022 Office Visit Hematology and Arlene Bobby, Oncology [facility] HEMATOLOGY AND ONCOLOGY [place], [place] [address] (Wo rk) 02/02/2022 Infusion Hematology and Oncology 02/02/2022 Scheduled View Only Radiation Oncology 02/03/2022 Scheduled View Only Radiation Oncology 02/04/2022 Scheduled View Only Radiation Oncology 02/05/2022 Scheduled View Only Radiation Oncology 02/05/2022 Office Visit Radiation Oncology Adriana De La Rosa v, MD [address] [place] [address] DR [place] [address] (Wo rk) 02/06/2022 Scheduled View Only Radiation Oncology 02/09/2022 Office Visit Hematology and Arlene Bobby, Oncology [facility] HEMATOLOGY AND ONCOLOGY [place], [place] [address] (Wo rk) 02/09/2022 Infusion Hematology and Oncology 02/09/2022 Scheduled View Only Radiation Oncology 02/09/2022 Notes Only Radiation Oncology Adriana De La Rosa v, MD [address] [place] [address] DR CIPRIANO [place], [place] [address] (Wo rk) 02/10/2022 Scheduled View Only Radiation Oncology documented as of this encounter Visit Diagnoses Diagnosis COVID-19 ruled out documented in this encounter 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
[2022-01-19 07:58] LABS: Abs Immature Grans 0.02 10^3/uL (0.0-0.06); Absolute Basophil Count 0.01 10^3/uL (0.0-0.2); Absolute Eosinophil Count 0.02 10^3/uL (0.0-0.7); Absolute Lymphocyte Count 0.63 10^3/uL (1.2-3.4); Absolute Monocyte Count 0.31 10^3/uL (0.1-0.8); Basophils % 0.3; Eosinophils % 0.5; HCT 21.9 % (40.0-50.0); HGB 7.3 g/dL (13.5-17.5); Immature Grans % 0.5; Lymphocytes % 15.8; MCH 31.2 pg (27.0-33.0); MCHC 33.3 % (32.0-36.0); MCV 94 fL (80-95); Monocytes % 7.8; Neutrophils % 75.1; Platelet Count 166 10^3/uL (130-400); RBC 2.34 10^6/uL (4.36-5.78); RDW-SD 47.3 fL
[2022-01-19 08:14] LABS: ALT 10 U/L (16-63); AST 9 U/L (15-37); Albumin 2.1 g/dL (3.4-5.0); Alkaline Phosphatase 116 U/L (46-116); BUN 16 mg/dL (7-18); Bilirubin, Total 0.3 mg/dL (0.2-1.0); CREATININE 1.5 mg/dL (0.70-1.30); Calcium 8.4 mg/dL (8.5-10.1); Chloride 102 mmol/L (98-107); Estimated GFR 45.26 (mL/min/1.73m2); Glucose 240 mg/dL (74-106); Magnesium 1.2 mg/dL (1.8-2.4); Potassium 3.9 mmol/L (3.5-5.1); Sodium 137 mmol/L (136-145); Total Protein 6.1 g/dL (6.4-8.2)
== END 2022-01-19 02:04 | disposition home or self-care (01) ==
LOC: LBO 02:03
PROVIDERS: PCP Family Medicine; Visit Provider Internal Medicine Medical Oncology
DX: C34.12 Malignant neoplasm of upper lobe, left bronchus or lung (principal)
CPT/HCPCS: 36415; 80053; 86850; 86900; 86901; 86920; 83735; 85025

== ENCOUNTER 2022-01-26 03:46 | Outpatient (CLI) | payer MEDICARE, SELFPAY ==
[2022-01-26 08:13] LABS: Abs Immature Grans 0.01 10^3/uL (0.0-0.06); Absolute Basophil Count 0.01 10^3/uL (0.0-0.2); Absolute Eosinophil Count 0.04 10^3/uL (0.0-0.7); Absolute Lymphocyte Count 0.49 10^3/uL (1.2-3.4); Absolute Monocyte Count 0.19 10^3/uL (0.1-0.8); Absolute Neutrophil Count 3.15 10^3/uL (1.2-6.7); Basophils % 0.3; HCT 25.2 % (40.0-50.0); HGB 8.3 g/dL (13.5-17.5); Immature Grans % 0.3; Lymphocytes % 12.6; MCH 30.7 pg (27.0-33.0); MCHC 32.9 % (32.0-36.0); MCV 93 fL (80-95); MPV 9.2 fL (8.0-11.0); Monocytes % 4.9; Neutrophils % 80.9; Platelet Count 131 10^3/uL (130-400); RDW 13.5 % (11.8-14.1); RDW-SD 45.3 fL; WBC 3.89 10^3/uL (4.4-10.8)
[2022-01-26 08:34] LABS: ALT 11 U/L (16-63); AST 7 U/L (15-37); Albumin 2.2 g/dL (3.4-5.0); Alkaline Phosphatase 120 U/L (46-116); Anion Gap 8.3 mmol/L (3-11); BUN 16 mg/dL (7-18); Bilirubin, Total 0.3 mg/dL (0.2-1.0); CO2 26.7 mmol/L (21.0-32.0); CREATININE 1.4 mg/dL (0.70-1.30); Calcium 8.6 mg/dL (8.5-10.1); Chloride 102 mmol/L (98-107); Estimated GFR 49.01 (mL/min/1.73m2); Glucose 210 mg/dL (74-106); Magnesium 1.3 mg/dL (1.8-2.4); Sodium 137 mmol/L (136-145)
== END 2022-01-26 03:47 | disposition home or self-care (01) ==
LOC: LBO 03:46
PROVIDERS: PCP Family Medicine; Visit Provider Internal Medicine Medical Oncology
DX: C34.12 Malignant neoplasm of upper lobe, left bronchus or lung (principal); T45.1X5A Adverse effect of antineoplastic and immunosuppressive drugs, initial encounter; D64.81 Anemia due to antineoplastic chemotherapy
CPT/HCPCS: 36415; 80053; 86850; 86900; 86901; 86920; 83735; 85025

== ENCOUNTER 2022-01-27 03:10 | Outpatient (RCR) | payer MEDICARE, SELFPAY ==
[2022-01-14 09:26] VITALS: BP 106/65; PULSE 106; RESP 22; TEMP 36.5; O2SAT 99
[2022-01-14 09:41] VITALS: BP 96/60; PULSE 104; RESP 16; TEMP 36.4; O2SAT 97
[2022-01-14 09:57] VITALS: BP 103/64; PULSE 100; RESP 16; TEMP 36.5; O2SAT 95
[2022-01-14 10:11] VITALS: BP 98/60; PULSE 93; RESP 16; TEMP 36.5; O2SAT 96
[2022-01-14 11:11] VITALS: BP 102/62; PULSE 95; RESP 16; TEMP 36.5; O2SAT 96
[2022-01-14 11:58] VITALS: BP 105/66; PULSE 86; RESP 18; TEMP 36.6; O2SAT 99
[2022-01-14] MEDS: Normal Saline Flush 10 ML SYR IVP (12:00)
[2022-01-20] VITALS (10 sets, daily range): BP systolic 98–142; BP diastolic 57–70; PULSE 87–113; RESP 16–18; TEMP 36.4–36.7; O2SAT 96–98
[2022-01-20] MEDS: Normal Saline Flush 10 ML SYR IVP (08:43)
[2022-01-27 10:07] VITALS: BP 113/58; PULSE 104; RESP 19; TEMP 36.4; O2SAT 99
[2022-01-27 10:25] VITALS: BP 107/63; PULSE 96; RESP 19; TEMP 36.5; O2SAT 100
[2022-01-27 10:40] VITALS: BP 102/66; PULSE 95; RESP 19; TEMP 36.4; O2SAT 100
[2022-01-27 11:10] VITALS: BP 123/69; PULSE 96; RESP 19; TEMP 36.4; O2SAT 100
[2022-01-27 12:10] VITALS: BP 133/75; PULSE 92; RESP 19; TEMP 36; O2SAT 100
[2022-01-27 12:30] VITALS: BP 132/72; PULSE 93; RESP 19; TEMP 36; O2SAT 100
[2022-01-27] MEDS: Normal Saline Flush 10 ML SYR IVP (14:50)
== END 2022-02-01 23:59 | disposition home or self-care (01) ==
LOC: INF 03:10
PROVIDERS: PCP Family Medicine; Visit Provider Internal Medicine Medical Oncology
DX: D64.81 Anemia due to antineoplastic chemotherapy (principal); T45.1X5A Adverse effect of antineoplastic and immunosuppressive drugs, initial encounter; C34.12 Malignant neoplasm of upper lobe, left bronchus or lung
CPT/HCPCS: 36415; 36430; 86850; 86900; 86901; 86920; 86945; P9016

== ENCOUNTER 2022-02-02 03:48 | Outpatient (CLI) | payer MEDICARE, SELFPAY ==
[2022-02-02 08:07] LABS: Abs Immature Grans 0.02 10^3/uL (0.0-0.06); Absolute Basophil Count 0.01 10^3/uL (0.0-0.2); Absolute Eosinophil Count 0.02 10^3/uL (0.0-0.7); Absolute Lymphocyte Count 0.37 10^3/uL (1.2-3.4); Absolute Monocyte Count 0.13 10^3/uL (0.1-0.8); Basophils % 0.5; HCT 29.9 % (40.0-50.0); HGB 10.4 g/dL (13.5-17.5); MCH 31.2 pg (27.0-33.0); MCHC 34.8 % (32.0-36.0); MCV 90 fL (80-95); MPV 9.8 fL (8.0-11.0); Monocytes % 6.7; Neutrophils % 71.8; Platelet Count 148 10^3/uL (130-400); RBC 3.33 10^6/uL (4.36-5.78); RDW 12.9 % (11.8-14.1)
[2022-02-02 08:19] LABS: WBC 1.95 10^3/uL (4.4-10.8)
[2022-02-02 08:39] LABS: Diff Comment Diff Reviewed; RBC Morphology Normal
[2022-02-02 10:24] LABS: AST 10 U/L (15-37); Albumin 2.5 g/dL (3.4-5.0); Alkaline Phosphatase 119 U/L (46-116); Anion Gap 8.7 mmol/L (3-11); BUN 16 mg/dL (7-18); Bilirubin, Total 0.3 mg/dL (0.2-1.0); CO2 24.3 mmol/L (21.0-32.0); CREATININE 1.4 mg/dL (0.70-1.30); Calcium 8.6 mg/dL (8.5-10.1); Chloride 100 mmol/L (98-107); Estimated GFR 49.01 (mL/min/1.73m2); Glucose 178 mg/dL (74-106); Magnesium 1.4 mg/dL (1.8-2.4); Potassium 4.4 mmol/L (3.5-5.1); Sodium 133 mmol/L (136-145); Total Protein 6.1 g/dL (6.4-8.2)
[2022-02-02 10:32] LABS: ALT 10 U/L (16-63)
== END 2022-02-02 03:49 | disposition home or self-care (01) ==
LOC: LBO 03:48
PROVIDERS: PCP Family Medicine; Visit Provider Internal Medicine Medical Oncology
DX: C34.12 Malignant neoplasm of upper lobe, left bronchus or lung (principal); D64.81 Anemia due to antineoplastic chemotherapy; T45.1X5A Adverse effect of antineoplastic and immunosuppressive drugs, initial encounter
CPT/HCPCS: 36415; 80053; 86900; 86901; 83735; 85025

== ENCOUNTER 2022-02-02 15:11 | Outpatient (REF) | payer MEDICARE, SELFPAY | END 2022-02-02 15:12 | disposition home or self-care (01) | LOC: LBN 15:11 | PROVIDERS: PCP Family Medicine; Visit Provider Internal Medicine Medical Oncology ==

== ENCOUNTER 2022-02-09 03:55 | Outpatient (CLI) | payer MEDICARE, SELFPAY ==
[2022-02-09 08:05] LABS: Abs Immature Grans 0.01 10^3/uL (0.0-0.06); Absolute Basophil Count 0.01 10^3/uL (0.0-0.2); Absolute Eosinophil Count 0.01 10^3/uL (0.0-0.7); Absolute Lymphocyte Count 0.31 10^3/uL (1.2-3.4); Absolute Monocyte Count 0.28 10^3/uL (0.1-0.8); Basophils % 0.5; Eosinophils % 0.5; HCT 30.2 % (40.0-50.0); HGB 10.4 g/dL (13.5-17.5); Immature Grans % 0.5; Lymphocytes % 14.6; MCHC 34.4 % (32.0-36.0); MCV 90 fL (80-95); MPV 9.2 fL (8.0-11.0); Monocytes % 13.2; Neutrophils % 70.7; Platelet Count 230 10^3/uL (130-400); RBC 3.36 10^6/uL (4.36-5.78); RDW 13.5 % (11.8-14.1); RDW-SD 43.8 fL; WBC 2.12 10^3/uL (4.4-10.8)
[2022-02-09 08:25] LABS: AST 10 U/L (15-37); Albumin 2.5 g/dL (3.4-5.0); Alkaline Phosphatase 133 U/L (46-116); Anion Gap 6.2 mmol/L (3-11); BUN 13 mg/dL (7-18); Bilirubin, Total 0.3 mg/dL (0.2-1.0); CO2 27.8 mmol/L (21.0-32.0); CREATININE 1.4 mg/dL (0.70-1.30); Calcium 8.9 mg/dL (8.5-10.1); Chloride 100 mmol/L (98-107); Estimated GFR 49.01 (mL/min/1.73m2); Glucose 241 mg/dL (74-106); Magnesium 1.6 mg/dL (1.8-2.4); Potassium 4.1 mmol/L (3.5-5.1); Sodium 134 mmol/L (136-145); Total Protein 6.6 g/dL (6.4-8.2)
[2022-02-09 08:28] LABS: ALT < 6 U/L (16-63)
[2022-02-09 10:49] LABS: Ferritin 112 ng/mL (26-388)
== END 2022-02-09 03:56 | disposition home or self-care (01) ==
LOC: LBO 03:56
PROVIDERS: Nurse Practitioner Adult Health; PCP Family Medicine; Visit Provider Internal Medicine Medical Oncology
DX: C34.12 Malignant neoplasm of upper lobe, left bronchus or lung (principal); D64.81 Anemia due to antineoplastic chemotherapy; T45.1X5A Adverse effect of antineoplastic and immunosuppressive drugs, initial encounter; R19.5 Other fecal abnormalities
CPT/HCPCS: 36415; 80053; 86850; 86900; 86901; 82728; 83735; 85025

== ENCOUNTER → 2022-02-24 01:29 | Outpatient (CLI) | payer MEDICARE, SELFPAY ==
[2022-02-24 14:39] LABS: Abs Immature Grans 0.01 10^3/uL (0.0-0.06); Absolute Basophil Count 0.01 10^3/uL (0.0-0.2); Absolute Eosinophil Count 0.02 10^3/uL (0.0-0.7); Absolute Lymphocyte Count 0.51 10^3/uL (1.2-3.4); Absolute Monocyte Count 0.33 10^3/uL (0.1-0.8); Absolute Neutrophil Count 1.66 10^3/uL (1.2-6.7); Basophils % 0.4; Eosinophils % 0.8; HCT 29.9 % (40.0-50.0); HGB 10.1 g/dL (13.5-17.5); Immature Grans % 0.4; Lymphocytes % 20.1; MCH 30.8 pg (27.0-33.0); MCHC 33.8 % (32.0-36.0); MCV 91 fL (80-95); MPV 9.1 fL (8.0-11.0); Neutrophils % 65.3; Platelet Count 169 10^3/uL (130-400); RBC 3.28 10^6/uL (4.36-5.78); RDW 14.2 % (11.8-14.1); RDW-SD 46.2 fL; WBC 2.54 10^3/uL (4.4-10.8)
[2022-02-24 15:02] LABS: ALT 14 U/L (16-63); AST 7 U/L (15-37); Albumin 2.8 g/dL (3.4-5.0); Alkaline Phosphatase 146 U/L (46-116); Anion Gap 5.2 mmol/L (3-11); BUN 12 mg/dL (7-18); Bilirubin, Total 0.3 mg/dL (0.2-1.0); CO2 28.8 mmol/L (21.0-32.0); CREATININE 1.4 mg/dL (0.70-1.30); Calcium 8.8 mg/dL (8.5-10.1); Chloride 102 mmol/L (98-107); Estimated GFR 49.01 (mL/min/1.73m2); Glucose 144 mg/dL (74-106); Magnesium 1.5 mg/dL (1.8-2.4); Potassium 4.8 mmol/L (3.5-5.1); Sodium 136 mmol/L (136-145); Total Protein 6.6 g/dL (6.4-8.2)
--- NOTE | 2022-02-24 15:07 | DI.CT_ITS ---
Exam(s) CT CHEST W EXAM: CT CHEST W CLINICAL HISTORY: LUNG CANCER C34.12 ASSESS TREATMENT RESPONSE TECHNIQUE: CT examination of the chest was performed with intravenous infusion of 100 cc of Omnipaqu e 350. COMPARISON: CT CT Thorax w/o Contrast from 09/22/2021 FINDINGS: Today's examination is compared with prior scan of 09/22/2021, the patient has history of lung carcin niya. A previously described left upper lobe mass is grossly unchanged in appearance on today's exami nation, however there appears to be increased adjacent pleural thickening and there are apparent dest ructive lesions of left ribs 3 and 4, a finding which was not present on the prior examination. No a dditional bony lesion seen. No gross central mediastinal adenopathy. There is a small left pleural effusion which was not present on the prior examination. No new pulmonary nodule identified. There is no evidence of pulmonary embolic disease. There is unremarkable appearance of the thoracic aorta and major branches with no evidence of aneurysm or dissection. No axillary or supraclavicular adenopathy. There is a tiny low-attenuation left hepatic lobe lesion unchanged from prior examination, presumably representing a cyst. There is a 15 millimeter in diameter left adrenal nodule, increased in size fr om prior examination when it measured 12 millimeters, this is suspicious for metastatic disease. Nacho ateral renal cysts and nonobstructing renal calculi are noted. Spleen and pancreas are unremarkable. IMPRESSION: There is apparent pleural involvement adjacent to known left upper lobe lung carcinoma with interval development of erosive/destructive lesions of left ribs 3 and 4. New left pleural effusion noted as well. Additionally, there is increased size of a left adrenal nodule which is suspicious for metastatic dis ease. RADIATION DOSE DELIVERED: 559.43mGy.cm Total DLP 559.43mGy.cm Total DLP !Error CTDIvol DATA REPOSITORY: All CT scans at this facility are submitted to the National Radiology Data Registry (NRDR) Dose Index Registry (DIR) with the [employer] (ACR). RADIATION OPTIMIZATION: All CT scans at this facility use at least one of these dose optimization te chniques: automated exposure control; mA and/or kV adjustment per patient size (includes targeted exa ms where dose is matched to clinical indication); or iterative reconstruction.
[2022-02-24] MEDS: Omnipaque 350 MG/ML 100 ML BTL 70 ML IV (15:08)
== END ==
PROVIDERS: Internal Medicine Medical Oncology; PCP Family Medicine; Visit Provider Nurse Practitioner Adult Health
DX: C34.12 Malignant neoplasm of upper lobe, left bronchus or lung (principal); J90 Pleural effusion, not elsewhere classified
CPT/HCPCS: 80053; 86900; 86901; 71260; 83735; 85025; J3490

== ENCOUNTER 2022-03-17 03:55 | Outpatient (CLI) | payer MEDICARE, SELFPAY ==
[2022-03-17 08:47] LABS: Abs Immature Grans 0.01 10^3/uL (0.0-0.06); Absolute Basophil Count 0.01 10^3/uL (0.0-0.2); Absolute Eosinophil Count 0.07 10^3/uL (0.0-0.7); Absolute Monocyte Count 0.29 10^3/uL (0.1-0.8); Absolute Neutrophil Count 1.59 10^3/uL (1.2-6.7); Basophils % 0.4; Eosinophils % 2.6; HCT 31.5 % (40.0-50.0); HGB 10.4 g/dL (13.5-17.5); Immature Grans % 0.4; Lymphocytes % 26.2; MCV 94 fL (80-95); MPV 8.6 fL (8.0-11.0); Monocytes % 10.9; Neutrophils % 59.5; Platelet Count 125 10^3/uL (130-400); RBC 3.35 10^6/uL (4.36-5.78); RDW 14.7 % (11.8-14.1); RDW-SD 50.4 fL; WBC 2.67 10^3/uL (4.4-10.8)
[2022-03-17 09:22] LABS: ALT 11 U/L (16-63); AST 8 U/L (15-37); Albumin 2.9 g/dL (3.4-5.0); Alkaline Phosphatase 142 U/L (46-116); Anion Gap 6.5 mmol/L (3-11); BUN 11 mg/dL (7-18); Bilirubin, Total 0.3 mg/dL (0.2-1.0); CO2 28.5 mmol/L (21.0-32.0); CREATININE 1.3 mg/dL (0.70-1.30); Calcium 8.8 mg/dL (8.5-10.1); Chloride 106 mmol/L (98-107); Estimated GFR 56.23 (mL/min/1.73m2); FREE T4 1.05 ng/dL (0.76-1.46); Glucose 141 mg/dL (74-106); Magnesium 1.5 mg/dL (1.8-2.4); Potassium 3.8 mmol/L (3.5-5.1); Sodium 141 mmol/L (136-145); TSH 1.01 uIU/mL (0.36-3.74); Total Protein 6.8 g/dL (6.4-8.2)
== END 2022-03-17 03:56 | disposition home or self-care (01) ==
LOC: LBO 03:55
PROVIDERS: PCP Family Medicine; Visit Provider Internal Medicine Medical Oncology
DX: Z79.899 Other long term (current) drug therapy (principal); C34.12 Malignant neoplasm of upper lobe, left bronchus or lung
CPT/HCPCS: 36415; 80053; 86900; 86901; 83735; 84439; 84443; 85025

== ENCOUNTER 2022-04-13 12:00 | Outpatient (CLI) | payer MEDICARE, SELFPAY ==
[2022-04-13 10:50] LABS: Abs Immature Grans 0.06 10^3/uL (0.0-0.06); Absolute Basophil Count 0.01 10^3/uL (0.0-0.2); Absolute Eosinophil Count 0.06 10^3/uL (0.0-0.7); Absolute Lymphocyte Count 0.93 10^3/uL (1.2-3.4); Absolute Monocyte Count 0.42 10^3/uL (0.1-0.8); Absolute Neutrophil Count 3.25 10^3/uL (1.2-6.7); Basophils % 0.2; Eosinophils % 1.3; HCT 35.9 % (40.0-50.0); HGB 11.8 g/dL (13.5-17.5); Immature Grans % 1.3; Lymphocytes % 19.7; MCH 31.2 pg (27.0-33.0); MCHC 32.9 % (32.0-36.0); MCV 95 fL (80-95); MPV 8.6 fL (8.0-11.0); Monocytes % 8.9; Neutrophils % 68.6; Platelet Count 209 10^3/uL (130-400); RBC 3.78 10^6/uL (4.36-5.78); RDW 14.1 % (11.8-14.1); RDW-SD 49.6 fL; WBC 4.73 10^3/uL (4.4-10.8)
[2022-04-13 11:16] LABS: ALT 17 U/L (16-63); AST 10 U/L (15-37); Albumin 3.1 g/dL (3.4-5.0); Alkaline Phosphatase 148 U/L (46-116); Anion Gap 5.8 mmol/L (3-11); BUN 17 mg/dL (7-18); Bilirubin, Total 0.4 mg/dL (0.2-1.0); CO2 30.2 mmol/L (21.0-32.0); CREATININE 1.6 mg/dL (0.70-1.30); Calcium 8.9 mg/dL (8.5-10.1); Chloride 102 mmol/L (98-107); Estimated GFR 43.83 (mL/min/1.73m2); FREE T4 1.08 ng/dL (0.76-1.46); Glucose 217 mg/dL (74-106); Magnesium 1.6 mg/dL (1.8-2.4); Potassium 4.1 mmol/L (3.5-5.1); Sodium 138 mmol/L (136-145); Total Protein 6.8 g/dL (6.4-8.2)
== END 2022-04-13 12:01 | disposition home or self-care (01) ==
LOC: LBO 12:03
PROVIDERS: PCP Family Medicine; Visit Provider Internal Medicine Medical Oncology
DX: C34.12 Malignant neoplasm of upper lobe, left bronchus or lung (principal); D64.81 Anemia due to antineoplastic chemotherapy; T45.1X5A Adverse effect of antineoplastic and immunosuppressive drugs, initial encounter; Z79.899 Other long term (current) drug therapy
CPT/HCPCS: 36415; 80053; 86850; 86900; 86901; 83735; 84439; 84443; 85025

== ENCOUNTER 2022-05-11 02:40 | Outpatient (CLI) | payer MEDICARE, SELFPAY ==
[2022-05-11 10:27] LABS: Abs Immature Grans 0.02 10^3/uL (0.0-0.06); Absolute Eosinophil Count 0.09 10^3/uL (0.0-0.7); Absolute Lymphocyte Count 0.86 10^3/uL (1.2-3.4); Absolute Monocyte Count 0.37 10^3/uL (0.1-0.8); Absolute Neutrophil Count 2.97 10^3/uL (1.2-6.7); Eosinophils % 2.1; HCT 32.3 % (40.0-50.0); Immature Grans % 0.5; MCH 31.7 pg (27.0-33.0); MCHC 34.1 % (32.0-36.0); MCV 93 fL (80-95); MPV 8.8 fL (8.0-11.0); Monocytes % 8.6; Neutrophils % 68.8; Platelet Count 208 10^3/uL (130-400); RBC 3.47 10^6/uL (4.36-5.78); RDW 13.3 % (11.8-14.1); RDW-SD 44.6 fL; WBC 4.31 10^3/uL (4.4-10.8)
[2022-05-11 10:52] LABS: ALT 8 U/L (16-63); AST 12 U/L (15-37); Albumin 3.3 g/dL (3.4-5.0); Alkaline Phosphatase 156 U/L (46-116); Anion Gap 8.2 mmol/L (3-11); BUN 15 mg/dL (7-18); Bilirubin, Total 0.3 mg/dL (0.2-1.0); CO2 27.8 mmol/L (21.0-32.0); CREATININE 1.5 mg/dL (0.70-1.30); Calcium 8.8 mg/dL (8.5-10.1); Chloride 105 mmol/L (98-107); Estimated GFR 47.36 (mL/min/1.73m2); FREE T4 1.09 ng/dL (0.76-1.46); Glucose 176 mg/dL (74-106); Magnesium 1.6 mg/dL (1.8-2.4); Potassium 3.8 mmol/L (3.5-5.1); Sodium 141 mmol/L (136-145); TSH 1.39 uIU/mL (0.36-3.74)
== END 2022-05-11 02:41 | disposition home or self-care (01) ==
LOC: LBO 02:40
PROVIDERS: PCP Family Medicine; Visit Provider Internal Medicine Medical Oncology
DX: C34.12 Malignant neoplasm of upper lobe, left bronchus or lung (principal); D64.81 Anemia due to antineoplastic chemotherapy; T45.1X5A Adverse effect of antineoplastic and immunosuppressive drugs, initial encounter; Z79.899 Other long term (current) drug therapy
CPT/HCPCS: 36415; 80053; 86900; 86901; 83735; 84439; 84443; 85025

== ENCOUNTER 2022-06-08 04:15 | Outpatient (CLI) | payer MEDICARE, SELFPAY ==
[2022-06-08 10:14] LABS: Abs Immature Grans 0.02 10^3/uL (0.0-0.06); Absolute Basophil Count 0.01 10^3/uL (0.0-0.2); Absolute Eosinophil Count 0.09 10^3/uL (0.0-0.7); Absolute Lymphocyte Count 0.99 10^3/uL (1.2-3.4); Absolute Monocyte Count 0.38 10^3/uL (0.1-0.8); Absolute Neutrophil Count 3.45 10^3/uL (1.2-6.7); Basophils % 0.2; Eosinophils % 1.8; HCT 34.8 % (40.0-50.0); HGB 11.7 g/dL (13.5-17.5); Immature Grans % 0.4; MCH 32.2 pg (27.0-33.0); MCHC 33.6 % (32.0-36.0); MCV 96 fL (80-95); MPV 8.6 fL (8.0-11.0); Monocytes % 7.7; Neutrophils % 69.9; Platelet Count 246 10^3/uL (130-400); RBC 3.63 10^6/uL (4.36-5.78); RDW 14.4 % (11.8-14.1); RDW-SD 49.1 fL; WBC 4.94 10^3/uL (4.4-10.8)
[2022-06-08 10:38] LABS: ALT 11 U/L (16-63); AST 10 U/L (15-37); Albumin 3.4 g/dL (3.4-5.0); Alkaline Phosphatase 161 U/L (46-116); Anion Gap 8.1 mmol/L (3-11); BUN 19 mg/dL (7-18); Bilirubin, Total 0.3 mg/dL (0.2-1.0); CO2 29.9 mmol/L (21.0-32.0); CREATININE 1.7 mg/dL (0.70-1.30); Calcium 9.1 mg/dL (8.5-10.1); Chloride 102 mmol/L (98-107); Estimated GFR 40.75 (mL/min/1.73m2); FREE T4 1.02 ng/dL (0.76-1.46); Glucose 177 mg/dL (74-106); Magnesium 1.7 mg/dL (1.8-2.4); Potassium 3.8 mmol/L (3.5-5.1); Sodium 140 mmol/L (136-145); TSH 1.68 uIU/mL (0.36-3.74); Total Protein 7.3 g/dL (6.4-8.2)
== END 2022-06-08 04:16 | disposition home or self-care (01) ==
LOC: LBO 04:15
PROVIDERS: PCP Family Medicine; Visit Provider Internal Medicine Medical Oncology
DX: C34.12 Malignant neoplasm of upper lobe, left bronchus or lung (principal); D64.81 Anemia due to antineoplastic chemotherapy; T45.1X5A Adverse effect of antineoplastic and immunosuppressive drugs, initial encounter; Z79.899 Other long term (current) drug therapy
CPT/HCPCS: 36415; 80053; 86900; 86901; 83735; 84439; 84443; 85025; 87086

== ENCOUNTER 2022-07-27 01:21 | Outpatient (CLI) | payer MEDICARE, SELFPAY ==
--- NOTE | 2022-07-27 | DI.CT_ITS ---
Exam(s) CT CHEST W EXAM: CT CHEST W CLINICAL HISTORY: LUNG CANCER C34.12 ASSESS TREATMENT RESPONSE TECHNIQUE: Imaging Protocol: Axial computed tomography images with coronal and sagittal reformatted images were created and reviewed CONTRAST MATERIAL: Intravenous: Omnipaque 350 Contrast volume:70 ml. COMPARISON: CT CT CHEST W from 02/24/2022 FINDINGS: Pulmonary parenchyma: Stable appearance necrotic mass and atelectasis in the left upper lobe with ext ension to the pleura with adjacent pleural thickening and rib destruction. Some interval increase in sclerosis of the affected ribs. Pathologic fracture of the 4th rib shows some healing when compared with the prior exam. No new rib lesions are identified. Non mass like densities now seen in the l eft lower lobe and posterior aspect of the right upper and lower lobes could represent superimposed p neumonitis. Underlying emphysematous and fibrotic changes. Tracheobronchial tree: No bronchiectasis or mucous plugging. Mediastinum and Magaly: No dominant adenopathy or fluid collection. Pleura: Stable tiny left pleural effusion. No pneumothorax. Heart: The heart is not dilated. Moderate to severe coronary artery calcifications are seen. Aorta: Thoracic aorta non-dilated. Upper abdomen: Stable appearance of atrophic left kidney and left renal cysts. Cholelithiasis. Sta ble tiny cyst in the upper left lobe. Mild hepatic steatosis. Aorta heavily calcified. Bones: Prominent degenerative changes in the thoracic spine. Left 3rd and 4th rib lesions. Some interval increase in sclerosis of the affected ribs. Pathologic fracture of the 4th rib shows some he aling when compared with the prior exam. No new rib lesions are identified. Soft tissues: Unremarkable. IMPRESSION: No significant change in left upper lobe mass with chest wall is extension. Increased sclerosis invo lving the 3rd and 4th ribs which had a more destructive appearance on the previous exam. New non mas slike densities now noted in the left lower and posterior portions of the right upper and lower lobes could represent post treatment changes and/or pneumonitis. RADIATION DOSE DELIVERED: 540.57mGy.cm Total DLP DATA REPOSITORY: All CT scans at this facility are submitted to the National Radiology Data Registry (NRDR) Dose Index Registry (DIR) with the [employer] (ACR). RADIATION OPTIMIZATION: All CT scans at this facility use at least one of these dose optimization te chniques: automated exposure control; mA and/or kV adjustment per patient size (includes targeted exa ms where dose is matched to clinical indication); or iterative reconstruction.
[2022-07-27 11:57] LABS: Abs Immature Grans 0.02 10^3/uL (0.0-0.06); Absolute Basophil Count 0.01 10^3/uL (0.0-0.2); Absolute Eosinophil Count 0.32 10^3/uL (0.0-0.7); Absolute Lymphocyte Count 0.75 10^3/uL (1.2-3.4); Absolute Monocyte Count 0.41 10^3/uL (0.1-0.8); Absolute Neutrophil Count 3.19 10^3/uL (1.2-6.7); Basophils % 0.2; Eosinophils % 6.8; HCT 31.6 % (40.0-50.0); HGB 10.6 g/dL (13.5-17.5); Immature Grans % 0.4; MCH 31.6 pg (27.0-33.0); MCHC 33.5 % (32.0-36.0); MCV 94 fL (80-95); MPV 8.7 fL (8.0-11.0); Monocytes % 8.7; Neutrophils % 67.9; Platelet Count 279 10^3/uL (130-400); RBC 3.35 10^6/uL (4.36-5.78); RDW 13.1 % (11.8-14.1); RDW-SD 44.9 fL
[2022-07-27 12:22] LABS: ALT 10 U/L (16-63); AST 9 U/L (15-37); Albumin 3.2 g/dL (3.4-5.0); Alkaline Phosphatase 182 U/L (46-116); Anion Gap 10.3 mmol/L (3-11); BUN 18 mg/dL (7-18); Bilirubin, Total 0.4 mg/dL (0.2-1.0); CO2 26.7 mmol/L (21.0-32.0); CREATININE 1.7 mg/dL (0.70-1.30); Calcium 9.2 mg/dL (8.5-10.1); Chloride 103 mmol/L (98-107); Estimated GFR 40.75 (mL/min/1.73m2); Glucose 200 mg/dL (74-106); Magnesium 1.7 mg/dL (1.8-2.4); Potassium 3.8 mmol/L (3.5-5.1); Sodium 140 mmol/L (136-145); TSH 1.22 uIU/mL (0.36-3.74); Total Protein 7.3 g/dL (6.4-8.2)
[2022-07-27] MEDS: Omnipaque 350 MG/ML 500 ML BTL-Imaging package 100 ML IJ (13:21)
[2022-07-27] MEDS: Normal Saline - Diluent 50 ML VIAL IJ (13:22)
== END 2022-07-27 01:41 ==
LOC: DI 01:22
PROVIDERS: PCP Family Medicine; Visit Provider Nurse Practitioner Family
DX: R91.8 Other nonspecific abnormal finding of lung field (principal); C34.12 Malignant neoplasm of upper lobe, left bronchus or lung; D64.81 Anemia due to antineoplastic chemotherapy; T45.1X5A Adverse effect of antineoplastic and immunosuppressive drugs, initial encounter; Z79.899 Other long term (current) drug therapy
CPT/HCPCS: 80053; 86900; 86901; 71260; 83735; 84439; 84443; 85025

== ENCOUNTER 2022-08-31 02:40 | Outpatient (CLI) | payer MEDICARE, SELFPAY ==
[2022-08-31 13:20] LABS: Abs Immature Grans 0.02 10^3/uL (0.0-0.06); Absolute Basophil Count 0.01 10^3/uL (0.0-0.2); Absolute Eosinophil Count 0.13 10^3/uL (0.0-0.7); Absolute Lymphocyte Count 0.82 10^3/uL (1.2-3.4); Absolute Monocyte Count 0.34 10^3/uL (0.1-0.8); Absolute Neutrophil Count 2.85 10^3/uL (1.2-6.7); Basophils % 0.2; Eosinophils % 3.1; HCT 33.4 % (40.0-50.0); HGB 10.7 g/dL (13.5-17.5); Immature Grans % 0.5; Lymphocytes % 19.7; MCH 29.7 pg (27.0-33.0); MCV 93 fL (80-95); MPV 8.5 fL (8.0-11.0); Monocytes % 8.2; Neutrophils % 68.3; Platelet Count 282 10^3/uL (130-400); RDW 13.4 % (11.8-14.1); RDW-SD 45.6 fL; WBC 4.17 10^3/uL (4.4-10.8)
[2022-08-31 14:05] LABS: ALT 12 U/L (16-63); AST < 5 U/L (15-37); Albumin 3.2 g/dL (3.4-5.0); Alkaline Phosphatase 174 U/L (46-116); Anion Gap 6.6 mmol/L (3-11); BUN 19 mg/dL (7-18); Bilirubin, Total 0.2 mg/dL (0.2-1.0); CO2 29.4 mmol/L (21.0-32.0); CREATININE 1.9 mg/dL (0.70-1.30); Calcium 9.2 mg/dL (8.5-10.1); Chloride 105 mmol/L (98-107); Estimated GFR 35.66 (mL/min/1.73m2); Glucose 215 mg/dL (74-106); Magnesium 1.9 mg/dL (1.8-2.4); Potassium 4.5 mmol/L (3.5-5.1); Sodium 141 mmol/L (136-145); TSH 1.52 uIU/mL (0.36-3.74); Total Protein 7.1 g/dL (6.4-8.2)
== END 2022-08-31 02:41 | disposition home or self-care (01) ==
LOC: LBO 02:40
PROVIDERS: PCP Family Medicine; Visit Provider Internal Medicine Medical Oncology
DX: Z79.899 Other long term (current) drug therapy (principal); C34.12 Malignant neoplasm of upper lobe, left bronchus or lung; D64.81 Anemia due to antineoplastic chemotherapy; T45.1X5A Adverse effect of antineoplastic and immunosuppressive drugs, initial encounter
CPT/HCPCS: 36415; 80053; 86850; 86900; 86901; 83735; 84439; 84443; 85025

== ENCOUNTER 2022-09-28 02:23 | Outpatient (CLI) | payer MEDICARE, SELFPAY ==
[2022-09-28 12:51] LABS: Abs Immature Grans 0.03 10^3/uL (0.0-0.06); Absolute Basophil Count 0.01 10^3/uL (0.0-0.2); Absolute Lymphocyte Count 0.91 10^3/uL (1.2-3.4); Absolute Monocyte Count 0.43 10^3/uL (0.1-0.8); Absolute Neutrophil Count 3.38 10^3/uL (1.2-6.7); Basophils % 0.2; Eosinophils % 2.1; HCT 35.7 % (40.0-50.0); HGB 11.6 g/dL (13.5-17.5); Immature Grans % 0.6; Lymphocytes % 18.7; MCH 29.7 pg (27.0-33.0); MCHC 32.5 % (32.0-36.0); MCV 92 fL (80-95); MPV 8.9 fL (8.0-11.0); Monocytes % 8.8; Neutrophils % 69.6; Platelet Count 251 10^3/uL (130-400); RDW 13.9 % (11.8-14.1); RDW-SD 46.8 fL; WBC 4.86 10^3/uL (4.4-10.8)
[2022-09-28 13:20] LABS: ALT 13 U/L (16-63); AST 8 U/L (15-37); Albumin 3.1 g/dL (3.4-5.0); Alkaline Phosphatase 176 U/L (46-116); Anion Gap 6.8 mmol/L (3-11); BUN 18 mg/dL (7-18); Bilirubin, Total 0.2 mg/dL (0.2-1.0); CO2 28.2 mmol/L (21.0-32.0); CREATININE 1.5 mg/dL (0.70-1.30); Chloride 104 mmol/L (98-107); Estimated GFR 47.06 (mL/min/1.73m2); FREE T4 0.93 ng/dL (0.76-1.46); Glucose 254 mg/dL (74-106); Magnesium 1.8 mg/dL (1.8-2.4); Potassium 4.1 mmol/L (3.5-5.1); Sodium 139 mmol/L (136-145); TSH 1.74 uIU/mL (0.36-3.74)
== END 2022-09-28 02:24 | disposition home or self-care (01) ==
LOC: LBO 02:23
PROVIDERS: PCP Family Medicine; Visit Provider Internal Medicine Medical Oncology
DX: C34.12 Malignant neoplasm of upper lobe, left bronchus or lung (principal); Z79.899 Other long term (current) drug therapy; D64.81 Anemia due to antineoplastic chemotherapy; T45.1X5A Adverse effect of antineoplastic and immunosuppressive drugs, initial encounter
CPT/HCPCS: 36415; 80053; 86900; 86901; 83735; 84439; 84443; 85025

== ENCOUNTER 2022-10-26 01:18 | Outpatient (CLI) | payer MEDICARE, SELFPAY ==
[2022-10-26 12:49] LABS: Abs Immature Grans 0.02 10^3/uL (0.0-0.06); Absolute Basophil Count 0.01 10^3/uL (0.0-0.2); Absolute Lymphocyte Count 0.92 10^3/uL (1.2-3.4); Absolute Monocyte Count 0.38 10^3/uL (0.1-0.8); Absolute Neutrophil Count 3.02 10^3/uL (1.2-6.7); Basophils % 0.2; Eosinophils % 2.2; HCT 35.6 % (40.0-50.0); HGB 11.8 g/dL (13.5-17.5); Immature Grans % 0.4; Lymphocytes % 20.7; MCH 29.8 pg (27.0-33.0); MCHC 33.1 % (32.0-36.0); MCV 90 fL (80-95); MPV 8.6 fL (8.0-11.0); Monocytes % 8.5; Platelet Count 249 10^3/uL (130-400); RBC 3.96 10^6/uL (4.36-5.78); RDW 13.8 % (11.8-14.1); WBC 4.45 10^3/uL (4.4-10.8)
[2022-10-26 13:15] LABS: ALT 15 U/L (16-63); AST 10 U/L (15-37); Albumin 3.2 g/dL (3.4-5.0); Alkaline Phosphatase 193 U/L (46-116); Anion Gap 5.6 mmol/L (3-11); BUN 19 mg/dL (7-18); Bilirubin, Total 0.4 mg/dL (0.2-1.0); CO2 30.4 mmol/L (21.0-32.0); CREATININE 1.6 mg/dL (0.70-1.30); Calcium 8.9 mg/dL (8.5-10.1); Chloride 101 mmol/L (98-107); Estimated GFR 43.56 (mL/min/1.73m2); FREE T4 1.05 ng/dL (0.76-1.46); Glucose 234 mg/dL (74-106); Magnesium 1.8 mg/dL (1.8-2.4); Potassium 3.6 mmol/L (3.5-5.1); Sodium 137 mmol/L (136-145); TSH 1.56 uIU/mL (0.36-3.74); Total Protein 7.2 g/dL (6.4-8.2)
== END 2022-10-26 01:19 | disposition home or self-care (01) ==
LOC: LBO 01:18
PROVIDERS: PCP Family Medicine; Visit Provider Internal Medicine Medical Oncology
DX: C34.12 Malignant neoplasm of upper lobe, left bronchus or lung (principal); Z79.899 Other long term (current) drug therapy
CPT/HCPCS: 36415; 80053; 86900; 86901; 83735; 84439; 84443; 85025

== ENCOUNTER 2022-11-20 00:30 | Outpatient (CLI) | payer MEDICARE, SELFPAY ==
--- OUTSIDE RECORDS SUMMARY | 2022-11-20 00:32 | XMS_ITS ---
Author Name Que Sharma Address [address], [place] [id number] Organization [facility] Address [address], [place] [id number] Care Team Providers Care Parts Inspector Name Role Phone Que Sharma Unavailable [phone] PROBLEMS Type Condition ICD9-CM Code [id number] Code Onset Dates Condition Status SNOMED Code Problem Actinic keratosis L57.0 Active 855943 Problem Atrial fibrillation I48.91 Active 40659498 Problem Major depressive disorder, single episode, unspecified F32.9 Active 19286345 Problem Neoplasm of unspecified behavior of bone, soft tissue, and skin D49.2 Active 566107016 Problem Enlarged prostate without lower urinary tract symptoms N40.0 Active 765541273 Problem Gastro-esophageal reflux disease without esophagitis K21.9 Active 644101890 Problem Hyperlipidemia, unspecified E78.5 Active 52404569 Problem Tremor, unspecified R25.1 Active 75427886 Problem Barretts esophagus with dysplasia K22.719 Active [id number] 109 Problem 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 Active 5496232 6 Problem Essential tremor G25.0 Active 9719199 09 Problem Malignant neoplasm of upper lobe of left lung C34.12 Active 464212336 Problem Essential hypertension I10 Active 48416259 Problem Hypomagnesemia E83.42 Active 094072943 Problem Anemia in other chronic diseases classified elsewhere D63.8 Active 157023997 Problem Abnormal brain MRI R90.89 Active 08879 9000 Problem 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 Active 367222154 Problem Smoker F17.200 Active 04685100 Problem Stenosis of right carotid artery I65.21 Active [id number] 00 ALLERGIES Substance Reaction Event Type Date Status Seasonal/Environmental Unknown Non Drug Allergy Feb, Active ENCOUNTERS Encounter Location Date Diagnosis [address] [id number] Mar, [address] [id number] Mar, [address] [id number] Feb, Malignant neoplasm of upper lobe of left lung C34.12 ; Atrial fibrillation I48.91 ; Hypomagnesemia E83.42 ; Essential hypertension I10 and Anemia in other chronic diseases classified elsewhere D63.[address] [id number] Feb, [address] [id number] Feb, [address] [id number] Jan, [address] [id number] Jan, Anemia due to other cause, not classified D64.89 and Hyperglycemia R73.[address] [id number] Jan, Atrial fibrillation I48.91 and Hypomagnesemia E83.[address] [id number] Jan, [address] [id number] Jan, [address] [id number] Dec, [address] [id number] Dec, [address] [id number] November, [address] [id number] November, [facility] [address] [place] [address] [id number] November, [facility] [address] [place] [address] [id number] November, Wheezing R06.2 ; Essential hypertension I10 ; Gastro-esophageal reflux disease without esophagitis K21.9 and Other chest pain R07.89 [facility] [address] [id number] November, Malignant neoplasm of upper lobe of left lung C34.12 [facility] [address] [place] [address] [id number] November, Malignant neoplasm of upper lobe of left lung C34.12 ; Kidney lesion N28.9 and Other chest pain R07.[address] [id number] Sep, Gastro-esophageal reflux disease without esophagitis K21.[address] [id number] Jun, Gastro-esophageal reflux disease without esophagitis K21.[address] [id number] Feb, [address] [id number] Feb, [facility] [address] [place] [address] [id number] Feb, [address] [id number] Jan, Essential hypertension I10 ; Hyperlipidemia, unspecified E78.5 ; Elevated fasting glucose R73.01 and Wheezing R06.[address] [id number] Dec, [facility] [address] [place] [address] [id number] Dec, Medicare annual wellness visit, subsequent Z00.[address] [id number] Dec, 2020 Essential hypertension I10 [facility] [address] [place] [address] [id number] Dec, 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.4 [facility] [address] [place] [address] [id number] Dec, Acute frontal sinusitis J01.10 [facility] [address] [id number] November, Gastro-esophageal reflux disease without esophagitis K21.[address] [id number] Oct, [facility] [address] [id number] Aug, Essential hypertension I10 [address] [id number] Jul, [facility] [address] [id number] Jun, [address] [id number] Jun, [address] [id number] Apr, Stenosis of right carotid artery I65.21 ; Hyperlipidemia, unspecified E78.5 ; Essential hypertension I10 and Major depressive disorder, single episode, unspecified F32.[address] [id number] Feb, Essential hypertension I10 [address] [id number] Feb, [address] [id number] Feb, [address] [id number] Jan, Essential hypertension I10 ; Pedal edema R60.0 and Hyperlipidemia, unspecified E78.[address] [id number] Jan, Essential hypertension I10 ; Dizziness R42 and Bruit of right carotid artery R09.[address] [id number] Jan, [address] [id number] Dec, [address] [id number] Dec, Medicare annual wellness visit, subsequent Z00.[address] [id number] 14 Apr, 2019 [facility] [address] [place] [address] [id number] 18 Mar, 2019 Gastro-esophageal reflux disease without esophagitis K21.[address] [id number] Mar, Gastro-esophageal reflux disease without esophagitis K21.[address] [id number] Mar, Gastro-esophageal reflux disease without esophagitis K21.9 [facility] [address] [place] [address] [id number] Jan, Encounter for examination required by Department of Transportation (DOT) Z02.[address] [id number] Jan, [facility] [address] [id number] Jan, Essential hypertension I10 ; Hyperlipidemia, unspecified E78.5 ; Elevated fasting glucose R73.01 ; Screening for prostate cancer Z12.5 and Major depressive disorder, single episode, unspecified F32.9 [facility] [address] [place] [address] [id number] Jan, [facility] [address] [place] [address] [id number] Dec, Smoker F17.200 [facility] [address] [place] [address] [id number] Dec, Medicare annual wellness visit, subsequent Z00.00 [facility] [address] [id number] November, [facility] [address] [id number] November, [facility] [address] [place] [address] [id number] Apr, Encounter for immunization Z23 [facility] [address] [id number] Feb, [facility] [address] [place] [address] [id number] Jan, Hyperlipidemia, unspecified E78.5 ; Essential hypertension I10 ; Major depressive disorder, single episode, unspecified F32.9 ; Gastro-esophageal reflux disease without esophagitis K21.9 ; Elevated fasting glucose R73.01 ; Encounter for immunization Z23 and Screening for prostate cancer Z12.5 [facility] [address] [place] [address] [id number] Dec, Medicare annual wellness visit, initial Z00.00 [facility] [address] [place] [address] [id number] Jul, [facility] [address] [place] [address] [id number] Apr, Encounter for immunization Z23 [facility] [address] [place] [address] [place] [address] [id number] Apr, [facility] [address] [place] [address] [id number] Mar, Actinic keratosis L57.0 [facility] [address], [address] [place], [place] [id number] Mar, [address] [id number] Mar, [facility] [address], [address] [place], [place] [id number] Mar, [facility] [address] [place] [address] [id number] Mar, 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 [facility] [address] [id number] Feb, Essential tremor G25.0 ; 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 and Abnormal brain MRI R90.89 [facility] [address] [place] [address] [id number] Feb, 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 [facility] [address] [id number] Feb, Essential hypertension I10 ; Essential tremor G25.0 and Hyperlipidemia, unspecified E78.5 [facility] [address] [id number] Jan, [facility] [address] [place] [address] [id number] Jan, [facility] [address] [id number] Jan, [facility] [address] [id number] Jan, Essential tremor G25.0 and 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 [facility] [address] [place] [address] [address] [place], [place] [id number] Jan, Neoplasm of unspecified nature of bone, soft tissue, and skin D49.[address] [id number] Dec, Barretts esophagus with dysplasia K22.719 ; Adenomatous polyp of colon, unspecified part of colon D12.6 ; Anemia, unspecified type D64.9 and Screening for prostate cancer Z12.[address] [id number] November, [address] [id number] November, [address] [id number] November, Tremor R25.1 ; Essential hypertension I10 ; Major depressive disorder, single episode, unspecified F32.9 ; Hyperlipidemia, unspecified E78.5 and Left low back pain, unspecified chronicity, with sciatica presence unspecified M54.[address] [id number] Sep, [address] [id number] Jul, [address] [id number] Jul, [address] [id number] May, [address] [id number] May, [address] [id number] Apr, Hyperlipidemia, unspecified E78.5 ; Essential hypertension I10 ; Tremor R25.1 and Major depressive disorder, single episode, unspecified F32.[address] [id number] Feb, Tremor, unspecified R25.1 ; Anemia in other chronic diseases classified elsewhere D63.8 ; Gastro-esophageal reflux disease without esophagitis K21.9 and Major depressive disorder, single episode, unspecified F32.[address] [id number] Jan, [facility] [address] [place] [address] [id number] Dec, [facility] [address] [place] [address] [id number] Dec, Essential (primary) hypertension I10 ; Hyperlipidemia, unspecified E78.5 ; Enlarged prostate without lower urinary tract symptoms N40.0 and Impaired glucose tolerance (oral) R73.[address] [id number] Dec, [address] [id number] Dec, [address] [id number] Dec, Hyperlipidemia, unspecified E78.5 ; Essential (primary) hypertension I10 ; Tremor, unspecified R25.1 ; Arthropathy, unspecified M12.9 and Enlarged prostate without lower urinary tract symptoms N40.[address] [id number] November, [address] [id number] November, [address] [id number] Jan, [facility] [address] [place] [address] [address] [place] [id number] Dec, Neoplasm of unspecified nature of bone, soft tissue, and skin 239.2 ; Actinic keratosis 702.0 and Solar keratosis 702.[address] [id number] Dec, Glucose intolerance (impaired glucose tolerance) 790.[address] [id number] Dec, [address] [id number] Dec, BPH NOS W/O URINARY OBST 600.[address] [id number] Dec, Annual physical exam V70.0 ; HTN [Hypertension] 401.9 ; ANEMIA CHRONIC 285.29 ; Hyperlipidemia 272.4 ; Tremor 781.0 ; BPH (benign prostatic hyperplasia) 600.00 ; GERD (gastroesophageal reflux disease) 530.81 and Depression 311 [facility] [address] [place] [address] [id number] November, [facility] [address] [place] [address] [id number] Jun, [facility] [address] [place] [address] [id number] Jun, [facility] [address] [id number] May, [facility] [address] [place] [address] [id number] Apr, [facility] [address] [place] [address] [id number] Feb, HTN [Hypertension] 401.9 ; Hyperlipidemia 272.4 ; BPH (benign prostatic hyperplasia) 600.00 ; GERD (gastroesophageal reflux disease) 530.81 and Depression [address] [id number] Dec, [address] [id number] Oct, URI (upper respiratory infection) 465.[address] [id number] Oct, [address] [id number] Oct, Sinusitis 473.[address] [id number] Jun, [address] [id number] Jun, [address] [id number] May, [address] [id number] May, ANEMIA CHRONIC 285.29 ; HTN [Hypertension] 401.9 ; Hyperlipidemia 272.4 ; Tremor 781.0 ; VACCIN FOR INFLUENZA V04.81 and VACCIN FOR SINGL DIS NOS V05.[address] [id number] Apr, [address] [id number] Mar, Tremor 781.0 ; ANEMIA CHRONIC 285.29 ; HTN [Hypertension] 401.9 and Hyperlipidemia 272.[address] [id number] Jan, [facility] [address] [id number] Dec, [facility] [address] [place] [address] [id number] November, [facility] [address] [place] [address] [id number] Oct, [facility] [address] [place] [address] [id number] Sep, [address] [id number] Jun, [facility] [address] [place] [address] [id number] May, SCRN JADA NEOP-PROSTATE V76.44 [facility] [address] [place] [address] [id number] May, VACCIN FOR INFLUENZA V04.81 ; HTN [Hypertension] 401.9 ; GERD [Gastroesophageal reflux disease] 530.81 ; BPH NOS W/O URINARY OBST 600.90 and Erectile Dysfunction 607.84 [facility] [address] [place] [address] [id number] Apr, Hyperlipidemia 272.4 and BPH NOS W/O URINARY OBST 600.90 [facility] [address] [place] [address] [id number] Mar, [facility] [address] [place] [address] [id number] Feb, [facility] [address] [place] [address] [id number] Dec, [facility] [address] [place] [address] [id number] Sep, [facility] [address] [place] [address] [id number] Sep, [facility] [address] [place] [address] [id number] Aug, [facility] [address] [place] [address] [id number] Jun, [facility] [address] [place] [address] [id number] May, [facility] [address] [place] [address] [id number] May, [facility] [address] [place] [address] [id number] Mar, HTN [Hypertension] 401.9 ; GERD [Gastroesophageal reflux disease] 530.81 ; ANEMIA CHRONIC 285.29 and Depression 311 [facility] [address] [place] [address] [id number] Jan, [facility] [address] [place] [address] [id number] November, HTN [Hypertension] 401.9 ; IRON DEFIC ANEMIA NOS 280.9 ; GERD [Gastroesophageal reflux disease] 530.81 ; Hyperlipidemia 272.4 ; BPH NOS W/O URINARY OBST 600.90 and TOBACCO USE DISORDER COMPLICATING 649.00 [facility] [address] [place] [address] [id number] Aug, [facility] [address] [place] [address] [id number] May, [facility] [address] [place] [address] [id number] Apr, Sinusitis 461.9 [facility] [address] [place] [address] [id number] Apr, [facility] [address] [place] [address] [id number] Apr, [facility] [address] [place] [address] [id number] Mar, ANEMIA CHRONIC 285.29 ; HTN [Hypertension] 401.9 ; BPH NOS W/O URINARY OBST 600.90 ; GERD [Gastroesophageal reflux disease] 530.81 and Hyperlipidemia 272.4 [facility] [address] [place] [address] [id number] Dec, [facility] [address] [place] [address] [id number] November, [facility] [address] [place] [address] [id number] Oct, IRON DEFIC ANEMIA NOS 280.9 ; HTN [Hypertension] 401.9 ; GERD [Gastroesophageal reflux disease] 530.81 ; BPH NOS W/O URINARY OBST 600.90 and SKIN ANOMALY NEC 757.39 [facility] [address] [place] [address] [id number] Sep, [facility] [address] [place] [address] [id number] Sep, [facility] [address] [place] [address] [id number] Jul, [facility] [address] [place] [address] [id number] Apr, VACCIN FOR INFLUENZA V04.81 [facility] [address] [place] [address] [id number] Apr, [facility] [address] [place] [address] [id number] Apr, ANEMIA CHRONIC 285.29 and Pneumonia due to other specified organism 483.8 [facility] [address] [place] [address] [id number] Mar, [facility] [address] [place] [address] [id number] Mar, Bronchitis, acute 466.0 [facility] [address] [place] [address] [id number] Dec, [facility] [address] [place] [address] [id number] Dec, IRON DEFIC ANEMIA NOS 280.9 [facility] [address] [id number] November, [facility] [address] [id number] November, Anemia NOS 285.9 and Hyperglycemia 790.6 [facility] [address] [id number] November, HTN [Hypertension] 401.9 ; Hyperlipidemia 272.4 ; Fatigue 780.79 ; BPH NOS W/O URINARY OBST 600.90 and Bronchitis NOS 490 IMMUNIZATIONS Vaccine Route Administration Date Status Prevnar 13 Adult IM Intramuscular January 20, 2018 Admini stered OCD Flu Vaccine HIGH Dose 65 YR and greater - Fluzone IM Intramuscular Apr 14, 2017 Administered Flu VACC 6 MONTHS > IM Intramuscular Apr 07, 2016 Admi nistered Pneumovax [id number] IM Intramuscular May 11, 2013 A dministered Flu VACC 6 MONTHS > IM Intramuscular May 11, 2013 Admi nistered Flu VACC 6 MONTHS > IM Intramuscular May 09, 2012 Admi nistered OCD Flu Vaccine HIGH Dose 65 YR and greater - Fluzone IM Intramuscular Apr 06, 2018 Administered SATHYA - Flu VACC 6 MONTHS > IM Intramuscular May 05 1 Administered Flu (adult) IM Intramuscular Apr 25, 2020 Administere d SATHYA - Flu VACC 6 MONTHS > IM Intramuscular Apr 10 0 Administered SATHYA - Flu VACC 6 MONTHS > IM Intramuscular Apr 23 9 Administered SOCIAL HISTORY Qualifiers Date Current Smoker REASON FOR REFERRAL FUNCTIONAL STATUS PLAN OF CARE Activity Details VITAL SIGNS Height 68.25 in 2022-03-03 Height 68.25 in 2022-01-20 Height 68.25 in 2021-11-04 Height 68.25 in 2021-01-23 Height 68.25 in 2020-12-18 Height 68.25 in 2020-12-11 Height 68.25 in 2020-04-04 Height 68.25 in 2020-02-01 Height 68.25 in 2020-01-19 Height 68.25 in 2019-12-18 Height 68.25 in 2019-02-01 Height 68.25 in 2019-01-26 Height 68.25 in 2018-12-14 Height 68.25 in 2018-01-20 Height 68.25 in 2017-12-13 Height 68.25 in 2017-03-23 Height 68.25 in 2017-03-12 Height 68.25 in 2017-03-02 Height 68.25 in 2017-02-05 Height 68.25 in 2017-02-02 Height 68.25 in 2017-01-18 Height 68.25 in 2017-01-08 Height 68.25 in 2016-12-24 Height 68.25 in 2016-11-19 Height 68.25 in 2016-04-07 Height 68.25 in 2016-02-17 Height 68.25 in 2015-12-09 Height 68.25 in 2014-12-21 Height 68.25 in 2014-12-18 Height 68.25 in 2014-02-05 Height N/A in 2013-10-18 Height 68.25 in 2013-10-16 Height N/A in 2013-05-11 Height N/A in 2013-03-07 Height N/A in 2012-05-09 Height 68.25 in 2010-04-17 Weight 175.2 lbs 2022-03-03 Weight 176 lbs 2022-01-20 Weight 185.4 lbs 2021-11-04 Weight 202.4 lbs 2021-01-23 Weight 201.4 lbs 2020-12-18 Weight 200 lbs 2020-12-11 Weight 199.6 lbs 2020-04-04 Weight 194.8 lbs 2020-02-01 Weight 197 lbs 2020-01-19 Weight 200.4 lbs 2019-12-18 Weight 196.8 lbs 2019-02-01 Weight 174.2 lbs 2019-01-26 Weight 198.2 lbs 2018-12-14 Weight 195.6 lbs 2018-01-20 Weight 196.8 lbs 2017-12-13 Weight 200 lbs 2017-03-23 Weight 200 lbs 2017-03-12 Weight 199 lbs 2017-03-02 Weight 200 lbs 2017-02-05 Weight 200.2 lbs 2017-02-02 Weight 197 lbs 2017-01-18 Weight 196 lbs 2017-01-08 Weight 194.6 lbs 2016-12-24 Weight 196.2 lbs 2016-11-19 Weight 201 lbs 2016-04-07 Weight 202 lbs 2016-02-17 Weight 197.8 lbs 2015-12-09 Weight 198 lbs 2014-12-21 Weight 198 lbs 2014-12-18 Weight 200 lbs 2014-02-05 Weight 205 lbs 2013-10-18 Weight 203 lbs 2013-10-16 Weight 207.8 lbs 2013-05-11 Weight 206 lbs 2013-03-07 Weight 209.4 lbs 2011-03-16 Weight 206.2 lbs 2010-11-10 Weight 201.8 lbs 2010-04-17 Weight 201.8 lbs 2010-04-02 Weight 205 lbs 2009-10-24 Weight 206.6 lbs 2009-04-09 Weight 205.8 lbs 2009-04-01 Weight 208 lbs 2009-01-01 Weight 210 lbs 2008-11-22 Weight 209.6 lbs 2008-11-07 Temperature 97.4 degrees Fahrenheit Temperature 98.3 degrees Fahrenheit Temperature 98.3 degrees Fahrenheit Temperature 97.0 degrees Fahrenheit Temperature 97.4 degrees Fahrenheit Temperature 97.1 degrees Fahrenheit Temperature 98.2 degrees Fahrenheit Temperature Temporal:98.0 degrees Fahrenheit 2018-12-14 Temperature Temporal:97.4 degrees Fahrenheit 2017-12-13 Temperature Tympanic:96.9 degrees Fahrenheit 2013-10-18 Temperature Tympanic:97.8 degrees Fahrenheit 2013-10-16 Temperature 95.9 degrees Fahrenheit Temperature 97.8 degrees Fahrenheit Temperature 96.7 degrees Fahrenheit Temperature 96.8 degrees Fahrenheit Temperature 97.3 degrees Fahrenheit Temperature 96 degrees Fahrenheit 2009-04-09 Temperature 98.0 degrees Fahrenheit Temperature 97.1 degrees Fahrenheit Temperature 98.2 degrees Fahrenheit Temperature 97.4 degrees Fahrenheit Heart Rate 111 /min 2022-03-03 Heart Rate 52 /min 2022-01-20 Heart Rate 102 /min 2021-11-04 Heart Rate 86 /min 2021-01-23 Heart Rate 60 /min 2020-12-18 Heart Rate 86 /min 2020-12-11 Heart Rate 87 /min 2020-04-04 Heart Rate 93 /min 2020-02-01 Heart Rate 100 /min 2020-01-19 Heart Rate 88 /min 2019-12-18 Heart Rate 99 /min 2019-02-01 Heart Rate 68 /min 2019-01-26 Heart Rate 70 /min 2018-12-14 Heart Rate 73 /min 2018-01-20 Heart Rate 77 /min 2017-12-13 Heart Rate 76 /min 2017-03-02 Heart Rate 66 /min 2017-02-02 Heart Rate 81 /min 2017-01-18 Heart Rate 81 /min 2016-11-19 Heart Rate 83 /min 2016-04-07 Heart Rate 59 /min 2016-02-17 Heart Rate 86 /min 2015-12-09 Heart Rate 78 /min 2014-12-18 Heart Rate 76 /min 2014-02-05 Heart Rate 80 /min 2013-10-18 Heart Rate 88 /min 2013-10-16 Heart Rate 86 /min 2013-05-11 Heart Rate 72 /min 2013-03-07 Heart Rate 80 /min 2012-05-09 Heart Rate 68 /min 2011-03-16 Heart Rate 68 /min 2010-11-10 Heart Rate 66 /min 2010-04-17 Heart Rate 80 /min 2010-04-02 Heart Rate 72 /min 2009-10-24 Heart Rate 80 /min 2009-04-09 Heart Rate 92 /min 2009-04-01 Heart Rate 86 /min 2009-01-01 Heart Rate 102 /min 2008-11-22 Heart Rate 84 /min 2008-11-07 Oximetry 96 2022-03-03 Oximetry 97 2022-01-20 Oximetry 98 2021-11-04 Oximetry 96 2021-01-23 Oximetry 96 2020-12-18 Oximetry 100 2020-12-11 Oximetry 99 2020-04-04 Oximetry 96 2020-02-01 Oximetry 97 2020-01-19 Oximetry 98 2019-12-18 Oximetry 97 2019-02-01 Oximetry 98 2019-01-26 Oximetry 97 2018-12-14 Oximetry 98 2018-01-20 Oximetry 98 2017-12-13 Oximetry 99 2017-02-02 Oximetry 97 2016-11-19 Oximetry 97 2016-04-07 Oximetry 98 2016-02-17 Oximetry 98 2015-12-09 Oximetry 99 2014-12-18 Oximetry 98 2014-02-05 Oximetry 99 2013-10-18 Oximetry 96 2013-10-16 Oximetry 98 2013-05-11 Oximetry 99 2010-04-17 Oximetry 96 2009-04-01 Oximetry 100 2009-01-01 Oximetry 97 2008-11-22 Respiratory Rate 16 /min 2019-02-01 Respiratory Rate 16 /min 2016-04-07 Respiratory Rate 16 /min 2014-02-05 Respiratory Rate 16 /min 2013-10-18 Respiratory Rate 16 /min 2013-05-11 Respiratory Rate 16 /min 2013-03-07 Respiratory Rate 16 /min 2012-05-09 Respiratory Rate 16 /min 2011-03-16 Respiratory Rate 16 /min 2010-11-10 Respiratory Rate 18 /min 2010-04-17 Respiratory Rate 16 /min 2010-04-02 Respiratory Rate 16 /min 2009-10-24 Respiratory Rate 20 /min 2009-04-09 Respiratory Rate 20 /min 2009-04-01 Respiratory Rate 20 /min 2009-01-01 Respiratory Rate 18 /min 2008-11-22 Respiratory Rate 20 /min 2008-11-07 BMI 26.44 kg/m2 2022-03-03 BMI 26.56 kg/m2 2022-01-20 BMI 27.98 kg/m2 2021-11-04 BMI 30.55 kg/m2 2021-01-23 BMI 30.40 kg/m2 2020-12-18 BMI 30.18 kg/m2 2020-12-11 BMI 30.12 kg/m2 2020-04-04 BMI 29.40 kg/m2 2020-02-01 BMI 29.73 kg/m2 2020-01-19 BMI 30.24 kg/m2 2019-12-18 BMI 29.70 kg/m2 2019-02-01 BMI 26.29 kg/m2 2019-01-26 BMI 29.91 kg/m2 2018-12-14 BMI 29.52 kg/m2 2018-01-20 BMI 29.70 kg/m2 2017-12-13 BMI 30.18 kg/m2 2017-03-23 BMI 30.18 kg/m2 2017-03-12 BMI 30.03 kg/m2 2017-03-02 BMI 30.18 kg/m2 2017-02-05 BMI 30.21 kg/m2 2017-02-02 BMI 29.73 kg/m2 2017-01-18 BMI 29.58 kg/m2 2017-01-08 BMI 29.37 kg/m2 2016-12-24 BMI 29.61 kg/m2 2016-11-19 BMI 30.34 kg/m2 2016-04-07 BMI 30.49 kg/m2 2016-02-17 BMI 29.85 kg/m2 2015-12-09 BMI 29.88 kg/m2 2014-12-21 BMI 29.88 kg/m2 2014-12-18 BMI 30.18 kg/m2 2014-02-05 BMI 30.94 kg/m2 2013-10-18 BMI 30.64 kg/m2 2013-10-16 BMI 31.36 kg/m2 2013-05-11 BMI 31.09 kg/m2 2013-03-07 BMI 30.46 kg/m2 2010-04-17 Blood pressure systolic 110 mm Hg Blood pressure diastolic 70 mm Hg 2022-02 MEDICATIONS Medication Instructions Dosage Frequency Start Date End Date Duration Status Magnesium 400 MG as directed Active fentaNYL 12 MCG/HR 1 patch to skin Active Pravastatin Sodium 40 MG Orally Once a day TAKE ONE TABLET BY MOUTH ONE TIME DAILY 24h 90 days Active hydrOXYzine HCl 25 MG Orally Once a day 1-2 tablet at bedtime as needed 24h Mar, 30 day(s) Active Omeprazole 20 MG Orally Once a day 1 capsule 24h 90 days Active Tamsulosin HCl 0.4 MG Orally Once a day TAKE 1 CAPSULE BY MOUTH EVERY DAY 24h 90 days Active dilTIAZem HCl ER 90 MG Orally Once a day 1 capsule 24h 30 days Active PROCEDURES Procedure Date Ordered Result Body Site MOST RECENT SYSTOLIC BP < 140MM HG December 18, 2020 SATHYA ADMN FLU VAC Apr 14, 2017 SHAVE TRUNK/EXT <.5CM December 21, 2014 IMMUNIZATION ADMINISTRATION Apr 23, 2009 SATHYA ADMN FLU VAC May 11, 2013 SATHYA ADMN FLU VAC Apr 07, 2016 SATHYA - Flu VACC 6 MONTHS > May 05, 2011 SATHYA ADMN FLU VAC Apr 06, 2018 SHAVE TRUNK/EXT <.5CM December 21, 2014 Scr dep neg, no plan reqd December 18, 2020 OCD DOT Physical February 01, 2019 ANNUAL WELLNES VST; PERSNL PPS INIT December 13, 2017 FALL RISK ASSESSMENT DOCD December 18, 2020 ANNUAL WELLNESS VST; PPS SUBSQT VST December 18, 2020 IMMUNIZATION ADMINISTRATION May 05, 2011 ANNUAL WELLNESS VST; PPS SUBSQT VST December 18, 2019 OCD DOT Physical December 11, 2020 SATHYA - Flu VACC 6 MONTHS > Apr 23, 2009 SATHYA - Flu VACC 6 MONTHS > Apr 10, 2010 OCD Flu Vaccine HIGH Dose 65YR and greater - Fluzone O ct 2017 PREVNAR 13 ADULT January 20, 2018 IMMUNIZATION ADMINISTRATION Apr 10, 2010 ADMN PNEUMCOC VAC May 11, 2013 SHAVE TRUNK/EXT <.5CM December 21, 2014 PNEUMOCOCCAL VACCINE (6 YRS AND OLDER) May 11, 2013 TOBACCO NON-USER December 18, 2020 MOST RECENT DIASTOLIC BP < 90MM HG December 18, 2020 SHAVE FACE >2 CM Mar 12, 2017 ANNUAL WELLNESS VST; PPS SUBSQT VST December 14, 2018 Flu VACC 6 MONTHS > May 11, 2013 SHAVE TRUNK/EXT <.5CM December 21, 2014 Flu VACC 6 MONTHS > Apr 07, 2016 Flu VACC 6 MONTHS > May 09, 2012 SHAVE FACE 1.1-2 CM January 08, 2017 Calc bmi abv up zachary f/u December 18, 2020 IMMUNIZATION ADMIN, EACH ADD January 20, 2018 SATHYA ADMN FLU VAC May 09, 2012 OCD Flu Vaccine HIGH Dose 65YR and greater - Fluzone O ct 2016 RESULTS Name Result Date Reference Range CBC, WITH MANUAL DIFF 2022-02-26 WBC 2.6 4.8-10.8 RBC 3.38 4.70-6.10 HGB 10.6 14.0-18.0 HCT 31.3 42.0-52.0 MCV 92.6 80.0-94.0 MCH 31.4 27.0-31.0 MCHC 33.9 32.0-37.0 RDW-CV 14.6 11.5-14.5 PLT 172 130-400 MPV 9.1 7.4-10.4 MANUAL DIFF MANUAL DIFFERENTIAL SEGS 70 42-75 BANDS 0-6 LYMPHS 18 20-51 KENDRA. LYMPHS <=1 MONOS 11 2-9 EOS 1 0-3 BASO 0-1 METAS MYELOS NRBC PLT ESTIMATE ADEQUATE ADEQUATE RBC MORPH ABNORMAL NORMAL ANISO 1+ POIK MICRO MACRO 1+ HYPO POLYCHROM GLYCOHEMOGLOBIN A1C 2022-02-26 HGBA1c 6.5 4.0-6.0 est Average Glucose 139 70-105 COMPREHENSIVE METABOLIC PROFILE 2022-02-26 SODIUM 134 134-143 POTASSIUM 4.1 3.5-5.1 CHLORIDE 100 98-111 CO2 22 22-32 CALCIUM 8.9 8.9-10.3 GLUCOSE 210 74-106 BUN 11 8-26 CREATININE 1.26 0.61-1.24 TOTAL BILIRUBIN 0.3 0.3-1.2 TOTAL PROTEIN 6.0 6.5-8.1 ALBUMIN 3.0 3.5-5.0 ALKALINE PHOS 131 38-130 AST 13 15-41 ALT 8 17-63 A/GAP 12.0 3.0-12.0 B/CR 8.7 8.0-20.0 OSMOLARITY 274 275-295 GLOBULIN 3.0 2.3-3.5 A/G 1.0 1.0-2.5 CBC, WITH AUTO DIFF 2022-01-10 WBC 4.9 4.8-10.8 RBC 3.29 4.70-6.10 HGB 9.9 14.0-18.0 HCT 31.0 42.0-52.0 MCV 94.2 80.0-94.0 MCH 30.1 27.0-31.0 MCHC 31.9 32.0-37.0 RDW-CV 13.1 11.5-14.5 PLT 275 130-400 MPV 10.0 7.4-10.4 NE% 78.6 42.2-75.2 LY% 17.9 20.5-51.1 MO% 2.7 1.7-9.3 EO% 0.2 0.9-2.9 BA% 0.4 0.0-0.8 NE# 3.8 1.4-6.5 LY# 0.9 1.2-3.4 MO# 0.1 0.1-0.6 EO# 0.0 0.0-0.2 BA# 0.0 0.0-0.2 BNP 2022-01-10 BNP 49 <=100 COMPREHENSIVE METABOLIC PROFILE 2022-01-10 SODIUM 134 134-143 POTASSIUM 3.8 3.5-5.1 CHLORIDE 98 98-111 CO2 25 22-32 CALCIUM 8.4 8.9-10.3 GLUCOSE 256 74-106 BUN 18 8-26 CREATININE 1.47 0.61-1.24 TOTAL BILIRUBIN 0.8 0.3-1.2 TOTAL PROTEIN 6.8 6.5-8.1 ALBUMIN 2.9 3.5-5.0 ALKALINE PHOS 96 38-130 AST 13 15-41 ALT 10 17-63 A/GAP 11.0 3.0-12.0 B/CR 12.2 8.0-20.0 OSMOLARITY 279 275-295 GLOBULIN 3.9 2.3-3.5 A/G 0.7 1.0-2.5 MAGNESIUM 2022-01-10 MAGNESIUM 1.1 1.8-2.5 TROPONIN I 2022-01-10 TROPONIN I 0.01 <=0.05 TROP HEAD Elevated levels of T roponin I are detectable in plasma within 3-6 hours after onset of myocardial infarction, reach peak concentrations in approximately 12-16 hours, and remain elevated for 4-9 days following an AMI. Any conditions resulting in myocardial damage can potentially increase cardiac Troponin I levels above the expected values. Clinical studies have documented these conditions to include: unstable angina, congestive heart failure, myocarditis, cardiac surgery, or invasive testing procedures. Arteritis, coronary embolism, and cocaine or amphetamine use potentially lead to elevated levels. TSH w/REFLEX TO FT4 2022-01-10 TSH 1.38 0.45-5.33 COVID 19 LR PCR ([facility]) 2022-01-10 SARS-CoV-2, PCR NOT DETECTED NOT DETECTED SARS-CoV-2 Comment Negative results benjie uld not be used as the sole basis for diagnosis, treatment, or other patient management decisions. False negatives should be considered in the context of recent exposures and the presence of clinical signs and symptoms consistent with COVID-19. False negatives may also occur in patients whose viral load is below the limit of detection. An individual without symptoms of COVID-19 and who is not shedding the virus would be expected to have a negative result. CT ANGIO CHEST 2022-01-10 MR BRAIN W/WO CONTRAST 2021-11-12 US RETROPERITONEAL COMPLETE 2021-11-12 LIPID PROFILE 2021-01-23 CHOLESTEROL 209 129-209 TRIGLYCERIDES 256 10-150 HDL 38 40-80 LDL (CALCULATED) 120 RISK RATIO 5.5 RISK INTERP RISK MALE FEMALE 1/2 average 3.4 3.3 Average 5.0 4.4 2x Average 9.6 7.1 3x Average 23.4 11.0 GLYCOHEMOGLOBIN A1C 2021-01-23 HGBA1c 8.3 4.0-6.0 est Average Glucose 191 70-105 COMPREHENSIVE METABOLIC PROFILE 2021-01-23 SODIUM 138 134-143 POTASSIUM 4.5 3.5-5.1 CHLORIDE 103 98-111 CO2 26 22-32 CALCIUM 9.4 8.9-10.3 BUN 10 8-26 CREATININE 1.25 0.61-1.24 TOTAL BILIRUBIN 0.5 0.3-1.2 TOTAL PROTEIN 6.9 6.5-8.1 ALBUMIN 3.8 3.5-5.0 ALKALINE PHOS 134 32-92 AST 16 15-41 ALT 19 17-63 A/GAP 9.0 3.0-12.0 B/CR 8.0 8.0-20.0 OSMOLARITY 280 275-295 GLOBULIN 3.1 2.3-3.5 A/G 1.2 1.0-2.5 CBC, WITH AUTO DIFF 2020-01-22 WBC 6.8 4.8-10.8 RBC 3.73 4.70-6.10 HGB 12.3 14.0-18.0 HCT 35.5 42.0-52.0 MCV 95.2 80.0-94.0 MCH 33.0 27.0-31.0 MCHC 34.6 32.0-37.0 RDW-CV 12.4 11.5-14.5 PLT 240 130-400 MPV 9.8 7.4-10.4 NE% 54.1 42.2-75.2 LY% 35.8 20.5-51.1 MO% 7.4 1.7-9.3 EO% 1.9 0.9-2.9 BA% 0.4 0.0-0.8 NE# 3.7 1.4-6.5 LY# 2.4 1.2-3.4 MO# 0.5 0.1-0.6 EO# 0.1 0.0-0.2 BA# 0.0 0.0-0.2 COMPREHENSIVE METABOLIC PROFILE 2020-01-22 SODIUM 136 136-145 POTASSIUM 4.5 3.5-5.1 CHLORIDE 100 98-111 CO2 24 22-32 CALCIUM 9.1 8.9-10.3 BUN 24 8-26 CREATININE 1.89 0.61-1.24 TOTAL BILIRUBIN 0.4 0.3-1.2 TOTAL PROTEIN 6.5 6.5-8.1 ALBUMIN 3.7 3.5-5.0 ALKALINE PHOS 110 32-92 AST 19 15-41 ALT 18 17-63 A/GAP 12.0 3.0-12.0 B/CR 12.7 8.0-20.0 OSMOLARITY 279 275-295 GLOBULIN 2.8 2.3-3.5 A/G 1.3 1.0-2.5 CT ANGIO NECK 2020-02-02 LIPID PROFILE 2019-01-26 CHOLESTEROL 174 129-209 TRIGLYCERIDES 201 10-150 HDL 42 40-80 LDL (CALCULATED) 92 RISK RATIO 4.1 RISK INTERP RISK MALE FEMALE 1/2 average 3.4 3.3 Average 5.0 4.4 2x Average 9.6 GLYCOHEMOGLOBIN A1C 2019-01-26 HGBA1c 6.6 4.0-6.0 est Average Glucose 144 70-105 COMPREHENSIVE METABOLIC PROFILE 2019-01-26 SODIUM 142 136-145 POTASSIUM 4.7 3.5-5.1 CHLORIDE 108 98-111 CO2 25 22-32 CALCIUM 9.9 8.9-10.3 BUN 22 8-26 CREATININE 1.62 0.61-1.24 TOTAL BILIRUBIN 0.6 0.3-1.2 TOTAL PROTEIN 7.1 6.5-8.1 ALBUMIN 4.0 3.5-5.0 ALKALINE PHOS 95 32-92 AST 20 15-41 ALT 17 17-63 A/GAP 9.0 3.0-12.0 B/CR 13.6 8.0-20.0 OSMOLARITY 288 275-295 GLOBULIN 3.1 2.3-3.5 A/G 1.3 1.0-2.5 PSA - SCREENING 2019-01-26 PSA (SCREEN) <0.008 <=4.000 US AAA SCREENING 2019-01-02 PSA - SCREENING 2018-01-24 PSA (SCREEN) <0.008 <=4.000 LIPID PROFILE 2018-01-24 CHOLESTEROL 209 129-209 TRIGLYCERIDES 245 10-150 HDL 41 40-80 LDL (CALCULATED) 119 RISK RATIO 5.1 RISK INTERP RISK MALE FEMALE 1/2 average 3.4 3.3 Average 5.0 4.4 2x Average 9.6 GLYCOHEMOGLOBIN A1C 2018-01-24 HGBA1c 6.4 4.0-6.0 est Average Glucose 137 70-105 COMPREHENSIVE METABOLIC PROFILE 2018-01-24 SODIUM 138 136-145 POTASSIUM 4.3 3.5-5.1 CHLORIDE 102 98-111 CO2 27 22-32 CALCIUM 9.5 8.9-10.3 BUN 17 8-26 CREATININE 1.22 0.61-1.24 TOTAL BILIRUBIN 0.8 0.3-1.2 TOTAL PROTEIN 6.9 6.5-8.1 ALBUMIN 3.9 3.5-5.0 ALKALINE PHOS 102 38-130 AST 20 15-41 ALT 19 17-63 A/GAP 9.0 3.0-12.0 B/CR 13.9 8.0-20.0 OSMOLARITY 279 275-295 GLOBULIN 3.0 2.3-3.5 A/G 1.3 1.0-2.5 BASIC METABOLIC PROFILE 2017-01-22 SODIUM 139 136-145 POTASSIUM 4.3 3.5-5.1 CHLORIDE 105 98-111 CO2 26 22-32 CALCIUM 9.3 8.9-10.3 BUN 24 8-26 CREATININE 1.43 0.61-1.24 EGFR 52 EGFR CMT Multiply calculated EGFR by 1.025 for Afro-americans. A/GAP 8.0 3.0-12.0 OSMOLARITY 284 275-295 B/CR 16.8 8.0-20.0 CBC, WITH AUTO DIFF 2017-01-22 WBC 5.4 4.8-10.8 RBC 4.08 4.70-6.10 HGB 13.4 14.0-18.0 HCT 38.9 42.0-52.0 MCV 95.3 80.0-94.0 MCH 32.8 27.0-31.0 MCHC 34.4 32.0-37.0 RDW-CV 12.5 11.5-14.5 PLT 203 130-400 MPV 10.1 7.4-10.4 NE% 57.6 42.2-75.2 LY% 32.8 20.5-51.1 MO% 7.4 1.7-9.3 EO% 2.0 0.9-2.9 BA% 0.2 0.0-0.8 NE# 3.1 1.4-6.5 LY# 1.8 1.2-3.4 MO# 0.4 0.1-0.6 EO# 0.1 0.0-0.2 BA# 0.0 0.0-0.2 IRON 2017-01-22 IRON 84 45-182 RETICULOCYTE COUNT 2017-01-22 RETIC COUNT % 1.25 0.51-1.81 RETIC COUNT Absolute 0.0510 0.0260- 0.0950 RBC 4.08 4.70-6.10 PSA - SCREENING 2017-01-22 PSA (SCREEN) 0.008 <=4.000 MR BRAIN WO CONTRAST 2017-01-26 CBC, WITH AUTO DIFF 2016-11-23 WBC 4.4 4.8-10.8 RBC 3.90 4.70-6.10 HGB 12.7 14.0-18.0 HCT 37.6 42.0-52.0 MCV 96.4 80.0-94.0 MCH 32.6 27.0-31.0 MCHC 33.8 32.0-37.0 RDW-CV 12.6 11.5-14.5 PLT 201 130-400 MPV 9.9 7.4-10.4 NE% 50.8 42.2-75.2 LY% 40.1 20.5-51.1 MO% 6.6 1.7-9.3 EO% 2.3 0.9-2.9 BA% 0.2 0.0-0.8 NE# 2.2 1.4-6.5 LY# 1.8 1.2-3.4 MO# 0.3 0.1-0.6 EO# 0.1 0.0-0.2 BA# 0.0 0.0-0.2 LIPID PROFILE 2016-11-23 CHOLESTEROL 178 129-209 TRIGLYCERIDES 247 10-150 HDL 34 40-80 LDL (CALCULATED) 95 RISK RATIO 5.2 RISK INTERP RISK MALE FEMALE 1/2 average 3.4 3.3 Average 5.0 4.4 2x Average 9.6 VITAMIN B12 & FOLATE 2016-11-23 VIT B12 415 180-914 FOLATE >20.00 >=6.00 COMPREHENSIVE METABOLIC PROFILE 2016-11-23 SODIUM 139 136-145 POTASSIUM 4.4 3.5-5.1 CHLORIDE 103 98-111 CO2 25 22-32 CALCIUM 9.0 8.9-10.3 BUN 25 8-26 CREATININE 1.62 0.61-1.24 TOTAL BILIRUBIN 0.5 0.3-1.2 TOTAL PROTEIN 6.6 6.5-8.1 ALBUMIN 3.8 3.5-5.0 ALKALINE PHOS 87 38-130 AST 18 15-41 ALT 17 17-63 A/GAP 11.0 3.0-12.0 B/CR 15.4 8.0-20.0 OSMOLARITY 283 275-295 GLOBULIN 2.8 2.3-3.5 A/G 1.4 1.0-2.5 MAGNESIUM 2016-11-23 MAGNESIUM 1.8 1.8-2.5 TSH w/REFLEX TO FT4 2016-11-23 TSH 2.23 0.45-5.33 XR LUMBAR SPINE 2 OR 3 VIEW 2016-11-19 CBC, NO DIFF 2016-02-17 WBC 5.5 4.8-10.8 RBC 4.49 4.70-6.10 HGB 14.4 14.0-18.0 HCT 42.4 42.0-52.0 MCV 94.4 80.0-94.0 MCH 32.1 27.0-31.0 MCHC 34.0 32.0-37.0 RDW-CV 13.3 11.5-14.5 PLT 174 130-400 LIPID PROFILE 2015-12-30 CHOLESTEROL 153 129-209 TRIGLYCERIDES 139 48-210 HDL 42 40-60 LDL (CALCULATED) 83 RISK RATIO 3.6 RISK INTERP RISK MALE FEMALE 1/2 average 3.4 3.3 Average 5.0 4.4 2x Average 9.6 GLYCOHEMOGLOBIN A1C 2015-12-30 est Average Glucose 146 70-105 CBC, NO DIFF 2015-12-30 WBC 5.3 4.8-10.8 RBC 3.98 4.70-6.10 HGB 12.7 14.0-18.0 HCT 37.9 42.0-52.0 MCV 95.2 80.0-94.0 MCH 31.9 27.0-31.0 MCHC 33.5 32.0-37.0 RDW-CV 13.2 11.5-14.5 PLT 189 130-400 COMPREHENSIVE METABOLIC PROFILE 2015-12-30 SODIUM 144 136-145 POTASSIUM 5.0 3.5-5.1 CHLORIDE 108 98-107 CO2 28 21-32 CALCIUM 8.9 8.5-10.1 BUN 17 7-18 CREATININE 1.43 0.70-1.30 TOTAL BILIRUBIN 0.3 0.0-1.0 TOTAL PROTEIN 6.6 6.4-8.2 ALT 18 12-78 AST 11 15-37 A/GAP 8.0 3.0-12.0 B/CR 11.9 8.0-20.0 OSMOLARITY 290 275-295 GLOBULIN 3.0 2.3-3.5 A/G 1.2 1.0-2.5 GLYCOHEMOGLOBIN A1C 2014-12-26 est Average Glucose 131 70-105 PSA - DIAGNOSTIC 2014-12-20 PSA (DIAGNOSTIC) 0.020 <=4.000 PSA H AGE SPECIFIC REFEREN CE RANGES AGE (yr) SERUM PSA (ng/mL) 40-49 0.0 - 2.5 LIPID PROFILE 2014-12-20 CHOLESTEROL 195 129-209 TRIGLYCERIDES 227 48-210 HDL 38 40-60 LDL (CALCULATED) 112 RISK RATIO 5.1 RISK INTERP RISK MALE FEMALE 1/2 average 3.4 3.3 Average 5.0 4.4 2x Average 9.6 CBC, NO DIFF 2014-12-20 WBC 5.0 4.8-10.8 RBC 4.25 4.70-6.10 HGB 13.6 14.0-18.0 HCT 39.9 42.0-52.0 MCV 93.9 80.0-94.0 MCH 32.0 27.0-31.0 MCHC 34.1 32.0-37.0 RDW-CV 12.7 11.5-14.5 PLT 206 130-400 COMPREHENSIVE METABOLIC PROFILE 2014-12-20 SODIUM 142 136-145 CHLORIDE 107 98-107 CO2 29 21-32 CALCIUM 9.1 8.5-10.1 BUN 20 7-18 CREATININE 1.14 0.80-1.30 TOTAL BILIRUBIN 0.4 0.0-1.0 TOTAL PROTEIN 6.7 6.4-8.2 ALT 25 12-78 AST 12 15-37 A/GAP 6.0 3.0-12.0 B/CR 17.5 8.0-20.0 OSMOLARITY 288 275-295 GLOBULIN 3.0 2.3-3.5 A/G 1.2 1.0-2.5 COMPREHENSIVE METABOLIC PROFILE 2014-02-05 SODIUM 141 136-145 CHLORIDE 104 98-107 CO2 27 21-32 CALCIUM 9.0 8.5-10.1 BUN 17 7-18 CREATININE 1.18 0.80-1.30 TOTAL BILIRUBIN 0.5 0.0-1.0 TOTAL PROTEIN 6.9 6.4-8.2 ALT 20 12-78 AST 15 15-37 A/GAP 10.0 3.0-12.0 B/CR 14.4 8.0-20.0 OSMOLARITY 284 275-295 GLOBULIN 3.3 2.3-3.5 A/G 1.1 1.0-2.5 LIPID PROFILE 2013-05-11 CHOLESTEROL 207 129-209 TRIGLYCERIDES 227 48-210 HDL CHOLESTEROL 34 40-60 LDL (CALCULATED) 128 10-100 RISK RATIO 6.1 RISK RATIO INTERP RISK MALE FEMALE 1/2 average 3.4 3.3 Average 5.0 4.4 2x Average 9.6 CBC, NO DIFF 2013-05-11 WBC 5.4 4.8-10.8 RBC 4.49 4.70-6.10 HEMOGLOBIN 14.1 14.0-18.0 HEMATOCRIT 41.8 42.0-52.0 MCV 93.1 80.0-94.0 MCH 31.4 27.0-31.0 MCHC 33.7 32.0-37.0 RDW 13.1 11.5-14.5 PLATELETS 227 130-400 COMPREHENSIVE METABOLIC PROFILE 2013-05-11 SODIUM 139 136-145 CHLORIDE 104 98-107 CO2 27 21-32 CALCIUM 9.2 8.5-10.1 BLOOD UREA NITROGEN 20 7-18 CREATININE 1.22 0.80-1.30 TOTAL BILIRUBIN 0.3 0.0-1.0 TOTAL PROTEIN 7.0 6.4-8.2 ALT 30 12-78 AST 17 15-37 ANION GAP 8.0 3.0-12.0 BUN/CREATININE RATIO 16.4 8.0-20. 0 OSMOLARITY 282 275-295 GLOBULIN 3.0 2.3-3.5 ALBUMIN/GLOBULIN RATIO 1.3 1.0-2 .5 PSA - SCREENING 2012-05-09 PROSTATE SPECIFIC ANTIGEN SCREENING PSA HEADER LIPID PROFILE 2012-05-09 LDL (CALCULATED) 131 10-100 RISK RATIO 5.7 RISK RATIO INTERP RISK MALE FEMALE 1/2 average 3.4 3.3 Average 5.0 4.4 2x Average 9.6 COMPREHENSIVE METABOLIC PROFILE 2012-05-09 ALBUMIN 4.3 3.5-5.0 ALKALINE PHOSPHATASE 103 32-92 ANION GAP 7.0 3.0-12.0 BUN/CREATININE RATIO 15.1 8.0-20. 0 OSMOLARITY 274 275-295 GLOBULIN 3.0 2.3-3.5 ALBUMIN/GLOBULIN RATIO 1.4 1.0-2 .5 PSA - SCREENING 2012-05-09 PSA HEADER AGE SPECIFIC REFEREN CE RANGES AGE (yr) SERUM PSA (ng/mL) 40-49 0.0 - 2.5 CHEM 14 2010-11-10 CHEM 14 (CMP) SODIUM 137 136-145 POTASSIUM 4.4 3.50-5.10 CHLORIDE 104 99-108 CO2 27 21-31 CALCIUM 9.5 8.40-10.30 GLUCOSE 104 70-105 BUN 19 7-22 CREATININE 1.09 0.30-1.10 TBIL 0.7 0.40-1.20 ALK PHOS 101 32-92 PROTEIN TOTAL 7.2 6.40-8.30 ALBUMIN 4.2 3.50-5.0 ALT 23 10-40 AST 20 10-42 A/GAP 6.0 3.0-12.0 A/G 1.4 1.0-2.50 B/CR 17.4 8.0-20.0 AGE 65 eGFR NON-AFR 67 CBC 2010-11-10 CBC WBC 5.5 4.80-10.80 RBC 4.32 4.70-6.10 HGB 14.5 14.0-18.0 HCT 41.2 42.0-52.0 MCV 95.3 80.0-94.0 MCH 33.5 27.0-31.0 MCHC 35.1 32.0-36.0 RDW 12.2 11.50-14.50 PLT 231 130-400 MPV 7.3 7.40-10.40 CHEM 14 2010-11-10 SODIUM POTASSIUM CHLORIDE CO2 CALCIUM GLUCOSE BUN CREATININE TBIL ALK PHOS PROTEIN TOTAL ALBUMIN ALB ALT AST A/GAP A/G B/CR AGE eGFR NON-AFR CHEM 14 2010-04-02 CHEM 14 (CMP) SODIUM 140 136-145 POTASSIUM 5.1 3.50-5.10 CHLORIDE 106 99-108 CO2 28 21-31 CALCIUM 9.7 8.40-10.30 GLUCOSE 116 70-105 BUN 14 7-22 CREATININE 0.98 0.30-1.10 TBIL 0.5 0.40-1.20 ALK PHOS 99 32-92 PROTEIN TOTAL 6.5 6.40-8.30 ALBUMIN 3.9 3.50-5.0 ALT 20 10-40 AST 18 10-42 A/GAP 6.0 3.0-12.0 A/G 1.5 1.0-2.50 B/CR 14.3 8.0-20.0 AGE 64 eGFR NON-AFR 81 CBC 2010-04-02 CBC WBC 4.9 4.80-10.80 RBC 4.06 4.70-6.10 HGB 13.8 14.0-18.0 HCT 40.0 42.0-52.0 MCV 98.4 80.0-94.0 MCH 33.9 27.0-31.0 MCHC 34.5 32.0-36.0 RDW 12.1 11.50-14.50 PLT 234 130-400 MPV 7.6 7.40-10.40 CHEM 14 SODIUM POTASSIUM CHLORIDE CO2 CALCIUM GLUCOSE BUN CREATININE TBIL ALK PHOS PROTEIN TOTAL ALBUMIN ALB ALT AST A/GAP A/G B/CR AGE eGFR NON-AFR CORONARY RISK PROFILE 2010-04-02 CORONARY RISK PROFILE CORONARY RISK PROFILE CHOLESTEROL 178 129-209 TRIGLYCERIDES 145 40-175 HDL CHOL 37 31-76 NON HDL CHOL 141 100-190 CHD RISK 4.8 2.30-5.90 PSA SCREENING 2010-04-02 PSA 0.02 0.01-4.00 CHEM 14 2009-10-24 CHEM 14 (CMP) SODIUM 137 136-145 POTASSIUM 4.5 3.50-5.10 CHLORIDE 104 99-108 CO2 29 21-31 CALCIUM 9.3 8.40-10.30 GLUCOSE 112 70-105 BUN 20 7-22 CREATININE 1.07 0.30-1.10 TBIL 0.8 0.40-1.20 ALK PHOS 113 32-92 PROTEIN TOTAL 7.0 6.40-8.30 ALBUMIN 4.1 3.50-5.0 ALT 19 10-40 AST 21 10-42 A/GAP 4.0 3.0-12.0 A/G 1.4 1.0-2.50 B/CR 18.7 8.0-20.0 AGE 64 eGFR NON-AFR 73 CBC 2009-10-24 CBC WBC 5.0 4.80-10.80 RBC 4.36 4.70-6.10 HGB 14.3 14.0-18.0 HCT 41.2 42.0-52.0 MCV 94.5 80.0-94.0 MCH 32.8 27.0-31.0 MCHC 34.7 32.0-36.0 RDW 12.1 11.50-14.50 PLT 239 130-400 MPV 6.7 7.40-10.40 HEMOGLOB/HEMATOCRIT 2009-04-09 HEMATOCRIT/HEMOGLOB HCT 38.6 42.0-52.0 HGB 13.3 14.0-18.0 HEMOGLOB/HEMATOCRIT 2009-01-01 HEMATOCRIT/HEMOGLOB HCT 39.3 42.0-52.0 HGB 13.4 14.0-18.0 CBC WITH DIF 2008-11-22 CBC WITH DIF WBC 6.4 4.80-10.80 RBC 3.91 4.70-6.10 HGB 13.1 14.0-18.0 HCT 36.9 42.0-52.0 MCV 94.2 80.0-94.0 MCH 33.4 27.0-31.0 MCHC 35.4 32.0-36.0 RDW 12.7 11.50-14.50 PLT 196 130-400 MPV 7.3 7.40-10.40 NE% 57.3 42.20-75.20 LY% 32.8 20.50-51.10 MO% 6.7 1.70-9.30 EO% 2.4 0.90-2.90 BA% 0.8 0.0-0.80 NE# 3.6 1.40-6.50 LY# 2.1 1.20-3.40 MO# 0.4 0.10-0.60 EO# 0.2 0.0-0.20 BA# 0.1 0.0-0.20 RBC MORPH ANISO MICRO MACRO HYPO PLT ESTIMATE TSH 2008-11-22 TSH TSH 1.00 0.34-5.60 FERRITIN - [facility] 2008-11-22 FERRITIN - [facility] FERRITIN 41 24-336 B12/FOLATE 2008-11-22 B12/FOLATE B12 600 FOLATE >20.0 IRON/TRANSFERRIN 2008-11-22 IRON/TRANSFERRIN IRON 95 50-160 TRANSFERRIN 248 180-329 TIBC 347 250-400 TRANSFERRIN SAT 27 20-46 UIBC 252 125-274 CBC WITH DIF 2008-11-09 CBC WITH DIF WBC 6.6 4.80-10.80 RBC 4.08 4.70-6.10 HGB 12.9 14.0-18.0 HCT 38.9 42.0-52.0 MCV 95.4 80.0-94.0 MCH 31.7 27.0-31.0 MCHC 33.3 32.0-36.0 RDW 12.1 11.50-14.50 PLT 255 130-400 MPV 7.7 7.40-10.40 NE% 58.0 42.20-75.20 LY% 32.7 20.50-51.10 MO% 6.2 1.70-9.30 EO% 1.9 0.90-2.90 BA% 1.2 0.0-0.80 NE# 3.8 1.40-6.50 LY# 2.2 1.20-3.40 MO# 0.4 0.10-0.60 EO# 0.1 0.0-0.20 BA# 0.1 0.0-0.20 RBC MORPH ANISO MICRO MACRO HYPO PLT ESTIMATE PANEL II 2008-11-09 PANEL II SODIUM 140 136-145 POTASSIUM 5.2 3.50-5.10 CHLORIDE 104 99-108 CO2 31 21-31 CALCIUM 10.2 8.40-10.30 GLUCOSE 125 70-105 BUN 16 7-22 CREATININE 1.06 0.30-1.10 A/GAP 5.0 3.0-12.0 B/CR 15.1 8.0-20.0 AGE 63 eGFR NON-AFR 75 LIVER PROFILE 2008-11-09 LIVER PROFILE TBIL 0.6 0.40-1.20 DBIL 0.1 0.0-0.20 ALK PHOS 118 32-92 PROTEIN TOTAL 7.1 6.40-8.30 ALBUMIN 4.1 3.50-5.0 ALT 30 10-40 AST 23 10-42 IBIL 0.5 0.0-1.0 A/G 1.4 1.0-2.50 CORONARY RISK PROFILE 2008-11-09 CORONARY RISK PROFILE CORONARY RISK PROFILE CHOLESTEROL 162 129-209 TRIGLYCERIDES 135 40-175 HDL CHOL 44 31-76 NON HDL CHOL 118 100-190 LDL DIRECT 93 10-100 CHD RISK 3.7 2.30-5.90 PSA DIAGNOSTIC 2008-11-09 PSA DIAGNOSTIC PSA 0.06 0.01-4.00 REASON FOR VISIT pc 3m f/u, feet numbness, Numbness in feet- appt made 04/01, Sleeping Issues / Med?, pc 6wk f/u, CRITICAL LAB: WBC, Diltiazem ?, GI-f/u bleeding, - [facility] D/C 01/30 GI Bleeding, - [facility] D/C 01/30 GIBleeding, GI- GI Bleeding F/U, D/C Appt, Lab results-recheck prior to 03/03 apt, PC [facility] ED Follow upAfib, [facility] ED Follow up afib, Fast Heart Rate (Called 01/09) , PC - 6mo f/u, pc 6+m f/u, AWV sub, RF-hy dromorphone & metformin, HYDROmorphone HCl 4 mg RF, HYDROmorphone RF, F/u?, new pain meds, all meds , DI Order, PC - recent diagnosis of lung cancer, Omeprazole Refill , Omperazole RF , Furosemide 20 mg tablet RF, Lab Results , Tamulosin RF , PC- Recheck BP, Pt reports that his feet have been numb and socks bundled up 2 years: pt told he had gout before but pt dosnt seem to beleive he does, Pt is still wheezing from his isinus infection from a couple months ago UC had given pt penicillin, AWV f/u, PC - AWV, Subsequent Annual Wellness Visit, High BP, SATHYA cough and runny nose, allergies?, OCC dot ppx, Omeprazole 20 MG RF, Pravastatin , Benazepril - RF, multi - RF, Pt aware, Pravastatin RF, PC - 3 mo f/u, PC 3 MO F/U, Benazepril RF, CT of carotids, CT Results, PC 1 Yearf/u and AWV f/u, Pt states he has been having problems with his feet alot of swelling and they are numb, pt states hehas stage 3 kidney disease, PC: dizziness/Started about 2 weeks ago, See TE from 01/15/20, dizziness, AWV follow up, AWV sub, Transferring Care, RF request , refill all meds, refill all scripts, OCC dot cdlL, Test results, PC: AWV f/u, HTN, cmp, a1c, lipid, psa., Weight loss 14 pounds- recently from , PHQ 9=14, Test results, AWV f/u, Subsequent Wellness Visit , RF, requests RF Tamulosin, PC - Flu Shot, Test results, PC-AWV, PC- f/u AWV, HTN, PC-AWV, Need new script/New pharmacy, pc flu shot, Script, ENT pathology, PFP EST PATIENT (S), RESULTS , procedures, biopsy site pain, ENT formal excision, TANVI- ongoing tremor, TANVI fu tremor, ENT pathology, PC Lab F/U, MRI brain w/o, wellness, FYI- neuro consult- essential tremor, TANVI- ongoing tremor, ENT lesion on forehead/scalp. PFP Shave Excision. PFP Shave Excision. 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 PFP, New Patient, labs, referral, PSA order, PC annual, Refill on all meds, script refill 11/21, script refill, script refills, Refill, 90 day pravastatin, pc lab f/u, Flomax 0.4 mg,Omeprazole 20 mg, [id number] mg, PC 3 MONTH F/U, pc ? bronchitis/med ck, refills to [facility] in [place], [facility] ? BRONCHITIS, Lexapro 90 days, Flomax & Benazepril/HCTZ, script refill, pc 2 month f/u & flu shot before going to [place], refill Escitalopram 10mg 90 days, [facility] med f/u, 01/30 cancelled , Lexapro refill, benazepril/HCTZ refill, script prior auth, Escitalopram & Omeprazole refills, script refill,flomax refill, ?PSA, medication check, lab slip for 05/09 appt., script refill, script refill, refills, script refill, refill for omeprazole, script refill , script refill, scripts, IM flu shot, IM fu, med refill, IM fu, hard copy prescription refill request, hard copy refill request, IM cold, flu shot, ?? scripts, IM 5 mo fu, refills, scripts , IM med review, hard copy refill request, flu shot, av elox script, fu labs anemia, scripts given to pt , bad cold, loose cough for one week. non productive with stuffy nose., F/U labs, F/U labs, fatigue, requesting labs, elevated lipids, requesting labs, Hx prostate cancer, requesting PSA Insurance Providers Health Insurance Type Health Plan Insurance Address Health Plan Insurance Phone Health Plan Insurance Name Health Plan Coverage Dates Member ID Patient Relationship to Subscriber Patient Address Patient Phone Patient Name Patient Date of Subscriber ID Subscriber Name Subscriber Date of Group No MEDICARE [address] [facility] [address] MEDICARE self Don Ortega [id number] [employer] [address] [place] [id number] [employer] self Don Ortega [id number] PLAN N MEDICARE PART A [address] [facility] [id number] MEDICARE PART A self Don Ortega [id number] MEDICARE [address] [facility] [address] MEDICARE self Don Ortega [id number] NGS MEDICARE [address] [place] [address] NGS MEDICARE self Don Ortega [id number] NGS MEDICARE [address] [place] [address] NGS MEDICARE self Don Ortega [id number] MEDICARE PART A [address] [facility] [id number] [phone] MEDICARE PART A self Don Ortega [id number]
--- NOTE | 2022-11-20 13:45 | DI.CT_ITS ---
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 COMPARISON: CT CT Thorax w/o Contrast from 09/22/[address] CHEST W from 07/27/2022 FINDINGS: Tracheobronchial tree: Bronchiectatic changes seen in the left upper and left lower lobes. Pulmonary parenchyma: Emphysematous changes are present in the lungs. There is a persistent left ple ural effusion. It is grossly unchanged. No right pleural effusion is seen. There has been progress ion of the disease in the left lung with extension to involve the left lower lobe central peribronchi al tissue. There is also been an increase in size of the soft tissue mass involving the left upper l obe. There also now increased peripheral infiltrates in the left upper lobe which may represent post obstructive pneumonia. The peripheral infiltrates in the right lung have largely cleared. No new in filtrates are seen in the right lung. Bronchiectatic changes are seen in the left upper and left low er lobes. Mediastinum and Magaly: No dominant adenopathy or fluid collection. The esophagus is unremarkable. The re is a small hiatal hernia. Thyroid gland: Unremarkable. Pleura: No effusion or pneumothorax. Heart: The heart is not dilated. Moderate coronary artery calcification. No pericardial effusion. Aorta: Thoracic aorta non-dilated. Atherosclerosis. Pulmonary arteries: Due to the bolus timing, opacification of the pulmonary arteries is suboptimal fo r evaluation of pulmonary emboli. Upper abdomen: Cholelithiasis. No biliary ductal dilatation. There is atrophy of the left kidney. Left nephrolithiasis. Bilateral renal cysts. No follow-up is recommended. There is a stable hypod ense 1 cm left adrenal nodule. No follow-up is recommended. Lymph nodes: Within normal limits. Bones: Within normal limits for the patient's age. Old left rib fracture deformities. No aggressive osseous lesions are identified. Soft tissues: Unremarkable. IMPRESSION: 1. Overall worsening of the appearance of the left hemithorax with an increase in size of the left up per lobe mass and extension to involve the peribronchial soft tissues in the left lower lobe. Persis tent left pleural effusion. 2. Peripheral infiltrate seen in the left upper lobe which may represent a obstructive pneumonia. 3. Significant clearing of the right lung since the prior examination. RADIATION DOSE DELIVERED: 507.45mGy.cm Total DLP DATA REPOSITORY: All CT scans at this facility are submitted to the National Radiology Data Registry (NRDR) Dose Index Registry (DIR) with the [employer] ([employer]). RADIATION OPTIMIZATION: All CT scans at this facility use at least one of these dose optimization te chniques: automated exposure control; mA and/or kV adjustment per patient size (includes targeted exa ms where dose is matched to clinical indication); or iterative reconstruction.
[2022-11-20] MEDS: Omnipaque 350 MG/ML 100 ML BTL IJ (14:21)
[2022-11-20] MEDS: Normal Saline - Diluent 50 ML VIAL IJ (14:22)
== END 2022-11-20 00:50 ==
LOC: DI 00:30
PROVIDERS: PCP Family Medicine; Visit Provider Nurse Practitioner Family
DX: C34.12 Malignant neoplasm of upper lobe, left bronchus or lung (principal); R91.8 Other nonspecific abnormal finding of lung field
CPT/HCPCS: 71260; J3490

== ENCOUNTER 2022-11-23 02:24 | Outpatient (CLI) | payer MEDICARE, SELFPAY ==
[2022-11-23 12:43] LABS: Abs Immature Grans 0.03 10^3/uL (0.0-0.06); Absolute Basophil Count 0.01 10^3/uL (0.0-0.2); Absolute Lymphocyte Count 0.78 10^3/uL (1.2-3.4); Absolute Monocyte Count 0.35 10^3/uL (0.1-0.8); Absolute Neutrophil Count 2.75 10^3/uL (1.2-6.7); Basophils % 0.2; Eosinophils % 2.5; HCT 35.9 % (40.0-50.0); HGB 11.6 g/dL (13.5-17.5); Immature Grans % 0.7; Lymphocytes % 19.4; MCH 30.1 pg (27.0-33.0); MCHC 32.3 % (32.0-36.0); MCV 93 fL (80-95); MPV 8.4 fL (8.0-11.0); Monocytes % 8.7; Neutrophils % 68.5; Platelet Count 220 10^3/uL (130-400); RBC 3.86 10^6/uL (4.36-5.78); RDW 14.3 % (11.8-14.1); WBC 4.02 10^3/uL (4.4-10.8)
[2022-11-23 13:33] LABS: ALT 12 U/L (16-63); AST 10 U/L (15-37); Albumin 3.2 g/dL (3.4-5.0); Alkaline Phosphatase 158 U/L (46-116); Anion Gap 5.7 mmol/L (3-11); BUN 17 mg/dL (7-18); Bilirubin, Total 0.2 mg/dL (0.2-1.0); CO2 29.3 mmol/L (21.0-32.0); CREATININE 1.8 mg/dL (0.70-1.30); Calcium 8.8 mg/dL (8.5-10.1); Chloride 105 mmol/L (98-107); Estimated GFR 37.82 (mL/min/1.73m2); FREE T4 0.73 ng/dL (0.76-1.46); Glucose 148 mg/dL (74-106); Magnesium 1.9 mg/dL (1.8-2.4); Potassium 4.1 mmol/L (3.5-5.1); Sodium 140 mmol/L (136-145); TSH 3.53 uIU/mL (0.36-3.74); Total Protein 7.2 g/dL (6.4-8.2)
== END 2022-11-23 02:25 | disposition home or self-care (01) ==
LOC: LBO 02:24
PROVIDERS: PCP Family Medicine; Visit Provider Internal Medicine Medical Oncology
DX: Z79.899 Other long term (current) drug therapy (principal); C34.12 Malignant neoplasm of upper lobe, left bronchus or lung; D64.81 Anemia due to antineoplastic chemotherapy; T45.1X5A Adverse effect of antineoplastic and immunosuppressive drugs, initial encounter
CPT/HCPCS: 36415; 80053; 86900; 86901; 83735; 84439; 84443; 85025

== ENCOUNTER 2022-12-21 04:17 | Outpatient (CLI) | payer MEDICARE, SELFPAY ==
[2022-12-21 12:45] LABS: Abs Immature Grans 0.01 10^3/uL (0.0-0.06); Absolute Basophil Count 0.01 10^3/uL (0.0-0.2); Absolute Eosinophil Count 0.11 10^3/uL (0.0-0.7); Absolute Lymphocyte Count 0.97 10^3/uL (1.2-3.4); Absolute Monocyte Count 0.32 10^3/uL (0.1-0.8); Absolute Neutrophil Count 2.67 10^3/uL (1.2-6.7); Basophils % 0.2; Eosinophils % 2.7; HCT 35.6 % (40.0-50.0); HGB 11.6 g/dL (13.5-17.5); Immature Grans % 0.2; Lymphocytes % 23.7; MCH 30.3 pg (27.0-33.0); MCHC 32.6 % (32.0-36.0); MCV 93 fL (80-95); MPV 8.6 fL (8.0-11.0); Monocytes % 7.8; Neutrophils % 65.4; Platelet Count 239 10^3/uL (130-400); RBC 3.83 10^6/uL (4.36-5.78); RDW 14.2 % (11.8-14.1); RDW-SD 47.9 fL; WBC 4.09 10^3/uL (4.4-10.8)
[2022-12-21 13:10] LABS: ALT 14 U/L (16-63); AST 9 U/L (15-37); Albumin 3.2 g/dL (3.4-5.0); Alkaline Phosphatase 153 U/L (46-116); Anion Gap 7.8 mmol/L (3-11); BUN 18 mg/dL (7-18); Bilirubin, Total 0.3 mg/dL (0.2-1.0); CO2 31.2 mmol/L (21.0-32.0); CREATININE 1.9 mg/dL (0.70-1.30); Chloride 108 mmol/L (98-107); Estimated GFR 35.44 (mL/min/1.73m2); FREE T4 1.11 ng/dL (0.76-1.46); Glucose 159 mg/dL (74-106); Potassium 4.2 mmol/L (3.5-5.1); Sodium 147 mmol/L (136-145); TSH 0.35 uIU/mL (0.36-3.74); Total Protein 7.2 g/dL (6.4-8.2)
== END 2022-12-21 04:18 | disposition home or self-care (01) ==
LOC: LBO 04:17
PROVIDERS: PCP Family Medicine; Visit Provider Internal Medicine Medical Oncology
DX: C34.12 Malignant neoplasm of upper lobe, left bronchus or lung (principal); Z79.899 Other long term (current) drug therapy; D64.81 Anemia due to antineoplastic chemotherapy; T45.1X5A Adverse effect of antineoplastic and immunosuppressive drugs, initial encounter
CPT/HCPCS: 36415; 80053; 86900; 86901; 83735; 84439; 84443; 85025

== ENCOUNTER 2023-01-18 04:07 | Outpatient (CLI) | payer MEDICARE, SELFPAY ==
[2023-01-18 09:05] LABS: Abs Immature Grans 0.01 10^3/uL (0.0-0.06); Absolute Basophil Count 0.02 10^3/uL (0.0-0.2); Absolute Eosinophil Count 0.14 10^3/uL (0.0-0.7); Absolute Lymphocyte Count 0.92 10^3/uL (1.2-3.4); Absolute Monocyte Count 0.32 10^3/uL (0.1-0.8); Absolute Neutrophil Count 3.16 10^3/uL (1.2-6.7); Basophils % 0.4; Eosinophils % 3.1; HCT 35.8 % (40.0-50.0); HGB 11.7 g/dL (13.5-17.5); Immature Grans % 0.2; Lymphocytes % 20.1; MCH 30.1 pg (27.0-33.0); MCHC 32.7 % (32.0-36.0); MCV 92 fL (80-95); MPV 8.8 fL (8.0-11.0); Neutrophils % 69.2; Platelet Count 248 10^3/uL (130-400); RBC 3.89 10^6/uL (4.36-5.78); RDW 13.5 % (11.8-14.1); RDW-SD 45.8 fL; WBC 4.57 10^3/uL (4.4-10.8)
[2023-01-18 09:29] LABS: ALT 13 U/L (16-63); AST 9 U/L (15-37); Albumin 3.3 g/dL (3.4-5.0); Alkaline Phosphatase 164 U/L (46-116); Anion Gap 6.1 mmol/L (3-11); BUN 17 mg/dL (7-18); Bilirubin, Total 0.3 mg/dL (0.2-1.0); CO2 29.9 mmol/L (21.0-32.0); CREATININE 1.7 mg/dL (0.70-1.30); Calcium 8.9 mg/dL (8.5-10.1); Chloride 104 mmol/L (98-107); FREE T4 1.13 ng/dL (0.76-1.46); Glucose 195 mg/dL (74-106); Magnesium 1.9 mg/dL (1.8-2.4); Sodium 140 mmol/L (136-145); TSH 0.46 uIU/mL (0.36-3.74); Total Protein 7.1 g/dL (6.4-8.2)
== END 2023-01-18 04:08 | disposition home or self-care (01) ==
LOC: LBO 04:08
PROVIDERS: PCP Family Medicine; Visit Provider Internal Medicine Medical Oncology
DX: C34.12 Malignant neoplasm of upper lobe, left bronchus or lung (principal); Z79.899 Other long term (current) drug therapy
CPT/HCPCS: 36415; 80053; 83735; 84439; 84443; 85025

== ENCOUNTER 2023-02-15 03:54 | Outpatient (CLI) | payer MEDICARE, SELFPAY ==
[2023-02-15 12:57] LABS: Abs Immature Grans 0.02 10^3/uL (0.0-0.06); Absolute Basophil Count 0.01 10^3/uL (0.0-0.2); Absolute Eosinophil Count 0.11 10^3/uL (0.0-0.7); Absolute Lymphocyte Count 0.82 10^3/uL (1.2-3.4); Absolute Monocyte Count 0.25 10^3/uL (0.1-0.8); Absolute Neutrophil Count 2.42 10^3/uL (1.2-6.7); Basophils % 0.3; HCT 34.7 % (40.0-50.0); HGB 11.4 g/dL (13.5-17.5); Immature Grans % 0.6; Lymphocytes % 22.6; MCH 30.3 pg (27.0-33.0); MCHC 32.9 % (32.0-36.0); MCV 92 fL (80-95); MPV 8.8 fL (8.0-11.0); Monocytes % 6.9; Neutrophils % 66.6; Platelet Count 227 10^3/uL (130-400); RBC 3.76 10^6/uL (4.36-5.78); RDW 13.4 % (11.8-14.1); RDW-SD 45.1 fL; WBC 3.63 10^3/uL (4.4-10.8)
[2023-02-15 13:35] LABS: ALT 14 U/L (16-63); AST 9 U/L (15-37); Albumin 3.1 g/dL (3.4-5.0); Alkaline Phosphatase 164 U/L (46-116); Anion Gap 6.6 mmol/L (3-11); BUN 16 mg/dL (7-18); Bilirubin, Total 0.2 mg/dL (0.2-1.0); CO2 29.4 mmol/L (21.0-32.0); CREATININE 1.6 mg/dL (0.70-1.30); Calcium 8.9 mg/dL (8.5-10.1); Chloride 104 mmol/L (98-107); Estimated GFR 43.56 (mL/min/1.73m2); FREE T4 1.06 ng/dL (0.76-1.46); Glucose 227 mg/dL (74-106); Magnesium 1.8 mg/dL (1.8-2.4); Potassium 3.9 mmol/L (3.5-5.1); Sodium 140 mmol/L (136-145); TSH 0.84 uIU/mL (0.36-3.74)
== END 2023-02-15 03:55 | disposition home or self-care (01) ==
LOC: LBO 03:54
PROVIDERS: PCP Family Medicine; Visit Provider Internal Medicine Medical Oncology
DX: C34.12 Malignant neoplasm of upper lobe, left bronchus or lung (principal); Z79.899 Other long term (current) drug therapy
CPT/HCPCS: 80053; 83735; 84439; 84443; 85025

== ENCOUNTER 2023-03-15 01:58 | Outpatient (CLI) | payer MEDICARE, SELFPAY ==
[2023-03-15 12:49] LABS: Abs Immature Grans 0.02 10^3/uL (0.0-0.06); Absolute Basophil Count 0.02 10^3/uL (0.0-0.2); Absolute Eosinophil Count 0.09 10^3/uL (0.0-0.7); Absolute Lymphocyte Count 1.02 10^3/uL (1.2-3.4); Absolute Monocyte Count 0.32 10^3/uL (0.1-0.8); Absolute Neutrophil Count 2.79 10^3/uL (1.2-6.7); Basophils % 0.5; Eosinophils % 2.1; HCT 36.1 % (40.0-50.0); HGB 11.7 g/dL (13.5-17.5); Immature Grans % 0.5; Lymphocytes % 23.9; MCH 29.8 pg (27.0-33.0); MCHC 32.4 % (32.0-36.0); MCV 92 fL (80-95); MPV 8.8 fL (8.0-11.0); Monocytes % 7.5; Neutrophils % 65.5; Platelet Count 250 10^3/uL (130-400); RBC 3.92 10^6/uL (4.36-5.78); RDW 13.6 % (11.8-14.1); RDW-SD 46.2 fL; WBC 4.26 10^3/uL (4.4-10.8)
[2023-03-15 13:03] LABS: ALT 9 U/L (16-63); AST 8 U/L (15-37); Albumin 3.1 g/dL (3.4-5.0); Alkaline Phosphatase 175 U/L (46-116); Anion Gap 7.4 mmol/L (3-11); BUN 17 mg/dL (7-18); Bilirubin, Total 0.3 mg/dL (0.2-1.0); CO2 27.6 mmol/L (21.0-32.0); CREATININE 1.6 mg/dL (0.70-1.30); Calcium 8.9 mg/dL (8.5-10.1); Chloride 103 mmol/L (98-107); Estimated GFR 43.56 (mL/min/1.73m2); Glucose 179 mg/dL (74-106); Magnesium 1.8 mg/dL (1.8-2.4); Potassium 4.1 mmol/L (3.5-5.1); Sodium 138 mmol/L (136-145); Total Protein 7.3 g/dL (6.4-8.2)
== END 2023-03-15 01:59 | disposition home or self-care (01) ==
PROVIDERS: PCP Family Medicine; Visit Provider Nurse Practitioner Family
DX: C34.12 Malignant neoplasm of upper lobe, left bronchus or lung (principal)
CPT/HCPCS: 36415; 80053; 83735; 85025

== ENCOUNTER 2023-08-11 02:31 | Outpatient (CLI) | payer MEDICARE, SELFPAY ==
[2023-08-11 08:22] LABS: Abs Immature Grans 0.03 10^3/uL (0.0-0.06); Absolute Basophil Count 0.03 10^3/uL (0.0-0.2); Absolute Eosinophil Count 0.07 10^3/uL (0.0-0.7); Absolute Monocyte Count 0.34 10^3/uL (0.1-0.8); Absolute Neutrophil Count 4.73 10^3/uL (1.2-6.7); Basophils % 0.5; Eosinophils % 1.2; HCT 30.1 % (40.0-50.0); HGB 9.1 g/dL (13.5-17.5); Immature Grans % 0.5; Lymphocytes % 13.3; MCH 26.2 pg (27.0-33.0); MCHC 30.2 % (32.0-36.0); MCV 87 fL (80-95); MPV 8.9 fL (8.0-11.0); Monocytes % 5.7; Neutrophils % 78.8; Platelet Count 344 10^3/uL (130-400); RBC 3.47 10^6/uL (4.36-5.78); RDW 13.2 % (11.8-14.1); RDW-SD 41.7 fL
[2023-08-11 08:45] LABS: ALT 14 U/L (16-63); AST 8 U/L (15-37); Albumin 2.9 g/dL (3.4-5.0); Alkaline Phosphatase 165 U/L (46-116); Anion Gap 11.8 mmol/L (3-11); BUN 16 mg/dL (7-18); Bilirubin, Total 0.2 mg/dL (0.2-1.0); CO2 25.2 mmol/L (21.0-32.0); CREATININE 1.8 mg/dL (0.70-1.30); Chloride 100 mmol/L (98-107); Estimated GFR 37.82 (mL/min/1.73m2); FREE T4 1.32 ng/dL (0.76-1.46); Glucose 279 mg/dL (74-106); Magnesium 1.9 mg/dL (1.8-2.4); Potassium 3.7 mmol/L (3.5-5.1); Sodium 137 mmol/L (136-145); TSH 0.78 uIU/mL (0.36-3.74); Total Protein 7.3 g/dL (6.4-8.2)
== END 2023-08-11 02:32 | disposition home or self-care (01) ==
LOC: LBO 02:31
PROVIDERS: PCP Family Medicine; Visit Provider Internal Medicine Medical Oncology
DX: Z79.899 Other long term (current) drug therapy (principal); C34.12 Malignant neoplasm of upper lobe, left bronchus or lung
CPT/HCPCS: 36415; 80053; 83735; 84439; 84443; 85025

== ENCOUNTER 2023-08-30 04:44 | Outpatient (CLI) | payer MEDICARE, SELFPAY ==
[2023-08-30 07:31] LABS: Abs Immature Grans 0.03 10^3/uL (0.0-0.06); Absolute Basophil Count 0.03 10^3/uL (0.0-0.2); Absolute Eosinophil Count 0.12 10^3/uL (0.0-0.7); Absolute Lymphocyte Count 1.15 10^3/uL (1.2-3.4); Absolute Monocyte Count 0.42 10^3/uL (0.1-0.8); Basophils % 0.5; Eosinophils % 1.9; HCT 28.7 % (40.0-50.0); HGB 8.5 g/dL (13.5-17.5); Immature Grans % 0.5; Lymphocytes % 18.4; MCH 25.7 pg (27.0-33.0); MCHC 29.6 % (32.0-36.0); MCV 87 fL (80-95); MPV 8.7 fL (8.0-11.0); Monocytes % 6.7; RBC 3.31 10^6/uL (4.36-5.78); RDW-SD 44.1 fL; WBC 6.25 10^3/uL (4.4-10.8)
[2023-08-30 07:55] LABS: Diff Comment Diff Reviewed; Hypochromasia 2+; Platelet Count 309 10^3/uL (130-400); Polychromasia Present
[2023-08-30 07:57] LABS: ALT 9 U/L (16-63); AST 9 U/L (15-37); Albumin 2.7 g/dL (3.4-5.0); Alkaline Phosphatase 154 U/L (46-116); Anion Gap 9.8 mmol/L (3-11); BUN 14 mg/dL (7-18); Bilirubin, Total 0.2 mg/dL (0.2-1.0); CO2 27.2 mmol/L (21.0-32.0); CREATININE 1.6 mg/dL (0.70-1.30); Calcium 9.1 mg/dL (8.5-10.1); Chloride 101 mmol/L (98-107); Estimated GFR 43.56 (mL/min/1.73m2); FREE T4 1.17 ng/dL (0.76-1.46); Glucose 207 mg/dL (74-106); Magnesium 1.8 mg/dL (1.8-2.4); Potassium 4.1 mmol/L (3.5-5.1); Sodium 138 mmol/L (136-145); TSH 0.76 uIU/mL (0.36-3.74)
[2023-08-30 08:57] LABS: Reticulocyte 2.1 % (0.5-2.4)
[2023-08-30 09:06] LABS: Iron 26 ug/dL (65-175); Total Iron Binding Capacity 273 ug/dL (250-450); Transferrin Sat 10 % (20-55)
[2023-08-30 09:41] LABS: Ferritin 27 ng/mL (26-388); Folate 9.5 ng/mL (8.6-20.0); Vitamin B12 621 pg/mL (193-986)
== END 2023-08-30 04:45 | disposition home or self-care (01) ==
LOC: LBO 04:44
PROVIDERS: Nurse Practitioner Family; PCP Family Medicine; Visit Provider Internal Medicine Medical Oncology
DX: Z79.899 Other long term (current) drug therapy (principal); D63.0 Anemia in neoplastic disease
CPT/HCPCS: 36415; 80053; 82607; 82728; 82746; 83540; 83550; 83735; 84439; 84443; 85025; 85045

== ENCOUNTER 2023-09-20 05:24 | Outpatient (CLI) | payer MEDICARE, SELFPAY ==
[2023-09-20 07:36] LABS: Abs Immature Grans 0.04 10^3/uL (0.0-0.06); Absolute Basophil Count 0.02 10^3/uL (0.0-0.2); Absolute Eosinophil Count 0.11 10^3/uL (0.0-0.7); Absolute Lymphocyte Count 0.87 10^3/uL (1.2-3.4); Absolute Monocyte Count 0.47 10^3/uL (0.1-0.8); Absolute Neutrophil Count 4.03 10^3/uL (1.2-6.7); Basophils % 0.4; HCT 27.1 % (40.0-50.0); HGB 7.5 g/dL (13.5-17.5); Immature Grans % 0.7; Lymphocytes % 15.7; MCHC 27.7 % (32.0-36.0); MCV 90 fL (80-95); MPV 8.4 fL (8.0-11.0); Monocytes % 8.5; Neutrophils % 72.7; Nucleated RBC 0.4 % (0.0-0.3); Platelet Count 281 10^3/uL (130-400); RDW 14.5 % (11.8-14.1); RDW-SD 47.3 fL; WBC 5.54 10^3/uL (4.4-10.8)
[2023-09-20 07:48] LABS: Diff Comment RBC Morph Reviewed; Hypochromasia 2+
[2023-09-20 08:03] LABS: ALT 8 U/L (16-63); AST 7 U/L (15-37); Albumin 2.5 g/dL (3.4-5.0); Alkaline Phosphatase 155 U/L (46-116); Anion Gap 9.9 mmol/L (3-11); BUN 15 mg/dL (7-18); Bilirubin, Total 0.2 mg/dL (0.2-1.0); CO2 27.1 mmol/L (21.0-32.0); CREATININE 1.5 mg/dL (0.70-1.30); Calcium 8.1 mg/dL (8.5-10.1); Chloride 103 mmol/L (98-107); Estimated GFR 47.06 (mL/min/1.73m2); FREE T4 1.06 ng/dL (0.76-1.46); Glucose 213 mg/dL (74-106); Magnesium 1.8 mg/dL (1.8-2.4); Potassium 3.8 mmol/L (3.5-5.1); Sodium 140 mmol/L (136-145); TSH 1.76 uIU/Ml (0.36-3.74); Total Protein 6.5 g/dL (6.4-8.2)
== END 2023-09-20 05:25 | disposition home or self-care (01) ==
LOC: LBO 05:24
PROVIDERS: PCP Family Medicine; Visit Provider Internal Medicine Medical Oncology
DX: Z79.899 Other long term (current) drug therapy (principal)
CPT/HCPCS: 36415; 80053; 83735; 84439; 84443; 85025

== ENCOUNTER 2023-09-22 12:38 | Outpatient (CLI) | payer MEDICARE, SELFPAY ==
[2023-09-22 12:25] LABS: Abs Immature Grans 0.03 10^3/uL (0.0-0.06); Absolute Basophil Count 0.02 10^3/uL (0.0-0.2); Absolute Eosinophil Count 0.12 10^3/uL (0.0-0.7); Absolute Lymphocyte Count 1.05 10^3/uL (1.2-3.4); Absolute Monocyte Count 0.43 10^3/uL (0.1-0.8); Absolute Neutrophil Count 4.12 10^3/uL (1.2-6.7); Basophils % 0.3; Eosinophils % 2.1; HCT 32.5 % (40.0-50.0); HGB 9.5 g/dL (13.5-17.5); Immature Grans % 0.5; Lymphocytes % 18.2; MCH 25.8 pg (27.0-33.0); MCHC 29.2 % (32.0-36.0); MCV 88 fL (80-95); MPV 8.5 fL (8.0-11.0); Monocytes % 7.5; Neutrophils % 71.4; Platelet Count 275 10^3/uL (130-400); RBC 3.68 10^6/uL (4.36-5.78); RDW 15.4 % (11.8-14.1); WBC 5.77 10^3/uL (4.4-10.8)
[2023-09-22 12:43] LABS: ALT 8 U/L (16-63); AST 9 U/L (15-37); Albumin 2.3 g/dL (3.4-5.0); Alkaline Phosphatase 144 U/L (46-116); Anion Gap 9.7 mmol/L (3-11); BUN 13 mg/dL (7-18); Bilirubin, Total 0.2 mg/dL (0.2-1.0); CO2 28.3 mmol/L (21.0-32.0); CREATININE 1.5 mg/dL (0.70-1.30); Chloride 102 mmol/L (98-107); Estimated GFR 47.06 (mL/min/1.73m2); FREE T4 1.03 ng/dL (0.76-1.46); Glucose 222 mg/dL (74-106); Magnesium 1.8 mg/dL (1.8-2.4); Potassium 3.7 mmol/L (3.5-5.1); Sodium 140 mmol/L (136-145); TSH 1.81 uIU/Ml (0.36-3.74); Total Protein 6.3 g/dL (6.4-8.2)
== END 2023-09-22 12:39 | disposition home or self-care (01) ==
LOC: LBO 12:38
PROVIDERS: PCP Family Medicine; Visit Provider Internal Medicine Medical Oncology
DX: Z79.899 Other long term (current) drug therapy (principal); C34.12 Malignant neoplasm of upper lobe, left bronchus or lung
CPT/HCPCS: 36415; 80053; 83735; 84439; 84443; 85025

== ENCOUNTER 2023-10-18 05:59 | Outpatient (CLI) | payer MEDICARE, SELFPAY ==
[2023-10-18 09:23] LABS: Abs Immature Grans 0.02 10^3/uL (0.0-0.06); Absolute Basophil Count 0.02 10^3/uL (0.0-0.2); Absolute Eosinophil Count 0.17 10^3/uL (0.0-0.7); Absolute Lymphocyte Count 0.78 10^3/uL (1.2-3.4); Absolute Monocyte Count 0.36 10^3/uL (0.1-0.8); Absolute Neutrophil Count 5.11 10^3/uL (1.2-6.7); Basophils % 0.3; Eosinophils % 2.6; HCT 33.4 % (40.0-50.0); HGB 9.9 g/dL (13.5-17.5); Immature Grans % 0.3; Lymphocytes % 12.1; MCH 25.3 pg (27.0-33.0); MCHC 29.6 % (32.0-36.0); MCV 85 fL (80-95); MPV 8.3 fL (8.0-11.0); Monocytes % 5.6; Neutrophils % 79.1; Platelet Count 292 10^3/uL (130-400); RBC 3.91 10^6/uL (4.36-5.78); RDW 14.7 % (11.8-14.1); RDW-SD 45.9 fL; WBC 6.46 10^3/uL (4.4-10.8)
[2023-10-18 09:48] LABS: ALT 10 U/L (16-63); AST 8 U/L (15-37); Albumin 2.5 g/dL (3.4-5.0); Alkaline Phosphatase 143 U/L (46-116); Anion Gap 10.1 mmol/L (3-11); BUN 14 mg/dL (7-18); Bilirubin, Total 0.3 mg/dL (0.2-1.0); CO2 28.9 mmol/L (21.0-32.0); CREATININE 1.6 mg/dL (0.70-1.30); Calcium 8.8 mg/dL (8.5-10.1); Chloride 100 mmol/L (98-107); Estimated GFR 43.29 (mL/min/1.73m2); FREE T4 1.45 ng/dL (0.76-1.46); Glucose 187 mg/dL (74-106); Magnesium 1.6 mg/dL (1.8-2.4); Potassium 3.8 mmol/L (3.5-5.1); Sodium 139 mmol/L (136-145); TSH 0.36 uIU/Ml (0.36-3.74); Total Protein 7.1 g/dL (6.4-8.2)
== END 2023-10-18 06:00 | disposition home or self-care (01) ==
LOC: LBO 05:59
PROVIDERS: PCP Family Medicine; Visit Provider Internal Medicine Medical Oncology
DX: E06.9 Thyroiditis, unspecified (principal); C34.12 Malignant neoplasm of upper lobe, left bronchus or lung; G89.3 Neoplasm related pain (acute) (chronic)
CPT/HCPCS: 36415; 80053; 83735; 84439; 84443; 85025

== ENCOUNTER 2023-11-08 05:12 | Outpatient (CLI) | payer MEDICARE, SELFPAY ==
[2023-11-08 10:45] LABS: Abs Immature Grans 0.03 10^3/uL (0.0-0.06); Absolute Basophil Count 0.01 10^3/uL (0.0-0.2); Absolute Eosinophil Count 0.15 10^3/uL (0.0-0.7); Absolute Lymphocyte Count 1.05 10^3/uL (1.2-3.4); Absolute Monocyte Count 0.41 10^3/uL (0.1-0.8); Absolute Neutrophil Count 4.12 10^3/uL (1.2-6.7); Basophils % 0.2 %; Eosinophils % 2.6 %; HCT 30.3 % (40.0-50.0); HGB 8.7 g/dL (13.5-17.5); Immature Grans % 0.5 %; Lymphocytes % 18.2 %; MCH 25.6 pg (27.0-33.0); MCHC 28.7 % (32.0-36.0); MCV 89 fL (80-95); Monocytes % 7.1 %; Neutrophils % 71.4 %; Platelet Count 307 10^3/uL (130-400); RDW 15.8 % (11.8-14.1); RDW-SD 50.4 fL; WBC 5.77 10^3/uL (4.4-10.8)
[2023-11-08 11:09] LABS: ALT 9 U/L (16-63); AST 9 U/L (15-37); Albumin 2.5 g/dL (3.4-5.0); Alkaline Phosphatase 149 U/L (46-116); Anion Gap 7.2 mmol/L (3-11); BUN 17 mg/dL (7-18); Bilirubin, Total 0.2 mg/dL (0.2-1.0); CO2 32.8 mmol/L (21.0-32.0); CREATININE 1.5 mg/dL (0.70-1.30); Calcium 8.6 mg/dL (8.5-10.1); Chloride 102 mmol/L (98-107); Estimated GFR 46.77 (mL/min/1.73m2); FREE T4 1.19 ng/dL (0.76-1.46); Glucose 156 mg/dL (74-106); Magnesium 1.8 mg/dL (1.8-2.4); Potassium 3.8 mmol/L (3.5-5.1); Sodium 142 mmol/L (136-145); TSH 0.49 uIU/Ml (0.36-3.74); Total Protein 6.8 g/dL (6.4-8.2)
== END 2023-11-08 05:13 | disposition home or self-care (01) ==
LOC: LBO 05:12
PROVIDERS: PCP Family Medicine; Visit Provider Internal Medicine Medical Oncology
DX: Z79.899 Other long term (current) drug therapy (principal); C34.12 Malignant neoplasm of upper lobe, left bronchus or lung
CPT/HCPCS: 36415; 80053; 83735; 84439; 84443; 85025

== ENCOUNTER 2023-12-01 05:13 | Outpatient (CLI) | payer MEDICARE, SELFPAY ==
[2023-12-01 10:44] LABS: Abs Immature Grans 0.03 10^3/uL (0.0-0.06); Absolute Basophil Count 0.01 10^3/uL (0.0-0.2); Absolute Eosinophil Count 0.17 10^3/uL (0.0-0.7); Absolute Lymphocyte Count 0.74 10^3/uL (1.2-3.4); Absolute Monocyte Count 0.35 10^3/uL (0.1-0.8); Absolute Neutrophil Count 5.18 10^3/uL (1.2-6.7); Basophils % 0.2 %; Eosinophils % 2.6 %; Immature Grans % 0.5 %; Lymphocytes % 11.4 %; MCH 25.6 pg (27.0-33.0); MCV 88 fL (80-95); MPV 8.2 fL (8.0-11.0); Monocytes % 5.4 %; Neutrophils % 79.9 %; Platelet Count 308 10^3/uL (130-400); RBC 3.52 10^6/uL (4.36-5.78); RDW 15.5 % (11.8-14.1); RDW-SD 49.7 fL; WBC 6.48 10^3/uL (4.4-10.8)
[2023-12-01 11:08] LABS: ALT 10 U/L (16-63); AST 8 U/L (15-37); Albumin 2.4 g/dL (3.4-5.0); Alkaline Phosphatase 151 U/L (46-116); Anion Gap 8.3 mmol/L (3-11); BUN 15 mg/dL (7-18); Bilirubin, Total 0.3 mg/dL (0.2-1.0); CO2 30.7 mmol/L (21.0-32.0); CREATININE 1.5 mg/dL (0.70-1.30); Calcium 8.6 mg/dL (8.5-10.1); Chloride 101 mmol/L (98-107); Estimated GFR 46.77 (mL/min/1.73m2); FREE T4 1.36 ng/dL (0.76-1.46); Glucose 183 mg/dL (74-106); Magnesium 1.5 mg/dL (1.8-2.4); Potassium 3.6 mmol/L (3.5-5.1); Sodium 140 mmol/L (136-145); TSH 0.41 uIU/Ml (0.36-3.74)
== END 2023-12-01 05:14 | disposition home or self-care (01) ==
LOC: LBO 05:14
PROVIDERS: PCP Family Medicine; Visit Provider Internal Medicine Medical Oncology
DX: Z79.899 Other long term (current) drug therapy (principal); C34.12 Malignant neoplasm of upper lobe, left bronchus or lung
CPT/HCPCS: 36415; 80053; 83735; 84439; 84443; 85025

== ENCOUNTER 2023-12-20 05:47 | Outpatient (CLI) | payer MEDICARE, SELFPAY ==
[2023-12-20 11:06] LABS: ALT 10 U/L (16-63); AST 10 U/L (15-37); Albumin 2.4 g/dL (3.4-5.0); Alkaline Phosphatase 157 U/L (46-116); Anion Gap 6.9 mmol/L (3-11); BUN 17 mg/dL (7-18); Bilirubin, Total 0.3 mg/dL (0.2-1.0); CO2 32.1 mmol/L (21.0-32.0); CREATININE 1.6 mg/dL (0.70-1.30); Calcium 8.9 mg/dL (8.5-10.1); Chloride 101 mmol/L (98-107); Estimated GFR 43.29 (mL/min/1.73m2); FREE T4 1.31 ng/dL (0.76-1.46); Glucose 192 mg/dL (74-106); Magnesium 1.3 mg/dL (1.8-2.4); Potassium 3.7 mmol/L (3.5-5.1); Sodium 140 mmol/L (136-145); TSH 0.28 uIU/Ml (0.36-3.74); Total Protein 7.2 g/dL (6.4-8.2)
[2023-12-20 11:14] LABS: Abs Immature Grans 0.03 10^3/uL (0.0-0.06); Absolute Basophil Count 0.02 10^3/uL (0.0-0.2); Absolute Lymphocyte Count 0.73 10^3/uL (1.2-3.4); Absolute Monocyte Count 0.34 10^3/uL (0.1-0.8); Absolute Neutrophil Count 5.59 10^3/uL (1.2-6.7); Basophils % 0.3 %; Eosinophils % 1.5 %; HCT 29.4 % (40.0-50.0); HGB 8.9 g/dL (13.5-17.5); Immature Grans % 0.4 %; Lymphocytes % 10.7 %; MCH 25.7 pg (27.0-33.0); MCHC 30.3 % (32.0-36.0); MCV 85 fL (80-95); MPV 8.8 fL (8.0-11.0); Neutrophils % 82.1 %; Platelet Count 348 10^3/uL (130-400); RBC 3.46 10^6/uL (4.36-5.78); RDW 14.9 % (11.8-14.1); RDW-SD 46.5 fL; WBC 6.81 10^3/uL (4.4-10.8)
== END 2023-12-20 05:48 | disposition home or self-care (01) ==
LOC: LBO 05:47
PROVIDERS: PCP Family Medicine; Visit Provider Internal Medicine Medical Oncology
DX: Z79.899 Other long term (current) drug therapy (principal); C34.12 Malignant neoplasm of upper lobe, left bronchus or lung
CPT/HCPCS: 36415; 80053; 83735; 84439; 84443; 85025